=== PATIENT | male | born 1980 | race African-American/Black ===

== ENCOUNTER 2022-07-20 21:16 | Emergency (ER) | payer OTHER, SELFPAY ==
--- NOTE | ~2022-07-20 | CT_ITS ---
EXAMINATION: CT brain wo con DATE: 07/21/2022 00:37 INDICATION: Altered mental status. TECHNIQUE: Computed tomography (CT) of the head was performed without intravenous contrast. The mA wa s adjusted according to patient size. Iterative reconstruction technique was employed. The dose-lengt h product was 605.33 mGy-cm. COMPARISON: None FINDINGS: There is no intracranial hemorrhage, acute infarction, or abnormal intracranial mass lesion . The ventricles are normal in size. There is an old blowout fracture of medial wall of right orbit. There is mucosal thickening in the paranasal sinuses. There is thickening and sclerosis of the cagle of left sphenoid sinus, consistent with chronic sinusitis. The mastoid air cells are normal. IMPRESSION: 1. Normal brain. 2. Chronic sinusitis. Reviewed, dictated and finalized at location A. R REPAIRER
--- NOTE | ~2022-07-20 | XR_ITS ---
XR chest 2V DATE: 07/20/2022 22:09 INDICATION: Altered mental status TECHNIQUE: PA and lateral views COMPARISON: None FINDINGS: Normal heart size. No hilar or mediastinal enlargement. No pulmonary infiltrate or consolid ation, pleural effusion or pulmonary vascular congestion or pneumothorax. IMPRESSION: No active cardiopulmonary disease Reviewed, dictated and finalized at location A. CE SERVICES MANAGER
[2022-07-20 21:18] VITALS: BP 120/99; PULSE 106; RESP 16; TEMP 36.7; O2SAT 100
--- NOTE | 2022-07-20 21:49 | ECG_ITS ---
Measurements Intervals [place] Rate: 92 P: 86 CO: 169 QRS: 45 QRSD: 84 T: 67 QT: 350 QTc: 434 Interpretive Statements SINUS RHYTHM ATRIAL PREMATURE COMPLEX BASELINE ARTIFACT- I, II, III, AVR, AVL, AVF, V1-V2 BORDERLINE ECG NO PREVIOUS ECG AVAILABLE FOR COMPARISON Electronically Signed On 07-21-2022 6:48:46 TRAINING MGR by Asa Chaparro D.O.
[2022-07-20 22:05] LABS: Basophils Absolute Auto 0.1 K/mm3 (0.0-0.1); Basophils Percent Auto 1.1 % (0.2-1.2); Eosinophils Absolute Auto 0.4 K/mm3 (0-0.3); Eosinophils Percent Auto 4.3 % (0-4.4); Hematocrit 37.3 % (42.0-52.0); Hemoglobin 12.2 g/dL (14.0-18.0); Immature Granulocyte Absolute 0.03 K/mm3 (0.00-0.031); Immature Granulocyte Percent A 0.3 % (0-0.5); Lymphocytes Absolute Auto 2.96 K/mm3 (0.9-3.2); Lymphocytes Percent Auto 32.4 % (18.3-44.2); Mean Corpuscular HGB Conc 32.7 g/dl (32-36); Mean Corpuscular Volume 85.6 fl (80-100); Mean Platelet Volume 8.8 fl (7.4-10.4); Monocytes Absolute Auto 0.5 K/mm3 (0.1-0.6); Monocytes Percent Auto 5.6 % (2.6-8.5); Neutrophils Absolute Auto 5.1 K/mm3 (1.3-6.7); Neutrophils Percent Auto 56.3 % (45.5-73.1); Platelet Count Result 222 k/mm3 (150-375); Red Blood Count 4.36 M/mm3 (4.6-6.20); Red Cell Distribution Width 11.9 % (11.5-14.5); White Blood Count 9.1 K/mm3 (4.5-10.0)
[2022-07-20 22:15] LABS: INR 1.1; Prothrombin Time 13.8 Seconds (11.1-14.7)
[2022-07-20 22:16] LABS: Lactic Acid Reflex 1.3 mmol/L (0.7-2.0); Partial Thromboplastin Time 32.7 SECONDS (22.3-36.8)
[2022-07-20 22:17] LABS: Ethanol < 10 mg/dL (<10)
[2022-07-20] MEDS: SODIUM CHLORIDE 0.9% IV 1,000 ML 999 ML IV CONT (22:17)
[2022-07-20 22:18] LABS: Alanine Aminotransferase 58 U/L (6-50); Albumin Level 4.2 g/dL (3.5-5.1); Alkaline Phosphatase 176 U/L (38-126); Anion Gap 7 mmol/L (8-16); Aspartate Amino Transferase 62 U/L (17-59); Bilirubin,Total 0.3 mg/dL (0.2-1.3); Blood Urea Nitrogen 14 mg/dL (9-20); Calcium 8.6 mg/dL (8.4-10.2); Carbon Dioxide 29 mmol/L (22-30); Chloride 101 mmol/L (98-107); Creatine Kinase 77 U/L (55-170); Estimated CRCL calculation 72 ml/min; Estimated Glomerular Filt Rate > 60; Glucose 188 mg/dL (65-110); Potassium 3.7 mmol/L (3.4-5.0); Sodium 137 mmol/L (137-145)
[2022-07-20 22:29] LABS: Troponin I < 0.012 ng/mL (0.000-0.034)
--- NOTE | 2022-07-20 22:33 | PC.NURSE ---
Pt has a history of diabetic retinopathy and is losing his vision and as a result has been living with his parents. Pt reports feeling closed in and ran out of the house to try and feel better. Pt is not coping with losing his vision and depending on others for help. He denies SI/HI. He is alert and oriented x4. His speech is clear, moves all extremities equally. He denies any SOB, n/v, or pain. He is cooperative with staff at this time.
--- NOTE | 2022-07-20 22:35 | PC.NURSE ---
Patient making non-sensible statements such as there is a needle in my penis. and can you take my gloves off because they are sticky?
--- NOTE | 2022-07-20 22:39 | ED.PSYCH ---
HPI - Psych General Chief Complaint: Psychiatric Symptoms <Marilyn Augustin MD - Last Filed: 07/21/22 19:30> Stated Complaint: violent episode <Marilyn Augustin MD - Last Filed: 07/21/22 19:30> Time Seen by Provider: 07/20/22 21:36 <Marilyn Augustin MD - Last Filed: 07/21/22 19:30> Source: patient, family and RN notes reviewed <Marilyn Augustin MD - Last Filed: 07/21/22 19:30> Mode of arrival: wheelchair <Marilyn Augustin MD - Last Filed: 07/21/22 19:30> Limitations: no limitations <Marilyn Augustin MD - Last Filed: 07/21/22 19:30> History of Present Illness HPI Narrative: This is a 42 year old male with history of DM who presents for evaluation of hallucinations. Patient presents with his mother and father who states that patient has been staying with them due to blindness. Patient states he is going blind due to his diabetes. He states he can see shapes and colors. Family reports that one of their neighbors called the police tonight. Patient ran out of the house because he told them they were trying to kill him. His family states that he has been paranoid for at least 1 week. He ran out of the house tonight and he ran into a neighbors yard. Family reports patient is hallucinating. Patient denies hearing voices. He denies any acute issues. He denies suicidal or homicidal ideations. He denies any psychiatric illnesses. He states he has not drank alcohol in 1 week. He smoked marijuana yesterday and he reports using cocaine in the past. <Marilyn Augustin MD - Last Filed: 07/21/22 19:30> Related Data Home Medications: Home Medications Medication Instructions Recorded Confirmed duloxetine 30 mg capsule,delayed mg PO 07/21/22 release gabapentin 300 mg capsule mg 07/21/22 insulin lispro 100 unit/mL subcut 07/21/22 subcutaneous pen (Humalog KwikPen (U-100) Insulin) nitrofurantoin 07/21/22 monohydrate/macrocrystals 100 mg capsule potassium chloride 10 mEq meq 07/21/22 capsule,extended release <Marilyn Augustin MD - Last Filed: 07/21/22 19:30> Allergies/Adverse Reactions: Allergies Allergy/AdvReac Type Severity Reaction Status Date / Time No Known Allergies Allergy Verified 07/21/22 10:49 <Marilyn Augustin MD - Last Filed: 07/21/22 19:30> Review of Systems Constitutional: Constitutional: Denies weakness <Marilyn Augustin MD - Last Filed: 07/21/22 19:30> Eyes: Eyes: Reports change in vision <Marilyn Augustin MD - Last Filed: 07/21/22 19:30> Cardiovascular: Cardiovascular: Denies syncope, Denies rapid heart rate, Denies irregular heart rhythm, Denies leg edema and Denies dyspnea <Marilyn Augustin MD - Last Filed: 07/21/22 19:30> Respiratory: Respiratory: Denies chest congestion, Denies hemoptysis, Denies excessive phlegm production and Denies dyspnea <Marilyn Augustin MD - Last Filed: 07/21/22 19:30> Gastrointestinal: Gastrointestinal: Denies abdominal pain, Denies hematochezia, Denies diarrhea and Denies vomiting <Marilyn Augustin MD - Last Filed: 07/21/22 19:30> Genitourinary: Genitourinary: Denies hematuria, Denies dysuria, Denies penile discharge and Denies testicular pain <Marilyn Augustin MD - Last Filed: 07/21/22 19:30> Musculoskeletal: Musculoskeletal: Denies joint swelling, Denies loss of height and Denies muscle weakness <Marilyn Augustin MD - Last Filed: 07/21/22 19:30> Neurologic: Denies syncope, Denies focal weakness and Denies weakness <Marilyn Augustin MD - Last Filed: 07/21/22 19:30> PMFSH Past Medical History Medical History: Medical History (Updated 07/21/22 @ 04:50 by Marilyn Augustin MD) Cataract Diabetes mellitus <Marilyn Augustin MD - Last Filed: 07/21/22 19:30> Surgical History Surgical History: Surgical History (Updated 07/20/22 @ 22:45 by Marilyn Augustin MD) No pertinent past surgical history <Marilyn Augustin MD - Last Filed: 07/21/22 19:30> Social Hist
[2022-07-20 23:15] LABS: Appearance Urine Clear (Clear); Bilirubin Urine Negative (Negative); Blood Urine Trace-intact (Negative); Color Urine Yellow (Yellow); Glucose Urine UA Trace mg/dL (Negative); Ketones Urine Negative (Negative); Leukocyte Esterase Ur Negative LEU/UL (Negative); Nitrate Urine Negative (Negative); Protein Urine Trace mg/dL (Negative); Specific Grav Ur 1.025 (1.001-1.035); Urobilinogen Urine 0.2 mg/dL (<2.0)
[2022-07-20 23:21] LABS: Calcium Oxalate Crystals Urine Present /hpf; Mucus Urine Rare /lpf; WBC Urine 0-3 /hpf
[2022-07-20 23:27] LABS: Amphetamine Screen Urine Negative (Negative); Barbiturate Screen Urine Negative (Negative); Benzodiazepines Screen Urine Negative (Negative); Cannabinoid Screen Urine Positive (Negative); Cocaine Screen Urine Negative (Negative); Methadone Screen Urine Negative (Negative); Opiate Screen Urine Negative (Negative); Phencyclidine Screen Urine Negative (Negative)
[2022-07-20 23:46] LABS: Add Urine Microscopic? YES
[2022-07-20 23:52] LABS: Influenza A QL RT-PCR Negative (Negative); Influenza B QL RT-PCR Negative (Negative); SARS-CoV-2 RNA PCR Negative
[2022-07-20 23:53] VITALS: BP 115/86; PULSE 94; RESP 18; O2SAT 100
[2022-07-21] MEDS: LORazepam INJ (*CRX) 2 MG/ML VIAL 1 MG IV PUSH (01:41)
--- NOTE | 2022-07-21 01:43 | PC.NURSE ---
Pt's family member stepped out into waiting room. Pt heard talking to people who are not in the room and getting out of bed and standing in the corner. Pt was easily redirected back into bed without incident. Notified monorail charger operator that pt would benefit from a sitter but there are no sitters available. Ativan administered per order. Blankets given to pt and lights turned off to encourage sleep.
--- NOTE | 2022-07-21 02:10 | PC.NURSE ---
Pt up to bathroom and back to bed using wheelchair. Family back at bedside. Informed family that we are waiting for CT report to come back before mental health can be called. Blankets placed on pt and lights turned off to encourage rest.
--- NOTE | 2022-07-21 03:02 | PC.NURSE ---
Pt is very restless and has attempted to get out of bed multiple times despite many attempts to redirect him. Dr. Augustin notified.
[2022-07-21] MEDS: HALOPERIDOL LACTATE 5 MG/ML VIAL IM (03:22)
--- NOTE | 2022-07-21 03:29 | PC.NURSE ---
Pt medically cleared at this time per Dr. Augustin. [facility] crisis line called for worker to come evaluate pt for hallucinations.
--- NOTE | 2022-07-21 04:25 | PC.NURSE ---
[facility] crisis workers at bedside
--- NOTE | 2022-07-21 04:53 | PC.NURSE ---
Chart printed for [facility] crisis workers.
--- NOTE | 2022-07-21 05:50 | PC.NURSE ---
Iliana from [facility] in [place] called to get information on pt. Report given and pt's chart faxed at this time to [phone]
--- NOTE | 2022-07-21 05:56 | PC.NURSE ---
[facility] called and stated they had no beds at this time. can call again after 11 am to check for possible discharges
--- NOTE | 2022-07-21 05:58 | PC.NURSE ---
[facility] called and declined patient stating that he does not meet criteria for admission
--- NOTE | 2022-07-21 05:59 | PC.NURSE ---
Marilu from [facility] called and report given. Chart faxed to [facility] at [phone].
--- NOTE | 2022-07-21 06:28 | PC.NURSE ---
SUCCESSFULLY FAXED CHART TO [facility] AND [facility]. TRIED NUMEROUS TIMES (4X) TO FAX TO [facility]...ALL UNSUCCESSFUL. CALLED TO CONFIRM FAX NUMBER AND SPOKE TO [facility] WHO GAVE ME A DIFFERENT FAX NUMBER ([phone]) THAT WAS ALSO UNSUCCESSFUL. TRIED CALLING THEM BACK TO CONFIRM THE FAX NUMBER AGAIN, SPOKE TO [facility], AGAIN, HE SAID THAT WAS THE ONLY NUMBER HE HAD...TRANSFERRED ME TO [facility]...NO ANSWER.
[2022-07-21 06:50] VITALS: BP 146/100; PULSE 107; RESP 18; O2SAT 100
--- NOTE | 2022-07-21 07:08 | PC.NURSE ---
Nurse report given to Jocelin DURAN
--- NOTE | 2022-07-21 08:14 | PC.NURSE ---
[id number] declined placement due to staff shortage
--- NOTE | 2022-07-21 09:00 | PC.NURSE ---
[facility] [place]
--- NOTE | 2022-07-21 09:39 | PC.NURSE ---
3rd attempt [facility]ing [facility] [place]
--- NOTE | 2022-07-21 10:12 | PC.NURSE ---
Up to bathroom, when nurse checked on pt he states I'm just looking for the breakfast buffet. Pt returned to room. Cooperative with staff.
--- NOTE | 2022-07-21 12:30 | PC.NURSE ---
Awaiting crisis to re-evaluate pt. [facility] unable to take pt at this time.
--- NOTE | 2022-07-21 13:50 | PC.NURSE ---
Crisis here to re-evaluate.
== END 2022-07-21 15:12 | disposition home or self-care (01) ==
PROVIDERS: Emergency Provider General Practice
DX: F29 Unspecified psychosis not due to a substance or known physiological condition (principal); E11.39 Type 2 diabetes mellitus with other diabetic ophthalmic complication; H54.7 Unspecified visual loss; Z79.4 Long term (current) use of insulin
CPT/HCPCS: 36415; 70450; 71046; 80053; 80307; 81001; 82550; 83605; 84484; 85025; 85610; 85730; 87636; 93005; 96361; 96372; 96374; 99284; J1630; J2060; J7030

== ENCOUNTER 2024-10-25 11:01 | Inpatient (IN) | payer OTHER, SELFPAY ==
[2024-10-25] VITALS (9 sets, daily range): BP systolic 110–133; BP diastolic 81–89; PULSE 72–85; RESP 13–16; TEMP 36.3–37.1; O2SAT 98–100; BMI 14.8
--- NOTE | ~2024-10-25 | XR_ITS ---
EXAMINATION: XR chest 1V portable DATE: 10/25/2024 11:24 INDICATION: Hypoglycemia. Seizure. TECHNIQUE: frontal view of the chest was obtained. COMPARISON: Chest radiograph dated 07/20/2022 FINDINGS: Minimal right apical pleural-parenchymal scarring. No other airspace opacities, pulmonary edema, pleu ral effusion or pneumothorax. The cardiomediastinal silhouette is normal. Mild thoracic dextrocurvatu re. IMPRESSION: 1. No acute cardiopulmonary disease. Reviewed, dictated and finalized at location A.
--- NOTE | ~2024-10-25 | CT_ITS ---
EXAMINATION: CT brain wo con DATE: 10/25/2024 12:17 INDICATION: Seizure TECHNIQUE: Computed tomography (CT) of the head was performed without intravenous contrast. Sagittal and coronal reconstructions were performed. The mA was adjusted according to patient size. Iterative reconstruction technique was employed. The dose-length product was 605.33 mGy-cm. COMPARISON: head CT dated 07/21/2022 FINDINGS: No acute intracranial hemorrhage, acute infarction or abnormal extra axial fluid collection. Ventricl es are normal and symmetric. No mass/mass effect. Chronic blowout fracture of the medial wall of the right orbit. The orbitsare otherwise normal. There is complete opacification of the left sphenoid sin us with thickened sclerotic cagle consistent with chronic sinusitis. Mastoid air cells and middle ear cavities are clear. IMPRESSION: 1. Normal brain. 2. Chronic left sphenoid sinusitis. Reviewed, dictated and finalized at location A.
--- NOTE | ~2024-10-25 | CT_ITS ---
CLINICAL INDICATION: Abdominal pain and weight loss COMPARISON: None TECHNIQUE: An enhanced CT of the abdomen and pelvis was performed utilizing multislice spiral what3words ue reconstructed at 5 mm slice thickness. Coronal and sagittal reconstructions were performed. This CT examination was performed utilizing dose reduction techniques. DLP: 256 mGy-cm FINDINGS/OBSERVATIONS: Lung: The lungs are clear. The heart is of normal size, without pericardial effusion. Mediastinum: No pathologically enlarged or morphologically suspicious lymph nodes are identified within the medias tinum, bilateral axilla, within the soft tissues of the anterior chest wall. Soft tissues of the chest: Unremarkable. Bones of the chest: No acute fracture. No lytic or blastic lesions are identified. Liver: The liver enhances homogeneously and is not enlarged. Gallbladder and biliary system: The gallbladder is decompressed and contains multiple stones, but is otherwise unremarkable. Pancreas: Diffuse calcifications are identified within the pancreas, findings consistent with chronic pancreatitis. The remainder of the pancreas otherwise enhances homogeneously, without ductal dilatation. Spleen: The spleen enhances homogeneously and is not enlarged. Kidneys: The bilateral kidneys enhance symmetrically without hydronephrosis or renal calculi. A left-sided rafaela ble-J stent is present. The distal pigtail of the double-J stent is identified within the right side of the patient's bladder, which is decompressed with a Estrada catheter. Rounded focus of soft tissue attenuation within the lower pole of the right kidney, demonstrating not quite fluid attenuation for which focused ultrasound of the bilateral kidneys may be performed for f urther evaluation. Adrenal glands: Unremarkable. Gastrointestinal tract: The stomach is significantly distended with retained gastric contents, without a clear source of outl et obstruction. Appendix: The air-filled appendix is of normal caliber (axial series, image 170). Vasculature: No calcified atherosclerotic disease is present. No aneurysmal dilatation. Lymph nodes: Scattered nonpathologically enlarged lymph nodes within the root of the mesentery and deep in the pel vis. Pelvic structures: The bladder is decompressed with a Estrada catheter, limiting its evaluation. Body wall and musculoskeletal: No significant degenerative disease within the thoracic or lumbosacral spine. IMPRESSION: Rounded focus of soft tissue attenuation within the lower pole of the right kidney for which dedicate d ultrasound may be performed for further evaluation. Significant retained contents within both the stomach and proximal duodenum without a clear source of outlet obstruction identified. Findings consistent with chronic pancreatitis. Left-sided double-J stent. Cholelithiasis without CT findings to suggest acute cholecystitis. Reviewed, dictated and finalized at location A. IMPRESSION: Rounded focus of soft tissue attenuation within the lower pole of the right kid renay for which dedicated ultrasound may be performed for further evaluation. Significant retained contents within both the stomach and proximal duodenum wit hout a clear source of outlet obstruction identified. Findings consistent with chronic pancreatitis. Left-sided double-J stent. Cholelithiasis without CT findings to suggest acute cholecystitis.
--- NOTE | 2024-10-25 11:10 | ECG_ITS ---
Test Date: 2024-10-25 12:21:23 Measurements Intervals [place] Rate: 75 P: 83 TN: 148 QRS: 58 QRSD: 82 T: 84 QT: 386 QTc: 432 Interpretive Statements SINUS RHYTHM CANNOT R/O SEPTAL INFARCT, AGE INDETERMINATE BORDERLINE ST-T WAVE ABNORMALITY- HIGH LATERAL LEADS BASELINE ARTIFACT- I, II, III, AVR, AVL, AVF ABNORMAL ECG No previous ECG available for comparison Electronically Signed On 10-25-2024 14:20:23 CDT by Asa Chaparro D.O.
--- OUTSIDE RECORDS SUMMARY | 2024-10-25 11:16 | XMS_ITS | Encounter Summary ---
Author Organization [facility] Address [address] [place] [address] Care Team Providers Care Marine Electrician Helper Name Role Phone Dick Mccollum MD Primary Care Provider [phone] Unknown, Provider Primary Care Provider Unavaila Ladonna Avalos MD Unavailable [phone] Encounter Details Date Type Department Care Team (Late st Contact Info) Description 06/24/2024 Ophth Exam [facility] - Ophthalmology [address] [place] [id number] Grupo Blank MD [address] [place] [address] Social History Tobacco Use Types Packs/Day Years Used Date Smoking Tobacco: Some Days Cigarettes 0.5 10.3 Started: 07/09/2014 Passive Smoke Exposure: Current Smokeless Tobacco: Never Alcohol Use Standard Drinks/Week Comments Yes 0 (1 standard drink = 0.6 oz pur e alcohol) AUDIT-C Answer Date Recorded Q1: How often do you have a drink containing alc ohol? Monthly or less 06/21/2024 Q2: How many drinks containi ng alcohol do you have on a typical day when you are drinking? 1 or 2 06/21/2024 Q3: How often do you have si x or more drinks on one occasion? Never 06/21/2024 Overall Financial Resource Strain (CARDIA) Answe r Date Recorded How hard is it for you to pa y for the very basics like food, housing, medical care, and heating? Not hard at all 06/21/2024 [facility] - Occupational Stress Questionnaire Answer Date Recorded Do you feel stress - tense, restless, nervous, or anxious, or unable to sleep at night because your mind is troubled all the time - these days? Only a little 06/21/2024 Hunger Vital Sign Answer Date Recorded Within the past 12 months, y ou worried that your food would run out before you got the money to buy more. Never true 06/21/20 24 Within the past 12 months, t he food you bought just didn't last and you didn't have money to get more. Never true 06/21/2024 PRAPARE - Transportation Answer Date Re corded In the past 12 months, has l ack of transportation kept you from medical appointments or from getting medications? No 06/08 In the past 12 months, has l ack of transportation kept you from meetings, work, or from getting things needed for daily living? No 06/21/2024 Housing Stability Vital Sign Answer Avery e Recorded In the last 12 months, was t here a time when you were not able to pay the mortgage or rent on time? No 06/21/2024 In the past 12 months, how m any times have you moved where you were living? 0 06/21/2024 At any time in the past 12 m [facility], were you homeless or living in a halfway (including now)? No 06/21/2024 Sex and Gender Information Value Date Recorded Sex Assigned at Not on file Legal Sex Male 9:17 AM EXECUTIVE RECRUITER Gender Identity Not on file Sexual Orientation Not on file documented as of this encounter Functional Status * Is person deaf or have serious hearing difficulty? Answer Date of Assessment Author No 06/24/2024 11:23 AM Gretel Mcwilliams RN * Is person blind or have serious difficulty seeing? Answer Date of Assessment Author No 06/24/2024 11:23 AM Gretel Mcwilliams RN * Does person have serious difficulty walking/climbing stairs? Answer Date of Assessment Author No 06/24/2024 11:23 AM Gretel Mcwilliams RN * Does person have difficulty dressing/bathing? Answer Date of Assessment Author No 06/24/2024 11:23 AM Gretel Mcwilliams RN * Does person have difficulty doing errands alone? Answer Date of Assessment Author No 06/24/2024 11:23 AM Gretel Mcwilliams RN documented as of this encounter Mental Status * Does person have difficulty concentrating/remembering/making decisions? Answer Entry Date Author No 06/24/2024 11:23 AM Gretel Mcwilliams RN documented in this encounter Plan of Treatment Upcoming Encounters Date Type Department Care Team (Latest Contact Info) Description 11/12/2024 12:00 PM CDT Hospital Encounter [facility] [address] [place] [address] SilvanoJosie neri, [address] [facility] [address] [place] [id number] Surgery General 11/12/2024 12:00 PM CDT - 11/12/2024 2:00 PM CDT Surgery [facility] [address] [place] [address] SilvanoJosie donato, [address] [facility] [address] [place] [address] Cystoscopy, left ureteroscopic stone extraction, laser lithotripsy Scheduled Procedures Name Priority Associated Diagnoses Date/Ti me CYSTOSCOPY URETEROSCOPY WITH LASER/HOLMIUM LITHOTRIPSY Nephrolithiasis 11/12/2024 12:00 PM CDT CYSTOSCOPY WITH RETROGRADE PYELOGRAM Nephrolithiasis 11/12/2024 12:00 PM CDT CYSTOSCOPY WITH INSERTION URETERAL STENT Nephrolithiasis 11/12/2024 12:00 PM CDT INSERTION CATHETER SUPRAPUBIC Nephrolithiasis 11/12/2024 12:00 PM CDT documented as of this encounter Visit Diagnoses Not on filedocumented in this encounter Additional Health Concerns Infection Onset Date Last Indicated Resolved Time CDIFF Under Investigation 06/23/2024 06/23/2024 2:27 AM EXECUTIVE RECRUITER ESBL GNR 06/23/2024 06/23/2024 10/06/2024 8:04 AM CDT CDIFF Under Investigation 10/03/2024 10/03/2024 4:41 PM CDT ESBL Hx 10/06/2024 10/06/2024 CDIFF Under Investigation 10/16/2024 10/16/2024 1:59 PM CDT documented as of this encounter Care Teams Marine Electrician Helper Relationship Specialty Start Date End Date Dick Mccollum MD [address] [place] [address] [id number] PCP - General Hospitalist 06/20/24 10/20/24 Unknown, Provider PCP - General 10/21/24 Ladonna Agrawal MD [address] [place] [address] Physician Infectious Disease 10/21/24 documented as of this encounter
--- OUTSIDE RECORDS SUMMARY | 2024-10-25 11:16 | XMS_ITS | Encounter Summary ---
Author Organization [facility] Address [address] [place] [address] Care Team Providers Care Wool Batting Worker Name Role Phone Dick Mccollum MD Primary Care Provider [phone] Raul Lara MD Primary Care Provider [phone] Encounter Details Date Type Department Care Team (Late st Contact Info) Description 03/21/2024 Telephone [facility] Medical Group Primary Care at [address] [place] [address] Dick Mccollum MD [address] [place] [address] [address] [place] [address] Social History Tobacco Use Types Packs/Day Years Used Date Smoking Tobacco: Former Cigarettes Cigars Smokeless Tobacco: Never Comments:4-5 black and mild Alcohol Use Standard Drinks/Week Comments Yes 21 (1 standard drink = 0.6 oz pu re alcohol) daily AUDIT-C Answer Date Recorded Q1: How often do you have a drink containing alcohol? Never 02/12/2024 Q2: How many drinks containi ng alcohol do you have on a typical day when you are drinking? Patient does not drink Q3: How often do you have si x or more drinks on one occasion? Never 02/12/2024 PHQ-2 Answer Date Recorded PHQ-2 Total Score (If total score is 3 or more points, staff should administer the PHQ-9) 0 02/13/2024 PHQ-9 Answer Date Recorded PHQ-9 Total Score 24 09/19/2023 Personal Safety Answer Date Recorded Have you ever been in or are you currently in a harmful physical or emotional relationship or is someone making you feel afraid or unsafe? Denies 02/06/2024 Sex and Gender Information Value Date Recorded Sex Assigned at Not on file Legal Sex Male 1:02 AM OPERATIONS MGR Gender Identity Not on file Sexual Orientation Not on file documented as of this encounter Plan of Treatment Not on file documented as of this encounter Visit Diagnoses Not on filedocumented in this encounter Care Teams Wool Batting Worker Relationship Specialty Start Date End Date Dick Mccollum MD [address] [facility] [facility] [address] [place] [address] PCP - General Family Medicine 02/28/23 08/11/24 Raul Lara MD [address] [facility] [facility] [address] [place] [address] PCP - General Family Medicine 08/12/24 documented as of this encounter
--- OUTSIDE RECORDS SUMMARY | 2024-10-25 11:16 | XMS_ITS | Clinical Summary ---
Author Organization [facility] Address [address] [place] [address] Phone Care Team Providers Care Assistant Professor Of Nursing Name Role Phone Dick Mccollum MD Primary Care Provider [phone] Allergies No known active allergies Medications acetaminophen-c odeine (TYLENOL #3) 300-30 MG Tablet Take 1 Tab by mouth every 4 hours as needed for Pain. 14 Tab 0 6 Active oxyCODONE (ROXICODONE) 5 MG Tablet Take 1 Tab by mouth every 4 hours as needed. 12 Tab 0 7 Active ondansetron (ZOFRAN) 4 MG Tablet Take 1 Tab by mouth every 8 hours as needed for Nausea. 10 Tab 0 7 Active potassium chloride (MICRO-K) 10 MEQ Capsule CR Take 1 Capsule by mouth 2 times daily. 14 Capsule 3 Active Additional Information Patient not taking.Reported on 06/21/2024 Insulin Lispro (HUMALOG KWIKPEN SC) 5 Units/L by Subcutaneous route 3 times daily (with meals). Active gabapentin (NEURONTIN) 600 MG Tablet Take 600 mg by mouth 2 times daily. Active insulin glargine (Lantus) 100 UNIT/ML Solution 8 Units by Subcutaneous route every morning. Active Active Problems Problem Noted Date Diagnosed Date Acute kidney injury 06/21/2024 Kidney stone 06/21/2024 Sepsis 06/21/2024 History of pancreatitis 08/28/2016 Elevated liver enzymes 08/28/2016 Resolved Problems Problem Noted Date Diagnosed Date Resolved Date Generalized abdominal pain 08/28/2016 0 08/31/2016 Acute gastritis 08/28/2016 08/31/2016 Encounters Date Type Department Care Team Description 10/03/2024 Results Follow-Up [facility] Emergency [address] [place] [address] Veronique Rust APRN, CNP 10/01/2024 11:47 AM CDT - 10/01/2024 5:32 PM CDT Emergency [facility] Emergency [address] [place] [address] Doron Nicolas DO Hydronephrosis Discharge Disposition: Short Term Hospital for [facility]pt [facility] 10/01/2024 Travel 08/04/2024 Transcribe Orders [facility] [address] [place] [address] Rual Lara MD Physical deconditioning (Primary Dx) from Last 3 Months Social History Tobacco Use Types Packs/Day Years Used Date Smoking Tobacco: Every Day Cigarettes Smokeless Tobacco: Never Tobacco Cessation:Ready to Q uit: Not Asked; Counseling Given: Not Answered Alcohol Use Standard Drinks/Week Comments Yes 0 (1 standard drink = 0.6 oz pur e alcohol) [facility] Utilities Answer Date Recorded In the past 12 months has [employer] electric, gas, oil, or water company threatened to shut off services in your home? Patient declined 06/21/2024 Social Connection and Isolation Panel [NHANES] A nswer Date Recorded In a typical week, how many times do you talk on the phone with family, friends, or neighbors? Patient declined 06/21/2024 How often do you get togethe r with friends or relatives? Patient declined 06/21/2024 How often do you attend rastafarian or sabianist serv ices? Patient declined 06/21/2024 Do you belong to any clubs o r organizations such as rastafarian groups, unions, fraternal or athletic groups, or school groups? Patient declined 06/21/2024 How often do you attend meet ings of the clubs or organizations you belong to? Patient declined 06/21/2024 Are you , , di vorced, , never , or living with a partner? Patient declined 06/21/2024 AUDIT-C Answer Date Recorded Q1: How often do you have a drink containing alc ohol? Patient declined 06/21/2024 Q2: How many drinks containi ng alcohol do you have on a typical day when you are drinking? Patient declined 06/21/2024 Q3: How often do you have si x or more drinks on one occasion? Patient declined 06/21/2024 Overall Financial Resource Strain (CARDIA) Answe r Date Recorded How hard is it for you to pa y for the very basics like food, housing, medical care, and heating? Patient declined 06/21/2024 [facility] - Occupational Stress Questionnaire Answer Date Recorded Do you feel stress - tense, restless, nervous, or anxious, or unable to sleep at night because your mind is troubled all the time - these days? Patient declined 06/21/2024 Exercise Vital Sign Answer Date Recorde d On average, how many days pe r week do you engage in moderate to strenuous exercise (like a brisk walk)? Patient declined On average, how many minutes do you engage in exercise at this level? Patient declined 06/21/2024 Hunger Vital Sign Answer Date Recorded Within the past 12 months, y ou worried that your food would run out before you got the money to buy more. Patient declined Within the past 12 months, t he food you bought just didn't last and you didn't have money to get more. Patient declined PRAPARE - Transportation Answer Date Re corded In the past 12 months, has l ack of transportation kept you from medical appointments or from getting medications? Patient declined 06/21/2024 In the past 12 months, has l ack of transportation kept you from meetings, work, or from getting things needed for daily living? Patient declined 06/21/2024 Housing Stability Vital Sign Answer Avery e Recorded In the last 12 months, was t here a time when you were not able to pay the mortgage or rent on time? Patient declined 06/21/20 24 In the past 12 months, how m any times have you moved where you were living? 1 06/21/2024 At any time in the past 12 m [facility], were you homeless or living in a custodial (including now)? Patient declined 06/21/2024 Sex and Gender Information Value Date Recorded Sex Assigned at Not on file Legal Sex Male 12:22 AM CDT Gender Identity Not on file Sexual Orientation Not on file Last Filed Vital Signs Vital Sign Reading Time Taken Comments Blood Pressure 95/83 10/01/2024 5:00 PM CDT Pulse 83 10/01/2024 5:00 PM CDT Temperature 36.2 C (97.2 F) 10/01/2024 5:00 PM CDT Respiratory Rate 14 10/01/2024 5:00 PM CDT Oxygen Saturation 99% 10/01/2024 5:00 PM CDT Inhaled Oxygen Concentration - - Weight 45.4 kg (100 lb) 10/01/2024 11:45 AM CDT Height 177.8 cm (5' 10 ) 10/01/2024 11:45 AM CDT Body Mass Index 14.35 10/01/2024 11:45 AM CDT Plan of Treatment Health Maintenance Due Date Last Done Comments Hepatitis B Immunization (1 of 3 - 19+ 3-dose series) 1997 Pneumococcal Immunization Combined (1 of 2 - PCV) 1997 SARS-COV-2 Immunization (2 - season) 2024 08/03/2021 Influenza Immunization (Season Ended) 2025 Colonoscopy 02/05/2034 02/06/2024, 02/06/2024, 08/01/2023 Colorectal Cancer Screening 02/05/2034 Respiratory Syncytial Virus (RSV) Immunization (Adult) (1 - 1-dose 75+ series) 2053 02/06/2024, 02/06/2024, 08/01/2023 DTaP/Tdap/Td Immunization Discontinued 2018, 11/21/2014 TdaP Immunization Completed 04/23/2019, 11/21/2014 Hepatitis C Virus (HCV) Screening Completed 06/21/2024, 12/21/2022 Meningococcal Immunization (ACWY) Aged Out No longer eligible based on patient's age to complete this topic Rotavirus Immunization Aged Out No lo nger eligible based on patient's age to complete this topic Procedures Procedure Name Priority Date/Time Associated Diagnosis Comments LACTIC ACID (LACTATE) STAT 10/01/2024 2:45 PM CDT URINALYSIS REFLEX IF INDICATED BY ABNORMAL RESULTS STAT 10/01/2024 2:31 PM CDT CULTURE, URINE Routine 10/01/2024 2:[address] ABDOMEN PELVIS W/O CONTRAST Stat with Interpretation 10/01/2024 1:13 PM CDT XR CHEST SINGLE VIEW PORTABLE STAT 10/01/2024 1:03 PM CDT CULTURE, BLOOD STAT 10/01/2024 12:24 PM CDT EKG 12 LEAD STAT 10/01/2024 12:09 PM CDT GOLD TOP TUBE STAT 10/01/2024 12:05 PM CDT BLUE TOP TUBE STAT 10/01/2024 12:05 PM CDT EXTRA TUBES STAT 10/01/2024 12:05 PM CDT CRITICAL CARE Routine 10/01/2024 12:03 PM CDT CULTURE, BLOOD STAT 10/01/2024 12:02 PM CDT CBC WITH AUTO DIFFERENTIAL STAT 10/01/2024 12:00 PM CDT LIPASE STAT 10/01/2024 12:00 PM CDT LACTIC ACID (LACTATE) STAT 10/01/2024 12:00 PM CDT CMP (COMPREHENSIVE METABOLIC PANEL) STAT 10/01/2024 12:00 PM CDT COMPLETE BLOOD COUNT (CBC) WITH DIFF STAT 10/01/2024 12:00 PM CDT EKG SCAN 10/01/2024 12:00 AM CDT from Last 3 Months Results * Lactic Acid (Lactate) (10/01/2024 2:45 PM CDT) Only the most recent of2 resultswithin the time period is included. [facility] LACTIC ACID 1.4 0.7 - 2.0 mmol/L 10/01/2024 3:09 PM CDT [facility] Blood Venipuncture / Unknown 10/01/2024 2:45 PM CDT 10/01/2024 2:48 PM CDT us Doron Nicloas DO CHEMISTRY ORDERABLES Fi nal Result [facility] [address] [place] [address] * (ABNORMAL) URINALYSIS REFLEX IF INDICATED BY ABNORMAL RESULTS (10/01/2024 2:31 PM CDT) [facility] SPECIFIC GRAVITY 1.025 1.003 - 1.030 10/01/2024 9:53 PM CDT [facility] URINE PH 5.0 5.0 - 9.0 10/01/2024 9:53 PM CDT [facility] WBC ESTERASE 500 /uL(A) Negative 10/01/2024 9:53 PM CDT [facility] NITRITE Negative Negative 10/01/2024 9:53 PM CDT [facility] PROTEIN, RANDOM URINE 100 mg/dL(A) Negative 10/01/2024 9:53 PM CDT [facility] URINE GLUCOSE, QUAL Negative Negative 10/01/2024 9:53 PM CDT [facility] URINE KETONES Negative Negative 10/01/2024 9:53 PM CDT [facility] UROBILINOGEN Normal Normal mg/dL 10/01/2024 9:53 PM CDT [facility] URINE BLOOD 250 /uL(A) Negative roxanna/ul 10/01/2024 9:53 PM CDT [facility] URINALYSIS COLOR Yellow 10/02/19 9:53 PM CDT [facility] URINALYSIS CLARITY Very Cloudy 10/01/2024 9:53 PM CDT [facility] WBC (Urine) Packed(A) Negative, 0-5 /hpf 10/01/2024 9:53 PM CDT [facility] URINE RBC'S 11-20(A) Negative, 0-2 /hpf 10/01/2024 9:53 PM CDT [facility] EPITHELIAL CELLS Negative /lpf 10/02/19 9:53 PM CDT [facility] BACTERIA, URINE Many(A) Negative /hpf 10/01/2024 9:53 PM CDT [facility] URINE MUCOUS Many 10/01/2024 9:53 PM CDT [facility] URINE YEAST Few Budding Yeast 10/01/2024 9:53 PM CDT [facility] Urine URINE SPECIMEN / Unknown Non-Phlebotomy Collection / Unknown 10/01/2024 2:31 PM CDT 10/01/2024 2:48 PM CDT us Doron Nicolas DO URINE ORDERABLES Edited Result - Final [facility] [address] [place] [address] * Culture, Urine (10/01/2024 2:31 PM CDT) CULTURE RESULTS LACTOBACILLUS SPECIES 10/03/2024 7:[address] [facility] CULTURE RESULTS ERICK ALBICANS 10/03/2024 7:[address] [facility] Comment:SENSITIVITY NOT PERF ORMED Urine URINE SPECIMEN / Unknown Non-Phlebotomy Collection / Unknown 10/01/2024 2:31 PM CDT 10/01/2024 2:48 PM CDT Narrative [facility] - 10/03/2024 7:25 PM CDT Lactobacillus species further identified as lactobacillus acidophilus/gasseri us Doron Nicolas DO MICROBIOLOGY - GENERAL ORDERABLES Final Result [facility] [address] [place] [address], [place] * CT ABDOMEN PELVIS W/O CONTRAST (10/01/2024 1:13 PM CDT) Anatomical Region Laterality Modality Abdomen N/A Computed Tomogra phy 10/01/2024 1:52 PM CDT Impressions 10/01/2024 1:55 PM CDT IMPRESSION: Examination is limited by lack of contrast. 1. Interval development of moderate bilateral hydronephrosis with a markedly distended urinary bladder. Additionally there has been interval distal migration of an 8 mm stone into the mid left ureter compared to 06/21/2024. 2. Prominent anorectal soft tissue, not well evaluated on CT. Recommend correlation with rectal examination. To consider follow-up colonoscopy for further evaluation. 3. Additional chronic findings as above. Narrative 10/01/2024 1:55 PM CDT EXAM DESCRIPTION: CT ABDOMEN PELVIS W/O CONTRAST REASON FOR STUDY: C/o generalized weakness, diarrhea and decreased appetite x 3 days. H/o HTN, DM, pancreatitis TECHNIQUE: CT scan of the abdomen and pelvis performed without intravenous and without oral contrast using helical scanning technique. Reconstructed coronal and sagittal MPR images reviewed. All images stored on PACS. Automated exposure control was used as a dose optimization technique for this examination. COMPARISON: 06/21/2024 FINDINGS: The sensitivity for detection of visceral lesions is diminished without the use of intravenous contrast. LOWER CHEST: No significant pulmonary abnormalities. No effusion. LIVER: The liver is normal in size. No definite liver lesion is seen on this unenhanced CT examination. GALLBLADDER: The gallbladder is not well visualized. Appears to be partially distended cholelithiasis. BILE DUCTS: No intrahepatic or extrahepatic ductal dilatation. SPLEEN: Normal in size. PANCREAS: Diffuse calcifications throughout the pancreas as evidence for chronic pancreatitis. There is dilatation and beading of the pancreatic duct which is chronic as well. The duct measures approximately 6 mm. No significant periappendiceal stranding to suggest acute pancreatitis. No fluid collection is seen. ADRENALS: Normal. KIDNEYS/URINARY TRACT: The kidneys are normal in size. There is moderate bilateral hydronephrosis followed to the urinary bladder. There has been apparent distal migration of the previously seen stone within the left renal pelvis into the mid left ureter which measures approximately 8 x 5 x 8 mm (92). No definite renal stone is seen within either kidney. Evidence of a 2 cm right renal cyst. The urinary bladder is markedly distended. GI: Significantly limited evaluation the bowel due to lack of contrast. There is prominent anorectal soft tissue, not well evaluated on CT. There is no definitive dilatation of the colon. There is no definitive dilatation of the small bowel. The stomach is partially distended. PERITONEUM: There may be mesenteric edema. No significant ascites. No organized drainable fluid collection RETROPERITONEUM: No definite retroperitoneal lymphadenopathy. No inguinal lymphadenopathy. REPRODUCTIVE: No significant abnormality. VASCULATURE: No abdominal aortic aneurysm. MUSCULOSKELETAL: Body wall edema is present. OTHER: No other abnormality. THIS IS AN ELECTRONICALLY VERIFIED FINAL REPORT 10/01/2024 1:52 PM - Electronically signed by Bradley Deleon M.D. AG: JAMIL Report ID: [id number] Reading Location: [id number] Procedure Note Bradley Deleon MD - 10/01/2024 EXAM DESCRIPTION: CT ABDOMEN PELVIS W/O CONTRAST REASON FOR STUDY: C/o generalized weakness, diarrhea and decreased appetite x 3 days. H/o HTN, DM, pancreatitis TECHNIQUE: CT scan of the abdomen and pelvis performed without intravenous and without oral contrast using helical scanning technique. Reconstructed coronal and sagittal MPR images reviewed. All images stored on PACS. Automated exposure control was used as a dose optimization technique for this examination. COMPARISON: 06/21/2024 FINDINGS: The sensitivity for detection of visceral lesions is diminished without the use of intravenous contrast. LOWER CHEST: No significant pulmonary abnormalities. No effusion. LIVER: The liver is normal in size. No definite liver lesion is seen on this unenhanced CT examination. GALLBLADDER: The gallbladder is not well visualized. Appears to be partially distended cholelithiasis. BILE DUCTS: No intrahepatic or extrahepatic ductal dilatation. SPLEEN: Normal in size. PANCREAS: Diffuse calcifications throughout the pancreas as evidence for chronic pancreatitis. There is dilatation and beading of the pancreatic duct which is chronic as well. The duct measures approximately 6 mm. No significant periappendiceal stranding to suggest acute pancreatitis. No fluid collection is seen. ADRENALS: Normal. KIDNEYS/URINARY TRACT: The kidneys are normal in size. There is moderate bilateral hydronephrosis followed to the urinary bladder. There has been apparent distal migration of the previously seen stone within the left renal pelvis into the mid left ureter which measures approximately 8 x 5 x 8 mm (92). No definite renal stone is seen within either kidney. Evidence of a 2 cm right renal cyst. The urinary bladder is markedly distended. GI: Significantly limited evaluation the bowel due to lack of contrast. There is prominent anorectal soft tissue, not well evaluated on CT. There is no definitive dilatation of the colon. There is no definitive dilatation of the small bowel. The stomach is partially distended. PERITONEUM: There may be mesenteric edema. No significant ascites. No organized drainable fluid collection RETROPERITONEUM: No definite retroperitoneal lymphadenopathy. No inguinal lymphadenopathy. REPRODUCTIVE: No significant abnormality. VASCULATURE: No abdominal aortic aneurysm. MUSCULOSKELETAL: Body wall edema is present. OTHER: No other abnormality. THIS IS AN ELECTRONICALLY VERIFIED FINAL REPORT 10/01/2024 1:52 PM - Electronically signed by Bradley Deleon M.D. AG: JAMIL Report ID: [id number] Reading Location: [id number] IMPRESSION: Examination is limited by lack of contrast. 1. Interval development of moderate bilateral hydronephrosis with a markedly distended urinary bladder. Additionally there has been interval distal migration of an 8 mm stone into the mid left ureter compared to 06/21/2024. 2. Prominent anorectal soft tissue, not well evaluated on CT. Recommend correlation with rectal examination. To consider follow-up colonoscopy for further evaluation. 3. Additional chronic findings as above. us Doron Nicolas DO IMG CT ORDERABLES Final Result * XR CHEST SINGLE VIEW PORTABLE (10/01/2024 1:03 PM CDT) Anatomical Region Laterality Modality Chest N/A Digital Radiogra phy 10/01/2024 1:40 PM CDT Impressions 10/01/2024 1:42 PM CDT IMPRESSION: No acute cardiopulmonary abnormality. Narrative 10/01/2024 1:42 PM CDT EXAM DESCRIPTION: XR CHEST SINGLE VIEW PORTABLE REASON FOR STUDY: diahrrea, weakness, shortness of breath, decrease appetite x 3 days. Hx. DM, HTN, Pancreatitis. TECHNIQUE: Frontal radiographic view(s) of the chest. COMPARISON: 06/20/2024 FINDINGS: The lungs are well inflated. No consolidation, pulmonary edema, pleural effusion or pneumothorax. Heart size and mediastinal contours are normal. THIS IS AN ELECTRONICALLY VERIFIED FINAL REPORT 10/01/2024 1:40 PM - Electronically signed by Bradley Deleon M.D. AG: AG Report ID: [id number] Reading Location: [id number] Procedure Note Bradley Deleon MD - 10/01/2024 EXAM DESCRIPTION: XR CHEST SINGLE VIEW PORTABLE REASON FOR STUDY: diahrrea, weakness, shortness of breath, decrease appetite x 3 days. Hx. DM, HTN, Pancreatitis. TECHNIQUE: Frontal radiographic view(s) of the chest. COMPARISON: 06/20/2024 FINDINGS: The lungs are well inflated. No consolidation, pulmonary edema, pleural effusion or pneumothorax. Heart size and mediastinal contours are normal. THIS IS AN ELECTRONICALLY VERIFIED FINAL REPORT 10/01/2024 1:40 PM - Electronically signed by Bradley Deleon M.D. AG: AG Report ID: [id number] Reading Location: [id number] IMPRESSION: No acute cardiopulmonary abnormality. us Doron Nicolas DO IMG DIAGNOSTIC ORDERABL ES Final Result * Blood Culture #1 (10/01/2024 12:24 PM CDT) Only the most recent of2 resultswithin the time period is included. 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 glabrata is relatively resistant to fluconazole GRAM STAIN 10/04/2024 11:[address] [facility] Comment: Gram Stain read at 0855 on 10/03/2024 by [facility] Aerobic bottle positive after 1 day, 10 hours, 54 minutes Draw site: Not given GRAM STAIN 10/04/2024 11:[address] [facility] Comment: Gram Stain read at 14:47 on 10/03/2024 by [facility] Anaerobic bottle positive after 1 day, 16 hours, 34 minutes Culture BLOOD SPECIMEN / Unknown Venipuncture / Unknown 10/01/2024 12:24 PM CDT 10/01/2024 12:39 PM CDT Narrative [facility] - 10/04/2024 11:07 AM CDT For INDIGO please refer to culture collected 10/01/2024 [id number]. us Doron Nicolas DO MICROBIOLOGY - GENERAL ORDERABLES Final Result [facility] [address] [place] [address], * EKG 12 LEAD (10/01/2024 12:09 PM CDT) Ventricular Rate 87 BPM EXTERNAL EKG Atrial Rate 87 BPM EXTERNAL EKG P-R Interval 148 ms EXTERNAL EKG QRS Duration 72 ms EXTERNAL EKG Q-T Duration 386 ms EXTERNAL EKG QTC CALCULATION 464 ms EXTERNAL EKG P Fulton 80 degrees EXTERNAL EKG R Fulton 59 degrees EXTERNAL EKG T Fulton 83 degrees EXTERNAL EKG 10/01/2024 12:0 9 PM CDT Impressions EXTERNAL EKG - 10/01/2024 10:05 PM CDT Normal sinus rhythm Septal infarct (cited on or before 20-JUN-2024) Abnormal ECG When compared with ECG of 20-JUN-2024 22:41, ST elevation has replaced ST depression in Inferior leads ST elevation has replaced ST depression in Lateral leads QT has shortened Confirmed by CRISTAL GERMAIN ([id number]) on 10/01/2024 10:04:57 PM Narrative Procedure Note Cristal Germain MD - 10/01/2024 IMPRESSION: Normal sinus rhythm Septal infarct (cited on or before 20-JUN-2024) Abnormal ECG When compared with ECG of 20-JUN-2024 22:41, ST elevation has replaced ST depression in Inferior leads ST elevation has replaced ST depression in Lateral leads QT has shortened Confirmed by CRISTAL GERMAIN ([id number]) on 10/01/2024 10:04:57 PM us Doron Nicolas DO IMG ECG ORDERABLES Corie l Result Performing Organization Address [facility] de Phone Number EXTERNAL EKG * Gold Top Tube (10/01/2024 12:05 PM CDT) Blood No Phlebotomy Charged / Unknown 10/01/2024 12:05 PM CDT 10/01/2024 12:09 PM CDT us Doron Nicolas DO CHEMISTRY ORDERABLES Fi nal Result Performing Organization Address [facility] de Phone Number [facility] [address] [place] [address] * Blue Top Tube (10/01/2024 12:05 PM CDT) Blood No Phlebotomy Charged / Unknown 10/01/2024 12:05 PM CDT 10/01/2024 12:09 PM CDT us Doron Nicolas DO HEMATOLOGY ORDERABLES F inal Result Performing Organization Address [facility] de Phone Number [facility] [address] [place] [address] * Critical Care (10/01/2024 12:03 PM CDT) Narrative Doron Nicolas DO - 10/01/2024 12:03 PM CDT Doron Nicolas DO 10/01/2024 2:46 PM Critical Care Performed by: Doron Nicolas DO Authorized by: Doron Nicolas DO Critical care provider statement: Critical care time (minutes): 35 us Doron Chowdary Fidencio DO PROCEDURE/MINOR SURGICA L ORDERABLES Final Result * (ABNORMAL) CBC with Auto Differential (10/01/2024 12:00 PM CDT) WBC 18.25(H) 4.00 - 12.00 10(3)/mcL 10/01/2024 12:12 PM CDT [facility] RBC 3.98(L) 4.40 - 5.80 10(6)/mcL 10/01/2024 12:12 PM CDT [facility] HEMOGLOBIN (HGB) 10.6(L) 13.0 - 16.5 g/dL 10/01/2024 12:12 PM CDT [facility] HEMATOCRIT (HCT) 31.8(L) 38.0 - 50.0 % 10/01/2024 12:12 PM CDT [facility] MCV 79.9(L) 82.0 - 96.0 fL 10/01/2024 12:12 PM CDT [facility] MCH 26.6 26.0 - 32.0 pg 10/01/2024 12:12 PM CDT [facility] MCHC 33.3 31.0 - 36.0 g/dL 10/01/2024 12:12 PM CDT [facility] PLATELET COUNT 233 140 - 440 10(3)/mcL 10/01/2024 12:12 PM CDT [facility] RDW 12.3 11.8 - 15.5 % 10/01/2024 12:12 PM CDT [facility] MPV 9.4 8.0 - 12.6 fL 10/01/2024 12:12 PM CDT [facility] NEUTROPHILS 82.2(H) 40.0 - 68.0 % 10/01/2024 12:12 PM CDT [facility] LYMPHOCYTES 9.5(L) 19.0 - 49.0 % 10/01/2024 12:12 PM CDT [facility] MONOCYTES 8.1 3.0 - 13.0 % 10/01/2024 12:12 PM CDT [facility] EOSINOPHILS 0.0 0.0 - 8.0 % 10/01/2024 12:12 PM CDT [facility] BASOPHILS 0.2 0.0 - 1.0 % 10/01/2024 12:12 PM CDT [facility] ABSOLUTE NEUTROPHILS 15.01(H) 1.40 - 5.30 10(3)/mcL 10/01/2024 12:12 PM CDT [facility] ABSOLUTE LYMPHOCYTES 1.73 0.90 - 3.30 10(3)/[facility] 10/01/2024 12:12 PM CDT [facility] ABSOLUTE MONOCYTES 1.47(H) 0.10 - 0.90 10(3)/[facility] 10/01/2024 12:12 PM CDT [facility] ABSOLUTE EOSINOPHIL 0.00 0.00 - 0.50 10(3)/[facility] 10/01/2024 12:12 PM CDT [facility] ABSOLUTE BASOPHILS 0.04 0.00 - 0.10 10(3)/[facility] 10/01/2024 12:12 PM CDT [facility] NRBC PER 100 WBC 0 10/02/19 12:12 PM CDT [facility] Blood Venipuncture / Unknown 10/01/2024 12:00 PM CDT 10/01/2024 12:08 PM CDT us Doron Nicolas DO HEMATOLOGY ORDERABLES F inal Result [facility] [address] [place] [address] * (ABNORMAL) Lipase (10/01/2024 12:00 PM CDT) LIPASE <4(L) 8 - 78 U/L 10/01/2024 12:30 PM CDT [facility] Blood Venipuncture / Unknown 10/01/2024 12:00 PM CDT 10/01/2024 12:08 PM CDT us Doron Nicolas DO CHEMISTRY ORDERABLES Fi nal Result [facility] [place] [address] * (ABNORMAL) CMP (Comprehensive Metabolic Panel) (10/01/2024 12:00 PM CDT) SODIUM 125(L) 136 - 145 mmol/L 10/01/2024 12:29 PM CDT [facility] POTASSIUM 3.5 3.5 - 5.1 mmol/L 10/01/2024 12:29 PM CDT [facility] CHLORIDE 94(L) 98 - 107 mmol/L 10/01/2024 12:29 PM CDT [facility] CO2, VENOUS 19(L) 22 - 30 mmol/L 10/01/2024 12:29 PM CDT [facility] ANION GAP 15.5 <18.0 mmol/L 10/01/2024 12:29 PM CDT [facility] GLUCOSE 196(H) 70 - 99 mg/dL 10/01/2024 12:29 PM CDT [facility] BUN 43(H) 9 - 21 mg/dL 10/01/2024 12:29 PM CDT [facility] CREATININE, BLOOD 4.91(H) 0.70 - 1.30 mg/dL 10/01/2024 12:29 PM CDT [facility] BUN/CREATININE RATIO 9(L) 12 - 20 ratio 10/01/2024 12:29 PM CDT [facility] TOTAL PROTEIN 9.2(H) 6.0 - 8.0 g/dL 10/01/2024 12:29 PM CDT [facility] ALBUMIN 2.8(L) 3.5 - 5.0 g/dL 10/01/2024 12:29 PM CDT [facility] A/G RATIO 0.4(L) 1.0 - 2.2 10/01/2024 12:29 PM CDT [facility] CALCIUM 8.1(L) 8.7 - 10.5 mg/dL 10/01/2024 12:29 PM CDT [facility] T BILI 0.5 0.2 - 1.2 mg/dL 10/01/2024 12:29 PM CDT [facility] SGOT (AST) 55(H) <43 U/L 10/01/2024 12:29 PM CDT [facility] SGPT (ALT) 25 <56 U/L 10/01/2024 12:29 PM CDT [facility] ALKALINE PHOSPHATASE 226(H) 40 - 150 U/L 10/01/2024 12:29 PM CDT [facility] GFR, ESTIMATED 14(L) >=60 10/01/2024 12:29 PM CDT [facility] Comment: Creatinine Clearance is the preferred criteria for selecting drug dose adjustments in renally impaired patients. The GFR is provided as additional pertinent clinical information. GFR is reported in mL/min/1.73 sq m. Calculation based on the Chronic Kidney Disease Epidemiology Collaboration (CKD- EPI) equation refit without adjustment for race. GFR, EST. 16(L) >=60 025 12:29 PM CDT [facility] GFR, EST. NONAFRICAN 13(L) >=60 10/01/2024 12:29 PM CDT [facility] Blood Venipuncture / Unknown 10/01/2024 12:00 PM CDT 10/01/2024 12:08 PM CDT us Doron Nicolas DO CHEMISTRY ORDERABLES Fi nal Result [facility] [address] [place] [address] * EKG SCAN (10/01/2024 12:00 AM CDT) 10/01/2024 us Provider Scan IMG ECG ORDERABLES Final Result RESULTING AGENCY from Last 3 Months Insurance [place] [address] Advance Directives * Full Code (Latest Code Status on File) Date Activated Date Inactivated Comments 06/21/2024 1:54 PM CPR-Full Ivone tment: FULL ARREST: Attempt Resuscitation/CPR wit intubation and mechanical ventilation. PRE-ARREST: Use entire range of life support measures to stabilize the patient. * Full Code Date Activated Date Inactivated Comments 08/28/2016 4:27 PM 08/31/2016 1:28 PM CPR-Full Jay atment: FULL ARREST: Attempt Resuscitation/CPR wit intubation and mechanical ventilation. PRE-ARREST: Use entire range of life support measures to stabilize the patient. Care Teams Assistant Professor Of Nursing Relationship Specialty Start Date End Date Dick Mccollum MD [address] [place] [address] [id number] PCP - General Video Effects Editor 06/20/24
--- OUTSIDE RECORDS SUMMARY | 2024-10-25 11:16 | XMS_ITS | Encounter Summary ---
Author Organization [facility] Address [address] [place] [address] Phone Care Team Providers Care Control Clerk Repairs Name Role Phone Dick Mccollum MD Primary Care Provider [phone] Encounter Details Date Type Department Care Team (Late st Contact Info) Description 10/03/2024 Results Follow-Up [facility] Emergency [address] [place] [address] Veronique Rust, IN HOME CAREGIVER, NEUROLOGY TECHNOLOGIST [address] [place] [address] Social History Tobacco Use Types Packs/Day Years Used Date Smoking Tobacco: Every Day Cigarettes Smokeless Tobacco: Never Alcohol Use Standard Drinks/Week Comments Yes 0 (1 standard drink = 0.6 oz pur e alcohol) [facility] Utilities Answer Date Recorded In the past 12 months has [employer], gas, oil, or water [employer] threatened to shut off services in your home? Patient declined 06/21/2024 Social Connection and Isolation Panel [NHANES] A nswer Date Recorded In a typical week, how many times do you talk on the phone with family, friends, or neighbors? Patient declined 06/21/2024 How often do you get togethe r with friends or relatives? Patient declined 06/21/2024 How often do you attend tenriism or anglican serv ices? Patient declined 06/21/2024 Do you belong to any clubs o r organizations such as tenriism groups, unions, fraternal or athletic groups, or [...] medical care, and heating? Patient declined 06/21/2024 [facility] - Occupational Stress Questionnaire Answer Date Recorded [...] any time in the past 12 m ont, were you homeless or living in a jail (including now)? Patient declined 06/21/2024 Sex and Gender Information Value Date Recorded Sex Assigned at Not on file Legal Sex Male 12:22 AM CDT Gender Identity Not on file Sexual Orientation Not on file documented as of this encounter Progress Notes * Veronique Rust APRN, MELIDA - 10/03/2024 9:29 AM CDT Culture results reviewed. Patient was transferred for [facility]. Shilpa RN at [facility] contacted and made aware of results. Results faxed to . documented in this encounter Plan of Treatment Not on file documented as of this encounter Visit Diagnoses Not on filedocumented in this encounter Care Teams Control Clerk Repairs Relationship Specialty Start Date End Date Dick Mccollum MD [address] [facility] [address] [place] [address] [place] [id number] PCP - General Staff Pharmacist Hospital 06/20/24 documented as of this encounter
--- OUTSIDE RECORDS SUMMARY | 2024-10-25 11:16 | XMS_ITS | Clinical Summary ---
Author Organization [facility] Address [address] [place] [address] Care Team Providers Care Development Trainer Name Role Phone Raul Lara MD Primary Care Provider [phone] Allergies No known active allergies Medications ketorolac (ACULAR) 0.5 % ophthalmic solution Administer 1 drop into the left eye every evening 07/08/20 22 Active ofloxacin (OCUFLOX) 0.3 % ophthalmic solution Administer 1 drop into the left eye 2 (two) times a day 07/08/20 22 Active blood-glucose meter kitIndications:Ty pe 1 diabetes mellitus with hypoglycemia and without coma (HCC) Use daily as directed for monitoring of blood sugar for diabetes. E10.65 1 kit 1 07/17/19 23 Active blood glucose diagnostic (glucose blood) stripIndications: Type 1 diabetes mellitus with hypoglycemia and without coma (HCC) Check blood sugar 3x times a day or as directed. E10.65 100 each 07/17/19 23 Active alcohol swabs pads, medicated Use to clean area before testing blood glucose (3times/day) and injecting insulins 4times/day. Total 7 swabs/day 200 each 07/17/19 23 Active lancets miscIndications:T ype 1 diabetes mellitus with hypoglycemia and without coma (HCC) Use to test blood sugar 3x/day. E11.65 100 each 07/17/19 23 Active folic acid (FOLVITE) 1 mg tabletIndications :Folate Deficiency Take 1 tablet (1 mg total) by mouth daily 90 tablet 3 09/14/19 23 Active phenazopyridine (PYRIDIUM) 100 mg tabletIndications :Dysuria Take 1 tablet (100 mg total) by mouth 3 (three) times a day as needed for urinary pain 9 tablet 10/28/19 23 Active atorvastatin (LIPITOR) 20 mg tablet Take 1 tablet (20 mg total) by mouth daily 90 tablet 2 03/22/20 23 Active clotrimazole 1 % cream Apply topically 2 (two) times a day 30 g 1 03/22/20 23 Active cyanocobalamin (Vitamin B-12) 2,500 mcg tablet, sublingualIndicat ions:Prevention of Vitamin B12 Deficiency Take one table once a day (2500 mcg), sublingually 90 tablet 03/22/20 23 Active diclofenac sodium (VOLTAREN) 1 % gel Apply 2 g topically 3 (three) times a day 100 g 03/22/20 23 Active ergocalciferol (VITAMIN D) 50,000 unit capsule Take 1 capsule (50,000 Units total) by mouth once a week Take on Sunday 12 capsule 1 03/22/20 23 Active hydrocortisone 2.5 % cream Apply topically 2 (two) times a day 28 g 2 04/17/20 23 Active prednisoLONE acetate (PRED FORTE) 1 % ophthalmic suspension Administer 1 drop into the left eye daily 5 mL 04/17/20 23 Active erythromycin (ILOTYCIN) ophthalmic ointment Apply to both eyes nightly 3.5 g 1 06/14/20 23 Active cyclobenzaprine (FLEXERIL) 5 mg tablet Take 1 tablet (5 mg total) by mouth 3 (three) times a day as needed for muscle spasms 30 tablet 09/17/19 24 Active loperamide (IMODIUM) 2 mg capsule Take 1 capsule (2 mg total) by mouth 4 (four) times a day as needed for diarrhea 30 capsule 2 09/19/19 24 Active sertraline (ZOLOFT) 50 mg tablet Take 1 tablet (50 mg total) by mouth daily 90 tablet 12/12/19 24 Active Guardian Sensor 3 device USE as directed TO monitor blood glucose. CHANGE sensor every 5-7 DAYS. 15 each 01/17/20 24 Active LANTUS 100 unit/mL (3 mL) pen for injection Inject 8 Units under the skin nightly E10.65 15 mL 11 02/08/20 24 Active HumaLOG 100 unit/mL pen for injectionIndicati ons:type 1 diabetes mellitus Inject 5 Units under the skin 3 (three) times a day before meals E10.65 15 mL 11 02/08/20 24 Active pancrelipase (CREON) 24,000 units of lipase capsuleIndication s:exocrine pancreatic insufficiency Take 2 capsules by mouth 3 (three) times a day with meals And take 1 capsule with snack 180 capsule 3 02/12/20 24 Active clobetasoL (TEMOVATE) 0.05 % cream Apply topically 2 (two) times a day 60 g 2 02/13/20 24 Active gabapentin (NEURONTIN) 600 mg tabletIndications :Type 1 diabetes mellitus with hyperglycemia (HCC) TAKE 1 TABLET(600 MG) BY MOUTH TWICE DAILY 200 tablet 1 03/09/20 24 Active blood-glucose meter,continuous (Dexcom G7 Certified Marine [employer]) misc 1 Device continuously For 10 days e10.65 1 each 1 05/19/20 24 Active omeprazole (PriLOSEC) 40 mg capsule Take 1 capsule (40 mg total) by mouth daily 90 capsule 1 05/20/20 24 Active insulin lispro (HumaLOG) 100 unit/mL vial for injection Use with [employer]tronic 780G pump, Total daily dose 40 units 45 mL 3 06/18/20 24 Active pen needle, diabetic (TRUEplus Pen Needle) 31 gauge x 3/16 needle Use 4 pen needle daily for injection of insulin. E10.65 400 each 3 07/28/19 25 Active Active Problems Problem Noted Date Diagnosed Date Gastroesophageal reflux disease without esophagi tis 07/29/2024 Pancreatic insufficiency 02/12/2024 Assessment & Plan (02/13/2024 8:33 PM CDT): Most likely the culprit of his steatorrhea from poorly controlled type 1 diabetes colonoscopy 02/05 that showed oil droplets and semi-liquid stool throughout the colon. Normal TI, mildly congested mucosa in rectum and left colon with bx showing benign minimal chronic inflammation and edema Patient has not been taking Creon Has 10-12 episodes of oily stools a day following eating Drinks sports drinks to help stay hydrated Has a lot of gas Feels weak all the time No nausea or vomiting Does not drink alcohol, smokes a couple of cigarettes when stressed out Labs from 02/05 showed low potassium of 2.9, low stable hgb of 9.7, thrombocytopenia 137 Plan Start Creon 48,000 units with meals and 24,000 with snacks Low fat diet Avoid alcohol and smoking Will check fecal fat, elastase, fat soluble vitamins Neuropathy 12/12/2023 Assessment & Plan (12/12/2023 3:58 PM CDT): Worsenign sx For nwo cotnineu gabapentin 600 mg tid Referral to pain management Follow up with endocrinology Moderate episode of recurrent major depressive d isorder 12/12/2023 Assessment & Plan (12/12/2023 3:59 PM CDT): Worsenign sx Start sertraline 50 mg every day Constipation 08/01/2023 Encounter for screening colonoscopy 04/20/2023 Pancreatic duct stones 12/29/2022 Diarrhea of presumed infectious origin Phimosis of penis 12/25/2022 Diarrhea in adult patient 12/18/2022 Assessment & Plan (03/21/2023 11:48 AM CDT): Worsening Following with GI Assessment & Plan (12/29/2022 4:12 PM CDT): Fecal incontinence and greasy stools, happens every time after eating and sometimes in between as well, at least 4-5 times a day, nocturnal symptoms as well. Worsening for the past month and half. Associated with generalized abdominal pain. No hematochezia or melena. Weight fluctuates. Previous heavy alcohol user Labs from 12/19/2022 showed sodium 130, anion gap 16, glucose 640, alk-phos 384, GGT 597, WBC 13, hemoglobin 11.8 with normal MCV, normal iron studies and LDH, normal acute hepatitis panel, ESR, CRP CT from 08/2022 showed gallstones, chronic pancreatitis and 7 mm pancreatic duct stone with upstream pancreatic duct dilation. Plan Suspect exocrine pancreatic insufficiency from chronic pancreatitis We will order chronic diarrhea workup Trial of Creon We will also order colonoscopy given patient is 42 with unknown family history and chronic microcytic anemia Assessment & Plan (12/18/2022 10:46 AM CDT): This is a chronic condition which is ongoing. He is wearing adult diapers now. Reports watery diarrhea 6-8 times/day Microscopic hematuria 08/29/2022 Overview (08/29/2022): Added automatically from request for surgery [id number] Diabetic polyneuropathy gelacio ciated with type 1 diabetes mellitus 06/05/2022 Assessment & Plan (06/25/2023 10:55 AM BENCH MOLDER APPRENTICE): Worsening sx at this time Will increase to 600 mg bid Assessment & Plan (12/25/2022 10:33 AM CDT): Worsening pain Will start cymbalta 30 mg bid see if that improves sx at all States that everything hurts at this point Lab Results Component Value Date HGBA1C 9.4 11/06/2022 HGBA1C 7.8 08/07/2022 HGBA1C 13.2 05/02/2022 Lab Results Component Value Date LDLCALC 61 09/18/2022 CREATININE 0.90 12/19/2022 Assessment & Plan (12/19/2022 9:59 AM CDT): Worsening pain Will start cymbalta 30 mg bid see if that improves sx at all States that everything hurts at this point Assessment & Plan (12/18/2022 11:21 AM CDT): This is a chronic condition which continues Reports he is in pain all the time, has pen and needles sensation in feet and legs. Continue gabapentin Assessment & Plan (11/06/2022 11:44 AM CDT): This is a chronic condition which is poorly controlled , worsening not at goal of less than 7%. Personally reviewed most recent A1c - Lab Results Component Value Date HGBA1C 9.4 11/06/2022 Personally reviewed POC blood sugar- not at goal 80-180 Lab Results Component Value Date POCGLU 364 11/06/2022 Medication- Increase Lantus 18 units daily and increase Humalog 6 units 15 minutes prior to meals- 3times/day.. Monitor blood sugarcontinuously with Dexcom 7 sensor. Unable to download Dexcom sensor today due to technical difficulties Encouraged annual eye exam. last dilated eye exam was Dr. Menendez at [facility] in [place] Monofilament foot exam completed. protective senses intact- feels pins and needles in his legs and feet. Treated with Gabapentin Urine microalbumin/creatinine ratio - at goal <30 not treated with ROBERTA/ARB Personally reviewed CMP eGFR- 93 Kidney function- normal B/P today-at goal of <140/90. Personally reviewed lipid panel. at Goal of less than 70. Continue atorvastatin Assessment & Plan (09/18/2022 12:48 PM CDT): This is a chronic condition which is adequately controlled at goal of less than 8% to avoid hypoglycemia in his frail condition. Personally reviewed most recent A1c - Lab Results Component Value Date HGBA1C 7.8 08/07/2022 Personally reviewed POC blood sugar- not at goal 80-180 Lab Results Component Value Date POCGLU 371 09/18/2022 Medication- continue Lantus (long acting)15units Qhs. Continue Humalog (fasting )5 units 15 minutes before meals. Instructed if he is not eating do not take fast acting insulin. Monitor blood sugar continuously with freestyle [place]. - not wearing as he is out of sensors. Office sample provided. Cataract removal scheduled at [facility] on 09/28/[address] Caldera. Monofilament foot exam completed, protective senses intact. Reports pain and numbness in his feet. Continue Gabapentin 300mg twice a day ordered. Gabapentin refilled Urine microalbumin/creatinine ratio - At goal of less than 30. continue lisinopril. Normal Kidney function eGRF-113, BP today- At goal of less than 140/90. Lisinopril discontinued. Due to frail state. egfr- normal. LDL -at goal of less than 70. Continue atorvastatin No history of macrovascular disease - CVA, NE. Continuous glucose monitor (cgm) applied from 09/03/2022 to 09/16/2022 This device was placed for monitor and treatment of blood sugar. Interpretation of data- In target range 36%of the time. Hypoglycemia noted low 54-69 =1% of the time, very low<54- 0% of the time. Explained that sensor can be inaccurate. Encouraged to confirm blood sugar with fingerstick blood sugar. (prescription sent) Average blood sugar- 218. Glucose variability- 37.5%. Assessment & Plan (08/07/2022 10:58 AM BENCH MOLDER APPRENTICE): This is a chronic condition which continues Ambulatory referral to [facility] for diabetic foot care Type 1 diabetes mellitus with hyperglycemia 05/10 Assessment & Plan (05/19/2024 5:10 PM BENCH MOLDER APPRENTICE): This is a chronic condition which is extremely high, out of control . Goal is less than 7%. Personally reviewed most recent A1c - Lab Results Component Value Date HGBA1C 15.0 05/19/2024 Personally reviewed POC blood sugar- not at goal of 80-180 Lab Results Component Value Date POCGLU 269 05/19/2024 Medication- continue Lantus 8 units daily and Humalog 5 units 15 minutes prior to meals (weight based dose 0.5mg/kg with decreased basal as he is not eating well) Encouraged self care. Encouraged him to take insulin, put the insulin pump back on, where the sensor, take insulin injections as prescribed. Ambulatory referral to diabetes education and nutritional counseling. Reached out to Lori Prince at [facility] to help reestablish insulin pump therapy Monitor blood sugar 3-4 times a day. Encouraged annual eye exam. eGFR- greater than 90 Kidney function-abnormal Urine microalbumin/creatinine ratio - at goal. Goal is <30. not treated with ROBERTA/ARB Assessment & Plan (02/13/2024 11:28 AM CDT): This is a chronic condition which is not at goal. Goal is less than 7%. Personally reviewed most recent A1c - Lab Results Component Value Date HGBA1C 11.9 (H) 12/14/2023 Personally reviewed POC blood sugar- not at goal of 80-180 Lab Results Component Value Date POCGLU 224 02/07/2024 Following with endo Continue current regiemn as per endo Continue w/ lantus 8 units daily, humalog 5 units prior to meals Monitor blood sugar 3 times a day. Has a sensor but not wearing it. Encouraged annual eye exam. Assessment & Plan (02/08/2024 11:22 AM CDT): This is a chronic condition which is not at goal. Goal is less than 7%. Personally reviewed most recent A1c - Lab Results Component Value Date HGBA1C 11.9 (H) 12/14/2023 Personally reviewed POC blood sugar- not at goal of 80-180 Lab Results Component Value Date POCGLU 224 02/07/2024 Medication- increase Lantus 8 units daily, increase Humalog 5 units 15 minutes prior to meals. Monitor blood sugar 3 times a day. Has a sensor but not wearing it. Encouraged annual eye exam. last dilated eye exam was Dr. Caldera Monofilament foot exam completed. Loss of protective senses Treated with Gabapentin/Lyrica Personally reviewed [facility] eGFR- >90 Kidney function-normal Urine microalbumin/creatinine ratio - at goal . Goal is <30. not treated with ROBERTA/ARB Assessment & Plan (09/19/2023 10:14 AM CDT): This is a chronic condition which is worsening, not at goal of less than 7%. Extremely uncontrolled Has not seen endo in some time Long discussion regarding follow up Personally reviewed most recent A1c - Lab Results Component Value Date HGBA1C 9.4 11/06/2022 Personally reviewed POC blood sugar- not at goal 80-180 Lab Results Component Value Date POCGLU 600 12/18/2022 Medication- Continue Lantus 18 units daily and increase Humalog 6 units 15 minutes prior to meals- 3times/day. Monitor blood sugar continuously with dexcom 7 sensor. Encouraged annual eye exam. last dilated eye exam was with Dr. Menendez Reports worsening neuropathy - currently managed by endo -0 on gabapentin 300 mg bid Personally reviewed [facility] Chemistry Lab Results Component Value Date SODIUM 137 09/17/2023 POTASSIUM 4.1 09/17/2023 CHLORIDE 103 09/17/2023 CO2 23 09/17/2023 ANIONGAP 11 09/17/2023 BUNSER 13 09/17/2023 CREATININE 0.79 (L) 09/17/2023 GLUCOSE 243 (H) 09/17/2023 CALCIUM 8.5 09/17/2023 BILITOT 0.6 09/17/2023 PROTEIN 7.6 10/31/2016 ALBUMIN 3.6 09/17/2023 GFRNAA 112 09/17/2023 ALKPHOS 270 (H) 09/17/2023 AST 68 (H) 09/17/2023 ALT 58 (H) 09/17/2023 PHOS 3.2 12/01/2022 MAGNESIUM 1.8 09/17/2023 Following with endo Urine microalbumin/creatinine ratio - at goal <30 not treated with ROBERTA/ARB B/P today-at goal of <140/90. Personally reviewed lipid panel. at Goal of less than 70. Continue atorvastatin 20 mg every day Assessment & Plan (04/20/2023 12:34 PM CDT): This is a chronic condition which is out of control, worsening not at goal of less than 7% since stopping his insulin pump and sensor I spoke with [employer] very directly. I feel that he would benefit from seeing somewhat other than myself. I feel that I have exhausted all possibilities with trying to treat his diabetes and without his cooperation nothing is working. He stopped his insulin pump did not notify the office. His poor mother continues to try to care for him and to the best of her capabilities however he will not participate in his own self-care therefore all those around him are very tired and frustrated. He is eating candy he states he is taken injections of insulin but this is doubtful since his A1c is 15 and his blood sugar in the office is greater than 600. He states the pump is too scary for him although he worked for 2 months. He is unwilling to try to go back to the insulin pump although we did make progress and reduce his A1c to 9.8 for the short time he was wearing it. He is full of excuses and takes no responsibility for his own self-care Personally reviewed most recent A1c - Lab Results Component Value Date HGBA1C >15.0 04/20/2023 Personally reviewed POC blood sugar- not at goal 80-180 Lab Results Component Value Date POCGLU 600 04/20/2023 Medication- Continue stopped Medtronic 770g . Return to Lantus 18 units daily, Humalog 6 units 15 minutes prior to meals Monitor blood sugar 3 times a day. Encouraged to but sensor back on but I doubt he will do Encouraged annual eye exam. last dilated eye exam was Dr. Caldera Reports worsening neuropathy. I explained that that was due to his worsening blood sugar Treated with Gabapentin Personally reviewed CMP eGFR- 108 Kidney function- normal Urine microalbumin/creatinine ratio - at goal <30 not treated with ROBERTA/ARB B/P today- at goal of <140/90. Personally reviewed lipid panel. at Goal of less than 70. Continue atorvastatin Assessment & Plan (04/17/2023 9:48 AM CDT): This is a chronic condition which is worsening, not at goal of less than 7%. Personally reviewed most recent A1c - Lab Results Component Value Date HGBA1C 9.4 11/06/2022 Personally reviewed POC blood sugar- not at goal 80-180 Lab Results Component Value Date POCGLU 600 12/18/2022 Medication- Continue Lantus 18 units daily and increase Humalog 6 units 15 minutes prior to meals- 3times/day. Monitor blood sugar continuously with dexcom 7 sensor. Encouraged annual eye exam. last dilated eye exam was with Dr. Menendez Reports worsening neuropathy - currently managed by endo -0 on gabapentin 300 mg bid Personally reviewed [facility] Chemistry Lab Results Component Value Date SODIUM 130 (L) 12/19/2022 POTASSIUM 4.7 12/19/2022 CHLORIDE 93 (L) 12/19/2022 CO2 21 (L) 12/19/2022 ANIONGAP 16 (H) 12/19/2022 BUNSER 11 12/19/2022 CREATININE 0.90 12/19/2022 GLUCOSE 462 (Critical) 02/14/2023 CALCIUM 9.6 12/19/2022 BILITOT 0.6 12/19/2022 PROTEIN 7.6 10/31/2016 ALBUMIN 4.3 12/19/2022 GFRNAA 108 12/19/2022 ALKPHOS 384 (H) 12/19/2022 AST 33 12/19/2022 ALT 40 12/19/2022 PHOS 3.2 12/01/2022 MAGNESIUM 1.8 12/01/2022 Following with endo Urine microalbumin/creatinine ratio - at goal <30 not treated with ROBERTA/ARB B/P today-at goal of <140/90. Personally reviewed lipid panel. at Goal of less than 70. Continue atorvastatin 20 mg every day Assessment & Plan (01/18/2023 9:27 AM CDT): This is a chronic condition which is poorly controlled inadequately controlled or out of control improving worsening not at goal of less than 7%. Personally reviewed most recent A1c - Lab Results Component Value Date HGBA1C 9.4 11/06/2022 Personally reviewed POC blood sugar- not at goal 80-180 Lab Results Component Value Date POCGLU 369 01/18/2023 Medication- Medtronic 770g(started 01/08/23) with humalog. basal- 0.5units, sens- 50, carb ratio-18, AI-3, target 110-120. For insulin pump failure use Lantus 18 units daily and increase Humalog 6 units 15 minutes prior to meals- 3times/day.. Monitor blood sugar continuously with dexcom 6 sensor. Received [facility] guardian sensor yesterday. Encouraged annual eye exam. last dilated eye exam was at [facility] eye Monofilament foot exam completed. protective senses intact Treated with Gabapentin Personally reviewed [facility] eGFR- 108 Kidney function- normal Urine microalbumin/creatinine ratio - at goal <30 not treated with ROBERTA/ARB B/P today- at goal of <140/90. Personally reviewed lipid panel. At goal of less than 70 Not on statin therapy Assessment & Plan (12/25/2022 10:33 AM CDT): This is a chronic condition which is worsening, not at goal of less than 7%. Personally reviewed most recent A1c - Lab Results Component Value Date HGBA1C 9.4 11/06/2022 Personally reviewed POC blood sugar- not at goal 80-180 Lab Results Component Value Date POCGLU 600 12/18/2022 Medication- Continue Lantus 18 units daily and increase Humalog 6 units 15 minutes prior to meals- 3times/day. Monitor blood sugar continuously with dexcom 7 sensor. Encouraged annual eye exam. last dilated eye exam was with Dr. Menendez Reports worsening neuropathy - currently managed by endo -0 on gabapentin 300 mg bid Personally reviewed [facility] Chemistry Lab Results Component Value Date SODIUM 130 (L) 12/19/2022 POTASSIUM 4.7 12/19/2022 CHLORIDE 93 (L) 12/19/2022 CO2 21 (L) 12/19/2022 ANIONGAP 16 (H) 12/19/2022 BUNSER 11 12/19/2022 CREATININE 0.90 12/19/2022 GLUCOSE 640 (Critical) 12/19/2022 CALCIUM 9.6 12/19/2022 BILITOT 0.6 12/19/2022 PROTEIN 7.6 10/31/2016 ALBUMIN 4.3 12/19/2022 GFRNAA 108 12/19/2022 ALKPHOS 384 (H) 12/19/2022 AST 33 12/19/2022 ALT 40 12/19/2022 PHOS 3.2 12/01/2022 MAGNESIUM 1.8 12/01/2022 Urine microalbumin/creatinine ratio - at goal <30 not treated with ROBERTA/ARB B/P today-at goal of <140/90. Personally reviewed lipid panel. at Goal of less than 70. Continue atorvastatin Assessment & Plan (12/19/2022 9:48 AM CDT): This is a chronic condition which is worsening, not at goal of less than 7%. Personally reviewed most recent A1c - Lab Results Component Value Date HGBA1C 9.4 11/06/2022 Personally reviewed POC blood sugar- not at goal 80-180 Lab Results Component Value Date POCGLU 600 12/18/2022 Medication- Continue Lantus 18 units daily and increase Humalog 6 units 15 minutes prior to meals- 3times/day. Monitor blood sugar continuously with dexcom 7 sensor. Encouraged annual eye exam. last dilated eye exam was with Dr. Menendez Reports worsening neuropathy - currently managed by endo -0 on gabapentin 300 mg bid Personally reviewed [facility] Chemistry Lab Results Component Value Date SODIUM 134 (L) 12/01/2022 POTASSIUM 4.3 12/01/2022 CHLORIDE 103 12/01/2022 CO2 23 12/01/2022 ANIONGAP 8 12/01/2022 BUNSER 11 12/01/2022 CREATININE 0.77 (L) 12/01/2022 GLUCOSE 323 (H) 12/01/2022 CALCIUM 8.7 12/01/2022 BILITOT 0.4 12/01/2022 PROTEIN 7.6 10/31/2016 ALBUMIN 3.8 12/01/2022 GFRNAA 113 12/01/2022 ALKPHOS 313 (H) 12/01/2022 AST 35 12/01/2022 ALT 37 12/01/2022 PHOS 3.2 12/01/2022 MAGNESIUM 1.8 12/01/2022 Urine microalbumin/creatinine ratio - at goal <30 not treated with ROBERTA/ARB B/P today-at goal of <140/90. Personally reviewed lipid panel. at Goal of less than 70. Continue atorvastatin Assessment & Plan (12/18/2022 11:20 AM CDT): This is a chronic condition which is worsening, not at goal of less than 7%. Personally reviewed most recent A1c - Lab Results Component Value Date HGBA1C 9.4 11/06/2022 Personally reviewed POC blood sugar- not at goal 80-180 Lab Results Component Value Date POCGLU 600 12/18/2022 Medication- Continue Lantus 18 units daily and increase Humalog 6 units 15 minutes prior to meals- 3times/day. Medtronic 770 G and then upgrade to 780 with a software update. Monitor blood sugar continuously with dexcom 7 sensor. Will upgrade to guardian 4 sensor. Encouraged annual eye exam. last dilated eye exam was with Dr. Menendez Monofilament foot exam completed. protective senses intact. Reports pins and needles to legs and feet Treated with Gabapentin Personally reviewed CMP eGFR- 113 Kidney function- normal Urine microalbumin/creatinine ratio - at goal <30 not treated with ROBERTA/ARB B/P today-at goal of <140/90. Personally reviewed lipid panel. at Goal of less than 70. Continue atorvastatin Assessment & Plan (11/06/2022 11:42 AM CDT): This is a chronic condition which is poorly controlled , worsening not at goal of less than 7%. Personally reviewed most recent A1c - Lab Results Component Value Date HGBA1C 9.4 11/06/2022 Personally reviewed POC blood sugar- not at goal 80-180 Lab Results Component Value Date POCGLU 364 11/06/2022 Medication- Increase Lantus 18 units daily and increase Humalog 6 units 15 minutes prior to meals- 3times/day.. Monitor blood sugarcontinuously with Dexcom 7 sensor. Unable to download Dexcom sensor today due to technical difficulties Encouraged annual eye exam. last dilated eye exam was Dr. Menendez at [facility] in [place] Monofilament foot exam completed. protective senses intact- feels pins and needles in his legs and feet. Treated with Gabapentin Urine microalbumin/creatinine ratio - at goal <30 not treated with ROBERTA/ARB Personally reviewed CMP eGFR- 93 Kidney function- normal B/P today-at goal of <140/90. Personally reviewed lipid panel. at Goal of less than 70. Continue atorvastatin Assessment & Plan (10/16/2022 11:51 AM CDT): This is a chronic condition which is adequately controlled at goal of less than 8% to avoid hypoglycemia in his frail condition. Personally reviewed most recent A1c - Lab Results Component Value Date HGBA1C 7.8 08/07/2022 Personally reviewed POC blood sugar- not at goal 80-180 Lab Results Component Value Date POCGLU 246 10/16/2022 Medication- continue Lantus (long acting)15units Qhs. Continue Humalog (fasting )5 units 15 minutes before meals. Instructed if he is not eating do not take fast acting insulin. Monitor blood sugar continuously with freestyle Holland 2. - will try to switch of Dexcom 6. Office sample provided. Cataract removal scheduled at [facility] on 10/17/[address] Caldera. Monofilament foot exam completed, protective senses intact. Reports pain and numbness in his feet. Continue Gabapentin 300mg twice a day ordered. Urine microalbumin/creatinine ratio - At goal of less than 30. continue lisinopril. Normal Kidney function eGRF-113, BP today- At goal of less than 140/90. egfr- normal. LDL -at goal of less than 70. Continue atorvastatin No history of macrovascular disease - CVA, NE. Assessment & Plan (09/18/2022 12:49 PM CDT): This is a chronic condition which is adequately controlled at goal of less than 8% to avoid hypoglycemia in his frail condition. Personally reviewed most recent A1c - Lab Results Component Value Date HGBA1C 7.8 08/07/2022 Personally reviewed POC blood sugar- not at goal 80-180 Lab Results Component Value Date POCGLU 371 09/18/2022 Medication- continue Lantus (long acting)15units Qhs. Continue Humalog (fasting )5 units 15 minutes before meals. Instructed if he is not eating do not take fast acting insulin. Monitor blood sugar continuously with freestyle Holland. - not wearing as he is out of sensors. Office sample provided. Cataract removal scheduled at [facility] on 09/28/[address] Caldera. Monofilament foot exam completed, protective senses intact. Reports pain and numbness in his feet. Continue Gabapentin 300mg twice a day ordered. Gabapentin refilled Urine microalbumin/creatinine ratio - At goal of less than 30. continue lisinopril. Normal Kidney function eGRF-113, BP today- At goal of less than 140/90. Lisinopril discontinued. Due to frail state. egfr- normal. LDL -at goal of less than 70. Continue atorvastatin No history of macrovascular disease - CVA, NE. Continuous glucose monitor (cgm) applied from 09/03/2022 to 09/16/2022 This device was placed for monitor and treatment of blood sugar. Interpretation of data- In target range 36%of the time. Hypoglycemia noted low 54-69 =1% of the time, very low<54- 0% of the time. Explained that sensor can be inaccurate. Encouraged to confirm blood sugar with fingerstick blood sugar. (prescription sent) Average blood sugar- 218. Glucose variability- 37.5%. Assessment & Plan (08/07/2022 10:56 AM BENCH MOLDER APPRENTICE): This is a chronic condition which is improving but remains inadequately controlled with hyperglycemia and hypoglycemia. not at goal of less than 7.5% . Labs reviewed. A1c today-7.8% POC blood sugar-161- at goal of 80-180. States still eating candy but not as much Medication- continue Lantus (long acting)15units Qhs. Continue Humalog (fasting)5 units 15 minutes before meals Instructed if he is not eating do not take fast acting insulin. Monitor blood sugar continuously with freestyle Holland. Reviewed alarm. Hypoglycemia alarm set at 70 Increased hypoglycemia alarm to 100. Turned off other alarms to avoid alarm fatigue. Encouraged Avery to react to sensor when blood sugar alarm sounds Cataract removal scheduled at [facility] on 08/11/[address] Caldera. Monofilament foot exam completed, protective senses intact. Reports pain and numbness in his feet. Continue Gabapentin 100mg twice a day ordered. Toenails long. Ambulatory referral to [facility]. His mom rubs his feet Urine microalbumin/creatinine ratio - At goal of less than 30. continue lisinopril. Normal Kidney function eGRF-113, BP today- At goal of less than 140/90. Continue Lisinopril . LDL -at goal of less than 70. Continue atorvastatin No history of macrovascular disease - CVA, NE. Continuous glucose monitor (cgm) applied from 07/25/2022 to 08/07/2022 This device was placed for monitor and treatment of blood sugar. Interpretation of data- In target range 41%of the time. Hypoglycemia noted low 54-69 =1% of the time, very low<54- 1% of the time. Explained that sensor can be inaccurate. Encouraged to confirm blood sugar with fingerstick blood sugar. (prescription sent) Average blood sugar- 206. Glucose variability- 36%. Noncompliance 05/02/2022 Assessment & Plan (05/31/2022 3:02 PM BENCH MOLDER APPRENTICE): This is a chronic problem which is improving His mother is delivering his insulin and cooking his meals. Improvement noted in A1c. Assessment & Plan (05/02/2022 2:38 PM CDT): This is a chronic condition which is not improving Noncompliant with medications and diet Mother at this appt and has been administering his most recent insulin injections. Microcytic anemia 03/20/2022 Assessment & Plan (06/14/2023 3:58 PM BENCH MOLDER APPRENTICE): Lab Results Component Value Date WBC 13.0 (H) 12/01/2022 HGB 11.8 (L) 12/01/2022 HCT 35.9 (L) 12/01/2022 MCV 81.8 12/01/2022 LABPLAT 282 12/01/2022 Stable Needs repeat blood work Assessment & Plan (06/05/2022 12:37 PM BENCH MOLDER APPRENTICE): Lab Results Component Value Date WBC 9.7 02/28/2022 HGB 12.2 (L) 02/28/2022 HCT 35.2 (L) 02/28/2022 MCV 83.6 02/28/2022 LABPLAT 238 02/28/2022 Stable Diabetic retinopathy of both eyes associated with type 1 diabetes mellitus 03/02/2022 Assessment & Plan (11/06/2022 11:44 AM CDT): This is a chronic condition which is poorly controlled , worsening not at goal of less than 7%. Personally reviewed most recent A1c - Lab Results Component Value Date HGBA1C 9.4 11/06/2022 Personally reviewed POC blood sugar- not at goal 80-180 Lab Results Component Value Date POCGLU 364 11/06/2022 Medication- Increase Lantus 18 units daily and increase Humalog 6 units 15 minutes prior to meals- 3times/day.. Monitor blood sugarcontinuously with Dexcom 7 sensor. Unable to download Dexcom sensor today due to technical difficulties Encouraged annual eye exam. last dilated eye exam was Dr. Menendez at [facility] in [place] Monofilament foot exam completed. protective senses intact- feels pins and needles in his legs and feet. Treated with Gabapentin Urine microalbumin/creatinine ratio - at goal <30 not treated with ROBERTA/ARB Personally reviewed CMP eGFR- 93 Kidney function- normal B/P today-at goal of <140/90. Personally reviewed lipid panel. at Goal of less than 70. Continue atorvastatin Assessment & Plan (06/05/2022 12:37 PM BENCH MOLDER APPRENTICE): Chronic and is establish and following with optho Assessment & Plan (05/02/2022 2:36 PM CDT): This is a chronic condition Has an appt at [facility] on Sunday. Reports cataracts and states he can not see. Moderate malnutrition 02/28/2022 Assessment & Plan (03/21/2023 11:56 AM CDT): Cghronic condition Continues to worsen Wt Readings from Last 3 Encounters: 03/21/23 57.7 kg (127 lb 1.6 oz) 02/14/23 59 kg (130 lb) 01/18/23 59.1 kg (130 lb 6.4 oz) 3 lb lose since last visit Likely diet related, nutrition, type 1 dm and gi losses Following with endo and GI Assessment & Plan (10/16/2022 11:55 AM CDT): This is a chronic condition which continues 1 lb weight gain since last office visit Encouraged ensure plus Nesquick for higher protein and calorie Discussed referring to GI due to diarrhea after every meal He states he would like to wait till he gets these other medical procedures completed. We will discuss at his next office visit Assessment & Plan (05/31/2022 3:01 PM BENCH MOLDER APPRENTICE): This is a chronic condition which is improving His mother is providing his meals and delivering his insulin. He has gained 6 lb since his last visit Type 1 diabetes mellitus with hypoglycemia and w ithout coma 09/11/2019 Assessment & Plan (09/19/2023 10:19 AM CDT): Intermittent hypoglycemia Needs endo follow up Discussed at length the importance of routine follow uop Controlling sugars A1c today 15% Assessment & Plan (06/14/2023 3:57 PM BENCH MOLDER APPRENTICE): Lab Results Component Value Date HGBA1C >15.0 04/20/2023 HGBA1C 9.4 11/06/2022 HGBA1C 7.8 08/07/2022 Lab Results Component Value Date LDLCALC 61 09/18/2022 CREATININE 0.90 12/19/2022 Following with endo - worseniong and not at goal of A1c <7.5% Continue humalog 6 u tid, lantus [address] [facility] Assessment & Plan (03/21/2023 11:49 AM CDT): Lab Results Component Value Date HGBA1C 9.4 11/06/2022 HGBA1C 7.8 08/07/2022 HGBA1C 13.2 05/02/2022 Lab Results Component Value Date LDLCALC 61 09/18/2022 CREATININE 0.90 12/19/2022 Following with endo - worseniong and not at goal of A1c <7.5% Continue humalog 6 u tid, lantus 18 units [facility] Assessment & Plan (12/25/2022 10:33 AM CDT): Lab Results Component Value Date HGBA1C 9.4 11/06/2022 HGBA1C 7.8 08/07/2022 HGBA1C 13.2 05/02/2022 Lab Results Component Value Date LDLCALC 61 09/18/2022 CREATININE 0.90 12/19/2022 Following with endo - worseniong and not at goal of A1c <7.5% Continue humalog 6 u tid, lantus 18 units qhs Assessment & Plan (12/19/2022 9:46 AM CDT): Lab Results Component Value Date HGBA1C 9.4 11/06/2022 HGBA1C 7.8 08/07/2022 HGBA1C 13.2 05/02/2022 Lab Results Component Value Date LDLCALC 61 09/18/2022 CREATININE 0.77 (L) 12/01/2022 Following with endo - worseniong and not at goal of A1c <7.5% Continue humalog 6 u tid, lantus 18 units qhs Assessment & Plan (12/18/2022 11:21 AM CDT): This is a chronic condition which is worsening, not at goal of less than 7%. Personally reviewed most recent A1c - Lab Results Component Value Date HGBA1C 9.4 11/06/2022 Personally reviewed POC blood sugar- not at goal 80-180 Lab Results Component Value Date POCGLU 600 12/18/2022 Medication- Continue Lantus 18 units daily and increase Humalog 6 units 15 minutes prior to meals- 3times/day. Medtronic 770 G and then upgrade to 780 with a software update. Monitor blood sugar continuously with dexcom 7 sensor. Will upgrade to guardian 4 sensor. Encouraged annual eye exam. last dilated eye exam was with Dr. Menendez Monofilament foot exam completed. protective senses intact. Reports pins and needles to legs and feet Treated with Gabapentin Personally reviewed CMP eGFR- 113 Kidney function- normal Urine microalbumin/creatinine ratio - at goal <30 not treated with ROBERTA/ARB B/P today-at goal of <140/90. Personally reviewed lipid panel. at Goal of less than 70. Continue atorvastatin Assessment & Plan (10/16/2022 11:56 AM CDT): This is a chronic condition which is adequately controlled at goal of less than 8% to avoid hypoglycemia in his frail condition. Personally reviewed most recent A1c - Lab Results Component Value Date HGBA1C 7.8 08/07/2022 Personally reviewed POC blood sugar- not at goal 80-180 Lab Results Component Value Date POCGLU 246 10/16/2022 Medication- continue Lantus (long acting)15units Qhs. Continue Humalog (fasting )5 units 15 minutes before meals. Instructed if he is not eating do not take fast acting insulin. Monitor blood sugar continuously with freestyle [place] 2. - will try to switch of Dexcom 6. Office sample provided. Cataract removal scheduled at [facility] on 10/17/[address] Caldera. Monofilament foot exam completed, protective senses intact. Reports pain and numbness in his feet. Continue Gabapentin 300mg twice a day ordered. Urine microalbumin/creatinine ratio - At goal of less than 30. continue lisinopril. Normal Kidney function eGRF-113, BP today- At goal of less than 140/90. egfr- normal. LDL -at goal of less than 70. Continue atorvastatin No history of macrovascular disease - CVA, [place]. Assessment & Plan (09/13/2022 3:30 PM BENCH MOLDER APPRENTICE): Lab Results Component Value Date HGBA1C 7.8 08/07/2022 HGBA1C 13.2 05/02/2022 HGBA1C 17.4 (H) 02/27/2022 Lab Results Component Value Date LDLCALC 64 04/07/2020 CREATININE 0.97 09/05/2022 Following with endo - better controlled a1c as above Continue humalog 5u tid, lantus 15 units qhs Assessment & Plan (08/07/2022 10:58 AM BENCH MOLDER APPRENTICE): This is a chronic condition which is improving but remains inadequately controlled with hyperglycemia and hypoglycemia. not at goal of less than 7.5% . Labs reviewed. A1c today-7.8% POC blood sugar-161- at goal of 80-180. States still eating candy but not as much Medication- continue Lantus (long acting)15units Qhs. Continue Humalog (fasting)5 units 15 minutes before meals Instructed if he is not eating do not take fast acting insulin. Monitor blood sugar continuously with freestyle [place]. Reviewed alarm. Hypoglycemia alarm set at 70 Increased hypoglycemia alarm to 100. Turned off other alarms to avoid alarm fatigue. Encouraged Avery to react to sensor when blood sugar alarm sounds Cataract removal scheduled at [facility] on 08/11/[address] Caldera. Monofilament foot exam completed, protective senses intact. Reports pain and numbness in his feet. Continue Gabapentin 100mg twice a day ordered. Toenails long. [facility] referral to [facility]. His mom rubs his feet Urine microalbumin/creatinine ratio - At goal of less than 30. continue lisinopril. Normal Kidney function eGRF-113, BP today- At goal of less than 140/90. Continue Lisinopril . LDL -at goal of less than 70. Continue atorvastatin No history of macrovascular disease - CVA, NE. Continuous glucose monitor (cgm) applied from 07/25/2022 to 08/07/2022 This device was placed for monitor and treatment of blood sugar. Interpretation of data- In target range 41%of the time. Hypoglycemia noted low 54-69 =1% of the time, very low<54- 1% of the time. Explained that sensor can be inaccurate. Encouraged to confirm blood sugar with fingerstick blood sugar. (prescription sent) Average blood sugar- 206. Glucose variability- 36%. Assessment & Plan (07/14/2022 12:19 PM BENCH MOLDER APPRENTICE): This is a chronic condition which is improving but remain uncontrolled with hyperglycemia and hypoglycemia. not at goal of less than 75 . Labs reviewed. A1c today-13.2% down from 17.4% POC blood sugar-162- at goal of 80-180. Eating sugar free peppermint. Reports has diarrhea Encouraged to avoid high amounts of sugar free candy, as it caused diarrhea Medication- continue Lantus (long acting)15units Qhs. Continue Humalog (fasting)5 units 15 minutes before meals Instructed if he is not eating do not take fast acting insulin. Monitor blood sugar continuously with freestyle [place]. Reviewed alarm. Hypoglycemia alarm set at 70 Increased hypoglycemia alarm to 100. Turned off other alarms to avoid alarm fatigue. Encouraged Avery to react to sensor when blood sugar alarm sounds Cataract removal scheduled at [facility] on 07/16/2022. Dr. Gemma notified of oral findings on examination Monofilament foot exam completed, protective senses intact. Reports pain and numbness in his feet. Gabapentin 100mg twice a day ordered. Urine microalbumin/creatinine ratio - At goal of less than 30. continue lisinopril. Normal Kidney function eGRF-113, BP today- At goal of less than 140/90. Continue Lisinopril . LDL -at goal of less than 70. Continue atorvastatin No history of macrovascular disease - CVA, NE. Continuous glucose monitor (cgm) applied from07/01/2022 to 07/14/2022 This device was placed for monitor and treatment of blood sugar. Interpretation of data- In target range 61%of the time. Hypoglycemia noted low 54-69-7% of the time, very low<54- 2 % of the time. Explained that sensor can be inaccurate. Encouraged to confirm blood sugar with fingerstick blood sugar. (prescription sent) Average blood sugar- 152. Glucose variability- 42%. Assessment & Plan (07/14/2022 9:01 AM BENCH MOLDER APPRENTICE): -chronic, not at goal but improving -last A1c 8.0 -patient is seeing [facility] endocrinology for evaluation today -patient is cleared for left cataract surgery on 07/20/2022 Assessment & Plan (06/05/2022 12:37 PM BENCH MOLDER APPRENTICE): Lab Results Component Value Date HGBA1C 13.2 05/02/2022 HGBA1C 17.4 (H) 02/27/2022 HGBA1C >15 12/20/2021 Lab Results Component Value Date LDLCALC 64 04/07/2020 CREATININE 300 (A) 05/31/2022 Following with endo - not at goal but has had some improvement in a1c down from 17 to 13% Continue current regimen. Did have some episodes of hypoglycemia and endo has made adjustments and provided glucose tablets Assessment & Plan (05/31/2022 3:07 PM BENCH MOLDER APPRENTICE): This is a chronic condition which is improving but remain uncontrolled with hyperglycemia and hypoglycemia. not at goal of less than 75 . Labs reviewed. A1c today-13.2% down from 17.4% POC blood sugar-70- not at goal of 80-180. Glucose tablets provided. Medication- decrease Lantus (long acting) 24units Qhs. Decrease Humalog (fasting)8 units 15 minutes before meals Instructed if he is not eating do not take fast acting insulin Monitor blood sugar 3 times a day Encouraged to call for blood sugars less than 100. In the past he does not call for insulin titration as instructed Cataract removal scheduled at [facility] on 06/23/2022 Monofilament foot exam completed, protective senses intact. Reports pain and numbness in his feet. Gabapentin 100mg twice a day ordered. Urine microalbumin/creatinine ratio - not At goal of less than 30 per point of care testing, urine for microalbumin creatinine ratio ordered per lab. continue lisinopril. Normal Kidney function eGRF- >60, BP today- At goal of less than 140/90. Continue Lisinopril . LDL -na currently not on statin- at goal of less than 70 No history of macrovascular disease - CVA, NE. Assessment & Plan (05/02/2022 2:36 PM CDT): This is a chronic condition which is uncontrolled with hyperglycemia, not at goal . Labs reviewed. A1c today-13.2, down from 17.4% POC blood sugar-267. Amb.Medication- increase Lantus (long acting) 35 units Qhs. Use Humalog (fasting)15 units 15 minutes before meals Monitor blood sugar 3 times a day and call results for titration on Sunday. dilated eye exam at [facility] on Sunday. Monofilament foot exam completed, protective senses intact. Reports pain and numbness in his feet. Gabapentin 100mg twice a day ordered. Urine microalbumin/creatinine ratio - 10- normal. At goal of less than 30. Not on a ROBERTA/ARB. Normal Kidney function eGRF- 125 , BUN- 9, creatinine- 0.55 BP today-124/100, Lisinopril ordered but not taking. At goal of less than 140/90. LDL -64, currently not on statin- at goal of less than 70 No history of macrovascular disease - CVA, NE. Encouraged to take insulin as prescribed. Discussed need to take less insulin due to weight loss Explained I was concerned about his well being and weight loss. Assessment & Plan (01/30/2022 2:54 PM CDT): This is a chronic condition which is uncontrolled with hyperglycemia, not at goal . Labs reviewed. A1c today-would not register. POC blood sugar- 521. Encouraged to go to ED but he declined because he has a 13yr son at home. States he will go tomorrow. Amb. Referral to PCP - Dr. Nicholson. No PCP. Medication- increase Lantus (long acting) 20 units Qhs. Use Humalog (fasting)15 units 15 minutes before meals Monitor blood sugar 3 times a day. dilated eye exam is needed. Encourage dilated eye exam Monofilament foot exam completed, protective senses intact Urine microalbumin/creatinine ratio - 10- normal. At goal of less than 30. Not on a ROBERTA/ARB. Normal Kidney function eGRF- 111, BUN- 10, creatinine- 0.83 BP today- 98/70, currently not on ROBERTA/ARB. At goal of less than 140/90. LDL -42, currently not on statin- at goal of less than 70 No history of macrovascular disease - CVA, NE. Encouraged to take insulin as prescribed. Discussed need to take less insulin due to weight loss Explained I was concerned about his well being and weight loss. Encouraged to follow up at ED and with Dr. Nicholson. Encouraged to call blood sugars in 3 days for further titration. Assessment & Plan (12/20/2021 4:59 PM CDT): This is a chronic condition which is uncontrolled with hyperglycemia, not at goal . Labs reviewed. A1c today-15% Medication- Lantus (long acting) 10 units Qhs. Use Humalog (fasting)3 units 15 minutes before meals Monitor blood sugar 3 times a day. dilated eye exam is needed. Encourage dilated eye exam Monofilament foot exam completed, protective senses intact Urine microalbumin/creatinine ratio - 10- normal. At goal of less than 30. Not on a ROBERTA/ARB. Normal Kidney function eGRF- 105, BUN- 13, creatinine- 0.89 BP today- 94/60, currently not on ROBERTA/ARB. At goal of less than 140/90. LDL -16(11/08/20), currently not on statin- at goal of less than 70 No history of macrovascular disease - CVA, NE. Encouraged to take insulin as prescribed. Discussed need to take less insulin due to weight loss. Assessment & Plan (11/08/2020 10:40 AM CDT): This is a chronic condition which is uncontrolled with hyperglycemia, not at goal . Labs reviewed. A1c today-15% which is increased from 10.8 Medication- decrease Lantus (long acting) 15 units Qhs. Use Humalog (fasting)3 units 15 minutes before meals as sliding scale only to cover high sugars Use 2U nits > 200, Use 3 units > 250, Use 4 units > 300, 5 units above 350. Monitor blood sugar 4 times a day. dilated eye exam is needed. Encourage dilated eye exam Monofilament foot exam completed, protective senses intact Urine microalbumin/creatinine ratio - 10- normal. At goal of less than 30. Not on a ROBERTA/ARB. Normal Kidney function (9.20) eGRF- 105, BUN- 13, creatinine- 0.89 BP today- 110/84 , currently not on ROBERTA/ARB. At goal of less than 140/90. LDL -16(11/08/20), currently not on statin- at goal of less than 70 No history of macrovascular disease - CVA, NE. Encouraged to take insulin as prescribed. Discussed need to take less insulin due to weight loss. Assessment & Plan (09/24/2020 3:46 PM CDT): This is a chronic condition which is uncontrolled with hyperglycemia, not at goal . Labs reviewed. A1c today-10.8% which is increased from 9.0 Medication- Continue Lantus (long acting) 30 units Qhs. Use Humalog (fasting)9 units 15 minutes before meals as sliding scale only to cover high sugars Use 4 U nits > 200, Use 6 units > 250, Use 8 units > 300 10 units above 350. Monitor blood sugar 4 times a day. dilated eye exam is needed. Encourage dilated eye exam Monofilament foot exam completed, protective senses intact Urine microalbumin/creatinine ratio - 10- normal. At goal of less than 30. Not on a ROBERTA/ARB. Normal Kidney function eGRF- 105, BUN- 13, creatinine- 0.89 BP today- 108/72 , currently not on ROBERTA/ARB. At goal of less than 140/90. LDL -64 (04/07/2020), currently not on statin- at goal of less than 70 No history of macrovascular disease - CVA, NE. Assessment & Plan (05/17/2020 4:34 PM BENCH MOLDER APPRENTICE): This is a chronic condition which is uncontrolled with hyperglycemia, improving but not at goal . Labs reviewed. A1c today- 9.0, which is improved from 14.8 Medication- Continue Lantus (long acting) 28 units Qhs. Use Humalog (fasting) 6 units before meals as sliding scale only to cover high sugars Use 4 Units > 200 Use 6 units > 250 Use 8 units > 300 10 units above 350. See Dietitian and [facility] [employer] for nutritional counseling and diabetes education Monitor blood sugar 4 times a day. dilated eye exam is needed. Encourage dilated eye exam Monofilament foot exam completed, protective senses intact Urine microalbumin/creatinine ratio - 10- normal Normal Kidney function eGRF- 105, BUN- 13, creatinine- 0.89 BP today- 106/70 , currently not on ROBERTA/ARB LDL -64 (04/07/2020), currently not on statin- at goal of less than 7% No history of macrovascular disease - CVA, [place]. Attempting to get an insulin pump. Has been denied by insurance, will have a peer to peer to try and get insulin pump therapy covered. This patient Obtains 4 or more finger-sticks/days for the last 90 days Has been taking 3 or more insulin injections for the last 6 months Patient adjusts insulin based on blood sugar results. A1c level = down to 9.0 from 14.9 He needs an insulin pump due to one of the following History of Ketosis- 06/09/2019 Uncontrolled glucose levels. Evidence that the patient has poor diabetes control despite adequate measures taken to prevent hypo/hyper. Assessment & Plan (04/05/2020 4:12 PM CDT): This is a chronic condition which is uncontrolled with hyperglycemia. BS-491, Labs reviewed. A1c today-14.8 Medication- Continue Lantus (long acting) 28 units Qhs. Use Humalog (fasting) 9 units before meals as sliding scale only to cover high sugars Use 4 Units > 200 Use 6 units > 250 Use 8 units > 300 10 units above 350. Stop Glimepiride and Amaryl Encourage to take insulin as directed! Discussed the need of insulin and the risk of complications. Obtain cpeptide with fasting blood sugar, lipid panel and CMP Wear Diamond Mindstyle Libre2 CGM for 14 days Monitor blood sugar 4 times a day. dilated eye exam is needed Monofilament foot exam completed, protective senses intact Urine microalbumin/creatinine ratio - 10 Kidney function eGRF- 122, BUN- 8, creatinine- 0.63 BP today- 118/58 , currently not on ROBERTA/ARB LDL -71 (06/26), currently not on statin No history of macrovascular disease - CVA, [place]. Idiopathic chronic pancreatitis 08/28/2016 Assessment & Plan (03/21/2023 11:48 AM CDT): Not at goal Following with GI Assessment & Plan (12/29/2022 4:13 PM CDT): Suspect combination of previous heavy alcohol use and gallstones. Patient was counseled minimizing alcohol use and work on smoking cessation Resolved Problems Problem Noted Date Diagnosed Date Resolved Date Medtronic 770g Insulin pump in place- started 01/08/23 01/18/2023 02/08/2024 Assessment & Plan (04/20/2023 12:35 PM CDT): Not wearing pump Assessment & Plan (01/18/2023 9:30 AM CDT): This is a chronic condition which is improving, but not at goal. Download reviewed. Type of insulin pump- Medtronics 770g started 01/08/23 Pump settings : Basal -0.5 IC -18 ISF -50 Active insulin time 3hrs. TARGET GLUCOSE 110-120 Came to office today for download however did not have his pump with him. He stated it was time for him to change his insertion site and reservoir, so we left his pump at home. He received his guardian 3 sensor yesterday. Encouraged to contact Lori Prince from [employer] to have sensor training. Will proceed with pump modifications once he has a sensor on and brings it to the office. . dexcom 7 continuous glucose monitoring device 10/17/1902/08/2024 Assessment & Plan (04/20/2023 12:35 PM CDT): Not wearing CGM Assessment & Plan (01/18/2023 9:32 AM CDT): Continuous glucose monitor (cgm) applied from 01/05/2023 to 01/18/2023 This device was placed for monitor and treatment of blood sugar. Interpretation of data- average glucose 298. 16% in range. 84% hyperglycemia. 0 hypoglycemia. Now wearing Medtronic 770 G insulin pump. Assessment & Plan (12/18/2022 11:25 AM CDT): Continuous glucose monitor (cgm) applied from 09/10 to 10/13/2022 This device was placed for monitor and treatment of blood sugar. Interpretation of data- in target range 30% of the time. Average blood sugar 210. 3% hypoglycemia 38% hyperglycemia, 29% severe hyperglycemia greater than 250 Assessment & Plan (10/16/2022 11:54 AM CDT): Continuous glucose monitor (cgm) applied from 09/30/2022 to 10/13/2022 This device was placed for monitor and treatment of blood sugar. Interpretation of data- in target range 30% of the time. Average glucose 210. Hyperglycemia 67% of the time. Hypoglycemia 3% of the time 1% less than 54. This is due to his erratic eating. Glucose variability is 34%. Other age-related cataract 07/14/2022 0 11/06/2022 Assessment & Plan (09/13/2022 3:31 PM BENCH MOLDER APPRENTICE): Chemistry Lab Results Component Value Date SODIUM 138 07/20/2022 POTASSIUM 4.0 07/20/2022 CHLORIDE 101 07/20/2022 CO2 22 07/20/2022 ANIONGAP 15 07/20/2022 BUNSER 13 07/20/2022 CREATININE 0.97 09/05/2022 GLUCOSE 297 (H) 07/20/2022 CALCIUM 9.7 07/20/2022 BILITOT 0.3 07/20/2022 PROTEIN 7.6 10/31/2016 ALBUMIN 4.3 07/20/2022 GFRNAA 93 07/20/2022 ALKPHOS 198 (H) 07/20/2022 AST 52 (H) 07/20/2022 ALT 53 07/20/2022 MAGNESIUM 1.7 06/27/2022 Pt is low risk for low risk proceed and can proceed with cataract surgery as per primary surgeon Assessment & Plan (07/14/2022 9:00 AM BENCH MOLDER APPRENTICE): Pt has had previous surgery without complication from anesthesia. Pt has never been told he/she has a small or difficult airway to intubate. Pt appears to be a good candidate for surgery with low risk for complication due to anesthesia. Pt is cleared for surgery. Revised cardiac risk index for preoperative risk score: 6.0 Serum creatinine: 0.78 mg/dL (L) 07/12/22 1047 Estimated creatinine clearance: 101.5 mL/min (A) Preoperative clearance 07/14/202211/06 Assessment & Plan (09/13/2022 3:44 PM BENCH MOLDER APPRENTICE): Pt optimized for low risk procedure at this time Further work up for current sx should not pose contraindication to low risk procedure by optho Assessment & Plan (07/14/2022 9:00 AM BENCH MOLDER APPRENTICE): Pt has had previous surgery without complication from anesthesia. Pt has never been told he has a small or difficult airway to intubate. Pt appears to be a good candidate for surgery with low risk for complication due to anesthesia. Pt is cleared for surgery. Revised cardiac risk index for preoperative risk score: 6.0 Serum creatinine: 0.78 mg/dL (L) 07/12/22 1047 Estimated creatinine clearance: 101.5 mL/min (A) Severe dental caries 07/14/2022 023 Assessment & Plan (11/06/2022 11:45 AM CDT): To teeth left with dental caries He knows he needs to have these pulled but is unable to afford that at this time Recommended that he try the [facility] dental clinic Assessment & Plan (10/16/2022 11:56 AM CDT): This problem is resolved as he had his teeth pulled. His mouth has healed 16th are left Assessment & Plan (08/07/2022 10:57 AM BENCH MOLDER APPRENTICE): This is a chronic condition which has improved Encouraged to follow-up with dentist for teeth removal as recommended by dentist Assessment & Plan (07/14/2022 12:10 PM BENCH MOLDER APPRENTICE): This is a chronic problem which is ongoing Encouraged to see a dentist as soon as possible His mother said she will get him in with Dr. Manolo Caldwell in [place] Dr. Caldera's office - [facility] in [place] called and informed potential infection in oral findings. Hyperosmolar hyperglycemic state (HHS) 02/27/2022 05/02/2022 Hyperosmolar non-ketotic sta te in patient with type 2 diabetes mellitus 06/10/2019 04/05/2020 Volume depletion 06/10/2019 04/05/2020 Non-ketotic hyperglycinemia 04/05/2020 Dehydration 04/05/2020 Encounters Date Type Department Care Team Description 10/14/2024 Telephone [facility] [address] [place] [id number] [place], Valery 08/13/2024 Telephone [facility] [address] [place] [phone] Unknown, Notinfile 08/12/2024 Documentation [facility] [address] [place] [id number] Dipika Wilkinson MD 07/29/2024 10:00 AM BENCH MOLDER APPRENTICE Office Visit [facility] at [place] [address] [facility] [address] [place] [address] Jose Villagomez MD Pancreatic insufficiency (Primary Dx); Gastroesophageal reflux disease without esophagitis; Kelsy esophagitis (HCC) from Last 3 Months Immunizations Immunization Administration Dates Next Due Influenza, Unspecified 02/13/2024(Deferr ed: Patient Refused),10/05/2023(Deferred: Patient Refused),09/19/2023(Deferred: Patient Refused),06/25/2023(Deferred: Patient Refused),04/17/2023(Deferred: Patient Refused),09/06/2021(Deferred: Patient Refused) Tdap 04/23/2019,11/21/2014 Surgical History Surgery Date Site/Laterality Comments CATARACT EXTRACTION KIDNEY STONE SURGERY COLONOSCOPY 02/06/2024 Medical History Medical History Date Comments Pancreatitis Volume depletion 06/10/2019 Dehydration Type 1 diabetes mellitus (HCC) Hyperosmolar hyperglycemic state (HHS) (HCC) Blind Kidney stones Hematuria Preoperative clearance 07/14/2022 Other age-related cataract 07/14/2022 freestyle holland 2 continuous glucose monitoring device 10/16/2022 Family History Medical History Relation Name Comments No Known Problems Father No Known Problems Mother Relation Name Status Comments Father Mother Social History Tobacco Use Types Packs/Day Years Used Date Smoking Tobacco: Former Cigarettes Cigars Smokeless Tobacco: Never Tobacco Cessation:Counseling Given: Not Answered Comments:4-5 black and mild Alcohol Use Standard Drinks/Week Comments Yes 21 (1 standard drink = 0.6 oz pu re alcohol) daily AUDIT-C Answer Date Recorded Q1: How often do you have a drink containing alcohol? Never 07/29/2024 Q2: How many drinks containi ng alcohol do you have on a typical day when you are drinking? Patient does not drink Q3: How often do you have si x or more drinks on one occasion? Never 07/29/2024 PHQ-2 Answer Date Recorded PHQ-2 Total Score [...] on file Legal Sex Male 1:02 AM BENCH MOLDER APPRENTICE Gender Identity Not on file Sexual Orientation Not on file Obstetrics History Last Filed Vital Signs Vital Sign Reading Time Taken Comments Blood Pressure 107/76 07/29/2024 10:26 AM BENCH MOLDER APPRENTICE Pulse 90 07/29/2024 10:26 AM BENCH MOLDER APPRENTICE Temperature 37 C (98.6 F) 02/06/2024 2:20 PM CDT Respiratory Rate 16 02/13/2024 11:22 AM CDT Oxygen Saturation 99% 07/29/2024 10:26 AM BENCH MOLDER APPRENTICE Inhaled Oxygen Concentration - - Weight 49.5 kg (109 lb 3.2 oz) 07/29/2024 10:26 AM BENCH MOLDER APPRENTICE Height 177.8 cm (5' 10 ) 07/29/2024 10:26 AM BENCH MOLDER APPRENTICE Body Mass Index 15.67 07/29/2024 10:26 AM BENCH MOLDER APPRENTICE Plan of Treatment Health Maintenance Due Date Last Done Comments Hepatitis B Screening 02/21/1996 Pneumococcal vaccine <65 (1 of 2 - PCV) 1997 Zoster Vaccine (1 of 2) 1997 Covid-19 Vaccine (2 - Pfizer risk series) 08/24/2021 08/03/2021 Foot Exam 05/31/2023 05/31/2022, 04/09, 01/30/2022, Additional history exists Regular Well Visit/Exam 18-64 09/18/2024 09/19/2023 Albumin Creatinine Ratio, Urine 12/13/2024 12/14/2023, 06/07/2022 Lipid Panel 12/13/2024 12/14/2023, 09/06, 05/31/2022, Additional history exists Hemoglobin A1C 12/21/2024 06/22/2024, 05/09, 12/14/2023, Additional history exists Depression Screening 02/12/2025 02/13/2024, 12/12/2023, 09/19/2023, Additional history exists eGFR 02/12/2025 02/13/2024, 01/08, 02/05/2024, Additional history exists Dilated Eye Exam 02/23/2025 02/23/2023, 04/14/2022 Influenza Vaccine (Season Ended) 2025 TSH Level 06/23/2025 06/23/2024, 06/08, 09/18/2022, Additional history exists Prostate Cancer Screening-PSA 12/13/2025 12/14/2023 DTaP/Tdap/Td Vaccine (3 - Td or Tdap) 04/23/2029 04/23/2019, 11/21/2014 Colon Cancer Screening-Colonoscopy 02/05/2034 02/06/2024, 08/01/2023 Hepatitis C Screening Completed 12/21/2022 HPV Vaccines Aged Out No longer eligi ble based on patient's age to complete this topic Procedures Procedure Name Priority Date/Time Associated Diagnosis Comments POCT HEMOGLOBIN A1C Routine 05/19/2024 9 :48 AM BENCH MOLDER APPRENTICE Type 1 diabetes mellitus with hyperglycemia (HCC) EGFR Routine 02/13/2024 12:23 PM CDT Hypokalemia Hypocalcemia COLONOSCOPY 02/06/2024 12:21 PM CDT LIPID PANEL Routine 12/14/2023 11:13 AM CDT Type 1 diabetes mellitus with hyperglycemia (HCC) ALBUMIN CREATININE RATIO, URINE Routine 12/14/2023 11:13 AM CDT Type 1 diabetes mellitus with hyperglycemia (HCC) PSA SCREEN Routine 12/14/2023 11:13 AM CDT Prostate cancer screening DIABETIC EYE EXAM Routine 02/23/2023 HEPATITIS PANEL, ACUTE Routine 12/21/2022 10:53 AM CDT Elevated alkaline phosphatase level THYROID FUNCTION CASCADE Routine 09/18/2022 10:59 AM CDT Fatigue, unspecified type Malaise from Last 3 Months or Most Recently Relevant to Health Maintenance Results * (ABNORMAL) POCT hemoglobin A1c (05/19/2024 9:48 AM BENCH MOLDER APPRENTICE) Pathologist [facility] Hemoglobin A1C, POC 15.0 4.0 - 5.6 % Blood 05/19/2024 9:48 AM BENCH MOLDER APPRENTICE us Karly Leach NP POINT OF CARE TEST ORDERABLES F inal Result * eGFR (02/13/2024 12:23 PM CDT) eGFR >90 >=60 mL/min/1. 73 m2 Comment: Interpretive Data Reference Interval Normal >/= 90 mL/min/1.73m2 Mildly decreased* 60 - 89 mL/min/1.73m2 Mildly to moderately decreased 45 - 59 mL/min/1.73m2 Moderately to severely decreased 30 - 44 mL/min/1.73m2 Severely decreased 15 - 29 mL/min/1.73m2 Kidney Failure < 15 mL/min/1.73m2 *Relative to young adult level Estimated glomerular filtration rate is determined by the 2020 CKD-EPI equation recommended by the National Kidney Foundation (A Unifying Approach to GFR Estimation: Recommendations of the NKF-ASK Task Force on Reassessing the Inclusion of Race in Diagnosing Kidney Disease, JASN 2020). The CKD-EPI equation should not be used for patients with unstable renal function and has not been validated in children and those over 70. Current interpretive data was last reviewed 2021. Blood 02/13/2024 12:2 3 PM CDT 02/13/2024 12:32 PM CDT us Dick Mccollum MD LAB BLOOD ORDERABLES Final Resul t JOSEP [facility] ([place] [address] [facility] [place] [address] * Colonoscopy (02/06/2024 12:21 PM CDT) Anatomical Region Laterality Modality Other Narrative Procedure Note Jose Villagomez MD - 02/06/2024 12:21 PM CDT [facility] Patient Name: Avery Phillips Procedure Date: 02/06/2024 12:21 PM Date of : 1980 Admit Type: Outpatient Age: 43 Gender: Male Attending MD: Jose Villagomez M.D. Room: [facility] ENDOSCOPY ROOM 2 Note Status: Finalized Patient Profile: This is a 43 year old male history of poorly-controlled diabetes, diabetic neuropathy, chronic pancreatitis, kidney stones here for colonoscopy to evaluate for chronic diarrhea. Noknown family history due to being adopted. Lastcolonoscopy from 07/2023 showed stool in the rectum, procedurewas aborted. Procedure: Colonoscopy Indications: This is the patient's first colonoscopy, Chronic diarrhea Referring MD: Dick Mccollum M.D. Providers: Jose Villagomez M.D. Impression: - Preparation of the colon was fair. - The examined portion of the ileum was normal. - Congested mucosa from rectum to descending colon. Biopsied. - Stool in the entire examined colon. - Oil droplets throughout the colon suggestive offat malabsorption from pancreatic insufficiency in the setting of his chronic pancreatitis, which islikely the cause of his diarrhea. - External and internal hemorrhoids. Recommendation: - Patient has a contact number available for emergencies. The signs and symptoms of potential delayed complications were discussed with thepatient. Return to normal activities tomorrow. Written discharge instructions were provided to thepatient. - Discharge patient to home (with escort). - Low fat diet. - Increase Creon to 48,000 units TID with meals and 24,000 units with snacks - Check fecal elastase and stool fat. - Await pathology results. - Repeat colonoscopy in 3 years for surveillancebased on pathology results. - Return to GI clinic as previously scheduled. Medicines: Monitored Anesthesia Care Complications: No immediate complications. Estimated Blood Loss: Estimated blood loss was minimal. Procedure: Pre-Anesthesia Assessment: - Prior to the procedure, a History and Physicalwas performed, and patient medications and allergieswere reviewed. The patient is competent. The risks and benefits of the procedure and the sedation optionsand risks were discussed with the patient. Allquestions were answered and informed consent was obtained. Patient identification and proposed procedure were verified by the physician, the anesthesiologist and the telecommunications technician in the endoscopy suite. MentalStatus Examination: normal. Prophylactic Antibiotics: The patient does not require prophylactic antibiotics. Prior Anticoagulants: The patient has taken no anticoagulant or antiplatelet agents. Afterreviewing the risks and benefits, the patient was deemed in satisfactory condition to undergo the procedure.The anesthesia plan was to use monitored anesthesiacare (MAC). Immediately prior to administration of medications, the patient was re-assessed foradequacy to receive sedatives. The heart rate, respiratory rate, oxygen saturations, blood pressure, adequacyof pulmonary ventilation, and response to care were monitored throughout the procedure. The physical status of the patient was re-assessed after the procedure. The benefits, risks and alternatives of theprocedure and sedation were discussed and informed consentwas obtained. All questions were answered. Please referto the signed informed consent document in the medical record. The bowel preparation used was Miralax via split dose instruction. The bowel preparation usedwas bisacodyl tablets via split dose instruction. The scope was passed under direct vision. The Pediatric Colonoscope PCF-[id number] was introducedthrough the anus and advanced to the the terminal ileum.The colonoscopy was performed without difficulty. The patient tolerated the procedure well. The qualityof the bowel preparation was fair. Bowel prep was administered using a split dose. Findings: The perianal and digital rectal examinations were normal. The terminal ileum appeared normal aside from large amount of oil droplets An area of mildly congested mucosa was found from rectum todescending colon. This was biopsied with a cold forceps for histology. A small amount of semi-liquid stool was found in the entire colon.The colon was also covered with oil droplets. External and internal hemorrhoids were found during retroflexion. Jose Villagomez M.D. 02/06/2024 1:59:32 PM Number of Addenda: 0 Note Initiated On: 02/06/2024 12:21 PM Procedure Code(s): --- Professional --- 92461, Colonoscopy, flexible; with biopsy, single or multiple --- Technical --- 53597, Colonoscopy, flexible; with biopsy, single or multiple Diagnosis Code(s): --- Professional --- K64.8, Other hemorrhoids K63.89, Other specified diseases of intestine K52.9, Noninfective gastroenteritis and colitis, unspecified --- Technical --- K64.8, Other hemorrhoids K63.89, Other specified diseases of intestine K52.9, Noninfective gastroenteritis and colitis, unspecified CPT copyright 2020 [employer]. All rights reserved. The codes documented in this report are preliminary and upon auditing coder reviewmay be revised to meet current compliance requirements. Recognized by the [employer] for promoting quality in endoscopy Jose Villagomez MD ENDOSCOPY PROCEDURES Final Resul t * PSA screen (12/14/2023 11:13 AM CDT) PSA-Total 0.19 ng/mL Comment: Interpretive Data AGE SEX REFERENCE INTERVAL 0 minutes-150 years Female None 0 minutes-49 years Male None 50-59 years Male 0-3.90 60-69 years Male 0-5.40 70-79 years Male 0-6.20 80-150 years Male 0-6.20 The Matthew PSA Total assay procedure was used. Results from different manufacturers or methods may not be comparable. Serial testing should be performed using the same method. Current interpretive data last revised 21. Testing performed by: [facility], [address] [place] [address]., [id number] Blood 12/14/2023 11:1 3 AM CDT 12/14/2023 11:31 AM CDT us Dick Mccollum MD LAB BLOOD ORDERABLES Final Resul t [facility] ([place]) [address] [facility] [place] [address] * Albumin Creatinine Ratio, Urine (12/14/2023 11:13 AM CDT) Albumin Ur 33.6 mg/L Comment: Interpretive Data No reference range established. Current interpretive data was last revised 2018. Testing performed by: [facility], [address] [place] [address]., [id number] Creatinine Ur 162.0 mg/dL JOSEP [facility] (MARIA M) Comment: Interpretive Data No reference range established. Current interpretive data was last revised 2018. Testing performed by: [facility], [address] [place] [address]., [id number] Albumin Creatinine Ratio, Ur 21 1 - 29 mg/g JOSEP [facility] (MARIA M) Comment:Testing performed by : [facility], [address] [place] [address]., [id number] Urine 12/14/2023 11:1 3 AM CDT 12/14/2023 2:06 PM CDT us Dick Mccollum MD LAB URINE ORDERABLES Final Resul t JOSEP [facility] ([place] M) 1 [facility] Department [place] [address] * Lipid panel (12/14/2023 11:13 AM CDT) Cholesterol 121 30 - 199 mg/dL Comment: Interpretive Data Ages < or = 19 years Acceptable: <170 mg/dL Borderline high: 170-199 mg/dL High: >or= 200 mg/dL Ages > or = 20 years Desirable: <200 mg/dL Borderline high: 200-239 mg/dL High: >or= 240 mg/dL Literature References: 1. Expert Panel on Integrated Guidelines for Cardiovascular Health and Risk Reduction in Children and Adolescents. Pediatrics 2011;128:S213 2. NCEP Expert Panel. Circulation 2004;110:227 Current Interpretive Data was last revised on 2018. Triglycerides 90 <=149 mg/dL JOSEP [facility] ([place] M) Comment: Interpretive Data Ages < or = 9 years Acceptable: <75 mg/dL Borderline high: 75-99 mg/dL High: >or= 100 mg/dL Ages 10 to 20 years Acceptable: <90 mg/dL Borderline high: 90-129 mg/dL High: >or= 130 mg/dL Ages > or = 20 years Desirable: <150 mg/dL Borderline high: 150-199 mg/dL High: 200-499 mg/dL Very high: >or= 499 mg/dL Literature References: 1. Expert Panel on Integrated Guidelines for Cardiovascular Health and Risk Reduction in Children and Adolescents. Pediatrics 2011;128:S213 2. NCEP Expert Panel. Circulation 2004;110:227 Current Interpretive Data was last revised on 2018. HDL 96 >=40 mg/dL [facility] ([place] [facility]) Comment: Interpretive Data Ages < or = 19 years Acceptable: >45 mg/dL Borderline low: 40-45 mg/dL Low: <40 mg/dL Ages > or = 20 years Desirable: >or= 60 mg/dL Low: <40 mg/dL Literature References: 1. Expert Panel on Integrated Guidelines for Cardiovascular Health and Risk Reduction in Children and Adolescents. Pediatrics 2011;128:S213 2. NCEP Expert Panel. Circulation 2004;110:227 Current Interpretive Data was last revised on 2018. LDL, calculated 7 <=129 mg/dL JOSEP [facility]ONT[facility]OT ([place] M) Comment: Interpretive Data Ages < or = 19 years Acceptable: <110 mg/dL Borderline high: 110-129 mg/dL High: >or= 130 mg/dL Ages > or = 20 years Optimal: <100 mg/dL Near optimal: 100-129 mg/dL Borderline high: 130-159 mg/dL High: >160 mg/dL Literature References: 1. Expert Panel on Integrated Guidelines for Cardiovascular Health and Risk Reduction in Children and Adolescents. Pediatrics 2011;128:S213 2. NCEP Expert Panel. Circulation 2004;110:227 Current Interpretive Data was last revised on 2018. Non-HDL Cholesterol 25 mg/dL JOSEP [facility]ONT[facility] ([place]IA M) Comment: Interpretive Data Ages < or = 19 years Acceptable: <120 mg/dL Borderline high: 120-144 mg/dL High: >145 mg/dL Ages > or = 20 years When triglycerides are >200 mg/dL, Non-HDL cholesterol is a secondary target of therapy with treatment goals that are 30 mg/dL greater than the LDL cholesterol target. Literature References: 1. Expert Panel on Integrated Guidelines for Cardiovascular Health and Risk Reduction in Children and Adolescents. Pediatrics 2011;128:S213 2. NCEP Expert Panel. Circulation 2004;110:227 Current Interpretive Data was last revised on 2018. Chol/HDL ratio 1 GRAY [facility] (MARIA M) Blood 12/14/2023 11:1 3 AM CDT 12/14/2023 11:31 AM CDT us Dick Mccollum MD LAB BLOOD ORDERABLES Final Resul t JOSEP [facility] ([place] M) 1 [facility] [place] [address] * Diabetic Eye Exam (02/23/2023) 02/23/2023 us Generic External Data Provider HEALTH MAINTENANC E Final Result * Hepatitis panel, acute (12/21/2022 10:53 AM CDT) Hep A IgM Nonreactive Nonreactive JOSEP FONTENOT (MARIA M) Comment: Interpretive Data: If Hep A IgM Ab is reported as Equivocal, a new sample should be drawn in two weeks for testing. Current interpretive data was last revised on 19. Testing performed by: [facility], [address] [place] [address]., [id number] Hep B core IgM Nonreactive Nonreactive C ERNER CORIE (MARIA M) Comment: Interpretive Data If HepB Core IgM Ab is reported as Equivocal, a new sample should be drawn in two weeks for testing. Current interpretive data was last revised on 19. Testing performed by: [facility], [address] [place] [address]., [id number] Hep C Ab Nonreactive Nonreactive JOSEP FONTENOT (MARIA M) Comment: Interpretive Data Nonreactive: Antibodies to HCV not detected. Does NOT exclude the possibility of recent exposure to HCV. Equivocal: Equivocal for HCV antibodies. Supplemental molecular testing will be automatically performed to determine infection status in accordance with current CDC screening recommendations. Reactive: Positive for HCV antibodies. This may represent current or past HCV infection. Supplemental molecular testing will be automatically performed to determine current infection status in accordance with current CDC screening recommendations. Interpretive data was last revised on 2019. Testing performed by: [facility], [address] [place] [address], [place] [id number] HepBsAg Nonreactive Nonreactive JOSEP FONTENOT (MARIA M) Comment:Testing performed by : [facility], [address] [place] [address], [place]., [address] Blood 12/21/2022 10:5 3 AM CDT 12/21/2022 3:12 PM CDT Dick Mccollum MD LAB MICROBIOLOGY - GENERAL ORDER NATHAN Final Result JOSEP FONTENOT (MARIA M) [address] [facility] [place] [address] * TSH reflex to free T4 (09/18/2022 10:59 AM CDT) TSH 1.66 0.30 - 4.20 mcIUnit/mL JOSEP FONTENOT (MARIA M) Blood 09/18/2022 10:5 9 AM CDT 09/18/2022 1:54 PM CDT Dick Mccollum MD LAB BLOOD ORDERABLES Final Resul t Performing Organization Address City/[facility]/ZIP Co de Phone Number JOSEP FONTENOT ([place]) [address] [place] [address] from Last 3 Months or Most Recently Relevant to Health [place] [address] [facility] Advance Directives For more information, please contact: [phone] * Full Code (Latest Code Status on File) Date Activated Date Inactivated Comments 02/06/2024 11:51 AM 02/06/2024 6:50 PM * Full Code Date Activated Date Inactivated Comments 02/06/2024 11:51 AM 02/06/2024 11:51 AM * Full Code Date Activated Date Inactivated Comments 08/01/2023 9:09 AM 08/01/2023 4:04 PM * Full Code Date Activated Date Inactivated Comments 08/01/2023 9:09 AM 08/01/2023 9:09 AM * Full Code Date Activated Date Inactivated Comments 02/14/2023 8:29 AM 02/14/2023 1:25 PM Care Teams Development Trainer Relationship Specialty Start Date End Date Raul Lara MD [address] [place] [address] [place] [address] PCP - General Family Medicine 08/12/24
--- OUTSIDE RECORDS SUMMARY | 2024-10-25 11:16 | XMS_ITS | CONTINUITY OF CARE DOCUMENT ---
Author Name lacey rahman Address Unknown Organization [facility] Address [address] [facility] [address] [place] [address] Phone [phone] Care Team Providers Care Mechanical Assembly Name Role Phone Randell FLORES, Sneha Unavailable [phone] JOSE FLORES, JEANNINE Unavailable [phone] INSURANCE PROVIDERS Payer name Policy type / Coverage type [place] [employer] party ID [id number] [id number] Other [id number]
--- OUTSIDE RECORDS SUMMARY | 2024-10-25 11:16 | XMS_ITS | Encounter Summary ---
Author Organization [facility] Address [address] [facility] [place] [address] Phone Care Team Providers Care Oracle Drm Consultant Name Role Phone Dick Mccollum MD Primary Care Provider [phone] Reason for Referral * PT/OT/ST (Routine) - Open Specialty Diagnoses / Procedures Referred By Contfarshad t Referred To Contact Physical Therapy Diagnoses Physical deconditioning Raul Lara MD [address] [place] [address] [address] [place] [address] Phone: tel: fax: [facility] [address] [address] Phone: tel: fax: Referral ID Status Reason Start Date Expiration Date Visits Re quested Visits Authorized [id number] Open 08/04/2024 50 50 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 Details Date Type Department Care Team (Latest Contact Info) Description 08/04/2024 Transcribe Orders [facility] [address] [place] [address] Raul Lara MD [address] [facility] [address] [place] [id number] Physical deconditioning (Primary Dx) Social History Tobacco Use Types Packs/Day Years Used Date Smoking Tobacco: Every Day Cigarettes Smokeless Tobacco: Never Alcohol Use Standard Drinks/Week Comments Yes 0 (1 standard drink = 0.6 oz pur e alcohol) [facility] Utilities Answer Date Recorded In the past 12 months has th e electric, gas, oil, or water company threatened [...] declined 06/21/2024 How often do you attend roman catholic or samaritan serv ices? Patient declined 06/21/2024 Do you belong to any clubs o r organizations such as roman catholic groups, unions, fraternal or athletic groups, or [...] medical care, and heating? Patient declined 06/21/2024 [facility] of Occupat ional Health - Occupational Stress [...] any time in the past 12 m [facility], were you homeless or living in a senior living (including now)? Patient declined 06/21/2024 Sex and Gender Information Value Date Recorded Sex Assigned at Not on file Legal Sex Male 12:22 AM CDT Gender Identity Not on file Sexual Orientation Not on file documented as of this encounter Plan of Treatment Scheduled Referrals Name Type Priority Associated Diagnoses Orde r Schedule PHYSICAL THERAPY REFERRAL Outpatient Referral Routine Physical deconditioning Expected: 08/04/2024, Expires: 08/04/2025 documented as of this encounter Visit Diagnoses Diagnosis Physical deconditioning- Primary Debility, unspecified documented in this encounter Care Teams Oracle Drm Consultant Relationship Specialty Start Date End Date Dick Mccollum MD [address] [facility] [address] [place] [id number] PCP - General Nurse Chemical Dependency 06/20/24 documented as of this encounter
--- OUTSIDE RECORDS SUMMARY | 2024-10-25 11:16 | XMS_ITS | Encounter Summary ---
Author Organization [facility] Address [address] [place] [address] Care Team Providers Care Bender Machine Name Role Phone Dick Mccollum MD Primary Care Provider [phone] Unknown, Provider Primary Care Provider Unavaila Ladonna Avalos MD Unavailable [phone] Encounter Details Date Type Department Care Team (Late st Contact Info) Description 06/27/2024 Ophth Exam [facility] - Ophthalmology [address] [place] [address] Reji Sam MD [address] [facility] [place] [address] Social History Tobacco Use Types Packs/Day Years [...] and heating? Not hard at all 06/21/2024 [facility] of Occupat ional Health - Occupational Stress [...] time in the past 12 m [facility], were you homeless or living in a fpc (including now)? 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 Gender Identity Not on file Sexual Orientation [...] Description 11/12/2024 12:00 PM CDT Hospital Encounter [facility] [address] [place] [address] Josie Schaefer, DO [address] [facility] 2L [place] [id number] Surgery General 11/12/2024 12:00 PM CDT - 11/12/2024 2:00 PM CDT Surgery [facility] [address] [place] [address] Josie Schaefer, DO [address] [facility] [address]L [place] [address] Cystoscopy, left ureteroscopic stone extraction, laser lithotripsy [...] 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
--- OUTSIDE RECORDS SUMMARY | 2024-10-25 11:16 | XMS_ITS | Referral Summary ---
Author Organization [facility] Address [address] [place] [address] Care Team Providers Care Sr. Manager Name Role Phone Raul Lara MD Primary Care Provider Encounters Date Type Department Care Team Description 10/14/2024 Telephone [facility] Home Care Services [address] [place] [address] Nichole, Valery 08/13/2024 Telephone [facility] [address] [place] [address] Unknown, Notinfile 08/12/2024 Documentation [facility] [address] [place] [address] Dipika Wilkinson MD 07/29/2024 10:00 AM OUTBOUND TELEMARKETING REPRESENTATIVE Office Visit [facility] [place] [address] [place] [id number] Jose Villagomez MD Pancreatic insufficiency (Primary Dx); Gastroesophageal reflux disease without esophagitis; Kelsy esophagitis (HCC) from Last 3 Months Allergies No known active allergies Medications ketorolac (ACULAR) 0.5 % ophthalmic solution Administer 1 drop into the left eye every evening 07/08/20 Active ofloxacin (OCUFLOX) 0.3 % ophthalmic solution Administer 1 drop into the left eye 2 (two) times a day 07/08/20 22 Active blood-glucose meter kitIndications:Ty pe 1 diabetes mellitus with hypoglycemia and without coma (HCC) Use daily as directed for monitoring of blood sugar for diabetes. E10.65 1 kit 07/17/19 Active blood glucose diagnostic (glucose blood) stripIndications: Type 1 diabetes mellitus with hypoglycemia and without coma (HCC) Check blood sugar 3x times a day or as directed. E10.65 100 each 07/17/19 Active alcohol swabs pads, medicated Use to clean area before testing blood glucose (3times/day) and injecting insulins 4times/day. Total 7 swabs/day 200 each 07/17/19 Active lancets miscIndications:T ype 1 diabetes mellitus with hypoglycemia and without coma (HCC) Use to test blood sugar 3x/day. E11.65 100 each 07/17/19 Active folic acid (FOLVITE) 1 mg tabletIndications :Folate Deficiency Take 1 tablet (1 mg total) by mouth daily 90 tablet 3 09/14/19 Active phenazopyridine (PYRIDIUM) 100 mg tabletIndications :Dysuria Take 1 tablet (100 mg total) by mouth 3 (three) times a day as needed for urinary pain 9 tablet 10/28/19 Active atorvastatin (LIPITOR) 20 mg tablet Take 1 tablet (20 mg total) by mouth daily 90 tablet 2 03/22/20 23 Active clotrimazole 1 % cream Apply topically 2 (two) times a day 30 g 1 03/22/20 23 Active cyanocobalamin (Vitamin B-12) 2,500 mcg tablet, sublingualIndicat ions:Prevention of Vitamin B12 Deficiency Take one table once a day (2500 mcg), sublingually 90 tablet 03/22/20 Active diclofenac sodium (VOLTAREN) 1 % gel [...] the left eye daily 5 mL 04/17/20 Active erythromycin (ILOTYCIN) ophthalmic ointment Apply to [...] CHANGE sensor every 5-7 DAYS. 15 each 11 01/17/20 24 Active LANTUS 100 unit/mL (3 [...] 03/09/20 24 Active blood-glucose meter,continuous (Dexcom G7 [employer]) misc 1 Device continuously For 10 days e10.65 1 each 1 05/19/20 24 Active omeprazole (PriLOSEC) 40 mg capsule Take 1 capsule (40 mg total) by mouth daily 90 capsule 1 05/20/20 24 Active insulin lispro (HumaLOG) 100 unit/mL vial for injection Use with [employer] 780G pump, Total daily dose 40 units [...] (08/29/2022): Added automatically from request for surgery [id number] Diabetic polyneuropathy asso ciated with type 1 diabetes mellitus 06/05/2022 Assessment & Plan (06/25/2023 10:55 AM OUTBOUND TELEMARKETING REPRESENTATIVE): Worsening sx at this time Will increase [...] dilated eye exam was Dr. Menendez at [facility] in [place] Monofilament foot exam completed. protective senses intact- [...] Office sample provided. Cataract removal scheduled at [facility] on 09/28/[address] Caldera. Monofilament [...] No history of macrovascular disease - [place]. Continuous glucose monitor (cgm) applied from 09/03/2022 [...] 37.5%. Assessment & Plan (08/07/2022 10:58 AM OUTBOUND TELEMARKETING REPRESENTATIVE): This is a chronic condition which continues Ambulatory referral to [facility] for diabetic foot care Type 1 diabetes mellitus with hyperglycemia 05/10 Assessment & Plan (05/19/2024 5:10 PM OUTBOUND TELEMARKETING REPRESENTATIVE): This is a chronic condition which is [...] counseling. Reached out to Lori Prince at [facility] to help reestablish insulin pump therapy Monitor [...] protective senses Treated with Gabapentin/Lyrica Personally reviewed CMP eGFR- >90 Kidney function-normal Urine microalbumin/creatinine ratio [...] sugar continuously with dexcom 6 sensor. Received [employer] guardian sensor yesterday. Encouraged annual eye exam. last dilated eye exam was at [facility] eye Monofilament foot exam completed. protective senses intact Treated with Gabapentin Personally reviewed CMP eGFR- [...] and feet Treated with Gabapentin Personally reviewed [facility] eGFR- 113 Kidney function- normal Urine microalbumin/creatinine [...] dilated eye exam was Dr. Menendez at [facility] in [place] Monofilament foot exam completed. protective senses intact- [...] Office sample provided. Cataract removal scheduled at [facility] on 10/17/[address] Caldera. Monofilament [...] No history of macrovascular disease - [place]. Assessment & Plan (09/18/2022 12:49 PM CDT): [...] Office sample provided. Cataract removal scheduled at [facility] on 09/28/[address] Caldera. Monofilament [...] No history of macrovascular disease - [place]. Continuous glucose monitor (cgm) applied from 09/03/2022 [...] 37.5%. Assessment & Plan (08/07/2022 10:56 AM OUTBOUND TELEMARKETING REPRESENTATIVE): This is a chronic condition which is [...] sugar alarm sounds Cataract removal scheduled at [facility] on 08/11/[address] Caldera. Monofilament [...] No history of macrovascular disease - [place]. Continuous glucose monitor (cgm) applied from 07/25/2022 [...] 05/02/2022 Assessment & Plan (05/31/2022 3:02 PM OUTBOUND TELEMARKETING REPRESENTATIVE): This is a chronic problem which is [...] 03/20/2022 Assessment & Plan (06/14/2023 3:58 PM OUTBOUND TELEMARKETING REPRESENTATIVE): Lab Results Component Value Date WBC 13.0 (H) 12/01/2022 HGB 11.8 (L) 12/01/2022 HCT 35.9 (L) 12/01/2022 MCV 81.8 12/01/2022 LABPLAT 282 12/01/2022 Stable Needs repeat blood work Assessment & Plan (06/05/2022 12:37 PM OUTBOUND TELEMARKETING REPRESENTATIVE): Lab Results Component Value Date WBC 9.7 [...] dilated eye exam was Dr. Menendez at [facility] in [place] Monofilament foot exam completed. protective senses intact- feels pins and needles in his legs and feet. Treated with Gabapentin Urine microalbumin/creatinine ratio - at goal <30 not treated with ROBERTA/ARB Personally reviewed CMP eGFR- 93 Kidney function- normal B/P today-at goal of <140/90. Personally reviewed lipid panel. at Goal of less than 70. Continue atorvastatin Assessment & Plan (06/05/2022 12:37 PM OUTBOUND TELEMARKETING REPRESENTATIVE): Chronic and is establish and following with optho Assessment & Plan (05/02/2022 2:36 PM CDT): This is a chronic condition Has an appt at [facility] on Sunday. Reports cataracts and [...] visit Assessment & Plan (05/31/2022 3:01 PM OUTBOUND TELEMARKETING REPRESENTATIVE): This is a chronic condition which is [...] 15% Assessment & Plan (06/14/2023 3:57 PM OUTBOUND TELEMARKETING REPRESENTATIVE): Lab Results Component Value Date HGBA1C >15.0 04/20/2023 HGBA1C 9.4 11/06/2022 HGBA1C 7.8 08/07/2022 Lab Results Component Value Date LDLCALC 61 09/18/2022 CREATININE 0.90 12/19/2022 Following with endo - worseniong and not at goal of A1c <7.5% Continue humalog 6 u tid, lantus 18 units hs Assessment & Plan (03/21/2023 11:49 AM CDT): Lab Results Component Value Date HGBA1C 9.4 11/06/2022 HGBA1C 7.8 08/07/2022 HGBA1C 13.2 05/02/2022 Lab Results Component Value Date LDLCALC 61 09/18/2022 CREATININE 0.90 12/19/2022 Following with endo - worseniong and not at goal of A1c <7.5% Continue humalog 6 u tid, lantus 18 units [facility] Assessment & Plan (12/25/2022 10:33 AM CDT): Lab Results Component Value Date HGBA1C 9.4 11/06/2022 HGBA1C 7.8 08/07/2022 HGBA1C 13.2 05/02/2022 Lab Results Component Value Date LDLCALC 61 09/18/2022 CREATININE 0.90 12/19/2022 Following with endo - worseniong and not at goal of A1c <7.5% Continue humalog 6 u tid, lantus 18 units [facility] Assessment & Plan (12/19/2022 9:46 AM CDT): Lab Results Component Value Date HGBA1C 9.4 11/06/2022 HGBA1C 7.8 08/07/2022 HGBA1C 13.2 05/02/2022 Lab Results Component Value Date LDLCALC 61 09/18/2022 CREATININE 0.77 (L) 12/01/2022 Following with endo - worseniong and not at goal of A1c <7.5% Continue humalog 6 u tid, lantus 18 units [facility] Assessment & Plan (12/18/2022 11:21 AM CDT): [...] Office sample provided. Cataract removal scheduled at [facility] on 10/17/[address] Caldera. Monofilament [...] No history of macrovascular disease - [place], [place]. Assessment & Plan (09/13/2022 3:30 PM OUTBOUND TELEMARKETING REPRESENTATIVE): Lab Results Component Value Date HGBA1C 7.8 08/07/2022 HGBA1C 13.2 05/02/2022 HGBA1C 17.4 (H) 02/27/2022 Lab Results Component Value Date LDLCALC 64 04/07/2020 CREATININE 0.97 09/05/2022 Following with endo - better controlled a1c as above Continue humalog 5u tid, lantus 15 units qhs Assessment & Plan (08/07/2022 10:58 AM OUTBOUND TELEMARKETING REPRESENTATIVE): This is a chronic condition which is [...] sugar alarm sounds Cataract removal scheduled at [facility] on 08/11/[address] Caldera. Monofilament [...] No history of macrovascular disease - [place], [place]. Continuous glucose monitor (cgm) applied from 07/25/2022 [...] 36%. Assessment & Plan (07/14/2022 12:19 PM OUTBOUND TELEMARKETING REPRESENTATIVE): This is a chronic condition which is [...] sugar alarm sounds Cataract removal scheduled at [facility] on 07/16/2022. Dr. Menendez notified of oral findings on examination Monofilament [...] No history of macrovascular disease - [place], [place]. Continuous glucose monitor (cgm) applied from07/01/2022 to [...] 42%. Assessment & Plan (07/14/2022 9:01 AM OUTBOUND TELEMARKETING REPRESENTATIVE): -chronic, not at goal but improving -last A1c 8.0 -patient is seeing Karly Leach endocrinology for evaluation today -patient is cleared for left cataract surgery on 07/20/2022 Assessment & Plan (06/05/2022 12:37 PM OUTBOUND TELEMARKETING REPRESENTATIVE): Lab Results Component Value Date HGBA1C 13.2 [...] tablets Assessment & Plan (05/31/2022 3:07 PM OUTBOUND TELEMARKETING REPRESENTATIVE): This is a chronic condition which is [...] titration as instructed Cataract removal scheduled at [facility] on 06/23/2022 Monofilament foot exam completed, [...] No history of macrovascular disease - [place], [place]. Assessment & Plan (05/02/2022 2:36 PM CDT): [...] titration on Sunday. dilated eye exam at [facility] on Sunday. Monofilament foot exam completed, [...] No history of macrovascular disease - [place], [place]. Encouraged to take insulin as prescribed. Discussed [...] No history of macrovascular disease - [place], [place]. Encouraged to take insulin as prescribed. Discussed [...] No history of macrovascular disease - [place]. Encouraged to take insulin as prescribed. Discussed [...] No history of macrovascular disease - [place], [place]. Encouraged to take insulin as prescribed. Discussed [...] No history of macrovascular disease - [place], [place]. Assessment & Plan (05/17/2020 4:34 PM OUTBOUND TELEMARKETING REPRESENTATIVE): This is a chronic condition which is [...] 10 units above 350. See Dietitian and Director Family for nutritional counseling and diabetes education Monitor [...] No history of macrovascular disease - [place], [place]. Attempting to get an insulin pump. Has [...] blood sugar, lipid panel and CMP Wear [employer] Libre2 CGM for 14 days Monitor blood sugar 4 times a day. dilated eye exam is needed Monofilament foot exam completed, protective senses intact Urine microalbumin/creatinine ratio - 10 Kidney function eGRF- 122, BUN- 8, creatinine- 0.63 BP today- 118/58 , currently not on ROBERTA/ARB LDL -71 (06/26), currently not on statin No history of macrovascular disease - [place], [place]. Idiopathic chronic pancreatitis 08/28/2016 Assessment & Plan [...] yesterday. Encouraged to contact Lori Prince from [employer] to have sensor training. Will proceed with [...] 11/06/2022 Assessment & Plan (09/13/2022 3:31 PM OUTBOUND TELEMARKETING REPRESENTATIVE): Chemistry Lab Results Component Value Date SODIUM [...] surgeon Assessment & Plan (07/14/2022 9:00 AM OUTBOUND TELEMARKETING REPRESENTATIVE): Pt has had previous surgery without complication [...] 07/14/202211/06 Assessment & Plan (09/13/2022 3:44 PM OUTBOUND TELEMARKETING REPRESENTATIVE): Pt optimized for low risk procedure at this time Further work up for current sx should not pose contraindication to low risk procedure by optho Assessment & Plan (07/14/2022 9:00 AM OUTBOUND TELEMARKETING REPRESENTATIVE): Pt has had previous surgery without complication [...] this time Recommended that he try the [facility] dental clinic Assessment & Plan (10/16/2022 11:56 AM CDT): This problem is resolved as he had his teeth pulled. His mouth has healed 16th are left Assessment & Plan (08/07/2022 10:57 AM OUTBOUND TELEMARKETING REPRESENTATIVE): This is a chronic condition which has improved Encouraged to follow-up with dentist for teeth removal as recommended by dentist Assessment & Plan (07/14/2022 12:10 PM OUTBOUND TELEMARKETING REPRESENTATIVE): This is a chronic problem which is ongoing Encouraged to see a dentist as soon as possible His mother said she will get him in with Dr. Manolo Caldwell in [place] Dr. Caldera's office - [facility] in [place] called and informed potential infection in oral findings. Hyperosmolar hyperglycemic state (HHS) 02/27/2022 05/02/2022 Hyperosmolar non-ketotic sta te in patient with type 2 diabetes mellitus 06/10/2019 04/05/2020 Volume depletion 06/10/2019 04/05/2020 Non-ketotic hyperglycinemia 04/05/2020 Dehydration 04/05/2020 Immunizations Immunization Administration Dates Next Due Influenza, Unspecified 02/13/2024(Deferr ed: Patient Refused),10/05/2023(Deferred: Patient Refused),09/19/2023(Deferred: Patient Refused),06/25/2023(Deferred: Patient Refused),04/17/2023(Deferred: Patient Refused),09/06/2021(Deferred: Patient Refused) Tdap 04/23/2019,11/21/2014 Social History Tobacco Use Types Packs/Day Years [...] on file Legal Sex Male 1:02 AM OUTBOUND TELEMARKETING REPRESENTATIVE Gender Identity Not on file Sexual Orientation Not on file Last Filed Vital Signs Vital Sign Reading Time Taken Comments Blood Pressure 107/76 07/29/2024 10:26 AM OUTBOUND TELEMARKETING REPRESENTATIVE Pulse 90 07/29/2024 10:26 AM OUTBOUND TELEMARKETING REPRESENTATIVE Temperature 37 C (98.6 F) 02/06/2024 2:20 PM CDT Respiratory Rate 16 02/13/2024 11:22 AM CDT Oxygen Saturation 99% 07/29/2024 10:26 AM OUTBOUND TELEMARKETING REPRESENTATIVE Inhaled Oxygen Concentration - - Weight 49.5 kg (109 lb 3.2 oz) 07/29/2024 10:26 AM OUTBOUND TELEMARKETING REPRESENTATIVE Height 177.8 cm (5' 10 ) 07/29/2024 10:26 AM OUTBOUND TELEMARKETING REPRESENTATIVE Body Mass Index 15.67 07/29/2024 10:26 AM OUTBOUND TELEMARKETING REPRESENTATIVE Plan of Treatment Not on file Procedures Procedure Name Priority Date/Time Associated Diagnosis Comments POCT HEMOGLOBIN A1C Routine 05/19/2024 9 :48 AM OUTBOUND TELEMARKETING REPRESENTATIVE Type 1 diabetes mellitus with hyperglycemia (HCC) [...] (ABNORMAL) POCT hemoglobin A1c (05/19/2024 9:48 AM OUTBOUND TELEMARKETING REPRESENTATIVE) Hemoglobin A1C, POC 15.0 4.0 - 5.6 % Blood 05/19/2024 9:48 AM OUTBOUND TELEMARKETING REPRESENTATIVE Karly Leach NP POINT OF CARE TEST [...] of Race in Diagnosing Kidney Disease, JASN 202). The CKD-EPI equation should not be used for patients with unstable renal function and has not been validated in children and those over 70. Current interpretive data was last reviewed 2021. Blood 02/13/2024 12:2 3 PM CDT 02/13/2024 12:32 PM CDT us Dick Mccollum MD LAB BLOOD ORDERABLES Final Resul t JOSEP [facility] [place]) [address] Department [place] [address] * Colonoscopy (02/06/2024 12:21 PM CDT) Anatomical Region Laterality Modality Other Narrative Procedure Note Jose Villagomez MD - 02/06/2024 12:21 PM CDT [facility] Patient Name: Avery Phillips Procedure Date: 02/06/2024 12:21 PM Date of : 1980 Admit Type: Outpatient Age: 43 Gender: Male Attending MD: Jose Villagomez M.D. Room: [facility] ENDOSCOPY ROOM 2 Note Status: Finalized Patient [...] by the physician, the anesthesiologist and the medical office technician in the endoscopy suite. MentalStatus Examination: [...] under direct vision. The Pediatric Colonoscope [id number]-H190L [id number] was introducedthrough the anus and advanced to [...] 12:21 PM Procedure Code(s): --- Professional --- 74998, Colonoscopy, flexible; with biopsy, single or multiple --- Technical --- 26337, Colonoscopy, flexible; with biopsy, single or multiple Diagnosis Code(s): --- Professional --- K64.8, Other hemorrhoids K63.89, Other specified diseases of intestine K52.9, Noninfective gastroenteritis and colitis, unspecified --- Technical --- K64.8, Other hemorrhoids K63.89, Other specified diseases of intestine K52.9, Noninfective gastroenteritis and colitis, unspecified CPT copyright 2020 [employer]. All rights reserved. The codes documented in this report are preliminary and upon label coder reviewmay be revised to meet current compliance requirements. Recognized by the [place] [employer] for promoting quality [...] data last revised 21. Testing performed by: [facility], [address] [place] [address]., [id number] Blood 12/14/2023 11:1 3 AM CDT 12/14/2023 11:31 AM CDT Dick Mccollum MD LAB BLOOD ORDERABLES Final Resul t [facility] [place]) [address] [facility] Department [place] [address] * Albumin Creatinine Ratio, Urine (12/14/2023 11:13 AM CDT) Albumin Ur 33.6 mg/L Comment: Interpretive Data No reference range established. Current interpretive data was last revised 2018. Testing performed by: [facility], [address] [place] [address]., [id number] Creatinine Ur 162.0 mg/dL JOSEP [facility]ONT[facility] ([place]) Comment: Interpretive Data No reference range established. Current interpretive data was last revised 2018. Testing performed by: [facility], [id number] [place] [address], [place]., [address] Albumin Creatinine Ratio, Ur 21 1 - 29 mg/g JOSEP [facility]ONT[facility] (MARIA M) Comment:Testing performed by : [facility], [id number] [place] [address], [place]., [address] Urine 12/14/2023 11:1 3 AM CDT 12/14/2023 2:06 PM CDT us Dick Mccollum MD LAB URINE ORDERABLES Final Resul t JOSEP [facility] (MARIA M) [address] [facility] Department [place] [address] * Lipid panel (12/14/2023 11:13 AM CDT) [...] on 2018. HDL 96 >=40 mg/dL JOSEP Howe (MARIA M) Comment: Interpretive Data Ages < [...] Resul t JOSEP [facility] (MARIA M) [address] [facility] Department [place] [address] * Diabetic Eye Exam (02/23/2023) 02/23/2023 us [...] last revised on 19. Testing performed by: [facility], [address] [place] [address]., [id number] Hep B core IgM Nonreactive Nonreactive Ama FONTENOT (MARIA M) Comment: Interpretive Data If HepB Core IgM Ab is reported as Equivocal, a new sample should be drawn in two weeks for testing. Current interpretive data was last revised on 19. Testing performed by: [facility], [address] [place] [address]., [id number] Hep C Ab Nonreactive Nonreactive JOSEP FONTENOT [...] last revised on 2019. Testing performed by: [facility], [address] [place] [address]., [id number] HepBsAg Nonreactive Nonreactive JOSEP [facility]ONT[facility]OT (MARIA M) Comment:Testing performed by : [address] [address] Blood 12/21/2022 10:5 3 AM CDT 12/21/2022 3:12 PM CDT Dick Mccollum MD LAB MICROBIOLOGY - GENERAL ORDER NATHAN Final Result JOSEP [facility] (MARIA M) [address] [facility] [place] [address] * TSH reflex to free T4 (09/18/2022 10:59 AM CDT) TSH 1.66 0.30 - 4.20 mcIUnit/mL JOSEP [facility]ONT[facility] (MARIA M) Blood 09/18/2022 10:5 9 AM CDT 09/18/2022 1:54 PM CDT Dick Mccollum MD LAB BLOOD ORDERABLES Final Resul t Performing Organization Address City/[facility] Co de Phone Number JOSEP [place] ([place]) [address] [facility] [place] [address] from Last 3 Months or Most Recently Relevant to Health Maintenance Insurance [facility] Advance Directives For more information, please contact: [phone] * Full Code (Latest Code Status on [...] 8:29 AM 02/14/2023 1:25 PM Care Teams Sr. Manager Relationship Specialty Start Date End Date Raul Lara MD [address] [place] [address] [place] [address] PCP - General Family Medicine 08/12/24
--- OUTSIDE RECORDS SUMMARY | 2024-10-25 11:17 | XMS_ITS | Encounter Summary ---
Author Organization [facility] Address [address] [place] [address] Care Team Providers Care Petroleum Plant Operator Name Role Phone Dick Mccollum MD Primary Care Provider [phone] Unknown, Provider Primary Care Provider Unavaila Ladonna Avalos MD Unavailable [phone] Encounter Details Date Type Department Care Team (Late st Contact Info) Description 10/10/2024 Ophth Exam [facility] - Ophthalmology [address] [place] [id number] Mesfin Ocampo, DO [address] [facility] [place] [id number] Social History Tobacco Use Types Packs/Day Years Used Date Smoking Tobacco: Former Cigarettes 0.5 10.3 S tarted: 07/09/2014 Passive Smoke Exposure: Current Smokeless Tobacco: Never Alcohol Use Standard Drinks/Week Comments Not Currently 0 (1 standard drink = 0.6 oz pur e alcohol) AUDIT-C Answer Date Recorded Q1: How often do you have a drink containing alcohol? Patient unable to answer 10/02/2024 Q2: How many drinks containi ng alcohol do you have on a typical day when you are drinking? Patient unable to answer Q3: How often do you have si x or more drinks on one occasion? Patient unable to answer 10/02/2024 Overall Financial Resource Strain (CARDIA) Answe r Date Recorded How hard is it for you to pa y for the very basics like food, housing, medical care, and heating? Not hard at all 10/02/2024 [facility] - Occupational Stress Questionnaire Answer Date Recorded Do you feel stress - tense, restless, nervous, or anxious, or unable to sleep at night because your mind is troubled all the time - these days? Only a little 10/02/2024 Hunger Vital Sign Answer Date Recorded Within the past 12 months, y ou worried that your food would run out before you got the money to buy more. Never true 10/03/19 25 Within the past 12 months, t he food you bought just didn't last and you didn't have money to get more. Never true 10/02/2024 PRAPARE - Transportation Answer Date Re corded In the past 12 months, has l ack of transportation kept you from medical appointments or from getting medications? No 09/07 In the past 12 months, has l ack of transportation kept you from meetings, work, or from getting things needed for daily living? No 10/02/2024 Housing Stability Vital Sign Answer Avery e Recorded In the last 12 months, was t here a time when you were not able to pay the mortgage or rent on time? No 10/02/2024 In the past 12 months, how m any times have you moved where you were living? 0 10/02/2024 At any time in the past 12 m [facility], were you homeless or living in a senior living (including now)? 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 Answer Date of Assessment Author No 10/02/2024 12:06 AM Lali Montano Graduate Nurse * Is person blind or have serious difficulty seeing? Answer Date of Assessment Author No 10/02/2024 12:06 AM Lali Montano Graduate Nurse * Does person have serious difficulty walking/climbing stairs? Answer Date of Assessment Author No 10/02/2024 12:06 AM CDT Lali Lam Graduate Nurse * Does person have difficulty dressing/bathing? Answer Date of Assessment Author No 10/02/2024 12:06 AM CDT Lali Lam Graduate Nurse * Does person have difficulty doing errands alone? Answer Date of Assessment Author No 10/02/2024 12:06 AM CDT Lali Lam Graduate Nurse documented as of this encounter Mental Status * Does person have difficulty concentrating/remembering/making decisions? Answer Entry Date Author No 10/02/2024 12:06 AM BALTAT Lali Lam Graduate Nurse documented in this encounter Plan of Treatment Upcoming Encounters Date Type Department Care Team (Latest Contact Info) Description 11/12/2024 12:00 PM CDT Hospital Encounter [facility] [address] [place] [address] Josie Schaefer, DO [address] [place] [id number] Surgery General 11/12/2024 12:00 PM CDT - 11/12/2024 2:00 PM CDT Surgery [facility] [address] [place] [address] Josie Schaefer, DO [address] [place] [phone] Cystoscopy, left ureteroscopic stone extraction, laser lithotripsy Scheduled Procedures Name Priority Associated Diagnoses Date/Ti pa CYSTOSCOPY URETEROSCOPY WITH LASER/HOLMIUM LITHOTRIPSY Nephrolithiasis 11/12/2024 12:00 PM CDT CYSTOSCOPY WITH RETROGRADE PYELOGRAM Nephrolithiasis 11/12/2024 12:00 PM CDT CYSTOSCOPY WITH INSERTION URETERAL STENT Nephrolithiasis 11/12/2024 12:00 PM CDT INSERTION CATHETER SUPRAPUBIC Nephrolithiasis 11/12/2024 12:00 PM CDT documented as of this encounter Visit Diagnoses Not on filedocumented in this encounter Additional Health Concerns Infection Onset Date Last Indicated Resolved Time ESBL Hx 10/06/2024 10/06/2024 CDIFF Under Investigation 10/16/2024 10/16/2024 1:59 PM CDT documented as of this encounter Care Teams Petroleum Plant Operator Relationship Specialty Start Date End Date Dick Mccollum MD [address] [place] [address] DR BURT [address] [place] [phone] PCP - General Hospitalist 06/20/24 10/20/24 Unknown, Provider PCP - General 10/21/24 Ladonna Agrawal MD [address] [place] [address] Physician Infectious Disease 10/21/24 documented as of this encounter
--- OUTSIDE RECORDS SUMMARY | 2024-10-25 11:17 | XMS_ITS | Encounter Summary ---
Author Organization [facility] Address [address] [place] [address] Care Team Providers Care Art Editor Name Role Phone Dick Mccollum MD Primary Care Provider [phone] Unknown, Provider Primary Care Provider Unavaila Ladonna Avalos MD Unavailable [phone] Encounter Details Date Type Department Care Team (Late st Contact Info) Description 10/04/2024 Ophth Exam [facility] - Ophthalmology [address] [place] [address] Ebenezer Gray MD [address] [place] [address] Social History Tobacco Use Types Packs/Day Years [...] and heating? Not hard at all 10/02/2024 [facility]at [facility] - Occupational Stress [...] any time in the past 12 m [facility], were you homeless or living in a half-way (including now)? 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 Gender Identity Not on file Sexual Orientation [...] Entry Date Author No 10/02/2024 12:06 AM CDT Lali Lam Graduate Nurse documented in this encounter Plan of Treatment Upcoming Encounters Date Type Department Care Team (Latest Contact Info) Description 11/12/2024 12:00 PM CDT Hospital Encounter [facility] [address] [place] [address] Josie Schaefer, DO [address] [facility] [address] DIV OF [place]OLOGIC [place] [address] Surgery General 11/12/2024 12:00 PM CDT - 11/12/2024 2:00 PM CDT Surgery [facility] [address] [place] [address] Josie Schaefer, DO [address] [facility] [address] DIV OF UROLOGIC [place] [address] Cystoscopy, left ureteroscopic stone extraction, laser lithotripsy Scheduled Procedures Name Priority Associated Diagnoses Date/Ti ri CYSTOSCOPY URETEROSCOPY WITH LASER/HOLMIUM LITHOTRIPSY Nephrolithiasis 11/12/2024 12:00 PM CDT CYSTOSCOPY WITH RETROGRADE PYELOGRAM Nephrolithiasis 11/12/2024 12:00 PM CDT CYSTOSCOPY WITH INSERTION URETERAL STENT Nephrolithiasis 11/12/2024 12:00 PM CDT INSERTION CATHETER SUPRAPUBIC Nephrolithiasis 11/12/2024 12:00 PM CDT documented as of this encounter Visit Diagnoses Not on filedocumented in this encounter Additional Health Concerns Infection Onset Date Last Indicated Resolved Time ESBL GNR 06/23/2024 06/23/2024 10/06/2024 8:04 AM CDT CDIFF Under Investigation 10/03/2024 10/03/2024 4:41 PM CDT ESBL Hx 10/06/2024 10/06/2024 CDIFF Under Investigation 10/16/2024 10/16/2024 1:59 PM CDT documented as of this encounter Care Teams Art Editor Relationship Specialty Start Date End Date Dick Mccollum MD [address] [place] [address] [phone] PCP - General Hospitalist 06/20/24 10/20/24 Unknown, Provider PCP - General 10/21/24 [place] [address] [place] [id number] Physician Infectious Disease 10/21/24 documented as of this encounter
--- OUTSIDE RECORDS SUMMARY | 2024-10-25 11:17 | XMS_ITS | Clinical Summary ---
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 This disclosure is being madepursuant to the Care Everywhere program and may not contain all information available regarding this patient. Last updated 18.[facility] [employer] Allergies No known active allergies Medications * Be aware that medications may not be up to date on this document. Alwaysverify current medications with the patient. omeprazole (PRILOSEC) 20 MG capsule Take 1 Cap by mouth daily before breakfast. 30 Cap 0 010 Active insulin pen needle (Novofine 31) 31G X 5 MM needleIndicatio ns:Type 1 diabetes mellitus with other specified complication (HCC) Use 1 (one) Each as instructed 4 times daily 100 Each 024 Active Blood Glucose Monitoring Suppl (Blood Glucose Monitor System) w/Device KITIndications: Type 1 diabetes mellitus with other specified complication (HCC) Use 1 Each as directed 1 Each 12/26/2 024 Active ONETOUCH DELICA PLUS 30G FINE LANCETSIndicati ons:Type 1 diabetes mellitus with other specified complication (HCC) Use 1 Lancet 3 times daily 100 Each 1 Active blood glucose test stripIndication s:Type 1 diabetes mellitus with other specified complication (HCC) Use 1 (one) strip as directed 100 strip 11 Active Alcohol Swabs (Alcohol Prep) 70 % Use 1 Pad 3 times daily 100 Each 1 Active lancetsIndicati ons:Diabetes Mellitus Reasons: Diabetes 100 Each 1 Active citalopram (CeleXA) 20 MG tablet Take 1 (one) tablet by mouth once daily Active tamsulosin (Flomax) 0.4 MG capsule Take 1 (one) capsule by mouth once daily At the same time every day after a meal. Active pancrelipase (Creon 36,000) 30307-020574 units capsule Take 4 (four) capsules by mouth 3 times daily with meals Active oxyCODONE, immediate release, (Roxicodone) 5 MG tabletIndicatio ns:Acute cystitis with hematuria,Left ureteral calculus,Fungem ia,Kelsy albicans infection Take 1 (one) tablet by mouth every 4 hours as needed Active acetaminophen (Tylenol) 325 MG tablet Take 2 (two) tablets by mouth every 6 hours as needed Maximum allowable Acetaminophen amount = 4 Grams (4000 mg) / 24 hours. Active gabapentin (Neurontin) 300 MG capsule Take 2 (two) capsules by mouth 2 times daily Active insulin aspart (NovoLOG) pen Inject 0 (zero) Units to 6 (six) Units subcutaneously every 4 hours Active insulin aspart (NovoLOG) pen Inject 3 (three) Units subcutaneously as needed (Snacks) Active loperamide (Imodium) 2 MG capsule Take 1 (one) capsule by mouth 4 times daily as needed for Diarrhea Active capsaicin (Zostrix) 0.025 % cream Apply to affected area 3 times daily Active folic acid (Folvite) 1 MG tablet Take 1 (one) tablet by mouth once daily Active insulin aspart (NovoLOG) pen Inject 5 (five) Units subcutaneously 3 times daily with meals Active insulin glargine (Lantus/Semglee ) 100 units/mL pen Inject 8 (eight) Units subcutaneously at bedtime Active Nutritional Supplements (Ensure High Protein) LIQDIndications :Ensure High Protein 3x/day by mouth Take 3 cans by mouth 3 times daily Reasons: Ensure High Protein 3x/day by mouth 024 2024 Discontinued(T x Complete) Lantus SoloStar pen Inject 4 (four) Units subcutaneously at bedtime 3 mL 2024 Discontinued(D ose Adjustment) insulin aspart (NovoLOG) pen Inject 6 (six) Units subcutaneously 3 times daily before meals for 33 days 6 mL 2024 Discontinued(D ose Adjustment) gabapentin (Neurontin) 600 MG tablet Take 0.5 (one-half) tablet by mouth 2 times daily for 30 days 30 tablet 2024 Discontinued(D ose Adjustment) pancrelipase (Creon 36,000) 98862-778040 units capsule Take 3 (three) capsules by mouth as directed for 30 days Take 3 (three) capsules by mouth with all meals. Also take 1-2 (one to two) capsules by mouth with all snacks. 400 capsule 2024 Discontinued(D ose Adjustment) micafungin 100 MG 100 mg in NaCl IV 0.9 % 100 mL 100 (one hundred) mg by Intravenous route every 24 hours for 7 days 2024 Discontinued(Y es Pharm/AVS) fluconazole (Diflucan) 200 MG tablet Take 1 (one) tablet by mouth once daily for 14 days 2024 Discontinued(D ose Adjustment) tolterodine ER 24hr (Detrol LA) 2 MG capsule Take 1 (one) capsule by mouth once daily 025 2024 Discontinued(D ose Adjustment) oxyCODONE, immediate release, (Roxicodone) 5 MG tabletIndicatio ns:Acute cystitis with hematuria,Left ureteral calculus,Fungem ia,Kelsy albicans infection Take 1 (one) tablet by mouth every 4 hours as needed 025 2024 Discontinued oxyCODONE, immediate release, (Roxicodone) 10 MG tabletIndicatio ns:Acute cystitis with hematuria,Left ureteral calculus,Fungem ia,Kelsy albicans infection Take 1 (one) tablet by mouth every 4 hours as needed 025 2024 Discontinued(Ama aguileraical Decision) micafungin 100 MG 100 mg in NaCl IV 0.9 % 100 mL 100 (one hundred) mg by Intravenous route every 24 hours for 7 days 025 2024 Discontinued(T x Complete) fluconazole (Diflucan) 200 MG tablet Take 3 (three) tablets by mouth once daily for 14 days 2024 Discontinued insulin glargine (Lantus/Semglee ) 100 units/mL pen Inject 7 (seven) Units subcutaneously at bedtime 025 2024 Discontinued(D ose Adjustment) tolterodine (Detrol) 2 MG tablet Take 1 (one) tablet by mouth 2 times daily 025 2024 Discontinued(Ama aguileraical Decision) insulin aspart (NovoLOG) pen Inject 7 (seven) Units subcutaneously 3 times daily with meals 025 2024 Discontinued(Y es Pharm/AVS) insulin glargine (Lantus/Semglee ) 100 units/mL pen Inject 9 (nine) Units subcutaneously at bedtime 025 2024 Discontinued(Y es Pharm/AVS) fluconazole (Diflucan) 200 MG tablet Take 3 (three) tablets by mouth once daily for 3 days 9 tablet 10/19/19 25 12:29 PM CDT 2024 Active Problems Problem Noted Date Diagnosed Date Chronic pancreatitis 10/18/2024 Hyperkalemia 10/11/2024 Urinary retention 10/11/2024 Hypotension due to hypovolemia 10/02/2024 Encephalopathy acute 10/02/2024 Hyperglycemia 10/02/2024 Gastroesophageal reflux disease 10/02/2024 Type 1 diabetes mellitus with diabetic polyneuro isaiah 10/02/2024 Coagulopathy 10/02/2024 Sepsis with acute renal failure without septic s hock 10/02/2024 Left ureteral calculus 10/01/2024 Acute cystitis with hematuria 10/01/2024 Acute pyelonephritis 10/01/2024 Hydronephrosis concurrent wi th and due to calculi of kidney and ureter 10/01/2024 Candidal esophagitis 06/24/2024 Fungemia 06/23/2024 Kelsy albicans infection 06/23/2024 Kelsy glabrata infection 06/23/2024 Hypophosphatemia 06/22/2024 Hyponatremia 06/22/2024 Severe protein-calorie malnutrition 06/22/2024 Hypokalemia 06/21/2024 Neutrophilic leukocytosis 06/21/2024 STEVIE (acute kidney injury) 06/21/2024 Weight loss, abnormal 06/21/2024 Encounters Date Type Department Care Team Description 10/23/2024 11:30 AM CDT Procedure visit [facility] - Urology [address] [place] [address] Elsi Modi, CARTOON ANIMATOR-RADAR TESTER Kidney stones ; Urinary retention 10/23/2024 Travel 10/22/2024 Orders Only [facility] - Urology [address] [place] [phone] Amira Hope LPN Kidney stones ; Pre-op testing 10/21/2024 10:30 AM CDT Office Visit [facility] - Infectious Disease [address] [place] [phone] Side effects of treatment, subsequent encounter (Primary Dx); Fungemia 10/21/2024 Travel 10/10/2024 [facility]hth [facility]am [facility]hthal[facility] [address] [place] [phone] Mesfin Ocampo DO 10/08/2024 Orders Only [facility] - Urology [address] [place] [phone] Mari Gardner RN Kidney stones ; Bacteriuria; Pre-op testing 10/07/2024 2:29 PM CDT - 10/07/2024 11:59 PM CDT Hospital Encounter [facility] - Cardiac Machine Packager [address] [place] [address] Patric Parham MD Discharge Disposition: Home or Self Care 10/04/2024 Ophth Exam [facility] - Ophthalmology [address] [place] [phone] Ebenezer Gray MD 10/03/2024 Orders Only [facility] - Urology [address] [place] [phone] Marc Velasquez MD Nephrolithiasis 10/01/2024 8:20 PM CDT - 10/01/2024 10:20 PM CDT Surgery [facility] [address] [place] [phone] Josie Schaefer DO CYSTOSCOPY WITH URETERAL STENT PLACEMENT AND RETROGRADE PYELOGRAM LEFT SIDE 10/01/2024 8:14 PM CDT Anesthesia Event [facility] [address] [place] [phone] Michael Moore MD 10/01/2024 6:36 PM CDT - 10/18/2024 5:00 PM CDT Hospital Encounter [facility] 5[facility] ACUTE [address] [place] [phone] Calos Shen MD Chukwuanu, Kene A, MD Patolia, Setu K, MD Felgenhauer, Joshua, MD Ishiyama, Takaaki, MD Thompson, Keniesha O, MD Hazam, Randa, MD Internal Medicine Discharge Disposition: Prison Acute Care 10/01/2024 Travel 09/26/2024 Telephone [facility] - Urology [address] [place] [phone] Josie Schaefer DO Surgery Scheduling (Attempted to reach the patient to schedule surgery/procedure with Josie Schaefer DO. Left voicemail to return my call SUSIE Rebecca Raza 09/26/2024 5:41 PM ) 08/29/2024 Telephone [facility] Urology [address] [place] [address] Josie Schaefer DO Surgery Scheduling (Attempted to reach the patient to schedule surgery/procedure with Josie Schaefer DO. Home Number on file is a non working number, Left voicemail on Mobile number to return my call SUSIE. Rebecca Raza 08/29/2024 1:37 PM ) 08/20/2024 10:45 AM DATA COLLECTION SPECIALIST Office Visit [facility] - Urology [address], [place] [address] Josie Schaefer DO Nephrolithiasis (Primary Dx) 08/20/2024 Travel from Last 3 Months Immunizations Immunization Administration Dates Next Due INFLUENZA VACCINE, TRIV. ([place] UZONE; FLULAVAL; FLUARIX; AFLURIA TRIVALENT; 6MO+), 0.5 ML (IIV3) 10/14/2024(Deferred: Patient Refused - pt educated about risks and benefits, continued to refuse) Social History Tobacco Use Types Packs/Day Years Used Date Smoking Tobacco: Former Cigarettes 0.5 10.3 S tarted: 07/09/2014 Passive Smoke Exposure: Current Smokeless Tobacco: Never Tobacco Cessation:Counseling Given: No Alcohol Use Standard Drinks/Week Comments Not Currently [...] and heating? Not hard at all 10/02/2024 PHQ-2 Answer Date Recorded Patient Health Questionnaire-2 Score 0 10/21/2024 [facility] Occupat ional Health - Occupational Stress [...] any time in the past 12 m [facility], were you homeless or living in a half-way (including now)? No 10/02/2024 Sex and Gender Information Value Date Recorded Sex Assigned at Not on file Legal Sex Male 9:17 AM DATA COLLECTION SPECIALIST Gender Identity Not on file Sexual Orientation Not on file Last Filed Vital Signs Vital Sign Reading Time Taken Comments Blood Pressure 118/79 10/23/2024 12:10 PM CDT Pulse 51 10/23/2024 12:10 PM CDT Temperature 36.7 C (98 F) 10/23/2024 12:10 PM CDT Respiratory Rate 18 10/23/2024 12:10 PM CDT Oxygen Saturation 100% 10/23/2024 12:10 PM CDT Inhaled Oxygen Concentration 50% 06/28/2024 1 :43 AM DATA COLLECTION SPECIALIST Weight 48.7 kg (107 lb 6.4 oz) 10/23/2024 12:10 PM CDT Height 177.8 cm (5' 10 ) 10/23/2024 12:10 PM CDT Body Mass Index 15.41 10/23/2024 12:10 PM CDT Plan of Treatment Upcoming Encounters Date Type Department Care Team (Latest Contact Info) Description 11/12/2024 12:00 PM CDT Hospital Encounter [facility] [address] [place] [address] Josie Schaefer, DO [address] DIV OF [place]OLOGIC [place] [phone] Surgery General 11/12/2024 12:00 PM CDT - 11/12/2024 2:00 PM CDT Surgery [facility] [address] [place] [phone] Josie Schaefer, DO [address] [facility] [address] DIV OF UROLOGIC [place] [phone] Cystoscopy, left ureteroscopic stone extraction, laser lithotripsy Scheduled Procedures Name Priority Associated Diagnoses Date/Ti me CYSTOSCOPY URETEROSCOPY WITH LASER/HOLMIUM LITHOTRIPSY Nephrolithiasis 11/12/2024 12:00 PM CDT CYSTOSCOPY WITH RETROGRADE PYELOGRAM Nephrolithiasis 11/12/2024 12:00 PM CDT CYSTOSCOPY WITH INSERTION URETERAL STENT Nephrolithiasis 11/12/2024 12:00 PM CDT INSERTION CATHETER SUPRAPUBIC Nephrolithiasis 11/12/2024 12:00 PM CDT Health Maintenance Due Date Last Done Comments COLOGUARD (AGES 45-75) - COLON CA SCREENING [address] COLONOGRAPHY - COLON CA SCREENING 1978 FIT - COLON CA SCREENING 1978 FLEX SIG - COLON CA SCREENING 1978 DTAP/TDAP/TD VACCINES (1 - Tdap) 1997 HEPATITIS B VACCINE (1 of 3 - 19+ 3-dose series) 1997 PNEUMOCOCCAL VACCINE (1 of 2 - PCV) 1997 ZOSTER VACCINE (1 of 2) 1997 DIABETES-STATIN 2018 COVID-19 VACCINE (2 - Pfizer risk series) 08/24/2021 08/03/2021 DIABETES - URINE PROTEIN SCREENING 07/09/2024 DIABETES-FOOT EXAM WITH MONOFILAMENT 10/02/2024 DIABETES-HGB A1C 01/02/2025 10/02/2024, , 06/21/2024, Additional history exists INFLUENZA VACCINE (Season Ended) 2025 DIABETES-SERUM CREATININE 10/21/20252024, 10/18/2024, 10/17/2024, Additional history exists DIABETES RETINOPATHY SCREENING 06/27/2026 06/27/2024 COLONOSCOPY - COLON CA SCREENING 02/05/2034 02/06/2024, 02/06/2024, 08/01/2023 Colorectal Cancer Screening 02/05/2034 HEPATITIS C SCREENING Completed 06/21/2024, 023 HIV SCREENING Completed 06/28/2024, 06/21/2024 DEPRESSION SCREENING Completed 10/21/2024 HIB VACCINE Aged Out No longer eligi ble based on patient's age to complete this topic HPV VACCINE Aged Out No longer eligi ble based on patient's age to complete this topic MENINGOCOCCAL (Group B) VACCINE SHARED DECISION-MAKING Aged Out No longer eligible based on patient's age to complete this topic MENINGOCOCCAL GROUPS A/C/Y/W VACCINE Aged Out No longer eligible based on patient's age to complete this topic Medical Devices Implanted Type Area Slip Operator Device Identifier Shelf Expiration Date Model / Serial / Lot Stent Uret 6fr 26cm Sft Tria Implanted:Qty: 1 on 10/01/2024 by Josie Scahefer DO at [facility] Left: [employer] [facility] [id number] / / Procedures Procedure Name Priority Date/Time Associated Diagnosis Comments MD URINE FLOW MEASUREMENT Routine 10/23/2024 2:01 PM CDT Urinary retention CULTURE URINE Routine 10/23/2024 Kidney stones Bacteriuria Pre-op testing COMPREHENSIVE METABOLIC PANEL Routine 10/21/2024 11:16 AM CDT Fungemia CARDIAC EKG ORDER 10/21/2024 GLUCOSE - POINT OF CARE Routine 10/19/19 6:19 PM CDT GLUCOSE - POINT OF CARE Routine 10/19/19 5:01 PM CDT GLUCOSE - POINT OF CARE Routine 10/19/19 11:38 AM CDT GLUCOSE - POINT OF CARE Routine 10/19/19 7:46 AM CDT GLUCOSE - POINT OF CARE Routine 10/19/19 4:02 AM CDT MAGNESIUM BLOOD AM Draw 10/18/2024 1:54 AM CDT RENAL FUNCTION PANEL AM Draw 10/18/2024 1:54 AM CDT CBC W AUTO DIFFERENTIAL AM Draw 10/19/19 1:54 AM CDT GLUCOSE - POINT OF CARE Routine 10/19/19 12:42 AM CDT GLUCOSE - POINT OF CARE Routine 10/18/19 9:03 PM CDT GLUCOSE - POINT OF CARE Routine 10/18/19 8:29 PM CDT GLUCOSE - POINT OF CARE Routine 10/18/19 5:07 PM CDT GLUCOSE - POINT OF CARE Routine 10/18/19 12:41 PM CDT GLUCOSE - POINT OF CARE Routine 10/18/19 7:35 AM CDT GLUCOSE - POINT OF CARE Routine 10/18/19 6:18 AM CDT MAGNESIUM BLOOD AM Draw 10/17/2024 1:40 AM CDT RENAL FUNCTION PANEL AM Draw 10/17/2024 1:40 AM CDT CBC W AUTO DIFFERENTIAL AM Draw 10/18/19 1:40 AM CDT GLUCOSE - POINT OF CARE Routine 10/18/19 12:34 AM CDT GLUCOSE - POINT OF CARE Routine 10/17/19 8:30 PM CDT GLUCOSE - POINT OF CARE Routine 10/17/19 4:41 PM CDT GASTROINTESTINAL PATHOGEN PANEL BY PCR Routine 10/16/2024 12:29 PM CDT GLUCOSE - POINT OF CARE Routine 10/17/19 11:19 AM CDT GLUCOSE - POINT OF CARE Routine 10/17/19 7:58 AM CDT GLUCOSE - POINT OF CARE Routine 10/17/19 6:23 AM CDT GLUCOSE - POINT OF CARE Routine 10/17/19 2:38 AM CDT MAGNESIUM BLOOD AM Draw 10/16/2024 1:28 AM CDT RENAL FUNCTION PANEL AM Draw 10/16/2024 1:28 AM CDT CBC W AUTO DIFFERENTIAL AM Draw 10/17/19 1:28 AM CDT GLUCOSE - POINT OF CARE Routine 10/16/19 10:00 PM CDT GLUCOSE - POINT OF CARE Routine 10/16/19 8:45 PM CDT GLUCOSE - POINT OF CARE Routine 10/16/19 5:08 PM CDT GLUCOSE - POINT OF CARE Routine 10/16/19 12:29 PM CDT GLUCOSE - POINT OF CARE Routine 10/16/19 8:11 AM CDT GLUCOSE - POINT OF CARE Routine 10/16/19 5:01 AM CDT MAGNESIUM BLOOD AM Draw 10/15/2024 1:56 AM CDT RENAL FUNCTION PANEL AM Draw 10/15/2024 1:56 AM CDT CBC W AUTO DIFFERENTIAL AM Draw 10/16/19 1:56 AM CDT GLUCOSE - POINT OF CARE Routine 10/15/19 9:51 PM CDT GLUCOSE - POINT OF CARE Routine 10/15/19 8:08 PM CDT GLUCOSE - POINT OF CARE Routine 10/15/19 4:53 PM CDT GLUCOSE - POINT OF CARE Routine 10/15/19 4:13 PM CDT GLUCOSE - POINT OF CARE Routine 10/15/19 12:55 PM CDT GLUCOSE - POINT OF CARE Routine 10/15/19 11:30 AM CDT GLUCOSE - POINT OF CARE Routine 10/15/19 7:45 AM CDT GLUCOSE - POINT OF CARE Routine 10/15/19 5:59 AM CDT PROTEIN TOTAL BLOOD AM Draw 10/14/2024 1 :43 AM CDT BILIRUBIN TOTAL+DIRECT BLOOD PANEL AM Draw 10/14/2024 1:43 AM CDT AST BLOOD AM Draw 10/14/2024 1:43 AM CDT ALT AM Draw 10/14/2024 1:43 AM CDT ALKALINE PHOSPHATASE BLOOD AM Draw 10/14/2024 1:43 AM CDT MAGNESIUM BLOOD AM Draw 10/14/2024 1:43 AM CDT RENAL FUNCTION PANEL AM Draw 10/14/2024 1:43 AM CDT CBC W AUTO DIFFERENTIAL AM Draw 10/15/19 1:43 AM CDT GLUCOSE - POINT OF CARE Routine 10/15/19 12:04 AM CDT GLUCOSE - POINT OF CARE Routine 10/14/19 10:15 PM CDT GLUCOSE - POINT OF CARE Routine 10/14/19 8:23 PM CDT GLUCOSE - POINT OF CARE Routine 10/14/19 5:17 PM CDT GLUCOSE - POINT OF CARE Routine 10/14/19 11:24 AM CDT GLUCOSE - POINT OF CARE Routine 10/14/19 8:03 AM CDT MAGNESIUM BLOOD AM Draw 10/13/2024 6:09 AM CDT RENAL FUNCTION PANEL AM Draw 10/13/2024 6:09 AM CDT CBC W AUTO DIFFERENTIAL AM Draw 10/14/19 6:09 AM CDT GLUCOSE - POINT OF CARE Routine 10/14/19 5:58 AM CDT PREPARE RBC LEUKOREDUCED UNIT Routine 10/13/2024 1:04 AM CDT TYPE + SCREEN PANEL STAT 10/13/2024 12:02 AM CDT GLUCOSE - POINT OF CARE Routine 10/13/19 11:58 PM CDT DIFFERENTIAL MANUAL Timed 10/12/2024 10:23 PM CDT PHOSPHORUS BLOOD Timed 10/12/2024 10:23 PM CDT MAGNESIUM BLOOD Timed 10/12/2024 10:23 PM CDT BASIC METABOLIC PANEL (CALCIUM TOTAL) Timed 10/12/2024 10:23 PM CDT CBC W AUTO DIFFERENTIAL Timed 10/13/19 10:23 PM CDT GLUCOSE - POINT OF CARE Routine 10/13/19 8:42 PM CDT GLUCOSE - POINT OF CARE Routine 10/13/19 5:05 PM CDT GLUCOSE - POINT OF CARE Routine 10/13/19 11:45 AM CDT GLUCOSE - POINT OF CARE Routine 10/13/19 8:07 AM CDT MAGNESIUM BLOOD AM Draw 10/12/2024 3:41 AM CDT RENAL FUNCTION PANEL AM Draw 10/12/2024 3:41 AM CDT CBC W AUTO DIFFERENTIAL AM Draw 10/13/19 3:41 AM CDT GLUCOSE - POINT OF CARE Routine 10/12/19 7:46 PM CDT BASIC METABOLIC PANEL (CALCIUM TOTAL) Routine 10/11/2024 6:52 PM CDT GLUCOSE - POINT OF CARE Routine 10/12/19 5:48 PM CDT GLUCOSE - POINT OF CARE Routine 10/12/19 5:39 PM CDT EKG 12-LEAD Routine 10/11/2024 1:03 PM CDT Hyperkalemia GLUCOSE - POINT OF CARE Routine 10/12/19 12:18 PM CDT XR ABDOMEN KUB PORTABLE STAT 10/12/19 10:39 AM CDT Constipation, unspecified constipation type GLUCOSE - POINT OF CARE Routine 10/12/19 8:14 AM CDT MAGNESIUM BLOOD AM Draw 10/11/2024 2:00 AM CDT RENAL FUNCTION PANEL AM Draw 10/11/2024 2:00 AM CDT CBC W AUTO DIFFERENTIAL AM Draw 10/12/19 2:00 AM CDT GLUCOSE - POINT OF CARE Routine 10/11/19 9:14 PM CDT GLUCOSE - POINT OF CARE Routine 10/11/19 5:11 PM CDT CREATININE URINE RANDOM Routine 10/11/19 4:58 PM CDT UREA NITROGEN URINE RANDOM Routine 10/10/2024 4:58 PM CDT LYTES (NA K CL) URINE RANDOM PANEL Routine 10/10/2024 4:58 PM CDT URINALYSIS REFLEX TO MICROSCOPIC NO CULTURE Routine 10/10/2024 4:52 PM CDT IR MIDLINE CATH INSERT PENDING DISCHARGE 10/10/2024 4:22 PM CDT Fungemia HGB HCT PANEL STAT 10/10/2024 3:17 PM CDT GLUCOSE - POINT OF CARE Routine 10/11/19 12:08 PM CDT EKG 12-LEAD Routine 10/10/2024 10:11 AM CDT STEVIE (acute kidney injury) GLUCOSE - POINT OF CARE Routine 10/11/19 8:26 AM CDT GLUCOSE - POINT OF CARE Routine 10/11/19 4:18 AM CDT MAGNESIUM BLOOD AM Draw 10/10/2024 2:06 AM CDT RENAL FUNCTION PANEL AM Draw 10/10/2024 2:06 AM CDT CBC W AUTO DIFFERENTIAL AM Draw 10/11/19 2:06 AM CDT GLUCOSE - POINT OF CARE Routine 10/10/19 7:57 PM CDT GLUCOSE - POINT OF CARE Routine 10/10/19 5:19 PM CDT GLUCOSE - POINT OF CARE Routine 10/10/19 11:51 AM CDT GLUCOSE - POINT OF CARE Routine 10/10/19 8:35 AM CDT DIFFERENTIAL MANUAL AM Draw 10/09/2024 2 :24 AM CDT MAGNESIUM BLOOD AM Draw 10/09/2024 2:24 AM CDT RENAL FUNCTION PANEL AM Draw 10/09/2024 2:24 AM CDT CBC W AUTO DIFFERENTIAL AM Draw 10/10/19 2:24 AM CDT GLUCOSE - POINT OF CARE Routine 10/09/19 10:02 PM CDT GLUCOSE - POINT OF CARE Routine 10/09/19 9:37 PM CDT GLUCOSE - POINT OF CARE Routine 10/09/19 4:44 PM CDT GLUCOSE - POINT OF CARE Routine 10/09/19 11:28 AM CDT GLUCOSE - POINT OF CARE Routine 10/09/19 8:58 AM CDT GLUCOSE - POINT OF CARE Routine 10/09/19 8:22 AM CDT MAGNESIUM BLOOD AM Draw 10/08/2024 2:50 AM CDT RENAL FUNCTION PANEL AM Draw 10/08/2024 2:50 AM CDT CBC W AUTO DIFFERENTIAL AM Draw 10/09/19 2:49 AM CDT GLUCOSE - POINT OF CARE Routine 10/08/19 9:39 PM CDT GLUCOSE - POINT OF CARE Routine 10/08/19 5:51 PM CDT GLUCOSE - POINT OF CARE Routine 10/08/19 4:44 PM CDT GLUCOSE - POINT OF CARE Routine 10/08/19 4:12 PM CDT GLUCOSE - POINT OF CARE Routine 10/08/19 3:52 PM CDT ECHO HAN COMPLETE Routine 10/07/2024 3:2 9 PM CDT Fungemia GLUCOSE - POINT OF CARE Routine 10/08/19 11:40 AM CDT GLUCOSE - POINT OF CARE Routine 10/08/19 8:00 AM CDT DIFFERENTIAL MANUAL AM Draw 10/07/2024 2 :10 AM CDT MAGNESIUM BLOOD AM Draw 10/07/2024 2:10 AM CDT RENAL FUNCTION PANEL AM Draw 10/07/2024 2:10 AM CDT CBC W AUTO DIFFERENTIAL AM Draw 10/08/19 2:10 AM CDT GLUCOSE - POINT OF CARE Routine 10/07/19 8:42 PM CDT GLUCOSE - POINT OF CARE Routine 10/07/19 5:07 PM CDT GLUCOSE - POINT OF CARE Routine 10/07/19 2:07 PM CDT GLUCOSE - POINT OF CARE Routine 10/07/19 12:45 PM CDT GLUCOSE - POINT OF CARE Routine 10/07/19 11:40 AM CDT GLUCOSE - POINT OF CARE Routine 10/07/19 11:12 AM CDT GLUCOSE - POINT OF CARE Routine 10/07/19 8:42 AM CDT GLUCOSE - POINT OF CARE Routine 10/07/19 5:37 AM CDT CULTURE BLOOD Timed 10/06/2024 12:34 AM CDT DIFFERENTIAL MANUAL AM Draw 10/06/2024 12:30 AM CDT MAGNESIUM BLOOD AM Draw 10/06/2024 12:30 AM CDT RENAL FUNCTION PANEL AM Draw 10/06/2024 12:30 AM CDT CBC W AUTO DIFFERENTIAL AM Draw 10/07/19 12:30 AM CDT CULTURE BLOOD Timed 10/06/2024 12:28 AM CDT GLUCOSE - POINT OF CARE Routine 10/06/19 10:05 PM CDT GLUCOSE - POINT OF CARE Routine 10/06/19 8:29 PM CDT GLUCOSE - POINT OF CARE Routine 10/06/19 7:29 PM CDT GLUCOSE - POINT OF CARE Routine 10/06/19 5:04 PM CDT GLUCOSE - POINT OF CARE Routine 10/06/19 11:43 AM CDT GLUCOSE - POINT OF CARE Routine 10/06/19 11:32 AM CDT GLUCOSE - POINT OF CARE Routine 10/06/19 8:19 AM CDT GLUCOSE - POINT OF CARE Routine 10/06/19 7:19 AM CDT CULTURE BLOOD Timed 10/05/2024 2:28 AM CDT MAGNESIUM BLOOD AM Draw 10/05/2024 2:22 AM CDT RENAL FUNCTION PANEL AM Draw 10/05/2024 2:22 AM CDT CBC W AUTO DIFFERENTIAL AM Draw 10/06/19 2:22 AM CDT CULTURE BLOOD FUNGUS Timed 10/05/2024 2:22 AM CDT CULTURE BLOOD Timed 10/05/2024 2:22 AM CDT GLUCOSE - POINT OF CARE Routine 10/05/19 5:58 PM CDT GLUCOSE - POINT OF CARE Routine 10/05/19 4:23 PM CDT URINALYSIS W/MICROSCOPIC NO CULTURE Routine 10/04/2024 2:05 PM CDT CULTURE URINE Routine 10/04/2024 2:05 PM CDT GLUCOSE - POINT OF CARE Routine 10/05/19 1:10 PM CDT GLUCOSE - POINT OF CARE Routine 10/05/19 11:42 AM CDT GLUCOSE - POINT OF CARE Routine 10/05/19 9:58 AM CDT GLUCOSE - POINT OF CARE Routine 10/05/19 8:33 AM CDT GLUCOSE - POINT OF CARE Routine 10/05/19 6:33 AM CDT MAGNESIUM BLOOD AM Draw 10/04/2024 1:54 AM CDT RENAL FUNCTION PANEL AM Draw 10/04/2024 1:54 AM CDT CBC W AUTO DIFFERENTIAL AM Draw 10/05/19 1:54 AM CDT GLUCOSE - POINT OF CARE Routine 10/04/19 9:38 PM CDT GLUCOSE - POINT OF CARE Routine 10/04/19 6:10 PM CDT GLUCOSE - POINT OF CARE Routine 10/04/19 5:17 PM CDT GLUCOSE - POINT OF CARE Routine 10/04/19 12:33 PM CDT HEPATIC FUNCTION PANEL Routine 12:33 PM CDT HGB HCT PANEL Routine 10/03/2024 12:33 PM CDT GLUCOSE - POINT OF CARE Routine 10/04/19 8:48 AM CDT GLUCOSE - POINT OF CARE Routine 10/04/19 8:12 AM CDT MAGNESIUM BLOOD AM Draw 10/03/2024 4:20 AM CDT RENAL FUNCTION PANEL AM Draw 10/03/2024 4:20 AM CDT CBC W AUTO DIFFERENTIAL AM Draw 10/04/19 4:20 AM CDT GLUCOSE - POINT OF CARE Routine 10/03/19 10:19 PM CDT GLUCOSE - POINT OF CARE Routine 10/03/19 8:59 PM CDT GLUCOSE - POINT OF CARE Routine 10/03/19 5:04 PM CDT ECHO COMPLETE W CONTRAST Routine 10/02/2024 1:36 PM CDT Sepsis with acute renal failure without septic shock, due to unspecified organism, unspecified acute renal failure type GLUCOSE - POINT OF CARE Routine 10/03/19 12:21 PM CDT CULTURE BLOOD FUNGUS Timed 10/02/2024 12:18 PM CDT CULTURE BLOOD STAT 10/02/2024 12:18 PM CDT SUSCEPTIBILITY FUNGUS/YEAST Routine 10/02/2024 11:54 AM CDT BCID PANEL Routine 10/02/2024 11:54 AM CDT CULTURE BLOOD FUNGUS Timed 10/02/2024 11:54 AM CDT CULTURE BLOOD STAT 10/02/2024 11:54 AM CDT GLUCOSE - POINT OF CARE Routine 10/03/19 8:09 AM CDT FL CYSTO SURGERY Routine 10/02/2024 5:17 AM CDT Left ureteral calculus OSMOLALITY BLOOD Routine 10/02/2024 5:03 AM CDT IRON + TRANSFERRIN PANEL Routine 10/02/2024 5:03 AM CDT FERRITIN Routine 10/02/2024 5:03 AM CDT MAGNESIUM BLOOD AM Draw 10/02/2024 5:03 AM CDT RENAL FUNCTION PANEL AM Draw 10/02/2024 5:03 AM CDT CBC W AUTO DIFFERENTIAL AM Draw 10/03/19 5:03 AM CDT HEMOGLOBIN A1C Routine 10/02/2024 5:03 AM CDT GLUCOSE - POINT OF CARE Routine 10/02/19 11:48 PM CDT MAGNESIUM BLOOD STAT 10/01/2024 11:43 PM CDT RENAL FUNCTION PANEL STAT 10/01/2024 11:43 PM CDT LACTIC ACID BLOOD STAT 10/01/2024 11:43 PM CDT CBC W AUTO DIFFERENTIAL STAT 10/02/19 11:43 PM CDT CULTURE URINE Routine 10/01/2024 8:57 PM CDT LARYNGEAL MASK AIRWAY Routine 10/01/2024 8:31 PM CDT MD CYSTOURETHROSCOPY 10/01/2024 7:44 PM CDT Kidney stone on left side URINALYSIS REFLEX MICROSCOPIC REFLEX CULTURE STAT 10/01/2024 7:26 PM CDT PT-INR SL[facility] STAT 10/01/2024 7:26 PM CDT CK BLOOD STAT 10/01/2024 7:26 PM CDT COMPREHENSIVE METABOLIC PANEL STAT 10/01/2024 7:26 PM CDT CBC W AUTO DIFFERENTIAL STAT 10/02/19 7:26 PM CDT TROPONIN-I HIGH SENSITIVE BASELINE + 1HR STAT 10/01/2024 7:26 PM CDT LACTIC ACID BLOOD REFLEX TO REPEAT STAT 10/01/2024 7:26 PM CDT CULTURE URINE STAT 10/01/2024 7:26 PM CDT HIV-1 HIV-2 ANTIBODY + HIV P24 AG PANEL STAT 06/28/2024 12:09 PM DATA COLLECTION SPECIALIST HEPATITIS C AB SCREEN RFLX NAAT QUANT STAT 06/21/2024 8:30 PM DATA COLLECTION SPECIALIST from Last 3 Months or Most Recently Relevant to Health Maintenance Results * MD URINE FLOW MEASUREMENT (10/23/2024 2:01 PM CDT) Narrative Edie Kyle RN - 10/23/2024 2:01 PM CDT Edie Kyle RN 10/23/2024 3:01 PM Pt came into clinic for VTS, pt was able to tolerate 270mL of h20 instilled in the bladder, 75mL was void out. Using sterile technique, penile was cleansed with betadine and a new lubricated 16fr coude catheter was inserted into the urethra until the bladder was reached. Estrada balloon was inflated with 9cc of sterile water to anchor catheter in bladder. Catheter was attached to a drainage bag and locked in place with a stat lock. Patient tolerated procedure well with no pain/ discomfort. Follow up in 4 weeks for Cath change. Elsi Modi CARTOON ANIMATOR-RADAR TESTER PROCEDURE/MINOR SURGICA L ORDERABLES Final Result * (ABNORMAL) CULTURE URINE (10/23/2024) Only the most recent of4 resultswithin the time period is included. Pathologist [facility] Culture (A) [facility] Comment: CULTURE, URINE, ROUTINE Micro Number: [id number] Test Status: Final Specimen Source: Urine Specimen Quality: Adequate Result: Greater than 100,000 CFU/mL of Enterococcus species Enterococcus sp. INT INDIGO AMPICILLIN S <=2 NITROFURANTOIN S <=16 VANCOMYCIN S 1 S = Susceptible I = Intermediate R = Resistant NS = Not susceptible SDD = Susceptible Dose Dependent * = Not Tested NR = Not Reported NN = See Therapy Comments Test Performed at: [facility] [address] BRIANA SPRINGER MD Urine URINE SPECIMEN OBTAINED BY CLEAN CATCH PROCEDURE / Unknown 10/23/2024 10/24/2024 5:05 AM CDT us Josie Schaefer DO LAB - MICROBIOLOGY ORDERAB LES Final Result [facility] [id number] [place] [address] * (ABNORMAL) COMPREHENSIVE METABOLIC PANEL (10/21/2024 11:16 AM CDT) Only the most recent of2 resultswithin the time period is included. BUN 12 7 - 26 mg/dL 10/21/2024 3:09 PM [facility] Creatinine 0.96 0.71 - 1.16 mg/dL 10/21/2024 3:09 PM [facility] Sodium 137 136 - 145 mmol/L 10/21/2024 3:09 PM [facility] Potassium 4.0 3.5 - 4.5 mmol/L 10/21/2024 3:09 PM [facility] Chloride 105 98 - 107 mmol/L 10/21/2024 3:09 PM [facility] CO2 20(L) 22 - 29 mmol/L 10/21/2024 3:09 PM [facility] Glucose 41(LL) 70 - 99 mg/dL 10/21/2024 3:09 PM [facility] Calcium 8.9 8.4 - 10.2 mg/dL 10/21/2024 3:09 PM [facility] Protein Total 9.5(H) 6.0 - 8.3 g/dL 10/21/2024 3:09 PM [facility] Albumin 2.6(L) 3.4 - 5.0 g/dL 10/21/2024 3:09 PM [facility] Bilirubin Total 0.2 0.2 - 1.2 mg/dL 10/21/2024 3:09 PM [facility] Alkaline Phosphatase 226(H) 40 - 150 U/L 10/21/2024 3:09 PM [facility] ALT 13 5 - 55 U/L 10/21/2024 3:09 PM [facility] AST 27 5 - 34 U/L 10/21/2024 3:09 PM CDT [facility] Anion Gap 12 6 - 16 10/21/2024 3:09 PM CDT [facility] BUN/Creatinine Ratio 13 7 - 23 10/21/2024 3:09 PM CDT [facility] Osmolality Calculated 281 275 - 295 mOsm/kg 10/21/2024 3:09 PM T [facility] Albumin/Globulin Ratio 0.4(L) 1.1 - 2.3 10/21/2024 3:09 PM T [facility] eGFR by CKD-EPI >90 >=90 mL/min/1.7 3 m2 10/21/2024 3:09 PM T [facility] Blood BLOOD SPECIMEN / Unknown Venipuncture / Unknown 10/21/2024 11:16 AM CDT 10/21/2024 11:16 AM CDT us Ladonna Agrawal MD LAB - CHEMISTRY ORDERABLES F inal Result [address] [address], [facility] [phone] * CARDIAC EKG ORDER (10/21/2024) 10/21/2024 Narrative 10/21/2024 Ordered by an unspecified provider. us Scanned Document CARDIAC SERVICES ORDERABLES Fin al Result * (ABNORMAL) GLUCOSE - POINT OF CARE (10/18/2024 6:19 PM CDT) Only the most recent of107 resultswithin the time period is included. Glucose WB/POC 164(H) 70 - 99 mg/dL 10/18/2024 6:21 PM CDT [facility] Specimen Type Cap Fingerstick 2024 6:21 PM CDT [facility] Blood BLOOD SPECIMEN / Unknown 10/18/2024 6:19 PM CDT 10/18/2024 6:21 PM CDT us Caroline Dave MD LAB - POINT OF CARE ORDERABLES F inal Result [facility] [address] [place] [address], [facility] [phone] * (ABNORMAL) CBC W AUTO DIFFERENTIAL (10/18/2024 1:54 AM [facility]) Only the most recent of20 resultswithin the time period is included. WBC 8.4 4.0 - 10.7 x10E9/L 10/18/2024 3:01 AM [facility] RBC Count 2.86(L) 4.30 - 5.80 x10E12/L 10/18/2024 3:01 AM [facility] Hemoglobin 7.8(L) 13.3 - 17.5 g/dL 10/18/2024 3:01 AM [facility] Hematocrit 24.8(L) 38.7 - 51.1 % 10/18/2024 3:01 AM [facility] MCV 86.7 80.0 - 98.0 fL 10/18/2024 3:01 AM [facility] MCH 27.3 26.7 - 33.6 pg 10/18/2024 3:01 AM [facility] MCHC 31.5(L) 31.7 - 36.3 g/dL 10/18/2024 3:01 AM [facility] RDW-CV 15.5(H) 11.3 - 14.8 % 10/18/2024 3:01 AM [facility] Platelet Count 228 150 - 420 x10E9/L 10/18/2024 3:01 AM [facility] MPV 9.0 7.8 - 11.4 fL 10/18/2024 3:01 AM [facility] Neutrophil % 54.8 41.0 - 74.0 % 10/18/2024 3:01 AM [facility] Lymphocyte % 33.5 17.0 - 47.0 % 10/18/2024 3:01 AM [facility] Monocyte % 5.1 3.0 - 11.0 % 10/18/2024 3:01 AM [facility] Eosinophil % 4.5 0.0 - 7.0 % 10/18/2024 3:01 AM [facility] Basophil % 1.9(H) 0.0 - 1.6 % 10/18/2024 3:01 AM [facility] Immature Granulocytes % 0.2 0.0 - 1.0 % 10/18/2024 3:01 AM [facility] Neutrophil Absolute 4.62 1.60 - 7.50 x10E9/L 10/18/2024 3:01 AM [facility] Lymphocyte Absolute 2.82 1.00 - 4.40 x10E9/L 10/18/2024 3:01 AM [facility] Monocyte Absolute 0.43 0.15 - 1.00 x10E9/L 10/18/2024 3:01 AM [facility] Eosinophil Absolute 0.38 0.00 - 0.60 x10E9/L 10/18/2024 3:01 AM [facility] Basophil Absolute 0.16(H) 0.00 - 0.13 x10E9/L 10/18/2024 3:01 AM [facility] Blood BLOOD SPECIMEN / Unknown Lab Venipuncture / Unknown 10/18/2024 1:54 AM CDT 10/18/2024 3:01 AM CDT us Sonia Baltazar MD LAB - HEMATOLOGY ORDERABLES Final Result Performing Organization Address City/State/[facility] Co de Phone Number [facility] [address] [place] [address], [facility] [phone] * (ABNORMAL) RENAL FUNCTION PANEL (10/18/2024 1:54 AM CDT) Only the most recent of18 resultswithin the time period is included. BUN 11 7 - 26 mg/dL 10/18/2024 3:42 AM [facility] Creatinine 0.91 0.71 - 1.16 mg/dL 10/18/2024 3:42 AM [facility] Sodium 132(L) 136 - 145 mmol/L 10/18/2024 3:42 AM [facility] Potassium 5.0(H) 3.5 - 4.5 mmol/L 10/18/2024 3:42 AM [facility] Chloride 106 98 - 107 mmol/L 10/18/2024 3:42 AM [facility] CO2 20(L) 22 - 29 mmol/L 10/18/2024 3:42 AM [facility] Glucose 251(H) 70 - 99 mg/dL 10/18/2024 3:42 AM [facility] Albumin 2.0(L) 3.4 - 5.0 g/dL 10/18/2024 3:42 AM [facility] Calcium 8.1(L) 8.4 - 10.2 mg/dL 10/18/2024 3:42 AM [facility] Phosphorus 4.1 2.8 - 5.1 mg/dL 10/18/2024 3:42 AM [facility] Anion Gap 6 6 - 16 10/18/2024 3:42 AM [facility] BUN/Creatinine Ratio 12 7 - 23 10/18/2024 3:42 AM [facility] Osmolality Calculated 282 275 - 295 mOsm/kg 10/18/2024 3:42 AM [facility] eGFR by CKD-EPI >90 >=90 mL/min/1.7 3 m2 10/18/2024 3:42 AM [facility] Blood BLOOD SPECIMEN / Unknown Lab Venipuncture / Unknown 10/18/2024 1:54 AM CDT 10/18/2024 3:21 AM CDT us Sonia Baltazar MD LAB - CHEMISTRY ORDERABLES F inal Result [address] [address], [facility] [phone] * MAGNESIUM BLOOD (10/18/2024 1:54 AM CDT) Only the most recent of19 resultswithin the time period is included. Magnesium 1.8 1.6 - 2.6 mg/dL 10/18/2024 3:42 AM CDT [facility] Blood BLOOD SPECIMEN / Unknown Lab Venipuncture / Unknown 10/18/2024 1:54 AM CDT 10/18/2024 3:21 AM CDT us Sonia Baltazar MD LAB - CHEMISTRY ORDERABLES F inal Result [address] [address], [facility] [phone] * GASTROINTESTINAL PATHOGEN PANEL BY PCR (10/16/2024 12:29 PM CDT) Campylobacter Not detected Not detected 10/16/2024 7:11 PM CDT [facility] Plesiomonas shigelloides Not detected Not detected 10/16/2024 7:11 PM CDT [facility] Salmonella Not detected Not detected 10/16/2024 7:11 PM CDT [facility] Vibrio Not detected Not detected 10/16/2024 7:11 PM CDT [facility] Vibrio cholerae Not detected Not detected 10/16/2024 7:11 PM CDT [facility] Yersinia enterocolitica Not detected Not detected 10/16/2024 7:11 PM CDT [facility] Enteroaggregative E coli (EAEC) Not detected Not detected 10/16/2024 7:11 PM CDT [facility] Enteropathogenic E coli (EPEC) Not detected Not detected, N/A 10/16/2024 7:11 PM CDT [facility] Enterotoxigenic E coli (ETEC) LT/ST Not detected Not detected 10/16/2024 7:11 PM CDT [facility] Shiga-Like Toxin-Producing E coli (STEC) stx1/stx2 Not detected Not detected 10/16/2024 7:11 PM CDT [facility] E coli 0157 N/A Not detected, N/A 10/16/2024 7:11 PM CDT [facility] Shigella/Enteroinvas [place] E coli Not detected Not detected 10/16/2024 7:11 PM CDT [facility] Cryptosporidium Not detected Not detected 10/16/2024 7:11 PM CDT [facility] Cyclospora cayetanensis Not detected Not detected 10/16/2024 7:11 PM CDT [facility] Entamoeba histolytica Not detected Not detected 10/16/2024 7:11 PM CDT [facility] Giardia lamblia Not detected Not detected 10/16/2024 7:11 PM CDT [facility] Adenovirus F 40/41 Not detected Not detected 10/16/2024 7:11 PM CDT [facility] Astrovirus Not detected Not detected 10/16/2024 7:11 PM CDT [facility] Norovirus GI/GII Not detected Not detected 10/16/2024 7:11 PM CDT [facility] Rotavirus A Not detected Not detected 10/16/2024 7:11 PM CDT [facility] Sapovirus Not detected Not detected 10/16/2024 7:11 PM CDT [facility] Stool STOOL SPECIMEN / Unknown Collection / Unknown 10/16/2024 12:29 PM CDT 10/16/2024 12:33 PM CDT Narrative [facility] - 10/16/2024 7:11 PM CDT Test performed by itzat RT-PCR. us Caroline Dave MD LAB - MICROBIOLOGY ORDERABLES Fi nal Result [facility] [address] [place] [address], [facility] [phone] * ALT (10/14/2024 1:43 AM CDT) ALT 13 5 - 55 U/L 10/14/2024 3:08 AM CDT [facility] Blood BLOOD SPECIMEN / Unknown Lab Venipuncture / Unknown 10/14/2024 1:43 AM CDT 10/14/2024 2:40 AM CDT us Minh Herrera MD LAB - CHEMISTRY ORDERABLES F inal Result [facility] [address] [place] [address], [place] [phone] * AST BLOOD (10/14/2024 1:43 AM CDT) AST 25 5 - 34 U/L 10/14/2024 3:08 AM CDT [facility] Blood BLOOD SPECIMEN / Unknown Lab Venipuncture / Unknown 10/14/2024 1:43 AM CDT 10/14/2024 2:40 AM CDT Minh Herrera MD LAB - CHEMISTRY ORDERABLES F inal Result Performing Organization Address City/[facility]/ZIP Co de Phone Number [address] [address], [place] [phone] * PROTEIN TOTAL BLOOD (10/14/2024 1:43 AM CDT) Pathologist [facility] Protein Total 7.7 6.0 - 8.3 g/dL 10/14/2024 3:08 AM CDT [facility] Blood BLOOD SPECIMEN / Unknown Lab Venipuncture / Unknown 10/14/2024 1:43 AM CDT 10/14/2024 2:40 AM CDT Minh Herrera MD LAB - CHEMISTRY ORDERABLES F inal Result Performing Organization Address City/[facility]/ZIP Co de Phone Number [address] [address], [place] [phone] * BILIRUBIN TOTAL+DIRECT BLOOD PANEL (10/14/2024 1:43 AM CDT) Bilirubin Total 0.2 0.2 - 1.2 mg/dL 02/2025 3:17 AM CDT [facility] Bilirubin Conjugated 0.2 0.1 - 0.5 mg/dL 10/14/2024 3:17 AM CDT [facility] Bilirubin Unconjugated <0.1 Unconjugated Bilirubin is a calculated value: Reference ranges have not been established. mg/dL 10/14/2024 3:17 AM CDT [facility] Blood BLOOD SPECIMEN / Unknown Lab Venipuncture / Unknown 10/14/2024 1:43 AM CDT 10/14/2024 2:40 AM CDT Minh Herrera MD LAB - CHEMISTRY ORDERABLES F inal Result Performing Organization Address City/[facility]/ZIP Co de Phone Number [address] [address], [place] [phone] * (ABNORMAL) ALKALINE PHOSPHATASE BLOOD (10/14/2024 1:43 AM CDT) [facility] Alkaline Phosphatase 209(H) 40 - 150 U/L 10/14/2024 3:08 AM CDT [facility] Blood BLOOD SPECIMEN / Unknown Lab Venipuncture / Unknown 10/14/2024 1:43 AM CDT 10/14/2024 2:40 AM CDT Minh Herrera MD LAB - CHEMISTRY ORDERABLES F inal Result Performing Organization Address [facility] Co de Phone Number [address] [address], [place] [phone] * PREPARE (CROSSMATCH) RBC UNIT(S), 1 Units (10/13/2024 1:04 AM CDT) [facility] Unit Description AS1 LR PRBC [facility] Unit ABO O [facility] Unit Rh POS [facility] Product Number R43 [facility] B[facility] Unit Donor # [id number] [facility] Unit Status transfused [facility] Product Code [id number] [facility] Blood Type Barcode 5100 [facility] Expiration Date [id number] S BLOOD BANK LAB Blood Bank BLOOD SPECIMEN / Unknown 10/13/2024 12:07 AM CDT Aman Antunez MD LAB - BLOOD BANK ORDERABL ES Final Result Performing Organization Address City/[facility]/ZIP Co de Phone Number [facility] [address] [place] [address], [place] [phone] * TYPE + SCREEN PANEL (10/13/2024 12:02 AM CDT) Antibody Screen NEG 12:59 AM CDT [facility] ABO Rh O POS 10/13/2024 12:59 AM CDT [facility] Blood Bank BLOOD SPECIMEN / Unknown Venipuncture / Unknown 10/13/2024 12:02 AM CDT 10/13/2024 12:07 AM CDT us Aman Antunez MD LAB - BLOOD BANK ORDERABL ES Final Result [facility] [address] [place] [address], [facility] [phone] * (ABNORMAL) DIFFERENTIAL MANUAL (10/12/2024 10:23 PM CDT) Only the most recent of4 resultswithin the time period is included. Pathologist [facility] Neutrophil % 63 41 - 74 % 10/12/2024 11:55 PM [facility] Lymphocyte % 31 17 - 47 % 10/12/2024 11:55 PM [facility] Monocyte % 3 3 - 11 % 10/12/2024 11:55 PM [facility] Eosinophil % 3 0 - 7 % 10/12/2024 11:55 PM [facility] Neutrophil Absolute 8.13(H) 1.60 - 7.50 x10E9/L 10/12/2024 11:55 PM [facility] Lymphocyte Absolute 4.00 1.00 - 4.40 x10E9/L 10/12/2024 11:55 PM [facility] Monocyte Absolute 0.39 0.15 - 1.00 x10E9/L 10/12/2024 11:55 PM [facility] Eosinophil Absolute 0.39 0.00 - 0.60 x10E9/L 10/12/2024 11:55 PM [facility] RBC Morphology NORMAL 10/12/2024 11:55 PM [facility] Blood BLOOD SPECIMEN / Unknown Venipuncture / Unknown 10/12/2024 10:23 PM CDT 10/12/2024 10:29 PM CDT us Aman Antunez MD LAB - HEMATOLOGY ORDERABL ES Final Result [facility] [address] [place] [address], [facility] [phone] * (ABNORMAL) BASIC METABOLIC PANEL (CALCIUM TOTAL) (10/12/2024 10:23 PM CDT) Only the most recent of2 resultswithin the time period is included. BUN 19 7 - 26 mg/dL 10/12/2024 10:53 PM [facility] Creatinine 1.27(H) 0.71 - 1.16 mg/dL 10/12/2024 10:53 PM [facility] Sodium 139 136 - 145 mmol/L 10/12/2024 10:53 PM [facility] Potassium 4.6(H) 3.5 - 4.5 mmol/L 10/12/2024 10:53 PM [facility] Chloride 109(H) 98 - 107 mmol/L 10/12/2024 10:53 PM [facility] CO2 25 22 - 29 mmol/L 10/12/2024 10:53 PM [facility] Glucose 149(H) 70 - 99 mg/dL 10/12/2024 10:53 PM [facility] Calcium 8.3(L) 8.4 - 10.2 mg/dL 10/12/2024 10:53 PM [facility] Anion Gap 5(L) 6 - 16 10/12/2024 10:53 PM [facility] BUN/Creatinine Ratio 15 7 - 23 10/12/2024 10:53 PM [facility] Osmolality Calculated 293 275 - 295 mOsm/kg 10/12/2024 10:53 PM [facility] eGFR by CKD-EPI 71(L) >=90 mL/min/1.7 3 m2 10/12/2024 10:53 PM [facility] Blood BLOOD SPECIMEN / Unknown Venipuncture / Unknown 10/12/2024 10:23 PM CDT 10/12/2024 10:29 PM CDT us Aman Antunez MD LAB - CHEMISTRY ORDERABLE S Final Result Performing Organization Address City/[facility]/ZIP Co de Phone Number [address] [address], [facility] [phone] * PHOSPHORUS BLOOD (10/12/2024 10:23 PM CDT) Pathologist [facility] Phosphorus 3.6 2.8 - 5.1 mg/dL 10/12/2024 10:53 PM CDT [facility] Blood BLOOD SPECIMEN / Unknown Venipuncture / Unknown 10/12/2024 10:23 PM CDT 10/12/2024 10:29 PM CDT us Aman Antunez MD LAB - CHEMISTRY ORDERABLE S Final Result Performing Organization Address [facility] Co de Phone Number [address] [address], [facility] [phone] * EKG 12-LEAD (10/11/2024 1:03 PM CDT) Only the most recent of2 resultswithin the time period is included. Ventricular Rate 83 BPM [facility] MUSE Atrial Rate 83 BPM [facility] MUSE P-R Interval 160 ms [facility] MUSE QRS Duration ms 84 ms [facility] MUSE Q-T Interval ms 360 ms [facility] MUSE QTC Calculation (Bezet) 423 ms [facility] MUSE Calculated P [place] 83 degrees [facility] MUSE Calculated R [place] 60 degrees [facility] MUSE Calculated T [place] 88 degrees [facility] MUSE Interpretation EKG NORMAL SINUS RHYTHM NORMAL ECG WHEN COMPARED WITH ECG OF 10-OCT-2024 10:11, NO SIGNIFICANT CHANGE COMPARED WITH PRIOR EKG Confirmed by CHRISTI PEREZ DO ([id number]) on 10/19/2024 6:23:03 PM [facility] MUSE 10/11/2024 1:03 PM CDT 10/19/2024 6:23 PM CDT us Aman Antunez MD ECG ORDERABLES Edited Re sult - Final [facility] MUSE * XR Abdomen Kub Portable (10/11/2024 10:39 AM CDT) Anatomical Region Laterality Modality Abdomen Digital Radiogra phy 10/11/2024 10:5 5 AM CDT Impressions 10/12/2024 2:12 AM CDT IMPRESSION: Non-obstructive bowel gas pattern. Report dictated by Margarette Soto MD, MD (residential appraiser). Macario Armstrong MD have personally reviewed and interpreted this examination/study. > Interpreting Provider: Macario Raza MD on 10/12/2024 2:12 AM Narrative 10/12/2024 2:12 AM CDT PROCEDURE: XR ABDOMEN KUB PORTABLE, DATE/TIME OF EXAM: 10/11/2024 10:39 AM, LOCATION [facility] INDICATION: K59.00: Constipation, unspecified constipation type ADDITIONAL CLINICAL INFORMATION: Ordering Provider Reason For Exam: concern for constipation COMPARISON: None. FINDINGS: Left ureteral stent is in place. There is no dilatation of small or large bowel. Free intraperitoneal air is not adequately assessed on supine radiographs. No pathological calcifications are seen. The visible osseous structures are intact. The lung bases are clear. Diffuse calcifications in the upper abdomen, likely representing pancreatic calcifications due to chronic pancreatitis. Procedure Note Macario Raza MD - 10/12/2024 PROCEDURE: XR ABDOMEN KUB PORTABLE, DATE/TIME OF EXAM: 10/11/2024 10:39AM, LOCATION [facility] INDICATION: K59.00: Constipation, unspecified constipation type ADDITIONAL CLINICAL INFORMATION: Ordering Provider Reason For Exam: concern for constipation COMPARISON: None. FINDINGS: Left ureteral stent is in place. There is no dilatation of small or large bowel. Free intraperitoneal airis not adequately assessed on supine radiographs. No pathological calcifications are seen. The visible osseous structures are intact. The lung bases are clear. Diffuse calcifications in the upper abdomen, likely representingpancreatic calcifications due to chronic pancreatitis. IMPRESSION: Non-obstructive bowel gas pattern. Report dictated by Margarette Soto MD, MD (residential appraiser). Macario Armstrong MD have personally reviewed and interpreted this examination/study. > Interpreting Provider: Macario Raza MD on 10/12/2024 2:12 AM Aman Antunez MD DIAGNOSTIC IMAGING ORDERA BLES Final Result * UREA NITROGEN URINE RANDOM (10/10/2024 4:58 PM CDT) Urea Nitrogen Random Urine 190 Not Established mg/dL 10/10/2024 5:47 PM CDT [facility] Urine URINE SPECIMEN OBTAINED BY CLEAN CATCH PROCEDURE / Unknown Collection / Unknown 10/10/2024 4:58 PM CDT 10/10/2024 5:07 PM CDT Aman Antunez MD LAB - URINE CHEMISTRY ORD ERABLES Final Result Performing Organization Address City/[facility]/ZIP Co de Phone Number [address] [address], [place] [phone] * LYTES (NA K CL) URINE RANDOM PANEL (10/10/2024 4:58 PM CDT) Sodium Urine 74 Not Established mmol/L 10/10/2024 5:47 PM CDT [facility] Potassium Urine 20.5 Not Established mmol/L 10/10/2024 5:47 PM CDT [facility] Chloride Random Urine 73 Not Established mmol/L 10/10/2024 5:47 PM CDT [facility] Urine URINE SPECIMEN OBTAINED BY CLEAN CATCH PROCEDURE / Unknown Collection / Unknown 10/10/2024 4:58 PM CDT 10/10/2024 5:07 PM CDT Aman Antunez MD LAB - URINE CHEMISTRY ORD ERABLES Final Result [address] [address], [place] [phone] * CREATININE URINE RANDOM (10/10/2024 4:58 PM CDT) Creatinine Urine 30.50 Not Established mg/dL 10/10/2024 5:47 PM [facility] Urine URINE SPECIMEN OBTAINED BY CLEAN CATCH PROCEDURE / Unknown Collection / Unknown 10/10/2024 4:58 PM CDT 10/10/2024 5:07 PM CDT us Aman Antunez MD LAB - URINE CHEMISTRY ORD ERABLES Final Result [facility] [address] [place] [address], [facility] [phone] * (ABNORMAL) URINALYSIS REFLEX TO MICROSCOPIC NO CULTURE (10/10/2024 4:52 PM CDT) Color UA Colorless(A ) Yellow, Straw 10/10/2024 5:26 PM [facility] Clarity UA Ex. Turbid(A) Clear 10/10/2024 5:26 PM [facility] Glucose UA 3+(A) Normal 10/10/2024 5:26 PM [facility] Bilirubin UA Negative Negative 10/10/2024 5:26 PM [facility] Ketone UA Negative Negative 10/10/2024 5:26 PM [facility] Specific [place] UA 1.007 1.005 - 1.030 10/10/2024 5:26 PM [facility] Blood UA 2+(A) Negative 10/10/2024 5:26 PM [facility] pH UA 6.0 5.0 - 9.0 pH 10/10/2024 5:26 PM [facility] Protein UA Trace(A) Negative 10/10/2024 5:26 PM [facility] Urobilinogen UA Normal Normal mg/dL 10/10/2024 5:26 PM [facility] Nitrite UA Negative Negative 10/10/2024 5:26 PM [facility] Leukocyte UA 500 JADE/uL(A) Negative 10/10/2024 5:26 PM [facility] RBC UA 21-50(A) 0 - 5 # /hpf 10/10/2024 5:26 PM [facility] WBC UA >100(A) 0 - 5 # /hpf 10/10/2024 5:26 PM CDT [facility] WBC Clumps UA Many(A) None Seen /HPF 10/10/2024 5:26 PM CDT [facility] Bacteria UA Trace(A) None Seen 10/10/2024 5:26 PM CDT [facility] Squamous Epithelial Cells None Seen 0 - 5 /hpf 10/10/2024 5:26 PM CDT [facility] Urine URINE SPECIMEN OBTAINED BY CLEAN CATCH PROCEDURE / Unknown Collection / Unknown 10/10/2024 4:52 PM CDT 10/10/2024 5:07 PM CDT Narrative [facility] - 10/10/2024 5:26 PM CDT Aman Antunez MD LAB - URINALYSIS ORDERABL ES Final Result [facility] [address] [place] [address], [facility] [phone] * IR Midline Cath Insert (10/10/2024 4:22 PM CDT) Anatomical Region Laterality Modality Chest, Upper Extremity Other Narrative 10/10/2024 11:48 AM CDT Doron Quintanilla RN 10/10/2024 11:49 AM Midline Placement at Bedside Type of line placed: Single Lumen Power Midline Indications for procedure: IV antibiotic therapy The risks and benefits of Midline placement were explained to Patient. The risks include discussed include pain, inadvertent arterial puncture, infection, blood clots, and phlebitis. They were able to consent to the Midline insertion. Hand hygiene completed prior to procedure. Traffic was limited in the room during the procedure. Skin prepped with appropriate antibacterial solution prior to skin puncture. Maximum sterile barrier precautions were used including sterile gown and gloves, hat, mask, eye protection and a large sterile drape. The patient was given local anesthesia with 3 milliliters of 1% Lidocaine without epinephrine. The single lumen Midline was placed using the Seldinger technique with a Left Basilic approach without complication. Ultrasound guidance was used to locate vessel. There was dark, non-pulsatile blood return in all ports and they were easily flushed with saline. Midline tip position was verified by ultrasound device. This showed Midline tip in good position, distal to the axilla. Sterile dressing was applied to the insertion site. The patient tolerated the procedure well. Complications: none Aman Antunez MD IR ORDERABLES Final Res ult * (ABNORMAL) HGB HCT PANEL (10/10/2024 3:17 PM CDT) Only the most recent of2 resultswithin the time period is included. Pathologist [facility] Hemoglobin 7.2(L) 13.3 - 17.5 g/dL 10/10/2024 3:31 PM CDT [facility] Hematocrit 22.5(L) 38.7 - 51.1 % 10/10/2024 3:31 PM CDT [facility] Blood BLOOD SPECIMEN / Unknown Lab Venipuncture / Unknown 10/10/2024 3:17 PM CDT 10/10/2024 3:31 PM CDT Aman Antunez MD LAB - HEMATOLOGY ORDERABL ES Final Result [facility] [address] [place] [address], [facility] [phone] * ECHO HAN COMPLETE (10/07/2024 3:29 PM CDT) Pathologist [facility] AV area pk anjel 2.423 cm SSM CV FUJI PACS AV area cont VTI 2.2 cm SSM CV FUJI PACS AV area index 1.471 cm /m SSM CV FUJI PACS Dimensionless Index 0.696 unitless SSM CV FUJI PACS LVOT diam 2.006 cm SSM CV FUJ I PACS LVOT VTI 16.996 cm SSM CV FUJ I PACS LVOT pk anjel 86.383 cm/s SSM CV F UJI PACS AV pk anjel 112.646 cm/s SSM CV FUJ I PACS AV VTI 24.402 cm SSM CV FUJ I PACS Sinus of Valsalva 3.604 cm SS M CV FUJI PACS ST junction 2.873 cm SSM CV F UJI PACS Ascending aorta 2.694 cm SSM CV FUJI PACS LVOT pk grad 2.985 mmHg SSM CV FUJI PACS AV mn grad 2.667 mmHg SSM CV FU JI PACS AV pk grad 5.076 mmHg SSM CV FU JI PACS Anatomical Region Laterality Modality Ultrasound 10/07/2024 3:07 PM CDT Narrative 10/08/2024 3:36 PM CDT Summary * No evidence for endocarditis. * No hemodynamically significant valve disease. * Agitated saline contrast study at rest and with Valsalva is negative for a shunt. * The left atrial appendage is cauliflower shaped with normal velocity, and there is no thrombus. * The aortic root at the sinus of Valsalva is borderline dilated measuring 3.6 cm with an index of 2.4 cm/m2. * The left ventricle is normal in size, with normal systolic function. Visually estimated LV EF is 55-60%. Patient Info Name: Avery Phillips Age: 44 years : 1980 Gender: Male Ht: 70 in Wt: 103 lb BSA: 1.50 m2 HR: 83 bpm BP: 90 / 64 mmHg Heart Rhythm: Sinus Rhythm Exam Date: 10/07/2024 3:07 PM Patient Status: I/P Study Site: [facility] Primary Location: [facility] EStudy Info Exam Type: ECHO HAN COMPLETE Indications B49 - Fungemia * A complete transesophageal echo was performed using 2D, color Doppler, and spectral Doppler. Staff Referring Physician: Patric Parham Ordering Provider: Patric Parham Attending Physician: Patric Parham Fellow: Dominic Dyson Copy Reader: Francie Quiros Performing Physician: Margo Burch Complications * There were no complications prior to, during or in recovery from the transesophageal echocardiogram. Medications * Midazolam 3 mg IV and fentanyl 75 mcg IV. * Moderate sedation was monitored by the performing physician, see EMR for full details. A nurse administered the sedation under the supervision of a physician. * Sedation start: 1516 Sedation stop: 1529. Procedure Details The patient arrived in a fasting state after obtaining informed consent. The transesophageal probe was passed without difficulty into the posterior pharynx, mid-esophagus, distal esophagus, and gastric fundus. Imaging was performed at multiple levels. The patient tolerated the procedure well and there were no complications. The patient was transferred out of the examination area in satisfactory condition. Left Ventricle The left ventricle is normal in size, with normal systolic function. Visually estimated LV EF is 55-60%. Right Ventricle Right ventricle is normal in size with grossly normal systolic function. Left Atrium No mass or thrombus formation in the left atrium. Right Atrium No mass or thrombus formation in the right atrium. Atrial Septum Intact interatrial septum visualized by 2D and color Doppler imaging. Agitated saline contrast study at rest and with Valsalva is negative for a shunt. Atrial Appendage The left atrial appendage is cauliflower shaped with normal velocity, and there is no thrombus. Aortic Valve Aortic valve is trileaflet with no stenosis, and no regurgitation. Pulmonic Valve Pulmonic valve is normal, with no stenosis, and no regurgitation. Mitral Valve Mitral valve is normal, with no stenosis, and trace regurgitation. Tricuspid Valve Tricuspid valve is normal, with no stenosis, and trace regurgitation. Pulmonary Veins Normal flow patterns noted in the pulmonary veins. Pericardium/Pleural Pericardium is normal in appearance with no evidence for significant pericardial effusion. Aorta The aortic root at the sinus of Valsalva is borderline dilated measuring 3.6 cm with an index of 2.4 cm/m2. The ascending aorta is normal in size measuring 2.7 cm with an index of 1.8 cm/m2. No atherosclerosis in the descending aorta. Measurements Left Ventricular Outflow Tract Name Value Normal LVOT 2D LVOT Diameter 2.0 cm LVOT Area 3.2 cm2 LVOT Doppler LVOT Peak Velocity 0.9 m/s LVOT Peak Gradient 3 mmHg LVOT Mean Velocity 60.53 cm/s LVOT Mean Gradient 2 mmHg LVOT VTI 17.0 cm LVOT VTI/AV VTI Ratio 0.7 LVOT Stroke Volume 54 ml LVOT Stroke Volume Index 36 ml/m2 35-58 Aorta Name Value Normal Ascending Aorta Sinus of Valsalva Diameter 3.6 cm 2.8-4.0 Sinus of Valsalva Index 2.4 cm/m2 1.3-2.1 Ao Sinotub Junction Diameter 2.9 cm 2.6-3.2 Asc Ao Diameter 2.7 cm 2.2-3.8 Asc Ao Diameter Index 1.8 cm/m2 1.1-1.9 Aortic Valve Name Value Normal AV Doppler AV Peak Velocity 1.13 m/s AV Peak Gradient 5 mmHg AV Mean Gradient 3 mmHg AV VTI 24 cm AV Area (Cont Eq VTI) 2.20 cm2 >=2.00 AV Area (Cont Eq Anjel) 2.42 cm2 AV DI (VTI) 0.70 AV DI (Anjel) 0.77 AV Regurgitation 2D LVOT Area 3.16 cm2 Atria Name Value Normal LA/RA Appendage LA Christine Peak Emptying Velocity 56 cm/s Report Signatures Finalized by Margo Burch on 10/08/2024 03:35 PM Reviewed by Fellow Dominic Dyson on 10/07/2024 03:47 PM Procedure Note Margo Burch MD - 10/08/2024 Summary * No evidence for endocarditis. * No hemodynamically significant valve disease. * Agitated saline contrast study at rest and with Valsalva is negativefor a shunt. * The left atrial appendage is cauliflower shaped with normal velocity,and there is no thrombus. * The aortic root at the sinus of Valsalva is borderline dilatedmeasuring 3.6 cm with an index of 2.4 cm/m2. * The left ventricle is normal in size, with normal systolic function. Visually estimated LV EF is 55-60%. Patient Info Name: Avery Phillips Age: 44 years : 1980 Gender: Male Ht: 70 in Wt: 103 lb BSA: 1.50 m2 HR: 83 bpm BP: 90 / 64 mmHg Heart Rhythm: Sinus Rhythm Exam Date: 10/07/2024 3:07 PM Patient Status: I/P Study Site: [facility] Primary Location: [facility] EStudy Info Exam Type: ECHO HAN COMPLETE Indications B49 - Fungemia * A complete transesophageal echo was performed using 2D, color Doppler,and spectral Doppler. Staff Referring Physician: Patric Parham Ordering Provider: Patric Parham Attending Physician: Patric Parham Fellow: Dominic Dyson Copy Reader: Francie Quiros Performing Physician: Margo Burch Complications * There were no complications prior to, during or in recovery from the transesophageal echocardiogram. Medications * Midazolam 3 mg IV and fentanyl 75 mcg IV. * Moderate sedation was monitored by the performing physician, see EMRfor full details. A nurse administered the sedation under the supervision ofa physician. * Sedation start: 1516 Sedation stop: 1529. Procedure Details The patient arrived in a fasting state after obtaining informedconsent. The transesophageal probe was passed without difficulty into theposterior pharynx, mid-esophagus, distal esophagus, and gastric fundus. Imagingwas performed at multiple levels. The patient tolerated the procedure welland there were no complications. The patient was transferred out of the examination area in satisfactory condition. Left Ventricle The left ventricle is normal in size, with normal systolic function. Visually estimated LV EF is 55-60%. Right Ventricle Right ventricle is normal in size with grossly normal systolicfunction. Left Atrium No mass or thrombus formation in the left atrium. Right Atrium No mass or thrombus formation in the right atrium. Atrial Septum Intact interatrial septum visualized by 2D and color Doppler imaging. Agitated saline contrast study at rest and with Valsalva is negative fora shunt. Atrial Appendage The left atrial appendage is cauliflower shaped with normal velocity,and there is no thrombus. Aortic Valve Aortic valve is trileaflet with no stenosis, and no regurgitation. Pulmonic Valve Pulmonic valve is normal, with no stenosis, and no regurgitation. Mitral Valve Mitral valve is normal, with no stenosis, and trace regurgitation. Tricuspid Valve Tricuspid valve is normal, with no stenosis, and trace regurgitation. Pulmonary Veins Normal flow patterns noted in the pulmonary veins. Pericardium/Pleural Pericardium is normal in appearance with no evidence for significant pericardial effusion. Aorta The aortic root at the sinus of Valsalva is borderline dilated measuring3.6 cm with an index of 2.4 cm/m2. The ascending aorta is normal in sizemeasuring 2.7 cm with an index of 1.8 cm/m2. No atherosclerosis in the descendingaorta. Measurements Left Ventricular Outflow Tract Name Value Normal LVOT 2D LVOT Diameter 2.0 cm LVOT Area 3.2 cm2 LVOT Doppler LVOT Peak Velocity 0.9 m/s LVOT Peak Gradient 3 mmHg LVOT Mean Velocity 60.53 cm/s LVOT Mean Gradient 2 mmHg LVOT VTI 17.0 cm LVOT VTI/AV VTI Ratio 0.7 LVOT Stroke Volume 54 ml LVOT Stroke Volume Index 36 ml/m2 35-58 Aorta Name Value Normal Ascending Aorta Sinus of Valsalva Diameter 3.6 cm 2.8-4.0 Sinus of Valsalva Index 2.4 cm/m2 1.3-2.1 Ao Sinotub Junction Diameter 2.9 cm 2.6-3.2 Asc Ao Diameter 2.7 cm 2.2-3.8 Asc Ao Diameter Index 1.8 cm/m2 1.1-1.9 Aortic Valve Name Value Normal AV Doppler AV Peak Velocity 1.13 m/s AV Peak Gradient 5 mmHg AV Mean Gradient 3 mmHg AV VTI 24 cm AV Area (Cont Eq VTI) 2.20 cm2 >=2.00 AV Area (Cont Eq Anjel) 2.42 cm2 AV DI (VTI) 0.70 AV DI (Anjel) 0.77 AV Regurgitation 2D LVOT Area 3.16 cm2 Atria Name Value Normal LA/RA Appendage LA Christine Peak Emptying Velocity 56 cm/s Report Signatures Finalized by Margo Burch on 10/08/2024 03:35 PM Reviewed by Fellow Dominic Dyson on 10/07/2024 03:47 PM Patric Parham MD ECHO CUPID Final Resu lt * CULTURE BLOOD (10/06/2024 12:34 AM CDT) Only the most recent of6 resultswithin the time period is included. Culture No growth day 5 INDIGO 10/11/2024 4:31 AM CDT [facility] Blood PERIPHERAL BLOOD / Unknown Lab Venipuncture / Unknown 10/06/2024 12:34 AM CDT 10/06/2024 12:44 AM CDT Patric Parham MD LAB - MICROBIOLOGY ORDERAB LES Final Result [facility] [employer] MICROBIOLOGY [address] [place] [address], [facility] [phone] * (ABNORMAL) URINALYSIS W/MICROSCOPIC NO CULTURE (10/04/2024 2:05 PM CDT) Color UA [place](A) Yellow, Straw 10/04/2024 2:32 PM CDT [facility] Clarity UA Turbid(A) Clear 10/04/2024 2:32 PM CDT [facility] Glucose UA Normal Normal 10/04/2024 2:32 PM [facility] Bilirubin UA Negative Negative 10/04/2024 2:32 PM [facility] Ketone UA Negative Negative 10/04/2024 2:32 PM [facility] Specific [place] UA 1.005 1.005 - 1.030 10/04/2024 2:32 PM [facility] Blood UA 3+(A) Negative 10/04/2024 2:32 PM [facility] pH UA 5.5 5.0 - 9.0 pH 10/04/2024 2:32 PM [facility] Protein UA Negative Negative 10/04/2024 2:32 PM [facility] Urobilinogen UA Normal Normal mg/dL 10/04/2024 2:32 PM [facility] Nitrite UA Negative Negative 10/04/2024 2:32 PM [facility] Leukocyte UA 500 JADE/uL(A) Negative 10/04/2024 2:32 PM [facility] RBC UA >100(A) 0 - 5 # /hpf 10/04/2024 2:32 PM [facility] WBC UA >100(A) 0 - 5 # /hpf 10/04/2024 2:32 PM [facility] WBC Clumps UA Many(A) None Seen /HPF 10/04/2024 2:32 PM [facility] Bacteria UA 1+(A) None Seen 10/04/2024 2:32 PM [facility] Squamous Epithelial Cells 0-2 0 - 5 /hpf 10/04/2024 2:32 PM [facility] Amorphous Crystals Occasional( A) None seen /hpf 10/04/2024 2:32 PM [facility] Urine URINE SPECIMEN OBTAINED VIA [facility] / Unknown Collection / Unknown 10/04/2024 2:05 PM CDT 10/04/2024 2:09 PM [facility] us Patric Parham MD LAB - URINALYSIS ORDERABLE S Final Result [facility] [address] [place] [address], [facility] [phone] * (ABNORMAL) HEPATIC FUNCTION PANEL (10/03/2024 12:33 PM CDT) [facility] Protein Total 6.5 6.0 - 8.3 g/dL 025 1:18 PM CDT [facility] Albumin 2.0(L) 3.4 - 5.0 g/dL 10/03/2024 1:18 PM CDT [facility] Bilirubin Total 0.2 0.2 - 1.2 mg/dL 09/07 1:18 PM CDT [facility] Bilirubin Conjugated 0.1 0.1 - 0.5 mg/dL 10/03/2024 1:18 PM [facility] Bilirubin Unconjugated 0.1 Unconjugated Bilirubin is a calculated value: Reference ranges have not been established. mg/dL 10/03/2024 1:18 PM [facility] Alkaline Phosphatase 165(H) 40 - 150 U/L 10/03/2024 1:18 PM T [facility] ALT 20 5 - 55 U/L 10/03/2024 1:18 PM T [facility] AST 20 5 - 34 U/L 10/03/2024 1:18 PM T [facility] Albumin/Globulin Ratio 0.4(L) 1.1 - 2.3 10/03/2024 1:18 PM T [facility] Blood BLOOD SPECIMEN / Unknown Venipuncture / Unknown 10/03/2024 12:33 PM CDT 10/03/2024 12:45 PM CDT Alejo Moreno MD LAB - CHEMISTRY ORDERABLES Fin al Result [facility] [address] [place] [phone], [facility] [phone] * ECHO COMPLETE W CONTRAST (10/02/2024 1:36 PM CDT) [facility] IVSd 2D 0.707 cm SSM CV FUJ I PACS LVIDd 3.777 cm SSM CV FUJ I PACS LVIDs 2.329 cm SSM CV FUJ I PACS LVOT diam 2.158 cm SSM CV FUJ I PACS LVPWd 0.786 cm SSM CV FUJ I PACS LV biplane EF 68.073 % SSM CV FUJI PACS LV A2C EF 55.823 % SSM CV FUJ I PACS LV A4C EF 72.016 % SSM CV FUJ I PACS LV EDV A2C 67.627 ml SSM CV FU JI PACS LV EDV A4C 79.294 ml SSM CV FU JI PACS LV ESV A2C 29.876 ml SSM CV FU JI PACS LV ESV A4C 22.19 ml SSM CV FU JI PACS LVOT pk grad 3.068 mmHg [facility] pk anjel 87.575 cm/s SSM CV F UJI PACS LVOT VTI 17.261 cm SSM CV [facility] I PACS RVIDd 2.778 cm SSM CV [facility] I PACS RVOT pk anjel 69.912 cm/s SSM CV F UJI PACS RVOT VTI 14.175 cm SSM CV [facility] I PACS LA size 2.721 cm SSM CV [facility] I PACS LA vol BP 28.769 ml SSM CV [facility] I PACS RA area 15.335 cm [facility] AV area pk anjel 3.03 cm [facility] area cont VTI 3.08 cm [facility] AV pk grad 3.896 mmHg SSM CV FU JI PACS AV mn grad 2.096 mmHg SSM CV FU JI PACS AV pk anjel 105.744 cm/s SSM CV [facility] I PACS AV VTI 20.506 cm SSM CV [facility] I PACS MV A pk anjel 63.319 cm/s SSM CV F UJI PACS MV E pk anjel 71.826 cm/s SSM CV F UJI PACS MV E' lateral anjel 10.656 cm/s SS M [facility] MV mn grad 2.605 mmHg SSM CV FU JI PACS MV VTI 26.445 cm SSM CV [facility] I PACS PV pk anjel 78.754 cm/s SSM CV [facility] I PACS PV VTI 16.091 cm SSM CV [facility] I PACS TAPSE 2.724 cm SSM CV FUJ I PACS TR pk anjel 228.863 cm/s SSM CV FUJ I PACS Ascending aorta 2.902 cm SSM CV FUJI PACS IVC Diam Expiration 1.337 cm SSM CV FUJI PACS Sinus of Valsalva 3.5 cm SS M CV FUJI PACS AV area index 1.988 cm /m SSM CV FUJI PACS LA vol index 0.019 l/m SSM CV FUJI PACS Dimensionless Index 0.842 unitless SSM CV FUJI PACS Myocardial strain charge 2 unitless SSM CV FUJI PACS Anatomical Region Laterality Modality Ultrasound 10/02/2024 12:5 3 PM CDT Narrative 10/02/2024 3:34 PM CDT Summary * The left ventricle is normal in size, with normal systolic function and an estimated ejection fraction of 68 % by biplane method of disks. Left ventricular wall motion is normal. * The left ventricular diastolic function is normal. * Right ventricle is normal in size with normal systolic function. * No hemodynamically significant valve disease. * The pulmonary artery systolic pressure is normal, 24 mmHg. Patient Info Name: Avery Phillips Age: 44 years : 1980 Gender: Male Ht: 70 in Wt: 110 lb BSA: 1.55 m2 HR: 79 bpm BP: 93 / 61 mmHg Heart Rhythm: Sinus Rhythm Exam Date: 10/02/2024 12:53 PM Patient Status: I/P Study Site: [facility] Primary Location: [facility] EStudy Info Technical Quality: Adequate Exam Type: ECHO COMPLETE W CONTRAST Indications Please refer to EHR for Exam Diagnosis Codes - R57.9 - Shock Procedure(s) * A complete 2D, color Doppler, spectral Doppler and M-Mode transthoracic echocardiogram was performed with an Ultrasound Enhancing Agent (UEA). Contrast/Agitated Saline Contrast / Saline: Definity Amount: 1.00 ml Administered By: Tyrone Davidson Reaction to Contrast: no Reason for Technically Difficult Study: positional limitations, patient supine Staff Referring Physician: Sonia Baltazar Ordering Provider: Sonia Baltazar Attending Physician: Sonia Baltazar Copy Reader: Tyrone Davidson Left Ventricle The left ventricle is normal in size. There is no increased left ventricular wall thickness. Left ventricular systolic function is normal with an estimated ejection fraction of 68 % by biplane method of disks. The left ventricular mass is normal. Left ventricular segmental wall motion is normal. The left ventricular diastolic function is normal. Right Ventricle The right ventricle is normal in size. Right ventricular systolic function is normal. Ventricular Septum Intact interventricular septum visualized by 2D imaging. Left Atrium The left atrium is normal in size with a left atrial volume index of 19 ml/m2 by BP MOD. Right Atrium The right atrium is normal in size. Atrial Septum Intact interatrial septum visualized by 2D and color Doppler imaging. Aortic Valve The aortic valve is trileaflet. There is no aortic valve stenosis with a peak velocity of 1.1 m/s, mean gradient of 2 mmHg, and aortic valve area of 3.08 cm2. There is no aortic valve regurgitation. Pulmonic Valve The pulmonic valve is not well visualized. There is no pulmonic valve stenosis. There is no pulmonic regurgitation. Mitral Valve The mitral valve is grossly normal. There is no mitral valve stenosis. There is no mitral valve regurgitation. Tricuspid Valve The tricuspid valve is grossly normal. There is no tricuspid valve stenosis. There is mild tricuspid valve regurgitation. The pulmonary artery systolic pressure is normal, 24 mmHg. Inferior Vena Cava The inferior vena cava is normal in size (< 2.1 cm). There is > 50% collapse of the IVC upon inspiration with an estimated right atrial pressure of 3 mmHg. Pericardium/Pleural There is no pericardial effusion. Aorta The aortic root at the sinus of Valsalva is normal in size. The ascending aorta is normal in size. Measurements Left Ventricular Outflow Tract Name Value Normal LVOT 2D LVOT Diameter 2.2 cm LVOT Area 3.7 cm2 LVOT Doppler LVOT Peak Velocity 0.9 m/s LVOT Peak Gradient 3 mmHg LVOT Mean Velocity 60.47 cm/s LVOT Mean Gradient 2 mmHg LVOT VTI 17.3 cm LVOT VTI/AV VTI Ratio 0.8 LVOT Stroke Volume 63 ml LVOT Stroke Volume Index 41 ml/m2 35-58 LVOT CO 5.0 l/min LVOT CI 3.2 l/min/m2 Pulmonic Valve Name Value Normal RVOT Doppler RVOT Peak Velocity 0.7 m/s RVOT Peak Gradient 2 mmHg RVOT Mean Gradient 1 mmHg PV Doppler PV Peak Velocity 0.8 m/s PV Peak Gradient 2 mmHg PV Mean Gradient 1 mmHg Mitral Valve Name Value Normal MV Doppler MV Peak Gradient 6 mmHg MV Mean Gradient 3 mmHg MV DI (VTI) 1.53 MV PHT 55 ms MV Area (PHT) 4.03 cm2 4.00-5.00 MV Area (Cont Eq VTI) 2.39 cm2 MV Diastolic Function MV E Peak Velocity 0.7 m/sec MV A Peak Velocity 0.6 m/sec MV E/A 1.1 MV Decel Time (PW) 86 ms MV Annular TDI MV Septal e' Velocity 11 cm/s >=8 MV E/e' (Septal) 7 <=8 MV Lateral e' Velocity 11 cm/s >=10 MV E/e' (Lateral) 7 <=8 MV e' Average 11 cm/s MV E/e' (Average) 7 Tricuspid Valve Name Value Normal TV Regurgitation Doppler TR Peak Velocity 2.3 m/s TR Peak Gradient 21 mmHg Estimated PAP/RSVP RA Pressure 3 mmHg <=5 PA Systolic Pressure 24 mmHg <35 RV Systolic Pressure 24 mmHg <36 TV Annular TDI TV Lateral Lulu s' Velocity 20 cm/s 10-19 Pulmonary Vessels Name Value Normal Pulmonary Veins Pulm Vein Peak Systolic Velocity 82.5 cm/s Pulm Vein Peak Diastolic Velocity 76.0 cm/s Pulm Vein S/D Velocity Ratio 1 Aorta Name Value Normal Ascending Aorta Sinus of Valsalva Diameter 3.5 cm 2.8-4.0 Sinus of Valsalva Index 2.3 cm/m2 1.3-2.1 Asc Ao Diameter 2.9 cm 2.2-3.8 Asc Ao Diameter Index 1.9 cm/m2 1.1-1.9 Venous Name Value Normal IVC/SVC IVC Diameter 1.3 cm <=2.1 Aortic Valve Name Value Normal AV 2D/MM AV Cusp Sep (MM) 2.0 cm AV Doppler AV Peak Velocity 1.06 m/s AV Peak Gradient 4 mmHg AV Mean Gradient 2 mmHg AV VTI 21 cm AV Area (Cont Eq VTI) 3.08 cm2 >=2.00 AV Area (Cont Eq Anjel) 3.03 cm2 AV DI (VTI) 0.84 AV DI (Anjel) 0.83 AV Regurgitation 2D LVOT Area 3.66 cm2 Ventricles Name Value Normal LV Dimensions 2D/MM IVS Diastolic Thickness (2D) 0.7 cm 0.6-1.0 LVID Diastole (2D) 3.8 cm 4.2-5.8 LVPW Diastolic Thickness (2D) 0.8 cm 0.6-1.0 IVS Systolic Thickness (2D) 1.0 cm LVID Systole (2D) 2.3 cm 2.5-4.0 LVPW Systolic Thickness (2D) 0.8 cm LV Mass (2D Cubed) 53 g 88-224 LV Mass Index (2D Cubed) 34 g/m2 49-115 Relative Wall Thickness (2D) 0.42 <=0.42 LV Fractional Shortening/Ejection Fraction 2D/MM LV Fractional Shortening (2D) 38 % 25-43 LV EF (2D Teicholz) 69 % 52-72 LV Diastolic Volume (4C MOD) 79 ml LV EF (4C MOD) 72 % LV Diastolic Volume (2C MOD) 68 ml LV EF (2C MOD) 56 % LV Diastolic Volume (BP MOD) 80 ml 62-150 LV Diastolic Volume Index (BP MOD) 52 ml/m2 34-74 LV Systolic Volume (BP MOD) 25 ml 21-61 LV Systolic Volume Index (BP MOD) 16 ml/m2 11-31 LV EF (BP MOD) 68 % 52-72 LV Diastolic Length (4C) 7.9 cm LV Systolic Length (4C) 6.3 cm LV Stroke Volume (4C MOD) 57 ml RV Dimensions 2D/MM RVID Diastole (2D) 2.8 cm 2.5-3.5 RVID Systole (2D) 2.1 cm TAPSE 2.7 cm >=1.7 Atria Name Value Normal LA Dimensions LA Dimension (2D) 2.7 cm 3.0-4.1 LA Dimen Index (2D) 1.8 cm/m2 LA Volume (BP MOD) 29 ml LA Volume Index (BP MOD) 19 ml/m2 16-34 RA Dimensions RA Area (4C) 15 cm2 <=18 RA Area (4C) Index 10 cm2/m2 Report Signatures Finalized by Christi Perez on 10/02/2024 03:34 PM Procedure Note Christi Perez, DO - 10/02/2024 Summary * The left ventricle is normal in size, with normal systolic functionand an estimated ejection fraction of 68 % by biplane method of disks. Left ventricular wall motion is normal. * The left ventricular diastolic function is normal. * Right ventricle is normal in size with normal systolic function. * No hemodynamically significant valve disease. * The pulmonary artery systolic pressure is normal, 24 mmHg. Patient Info Name: Avery Phillips Age: 44 years : 1980 Gender: Male Ht: 70 in Wt: 110 lb BSA: 1.55 m2 HR: 79 bpm BP: 93 / 61 mmHg Heart Rhythm: Sinus Rhythm Exam Date: 10/02/2024 12:53 PM Patient Status: I/P Study Site: [facility] Primary Location: [facility] EStudy Info Technical Quality: Adequate Exam Type: ECHO COMPLETE W CONTRAST Indications Please refer to EHR for Exam Diagnosis Codes - R57.9 - Shock Procedure(s) * A complete 2D, color Doppler, spectral Doppler and M-Modetransthoracic echocardiogram was performed with an Ultrasound Enhancing Agent (UEA). Contrast/Agitated Saline Contrast / Saline: Definity Amount: 1.00 ml Administered By: Tyrone Davidson Reaction to Contrast: no Reason for Technically Difficult Study: positional limitations,patient supine Staff Referring Physician: Sonia Baltazar Ordering Provider: Sonia Baltazar Attending Physician: Sonia Baltazar Copy Reader: Tyrone Davidson Left Ventricle The left ventricle is normal in size. There is no increased leftventricular wall thickness. Left ventricular systolic function is normal with anestimated ejection fraction of 68 % by biplane method of disks. The leftventricular mass is normal. Left ventricular segmental wall motion is normal. Theleft ventricular diastolic function is normal. Right Ventricle The right ventricle is normal in size. Right ventricular systolicfunction is normal. Ventricular Septum Intact interventricular septum visualized by 2D imaging. Left Atrium The left atrium is normal in size with a left atrial volume index of19 ml/m2 by BP MOD. Right Atrium The right atrium is normal in size. Atrial Septum Intact interatrial septum visualized by 2D and color Doppler imaging. Aortic Valve The aortic valve is trileaflet. There is no aortic valve stenosis witha peak velocity of 1.1 m/s, mean gradient of 2 mmHg, and aortic valve areaof 3.08 cm2. There is no aortic valve regurgitation. Pulmonic Valve The pulmonic valve is not well visualized. There is no pulmonic valve stenosis. There is no pulmonic regurgitation. Mitral Valve The mitral valve is grossly normal. There is no mitral valve stenosis.There is no mitral valve regurgitation. Tricuspid Valve The tricuspid valve is grossly normal. There is no tricuspid valvestenosis. There is mild tricuspid valve regurgitation. The pulmonary arterysystolic pressure is normal, 24 mmHg. Inferior Vena Cava The inferior vena cava is normal in size (< 2.1 cm). There is > 50%collapse of the IVC upon inspiration with an estimated right atrial pressure of 3mmHg. Pericardium/Pleural There is no pericardial effusion. Aorta The aortic root at the sinus of Valsalva is normal in size. Theascending aorta is normal in size. Measurements Left Ventricular Outflow Tract Name Value Normal LVOT 2D LVOT Diameter 2.2 cm LVOT Area 3.7 cm2 LVOT Doppler LVOT Peak Velocity 0.9 m/s LVOT Peak Gradient 3 mmHg LVOT Mean Velocity 60.47 cm/s LVOT Mean Gradient 2 mmHg LVOT VTI 17.3 cm LVOT VTI/AV VTI Ratio 0.8 LVOT Stroke Volume 63 ml LVOT Stroke Volume Index 41 ml/m2 35-58 LVOT CO 5.0 l/min LVOT CI 3.2 l/min/m2 Pulmonic Valve Name Value Normal RVOT Doppler RVOT Peak Velocity 0.7 m/s RVOT Peak Gradient 2 mmHg RVOT Mean Gradient 1 mmHg PV Doppler PV Peak Velocity 0.8 m/s PV Peak Gradient 2 mmHg PV Mean Gradient 1 mmHg Mitral Valve Name Value Normal MV Doppler MV Peak Gradient 6 mmHg MV Mean Gradient 3 mmHg MV DI (VTI) 1.53 MV PHT 55 ms MV Area (PHT) 4.03 cm2 4.00-5.00 MV Area (Cont Eq VTI) 2.39 cm2 MV Diastolic Function MV E Peak Velocity 0.7 m/sec MV A Peak Velocity 0.6 m/sec MV E/A 1.1 MV Decel Time (PW) 86 ms MV Annular TDI MV Septal e' Velocity 11 cm/s >=8 MV E/e' (Septal) 7 <=8 MV Lateral e' Velocity 11 cm/s >=10 MV E/e' (Lateral) 7 <=8 MV e' Average 11 cm/s MV E/e' (Average) 7 Tricuspid Valve Name Value Normal TV Regurgitation Doppler TR Peak Velocity 2.3 m/s TR Peak Gradient 21 mmHg Estimated PAP/RSVP RA Pressure 3 mmHg <=5 PA Systolic Pressure 24 mmHg <35 RV Systolic Pressure 24 mmHg <36 TV Annular TDI TV Lateral Lulu s' Velocity 20 cm/s 10-19 Pulmonary Vessels Name Value Normal Pulmonary Veins Pulm Vein Peak Systolic Velocity 82.5 cm/s Pulm Vein Peak Diastolic Velocity 76.0 cm/s Pulm Vein S/D Velocity Ratio 1 Aorta Name Value Normal Ascending Aorta Sinus of Valsalva Diameter 3.5 cm 2.8-4.0 Sinus of Valsalva Index 2.3 cm/m2 1.3-2.1 Asc Ao Diameter 2.9 cm 2.2-3.8 Asc Ao Diameter Index 1.9 cm/m2 1.1-1.9 Venous Name Value Normal IVC/SVC IVC Diameter 1.3 cm <=2.1 Aortic Valve Name Value Normal AV 2D/MM AV Cusp Sep (MM) 2.0 cm AV Doppler AV Peak Velocity 1.06 m/s AV Peak Gradient 4 mmHg AV Mean Gradient 2 mmHg AV VTI 21 cm AV Area (Cont Eq VTI) 3.08 cm2 >=2.00 AV Area (Cont Eq Anjel) 3.03 cm2 AV DI (VTI) 0.84 AV DI (Anjel) 0.83 AV Regurgitation 2D LVOT Area 3.66 cm2 Ventricles Name Value Normal LV Dimensions 2D/MM IVS Diastolic Thickness (2D) 0.7 cm 0.6-1.0 LVID Diastole (2D) 3.8 cm 4.2-5.8 LVPW Diastolic Thickness (2D) 0.8 cm 0.6-1.0 IVS Systolic Thickness (2D) 1.0 cm LVID Systole (2D) 2.3 cm 2.5-4.0 LVPW Systolic Thickness (2D) 0.8 cm LV Mass (2D Cubed) 53 g 88-224 LV Mass Index (2D Cubed) 34 g/m2 49-115 Relative Wall Thickness (2D) 0.42 <=0.42 LV Fractional Shortening/Ejection Fraction 2D/MM LV Fractional Shortening (2D) 38 % 25-43 LV EF (2D Teicholz) 69 % 52-72 LV Diastolic Volume (4C MOD) 79 ml LV EF (4C MOD) 72 % LV Diastolic Volume (2C MOD) 68 ml LV EF (2C MOD) 56 % LV Diastolic Volume (BP MOD) 80 ml 62-150 LV Diastolic Volume Index (BP MOD) 52 ml/m2 34-74 LV Systolic Volume (BP MOD) 25 ml 21-61 LV Systolic Volume Index (BP MOD) 16 ml/m2 11-31 LV EF (BP MOD) 68 % 52-72 LV Diastolic Length (4C) 7.9 cm LV Systolic Length (4C) 6.3 cm LV Stroke Volume (4C MOD) 57 ml RV Dimensions 2D/MM RVID Diastole (2D) 2.8 cm 2.5-3.5 RVID Systole (2D) 2.1 cm TAPSE 2.7 cm >=1.7 Atria Name Value Normal LA Dimensions LA Dimension (2D) 2.7 cm 3.0-4.1 LA Dimen Index (2D) 1.8 cm/m2 LA Volume (BP MOD) 29 ml LA Volume Index (BP MOD) 19 ml/m2 16-34 RA Dimensions RA Area (4C) 15 cm2 <=18 RA Area (4C) Index 10 cm2/m2 Report Signatures Finalized by Christi Perez on 10/02/2024 03:34 PM us Sonia Baltazar MD ECHO CUPID Final Result * (ABNORMAL) BCID PANEL (10/02/2024 11:54 AM CDT) Kelsy glabrata Detected( A) Not detected 10/03/2024 4:09 PM CDT [facility] Blood PERIPHERAL BLOOD / Unknown Venipuncture / Unknown 10/02/2024 11:54 AM CDT 10/02/2024 11:59 AM CDT Narrative [facility] - 10/03/2024 4:09 PM CDT Blood Culture ID Panel performed by [employer] multiplex PCR. The Test panel includes: Gram Positive Bacteria: Enterococcus faecalis, Enterococcus faecium, Listeria monocytogenes, Staphylococcus (genus), Staphylococcus aureus, Staphylococcus epidermidis, Staphylococcus lugdunensis, Streptococcus (genus), Streptococcus agalactiae (Group B), Streptococcus pneumoniae, Streptococcus pyogenes (Group A). Gram Negative Bacteria: Acinetobacter baumannii complex, Bacteroides fragilis, Haemophilus influenzae, Neisseria meningitidis (encapsulated), Pseudomonas aeruginosa, Stenotrophomonas maltophilia, Enterobacterales (formerly Enterobacteriaceae family), Enterobacter cloacae complex, Escherichia coli, Klebsiella (formerly Enterobacter) aerogenes, Klebsiella oxytoca, Klebsiella pneumoniae group, Proteus (genus), Salmonella species, Serratia marcescens. YEAST: Kelsy albicans, Kelsy auris, Kelsy glabrata, Kelsy krusei, Kelsy parapsilosis, Kelsy tropicalis, Cryptococcus neoformans/gattii. Antimicrobial Resistance Genes: CTX-M (extended-spectrum beta-lactamase), IMP (metallo beta-lactamase), KPC (carbapenemase), mcr-1 (colistin resistance determinant) mecA/C (methicillin-resistance), mecA/C and MREJ (methicillin-resistance - MRSA), NDM ([place] fhvbvqu-dthx-poasimsif), OXA-48-like (oxacillinase beta-lactamase),Joselin/B (vancomycin-resistance), VIM (Dina Intergrom-Encoded Metallo beta-lactamase). Calos Shen MD LAB - MICROBIOLOGY ORD ERABLES Final Result [facility] [address] [place] [address], [facility] [phone] * SUSCEPTIBILITY FUNGUS/YEAST (10/02/2024 11:54 AM CDT) Pathologist [facility] Prelim Report SEE NOTE 10/08/2024 4:07 PM CDT [facility] ([facility]) Comment: Specimen received and in progress. INTERPRETIVE INFORMATION: Susceptibility, Fungal (Yeasts and Molds) Units = ug/mL YSTMIC Amphotericin B 1 None Rezafungin 0.016 Suscept Anidulafungin 0.03 Suscept Micafungin 0.016 Suscept Voriconazole 1 None Isavuconazole 0.5 None Posaconazole 2 None Itraconazole 1 None Fluconazole 16 SDD Caspofungin 0.25 Intermed Performed By: [facility] [address] [place] [address] Kit Planner: Raul Szymanski MD, PhD CLIA Number: [id number] Final Report SEE NOTE 10/08/2024 4:07 PM CDT [facility] ([facility]) Comment: Nakaseomyces glabrata (Previously Kelsy glabrata) Organism identified by client INTERPRETIVE INFORMATION: Susceptibility, Fungal (Yeasts and Molds) Units = ug/mL YSTMIC Amphotericin B 1 None Rezafungin 0.016 Suscept Anidulafungin 0.03 Suscept Micafungin 0.016 Suscept Voriconazole 1 None Isavuconazole 0.5 None Posaconazole 2 None Itraconazole 1 None Fluconazole 16 SDD Caspofungin 0.25 Intermed Performed By: [facility] [address] [place], [place] [id number] Kit Planner: Raul Szymanski MD, PhD CLIA Number: [id number] Blood PERIPHERAL BLOOD / Unknown Venipuncture / Unknown 10/02/2024 11:54 AM CDT 10/02/2024 11:59 AM CDT Narrative [facility] ([facility]) - 10/08/2024 4:07 PM CDT INDIGO=Minimum Inhibitory Concentration MEC=Minimum Effective Concentration INDIGO=Minimum Inhibitory Concentration MEC=Minimum Effective Concentration INDIGO=Minimum Inhibitory Concentration MEC=Minimum Effective Concentration Calos Shen MD LAB - MICROBIOLOGY ORD ERABLES Final Result Performing Organization Address [facility] Co de Phone Number [facility] ([facility]) [address] * (ABNORMAL) CULTURE BLOOD FUNGUS (10/02/2024 11:54 AM CDT) Culture Growth of Kelsy glabrata(AA ) 10/06/2024 11:37 AM CDT [facility] Fungus Stain Yeast(AA) 10/06/2024 11:37 AM CDT [facility] Blood PERIPHERAL BLOOD / Unknown Venipuncture / Unknown 10/02/2024 11:54 AM CDT 10/02/2024 11:59 AM CDT Narrative [facility] - 10/06/2024 11:37 AM CDT Positive at 1 day, 3 hrs, 10 mins Refer to previously reported susceptibility testing, specimen number: [id number] Calos Shen MD LAB - MICROBIOLOGY ORD ERABLES Final Result Performing Organization Address [facility] de Phone Number [facility] [address] [place], [address] [phone] * [place] Cysto Surgery (10/02/2024 5:17 AM CDT) Narrative [facility] - 10/02/2024 5:18 AM CDT Fluoroscopy was used for this exam in the OR. Please see the Operative report. Josie Schaefer DO FLUOROSCOPY ORDERABLES Fin al Result Performing Organization Address [facility] Co de Phone Number [facility] * (ABNORMAL) HEMOGLOBIN A1C (10/02/2024 5:03 AM CDT) Hemoglobin A1c >14.0(H) <=5.6 % 10/02/2024 11:17 AM CDT [facility] Estimated Average Glucose >355 mg/dL 10/02/2024 11:17 AM T [facility] Comment: HbA1c Interpretation: Normal : < 5.7% Pre-diabetes: 5.7-6.4% Diabetes: Equal to or greater than 6.5% Test results diagnostic of diabetes should be repeated for confirmation. Treatment target values recommended by ADA and other clinical organizations should be used to evaluate metabolic control in patients. Reference: [place] [employer] Association, Standards of Care in Diabetes -2020 In patients 70 years and older consider HbA1c target range of 7.0-7.5% (Reference: Chris A, et al. MAXIMEDA. 2012) The Sebia assay for the measurement of HbA1c is a National Glycohemoglobin Standardization Program (NGSP) certified method. HbA1c Interpretation: Normal : < 5.7% Pre-diabetes: 5.7-6.4% Diabetes: Equal to or greater than 6.5% Test results diagnostic of diabetes should be repeated for confirmation. Treatment target values recommended by ADA and other clinical organizations should be used to evaluate metabolic control in patients. Reference: [place] Diabetes Association, Standards of Care in Diabetes -2020 In patients 70 years and older consider HbA1c target range of 7.0-7.5% (Reference: Perez A, et al. JAMDA. 2012) The Sebia assay for the measurement of HbA1c is a National Glycohemoglobin Standardization Program (NGSP) certified method. Blood BLOOD SPECIMEN / Unknown Venipuncture / Unknown 10/02/2024 5:03 AM CDT 10/02/2024 5:17 AM CDT us Sonia Baltazar MD LAB - CHEMISTRY ORDERABLES F inal Result [facility] [address] [place] [id number], [facility] [phone] * OSMOLALITY BLOOD (10/02/2024 5:03 AM CDT) Osmolality 291 275 - 295 mOsm/kg 10/02/2024 6:04 AM CDT [facility] Blood BLOOD SPECIMEN / Unknown Venipuncture / Unknown 10/02/2024 5:03 AM CDT 10/02/2024 5:20 AM CDT us Sonia Baltazar MD LAB - CHEMISTRY ORDERABLES F inal Result Performing Organization Address City/[facility]/ZIP Co de Phone Number [address] [address], [place] [phone] * (ABNORMAL) IRON + TRANSFERRIN PANEL (10/02/2024 5:03 AM CDT) Iron 52 50 - 175 ug/dL 10/02/2024 5:54 AM CDT [facility] Transferrin 86(L) 174 - 382 mg/dL 10/02/2024 5:54 AM CDT [facility] Transferrin Saturation % 48 16 - 50 % 10/02/2024 5:54 AM CDT [facility] TIBC Calculated 108(L) 240 - 450 ug/dL 10/02/2024 5:54 AM CDT [facility] Blood BLOOD SPECIMEN / Unknown Venipuncture / Unknown 10/02/2024 5:03 AM CDT 10/02/2024 5:16 AM CDT us Sonia Baltazar MD LAB - CHEMISTRY ORDERABLES F inal Result Performing Organization Address [facility] Co de Phone Number [address] [address], [place] [phone] * (ABNORMAL) FERRITIN (10/02/2024 5:03 AM CDT) Ferritin 389(H) 22 - 275 ng/mL 10/02/2024 6:11 AM CDT [facility] Blood BLOOD SPECIMEN / Unknown Venipuncture / Unknown 10/02/2024 5:03 AM CDT 10/02/2024 5:16 AM CDT us Sonia Baltazar MD LAB - CHEMISTRY ORDERABLES F inal Result [address] [address], [facility] [phone] * LACTIC ACID BLOOD (10/01/2024 11:43 PM CDT) Pathologist [facility] Lactic Acid-Stat 1.5 <=2.0 mmol/L 10/02/2024 12:14 AM CDT [facility] Blood BLOOD SPECIMEN / Unknown Venipuncture / Unknown 10/01/2024 11:43 PM CDT 10/01/2024 11:48 PM CDT us Sonia Baltazar MD LAB - CHEMISTRY ORDERABLES F inal Result [facility] [address] [place] [address], [facility] [phone] * LARYNGEAL MASK AIRWAY (10/01/2024 8:31 PM CDT) Narrative Geovani Mckeon DO - 10/01/2024 8:31 PM CDT Geovani Mckeon DO 10/01/2024 8:32 PM LMA Placement Procedure/LDA Note: Patient Location: OR. LMA Insertion Date/Time: 10/01/2024 8:22 PM Procedure: LMA Pretreatment: 100% O2 Induction: standard IV Patient position: sniffing. Mask Ventilation: easy Type: gel LMA Size: 4 Number of Attempts: 1. Placement verified by: direct visualization, chest auscultation, bilateral breath sounds and CO2 monitor Dentition unchanged? Yes Procedure Start Time: 10/01/2024 8:22 PM. Staff Section Anesthesia Provider: Geovani Mckeon DO, Performed the procedure us Michael Moore MD GENERAL ANESTHESIA ORDERAB LES Final Result * (ABNORMAL) PT-INR [facility] (10/01/2024 7:26 PM CDT) Pathologist [facility] PT 24.5(H) 12.1 - 14.8 Seconds 10/01/2024 7:51 PM CDT [facility] INR 2.3 See Comment 10/01/2024 7:51 PM CDT [facility] Comment:The suggested therap eutic range for standard coumadin (warfarin) therapy is an INR of 2.0-3.0. For high-risk patients (Mechanical Mitral Valve Prosthesis, etc.), the suggested prophylactic therapeutic range is an INR of 2.5-3.5. Blood BLOOD SPECIMEN / Unknown Venipuncture / Unknown 10/01/2024 7:26 PM CDT 10/01/2024 7:31 PM CDT Calos Shen MD LAB - COAGULATION ORDE RABLES Final Result [address] [address], [place] [phone] * LACTIC ACID BLOOD REFLEX TO REPEAT (10/01/2024 7:26 PM CDT) Pathologist [facility] Lactic Acid-Stat 1.6 <=2.0 mmol/L 10/01/2024 8:04 PM CDT [facility] Blood BLOOD SPECIMEN / Unknown Venipuncture / Unknown 10/01/2024 7:26 PM CDT 10/01/2024 7:30 PM CDT Calos hSen MD LAB - CHEMISTRY ORDERA BLES Final Result Performing Organization Address [facility]/ZIP Co de Phone Number [address] [address], [place] [phone] * TROPONIN-I HIGH SENSITIVE BASELINE + 1HR (10/01/2024 7:26 PM CDT) Pathologist [facility] Troponin I High Sensitive <3 <=35 ng/L 10/01/2024 8:10 PM CDT [facility] Blood BLOOD SPECIMEN / Unknown Venipuncture / Unknown 10/01/2024 7:26 PM CDT 10/01/2024 7:31 PM CDT Calos Shen MD LAB - CHEMISTRY ORDERA BLES Final Result Performing Organization Address City/[facility]/ZIP Co de Phone Number [address] [address], [place] [phone] * (ABNORMAL) URINALYSIS REFLEX MICROSCOPIC REFLEX CULTURE (10/01/2024 7:26 PM CDT) Color UA Red(A) Yellow, Straw 10/01/2024 8:18 PM [facility] Clarity UA Cloudy(A) Clear 10/01/2024 8:18 PM [facility] Glucose UA Trace(A) Negative 10/01/2024 8:18 PM [facility] Bilirubin UA Grossly Bloody(A) Negative 10/01/2024 8:18 PM [facility] Ketone UA Trace(A) Negative 10/01/2024 8:18 PM [facility] Specific [place] UA 1.025 1.005 - 1.030 10/01/2024 8:18 PM [facility] Blood UA 3+(A) Negative 10/01/2024 8:18 PM [facility] pH UA 7.0 5.0 - 9.0 pH 10/01/2024 8:18 PM [facility] Protein UA 3+(A) Negative 10/01/2024 8:18 PM [facility] Urobilinogen UA Negative Negative mg/dL 10/01/2024 8:18 PM [facility] Nitrite UA Positive(A) Negative 10/01/2024 8:18 PM [facility] Leukocyte UA 1+(A) Negative 10/01/2024 8:18 PM [facility] RBC UA >100(A) 0 - 5 # /hpf 10/01/2024 8:18 PM [facility] WBC UA >100(A) 0 - 5 # /hpf 10/01/2024 8:18 PM [facility] WBC Clumps UA Occasional( A) None Seen /HPF 10/01/2024 8:18 PM [facility] Bacteria UA Trace(A) None Seen 10/01/2024 8:18 PM [facility] Squamous Epithelial Cells None Seen 0 - 5 /hpf 10/01/2024 8:18 PM [facility] Urine URINE SPECIMEN OBTAINED BY CLEAN CATCH PROCEDURE / Unknown Collection / Unknown 10/01/2024 7:26 PM CDT 10/01/2024 7:30 PM CDT Narrative [facility] - 10/01/2024 8:18 PM CDT Chemstrip tests performed on spun urine supernatant. The test results must be integrated into the clinical context for interpretation . Calos Shen MD LAB - URINALYSIS ORDER NATHAN Final Result Performing Organization Address City/[facility]/ZIP Co de Phone Number [address] [address], [place] [phone] * CK BLOOD (10/01/2024 7:26 PM CDT) Pathologist [facility] CK Total 176 30 - 200 U/L 10/01/2024 8:06 PM CDT [facility] Blood BLOOD SPECIMEN / Unknown Venipuncture / Unknown 10/01/2024 7:26 PM CDT 10/01/2024 7:31 PM CDT Calos Shen MD LAB - CHEMISTRY ORDERA BLES Final Result Performing Organization Address [facility] Co de Phone Number [address] [address], [place] [phone] * HIV-1 HIV-2 ANTIBODY + HIV P24 AG PANEL (06/28/2024 12:09 PM DATA COLLECTION SPECIALIST) Pathologist [facility] HIV Antigen/Antibod y 1 & 2 Non-reacti ve Non-react [place] 06/28/2024 2:18 PM DATA COLLECTION SPECIALIST [facility] Comment:No Laboratory eviden ce of HIV infection. Blood BLOOD SPECIMEN / Unknown Venipuncture / Unknown 06/28/2024 12:09 PM DATA COLLECTION SPECIALIST 06/28/2024 12:22 PM DATA COLLECTION SPECIALIST Austin Redd MD LAB - CHEMISTRY ORDERABLES Final Result Performing Organization Address [facility]/ZIP Co de Phone Number [address] [address], [place] [phone] * HEPATITIS C AB SCREEN RFLX NAAT QUANT (06/21/2024 8:30 PM DATA COLLECTION SPECIALIST) Hepatitis C Antibody Non-react [place] Non-reac tive 06/21/2024 9:03 PM DATA COLLECTION SPECIALIST [facility] Comment:Hepatitis C Antibody screen indicates no serologic evidence of past or current infection with Hepatitis C Virus. Patients with unexplained liver disease who are immunocompromised or suspected of having acute Hepatitis C infection may benefit from Nucleic Acid Test (KORIN) for Hepatitis C Viral RNA to confirm Hepatitis C status. Blood BLOOD SPECIMEN / Unknown Lab Venipuncture / Unknown 06/21/2024 8:30 PM DATA COLLECTION SPECIALIST 06/21/2024 8:30 PM DATA COLLECTION SPECIALIST Kiel Martin MD LAB - CHEMISTRY ORDERABLES Final Result [facility] [address] [place] [address], [facility] [phone] from Last 3 Months or Most Recently Relevant to Health Maintenance Additional Health Concerns Infection Onset Date Last Indicated ESBL Hx 10/06/2024 10/06/2024 Insurance [facility] Advance Directives * Full Code (Latest Code Status on File) Date Activated Date Inactivated Comments 10/01/2024 11:01 PM 10/18/2024 7:52 PM * Full Code Date Activated Date Inactivated Comments 06/21/2024 6:23 PM 07/03/2024 5:25 PM * Full Code Date Activated Date Inactivated Comments 03/08/2010 10:35 PM 03/12/2010 11:56 PM Care Teams Filter Tank Tender Helper Head Relationship Specialty Start Date End Date Unknown, Provider PCP - General 10/21/24 Ladonna Agrawal MD [address] [place] [address] Physician Infectious Disease 10/21/24
--- OUTSIDE RECORDS SUMMARY | 2024-10-25 11:17 | XMS_ITS | Encounter Summary ---
Author Organization [facility] Address [address] [place] [address] Care Team Providers Care Ad Copy Writer Name Role Phone Unknown, Provider Primary Care Provider Unavaila ble Ladonna Agrawal MD Unavailable [phone] Reason for Referral * OP/Amb RFL Auth (Routine) - Open Specialty Diagnoses / Procedures Referred By Contac t Referred To Contact Infectious Disease Diagnoses Side effects of treatment, subsequent encounter Procedures EKG IN CLINIC Ladonna Agrawal MD [address] [place] [address] Phone: tel: fax: [facility] - Infectious Disease [address] [place] [address] [place] [address] Phone: tel: fax: Referral ID Status Reason Start Date Expiration Date Visits Re quested Visits Authorized [id number] Open 10/21/2024 10/21/2025 1 1 Reason for Visit * Reason Comments Follow-up Encounter Details Date Type Department Care Team (Late st Contact Info) Description 10/21/2024 10:30 AM CDT Office Visit [facility] - Infectious Disease [address] [facility] [place] [address] Side effects of treatment, subsequent encounter (Primary Dx); Fungemia Social History Tobacco Use Types Packs/Day Years [...] Recorded Patient Health Questionnaire-2 Score 0 10/21/2024 [facility] [place] [facility] - Occupational Stress [...] any time in the past 12 m [facility], were you homeless or living in a [place] health care facility (including now)? 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 Gender Identity Not on file Sexual Orientation Not on file documented as of this encounter Last Filed Vital Signs Vital Sign Reading Time Taken Comments Blood Pressure 98/63 10/21/2024 10:38 AM CDT Pulse 80 10/21/2024 10:38 AM CDT Temperature 36.3 C (97.3 F) 10/21/2024 10:38 AM CDT Respiratory Rate 20 10/21/2024 10:38 AM CDT Oxygen Saturation 99% 10/21/2024 10:38 AM CDT Inhaled Oxygen Concentration - - Weight 48.5 kg (107 lb) 10/21/2024 10:38 AM CDT Height 177.8 cm (5' 10 ) 10/21/2024 10:38 AM CDT Body Mass Index 15.35 10/21/2024 10:38 AM CDT documented in this encounter Functional Status * Is person deaf or have serious hearing difficulty? Answer Date of Assessment Author No 10/02/2024 12:06 AM CDT Lali Lam Graduate Nurse * Is person blind or have serious difficulty seeing? Answer Date of Assessment Author No 10/02/2024 12:06 AM CDT Lali Lam Graduate Nurse * Does person have serious difficulty walking/climbing stairs? Answer Date of Assessment Author No 10/02/2024 12:06 AM CDT Lali Lam Graduate Nurse * Does person have difficulty dressing/bathing? Answer Date of Assessment Author No 10/02/2024 12:06 AM BALTAT Lali Lam Graduate Nurse * Does person have difficulty doing errands alone? Answer Date of Assessment Author No 10/02/2024 12:06 AM CDT Lali Lam Graduate Nurse * Over the past 2 weeks, how often have you been bothered by any of the following problems? Question Answer Date of Assessment Author Little interest or pleasure in doing things Not at all 10/21/2024 10:38 AM CDT Luna Ochoa M A Feeling down, depressed, or hopeless Not at all 10/21/2024 10:38 AM CDT Luna Ochoa M A Patient Health Questionnaire -2 Score 0 10/21/2024 10:38 AM CDT Luna Ochoa M A documented as of this encounter Mental Status * Does person have difficulty concentrating/remembering/making decisions? Answer Entry Date Author No 10/02/2024 12:06 AM CDT Lali Lam, Graduate Nurse documented in this encounter Plan of Treatment Upcoming Encounters Date Type Department Care Team (Latest Contact Info) Description 11/12/2024 12:00 PM CDT Hospital Encounter [facility] [address] [place] [address] SilvanoJosie neri, DO [address] [facility] 2L [place] [address] Surgery General 11/12/2024 12:00 PM CDT - 11/12/2024 2:00 PM CDT Surgery [facility] [address] [place] [id number] SilvanoJosie neri, DO [address] [facility] [address]L [place] [phone] Cystoscopy, left ureteroscopic stone extraction, laser lithotripsy Scheduled Orders Name Type Priority Associated Diagnoses Orde r Schedule EKG IN CLINIC ECG Routine Side effects of treatment, subsequent encounter Ordered: 10/21/2024 Scheduled Procedures Name Priority Associated Diagnoses Date/Ti me CYSTOSCOPY URETEROSCOPY WITH LASER/HOLMIUM LITHOTRIPSY Nephrolithiasis 11/12/2024 12:00 PM CDT CYSTOSCOPY WITH RETROGRADE PYELOGRAM Nephrolithiasis 11/12/2024 12:00 PM CDT CYSTOSCOPY WITH INSERTION URETERAL STENT Nephrolithiasis 11/12/2024 12:00 PM CDT INSERTION CATHETER SUPRAPUBIC Nephrolithiasis 11/12/2024 12:00 PM CDT documented as of this encounter Procedures Procedure Name Priority Date/Time Associated Diagnosis Comments COMPREHENSIVE METABOLIC PANEL Routine 10/21/2024 11:16 AM CDT Fungemia documented in this encounter Results * (ABNORMAL) COMPREHENSIVE METABOLIC PANEL (10/21/2024 11:16 AM CDT) BUN 12 7 - 26 mg/dL 10/21/2024 3:09 PM [facility] Creatinine 0.96 0.71 - 1.16 mg/dL 10/21/2024 3:09 PM [facility] Sodium 137 136 - 145 mmol/L 10/21/2024 3:09 PM [facility] Potassium 4.0 3.5 - 4.5 mmol/L 10/21/2024 3:09 PM [facility] Chloride 105 98 - 107 mmol/L 10/21/2024 3:09 PM [facility] CO2 20(L) 22 - 29 mmol/L 10/21/2024 3:09 PM [facility] Glucose 41(LL) 70 - 99 mg/dL 10/21/2024 3:09 PM [facility] Calcium 8.9 8.4 - 10.2 mg/dL 10/21/2024 3:09 PM [facility] Protein Total 9.5(H) 6.0 - 8.3 g/dL 10/21/2024 3:09 PM [facility] Albumin 2.6(L) 3.4 - 5.0 g/dL 10/21/2024 3:09 PM [facility] Bilirubin Total 0.2 0.2 - 1.2 mg/dL 10/21/2024 3:09 PM [facility] Alkaline Phosphatase 226(H) 40 - 150 U/L 10/21/2024 3:09 PM [facility] ALT 13 5 - 55 U/L 10/21/2024 3:09 PM [facility] AST 27 5 - 34 U/L 10/21/2024 3:09 PM [facility] Anion Gap 12 6 - 16 10/21/2024 3:09 PM [facility] BUN/Creatinine Ratio 13 7 - 23 10/21/2024 3:09 PM CDT [facility] Osmolality Calculated 281 275 - 295 mOsm/kg 10/21/2024 3:09 PM T [facility] Albumin/Globulin Ratio 0.4(L) 1.1 - 2.3 10/21/2024 3:09 PM T [facility] eGFR by CKD-EPI >90 >=90 mL/min/1.7 3 m2 10/21/2024 3:09 PM [facility] Blood BLOOD SPECIMEN / Unknown Venipuncture / Unknown 10/21/2024 11:16 AM CDT 10/21/2024 11:16 AM CDT Ladonna Agrawal MD LAB - CHEMISTRY ORDERABLES F inal Result [facility] [address] [place] [address], [facility] [phone] documented in this encounter Visit Diagnoses Diagnosis Side effects of treatment, subsequent encounter- Primary Fungemia Other and unspecified mycoses Nephrolithiasis Calculus of kidney documented in this encounter Additional Health Concerns Infection Onset Date Last Indicated Resolved Time ESBL Hx 10/06/2024 10/06/2024 documented as of this encounter Care Teams Ad Copy Writer Relationship Specialty Start Date End Date Unknown, Provider PCP - General 10/21/24 Ladonna Agrawal MD [address] [place] [address] Physician Infectious Disease 10/21/24 documented as of this encounter
[2024-10-25 11:37] LABS: Basophils Absolute Auto 0.1 K/mm3 (0.0-0.1); Basophils Percent Auto 1.3 % (0.2-1.2); Eosinophils Absolute Auto 0.5 K/mm3 (0-0.3); Eosinophils Percent Auto 5.4 % (0-4.4); Hematocrit 27.7 % (42.0-52.0); Hemoglobin 8.2 g/dL (14.0-18.0); Immature Granulocyte Absolute 0.03 K/mm3 (0.00-0.031); Immature Granulocyte Percent A 0.3 % (0-0.5); Lymphocytes Absolute Auto 2.12 K/mm3 (0.9-3.2); Lymphocytes Percent Auto 24.2 % (18.3-44.2); Mean Corpuscular HGB Conc 29.6 g/dl (32-36); Mean Corpuscular Hemoglobin 27.2 pg (26-34); Mean Corpuscular Volume 91.7 fl (80-100); Mean Platelet Volume 8.7 fl (7.4-10.4); Monocytes Absolute Auto 0.7 K/mm3 (0.1-0.6); Monocytes Percent Auto 8.2 % (2.6-8.5); Neutrophils Absolute Auto 5.3 K/mm3 (1.3-6.7); Neutrophils Percent Auto 60.6 % (45.5-73.1); Platelet Count Result 243 k/mm3 (150-375); Red Blood Count 3.02 M/mm3 (4.6-6.20); White Blood Count 8.8 K/mm3 (4.5-10.0)
[2024-10-25 11:46] LABS: Lactic Acid Reflex 1.9 mmol/L (0.7-2.0)
[2024-10-25 11:47] LABS: Alanine Aminotransferase 16 U/L (6-50); Albumin Level 3.1 g/dL (3.5-5.1); Alkaline Phosphatase 213 U/L (38-126); Anion Gap 10 mmol/L (4-12); Aspartate Amino Transferase 29 U/L (17-59); Bilirubin,Total 0.1 mg/dL (0.2-1.3); Blood Urea Nitrogen 10 mg/dL (9-20); Calcium 8.9 mg/dL (8.4-10.2); Carbon Dioxide 18 mmol/L (22-30); Chloride 108 mmol/L (98-107); Estimated CRCL calculation 50 ml/min; Estimated Glomerular Filt Rate > 60; Glucose 275 mg/dL (65-110); Magnesium 1.4 mg/dL (1.6-2.3); Potassium 3.4 mmol/L (3.4-5.0); Sodium 136 mmol/L (137-145)
[2024-10-25 11:49] LABS: INR 1.3; Partial Thromboplastin Time 35.8 Seconds (22.3-36.8); Prothrombin Time 16.2 Seconds (11.1-14.7)
[2024-10-25 11:56] LABS: Platelet Estimate Adequate (Adequate)
[2024-10-25 11:57] LABS: Anisocytosis 1+; Hypochromasia 2+
[2024-10-25 11:58] LABS: Schistocytes None Seen
[2024-10-25 11:59] LABS: Lipase < 10 U/L (23-300); Troponin I < 0.012 ng/mL (0.000-0.034)
[2024-10-25 12:06] LABS: Procalcitonin 5.1 ng/mL
[2024-10-25 12:13] LABS: Influenza A QL RT-PCR Negative (Negative); Influenza B QL RT-PCR Negative (Negative); RSV RNA, RT-PCR Negative (Negative); SARS-CoV-2 RNA PCR Negative (Negative)
[2024-10-25] MEDS: MAGNESIUM SULF 2 GM/WATER 50ML 2 GM/50 ML BAG IVPB (12:23)
[2024-10-25 13:13] LABS: Add Urine Microscopic? YES; Appearance Urine Turbid (Clear); Bacteria Urine 3+ /hpf; Bilirubin Urine Negative (Negative); Blood Urine 1+ (Negative); Color Urine Yellow (Yellow); Glucose Urine UA Negative (Negative); Ketones Urine Negative (Negative); Leukocyte Esterase Ur 3+ LEU/UL (Negative); Need Manual Microscopic Reviewed; Nitrate Urine Negative (Negative); Protein Urine Trace mg/dL (Negative); RBC Urine 0-2 /hpf (0-2); Specific Grav Ur 1.007 (1.001-1.035); Squamous Epithelial Cell Urine None Seen /hpf (Few); Urobilinogen Urine 0.2 mg/dL (<2.0); WBC Clumps Urine Present /HPF; WBC Urine >100 /hpf (0-3); pH Urine 5.5 (5.0-9.0)
--- NOTE | 2024-10-25 13:40 | PC.NURSE ---
Pt incontinent x2 of soft light brown stool. No blood noted in stool. Laya care given. No seizure noted. Will continue seizure precautions.
--- NOTE | 2024-10-25 14:16 | ED.GENADULT ---
HPI - General Adult General Chief complaint: Seizure Stated complaint: Seizure Time Seen by Provider: 10/25/24 11:04 History of Present Illness HPI narrative: Patient is a 44-year-old gentleman presents emergency department with chief complaint of seizure. Patient is insulin-dependent diabetic and was found have a generalized seizure and found a blood sugar 26. The patient was given glucagon and dextrose prior to transport and is at baseline neurological status. The patient did state that he did not eat as much as he normally does Sunday after receiving insulin Related Data Home Medications ?Medication ?Instructions ?Recorded ?Confirmed ?Last Taken ?Type duloxetine 30 mg capsule,delayed mg PO 07/21/22 Unknown History release gabapentin 300 mg capsule mg 07/21/22 Unknown History insulin lispro 100 unit/mL subcut 07/21/22 Unknown History subcutaneous pen (Humalog KwikPen (U-100) Insulin) nitrofurantoin 07/21/22 Unknown History monohydrate/macrocrystals 100 mg capsule potassium chloride 10 mEq meq 07/21/22 Unknown History capsule,extended release Allergies Allergy/AdvReac Type Severity Reaction Status Date / Time No Known Allergies Allergy Verified 07/21/22 10:49 Review of Systems Review of Systems: A 10 system review of systems was completed on the patient and is negative except for what is stated in the HPI. Nursing and ancillary documentation was reviewed. [facility] Past Medical History Medical History Cataract Diabetes mellitus Surgical History Surgical History No pertinent past surgical history Social History Social History Smoking packs per day: 0.5 Smoking cigarettes per day: 10.0 Smoking status: Current every day smoker Alcohol intake: former Alcohol use details: last drink 1 week ago Substance use: current Substance use type: marijuana Last use: 1 month ago Do You Feel Safe in your Home?: Yes Lack of Transportation: No Lack of Food: Never True Current Housing: I Have Housing Concerned About Future Housing: No Difficulty Paying Gas/Electric Bills: No Difficulty Paying for Meds: No Currently Unemployed: No Education: High School Diploma/GED Difficulty w/ Childcare or Family Care: No Spiritual care concerns: No Exam Narrative: GENERAL: Well-appearing, well-nourished, and in no acute distress. HEAD: Normocephalic, atraumatic. EYES: PERRLA and EOMI. ENT: Nares clear, no rhinorrhea or epistaxis. Mucous membranes moist. NECK: Supple. CHEST: Clear to auscultation. No respiratory distress. HEART: Regular rate and rhythm. No murmur heard. Normal peripheral pulses. ABDOMEN: Soft, nontender, nondistended, normal active bowel sounds. EXTREMITIES: Normal range of motion. No edema. SKIN: Warm, dry, no rash. NEURO: No focal deficits. Alert and oriented x3. PSYCH: Normal mood and affect. Course Vital Signs Vital signs: Vital Signs Pulse Oximetry 98 10/25/24 11:16 Oxygen Delivery Room Air 10/25/24 11:16 Temperature 36.6 C 10/25/24 17:48 Pulse Rate 80 10/25/24 17:48 Respiratory Rate 16 10/25/24 17:48 Blood Pressure 122/89 10/25/24 17:48 Pulse Oximetry 100 10/25/24 17:48 Oxygen Delivery Room Air 10/25/24 11:18 Medical Decision Making MDM Narrative Medical decision making narrative: Differential diagnosis includes seizure secondary to hypoglycemia. Laboratory studies were obtained on the patient which did show evidence of UTI Laboratory studies showed a white blood cell count of 8.8 hemoglobin was 8.2 the patient had several bowel movements in the emergency department that were to hand and soft no signs of active bleeding Electrolytes showed a lactic acid of 1.9 magnesium was 1.4 Troponin was 0 hour and 3 hours were negative Patient was allowed E emergency department and his blood sugars did drift down initially into the 60s but was after eating proceeded to go down into the 30s. The patient was started on D5 NS and also was given a dose D 50. The patient was started on Rocephin for the UTI and due to the repeated hypoglycemia the case will be discussed with the hospitalist for admission Vital Signs Vital Signs: Vital Signs Pulse Oximetry 98 10/25/24 11:16 Oxygen Delivery Room Air 10/25/24 11:16 Temperature 36.6 C 10/25/24 17:48 Pulse Rate 80 10/25/24 17:48 Respiratory Rate 16 10/25/24 17:48 Blood Pressure 122/89 10/25/24 17:48 Pulse Oximetry 100 10/25/24 17:48 Oxygen Delivery Room Air 10/25/24 11:18 Lab Data 10/25/24 11:28 10/25/24 11:28 Labs: Lab Results 10/25/24 10/25/24 10/25/24 Range/Units 11:28 12:37 14:28 WBC 8.8 (4.5-10.0) K/mm3 RBC 3.02 L (4.6-6.20) M/mm3 Hgb 8.2 L D (14.0-18.0) g/dL Hct 27.7 L (42.0-52.0) % MCV 91.7 (80-100) fl MCH 27.2 (26-34) pg MCHC 29.6 L (32-36) g/dl RDW 15.0 H (11.5-14.5) % Plt Count 243 (150-375) k/mm3 MPV 8.7 (7.4-10.4) fl Immature Gran % (Auto) 0.3 (0-0.5) % Neut % (Auto) 60.6 (45.5-73.1) % Lymph % (Auto) 24.2 (18.3-44.2) % [place] % (Auto) 8.2 (2.6-8.5) % Eos % (Auto) 5.4 H (0-4.4) % Baso % (Auto) 1.3 H (0.2-1.2) % Lymph # (Auto) 2.12 (0.9-3.2) K/mm3 [place] # (Auto) 0.7 H (0.1-0.6) K/mm3 Eos # (Auto) 0.5 H (0-0.3) K/mm3 Baso # (Auto) 0.1 (0.0-0.1) K/mm3 Abs Immat Gran (auto) 0.03 (0.00-0.031) K/mm3 Absolute Neuts (auto) 5.3 (1.3-6.7) K/mm3 Absolute Nucleated RBC 0.000 (0.0-0.012) K/mm3 Band Neutrophils % Not Reportable Nucleated RBC % 0.0 (0.0-0.2) % Platelet Estimate Adequate (Adequate) Hypochromasia 2+ Anisocytosis 1+ Schistocytes None seen PT 16.2 H (11.1-14.7) Seconds INR 1.3 APTT 35.8 (22.3-36.8) Seconds Sodium 136 L (137-145) mmol/L Potassium 3.4 (3.4-5.0) mmol/L Chloride 108 H (98-107) mmol/L Carbon Dioxide 18 L (22-30) mmol/L Anion Gap 10 (4-12) mmol/L BUN 10 (9-20) mg/dL Creatinine 1.19 (0.7-1.3) mg/dL Estim Creat Clear Calc 50 ml/min Estimated GFR > 60 (59 - ) Glucose 275 H (65-110) mg/dL POC Capillary Glucose (65-105) mg/dl Lactic Acid 1.9 (0.7-2.0) mmol/L Calcium 8.9 (8.4-10.2) mg/dL Magnesium 1.4 L (1.6-2.3) mg/dL Total Bilirubin 0.1 L (0.2-1.3) mg/dL AST 29 (17-59) U/L ALT 16 (6-50) U/L Alkaline Phosphatase 213 H (38-126) U/L Troponin I < 0.012 < 0.012 (0.000-0.034) ng/mL Total Protein 8.0 (6.3-8.2) g/dL Albumin 3.1 L (3.5-5.1) g/dL Lipase < 10 L (23-300) U/L Procalcitonin 5.1 ng/mL Urine Color Yellow (Yellow) Urine Appearance Turbid H (Clear) Urine pH 5.5 (5.0-9.0) Ur Specific [place] 1.007 (1.001-1.035) Urine Protein Trace (Negative) mg/dL Urine Glucose (UA) Negative (Negative) mg/dL Urine Ketones Negative (Negative) mg/dL Ur Blood (Man) 1+ H (Negative) Urine Nitrate Negative (Negative) Urine Bilirubin Negative (Negative) Urine Urobilinogen 0.2 (<2.0) mg/dL Add Ur Microanalysis Reviewed Leukocyte Esterase Rfl 3+ H (Negative) JADE/UL Urine RBC 0-2 (0-2) /hpf Urine WBC >100 H (0-3) /hpf Urine WBC Clumps Present H (None) /HPF Ur Squamous Epith Cells None seen (Few) /hpf Urine Bacteria 3+ H /hpf Urine Casts 6-10 Influenza A (RT-PCR) Negative (Negative) Influenza B (RT-PCR) Negative (Negative) RSV (RT-PCR) Negative (Negative) SARS-CoV-2 RNA (RT-PCR) Negative (Negative) 10/25/24 10/25/24 Range/Units 15:22 16:36 WBC (4.5-10.0) K/mm3 RBC (4.6-6.20) M/mm3 Hgb (14.0-18.0) g/dL Hct (42.0-52.0) % MCV (80-100) fl MCH (26-34) pg MCHC (32-36) g/dl RDW (11.5-14.5) % Plt Count (150-375) k/mm3 MPV (7.4-10.4) fl Immature Gran % (Auto) (0-0.5) % Neut % (Auto) (45.5-73.1) % Lymph % (Auto) (18.3-44.2) % [place] % (Auto) (2.6-8.5) % Eos % (Auto) (0-4.4) % Baso % (Auto) (0.2-1.2) % Lymph # (Auto) (0.9-3.2) K/mm3 [place] # (Auto) (0.1-0.6) K/mm3 Eos # (Auto) (0-0.3) K/mm3 Baso # (Auto) (0.0-0.1) K/mm3 Abs Immat Gran (auto) (0.00-0.031) K/mm3 Absolute Neuts (auto) (1.3-6.7) K/mm3 Absolute Nucleated RBC (0.0-0.012) K/mm3 Band Neutrophils % Nucleated RBC % (0.0-0.2) % Platelet Estimate (Adequate) Hypochromasia Anisocytosis Schistocytes PT (11.1-14.7) Seconds INR APTT (22.3-36.8) Seconds Sodium (137-145) mmol/L Potassium (3.4-5.0) mmol/L Chloride (98-107) mmol/L Carbon Dioxide (22-30) mmol/L Anion Gap (4-12) mmol/L BUN (9-20) mg/dL Creatinine (0.7-1.3) mg/dL Estim Creat Clear Calc ml/min Estimated GFR (59 - ) Glucose (65-110) mg/dL POC Capillary Glucose 60 L 37 L* (65-105) mg/dl Lactic Acid (0.7-2.0) mmol/L Calcium (8.4-10.2) mg/dL Magnesium (1.6-2.3) mg/dL Total Bilirubin (0.2-1.3) mg/dL AST (17-59) U/L ALT (6-50) U/L Alkaline Phosphatase (38-126) U/L Troponin I (0.000-0.034) ng/mL Total Protein (6.3-8.2) g/dL Albumin (3.5-5.1) g/dL Lipase (23-300) U/L Procalcitonin ng/mL Urine Color (Yellow) Urine Appearance (Clear) Urine pH (5.0-9.0) Ur Specific [place] (1.001-1.035) Urine Protein (Negative) mg/dL Urine Glucose (UA) (Negative) mg/dL Urine Ketones (Negative) mg/dL Ur Blood (Man) (Negative) Urine Nitrate (Negative) Urine Bilirubin (Negative) Urine Urobilinogen (<2.0) mg/dL Add Ur Microanalysis Leukocyte Esterase Rfl (Negative) JADE/UL Urine RBC (0-2) /hpf Urine WBC (0-3) /hpf Urine WBC Clumps (None) /HPF Ur Squamous Epith Cells (Few) /hpf Urine Bacteria /hpf Urine Casts Influenza A (RT-PCR) (Negative) Influenza B (RT-PCR) (Negative) RSV (RT-PCR) (Negative) SARS-CoV-2 RNA (RT-PCR) (Negative) Discharge Plan Discharge Clinical Impression: Hypoglycemia, Acute UTI Patient Disposition: Still a Patient Condition: Stable Time of Disposition: 16:54
[2024-10-25 14:54] LABS: Troponin I < 0.012 ng/mL (0.000-0.034)
[2024-10-25 15:25] LABS: Glucose Point of Care 60 mg/dl (65-105)
[2024-10-25 16:39] LABS: Glucose Point of Care 37 mg/dl (65-105)
[2024-10-25] MEDS: DEXTROSE 50% 25 GM/50 ML SYRINGE IV PUSH (16:40)
[2024-10-25] MEDS: DEXTROSE 5%/0.9% SOD CHL 1,000 ML 100 ML IV CONT (16:58)
--- NOTE | 2024-10-25 17:12 | P.HP_ITS ---
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 Patient states that he woke up in the ambulance. Per the ED the patient lives at a facility where he was found to be hypoglycemic a blood sugar of 26 and had a seizure so EMS was called. While in the ED after eating patient had another hypoglycemic event. HPI is limited as patient does not know what happened. Patient states that he is no longer blind. In the ED the patient is anemic at 8.2, sodium of 136, carbon dioxide 18, magnesium of 1.4, alkaline phos of 213, albumin of 3.1, urine is turbid with 3+ leukocyte esterase over 100 wbc's with WBC clumps present 3+ bacteria negative for nitrates. Influenza A/B, RSV, COVID negative. Head CT with no acute findings. Chest x-ray with no acute findings. Review of Systems Review of Systems: 12 systems were reviewed and are negativ e except for as per HPI. [facility], [facility] Past Medical History Medical History (Updated 10/25/24 @ 19:21 by Veronique Lei APRN) Cataract Diabetes mellitus Surgical History Surgical History No pertinent past surgical history Social History Social History Smoking packs per day: 0.5 Smoking cigarettes per day: 10.0 Smoking status: Current every day smoker Alcohol intake: former Alcohol use details: last drink 1 week ago Substance use: current Substance use type: marijuana Last use: 1 month ago Do You Feel Safe in your Home?: Yes Lack of Transportation: No Lack of Food: Never True Current Housing: I Have Housing Concerned About Future Housing: No Difficulty Paying Gas/Electric Bills: No Difficulty Paying for Meds: No Currently Unemployed: No Education: High School Diploma/GED Difficulty w/ Childcare or Family Care: No Spiritual care concerns: No Meds Home Medications and Allergies Home Medications ?Medication ?Instructions ?Recorded ?Confirmed ?Type gabapentin 300 mg capsule 600 mg PO Q12H 07/21/22 10/25/24 History acetaminophen 325 mg capsule 650 mg PO Q6H PRN fever or pain 10/25/24 10/25/24 History capsaicin 0.025 % topical cream 1 applic topical TID 10/25/24 10/25/24 History fluconazole 200 mg tablet 600 mg PO DAILY 10/25/24 10/25/24 History folic acid 1 mg tablet 1 mg PO DAILY 10/25/24 10/25/24 History insulin aspart U-100 100 unit/mL 1 sliding scale dose subcut 10/25/24 10/25/24 History subcutaneous solution (Novolog USEASDIRECTD U-100 Insulin aspart) insulin aspart U-100 100 unit/mL 5 unit subcut AC 10/25/24 10/25/24 History subcutaneous solution (Novolog U-100 Insulin aspart) insulin glargine 100 unit/mL 8 unit subcut QPM 10/25/24 10/25/24 History subcutaneous solution (Lantus U-100 Insulin) [id number] 2 cap PO TID 10/25/24 10/25/24 History 36,000-114,000-180,000 unit capsule,delay rel (Creon) loperamide 2 mg capsule 2 mg PO QID PRN loose stool 10/25/24 10/25/24 History omeprazole 20 mg capsule,delayed 20 mg PO DAILY 10/25/24 10/25/24 History release oxycodone 5 mg tablet 5 mg PO Q4H PRN pain 10/25/24 10/25/24 History tamsulosin 0.4 mg capsule 0.4 mg PO QHS 10/25/24 10/25/24 History Allergies Allergy/AdvReac Type Severity Reaction Status Date / Time No Known Allergies Allergy Verified 07/21/22 10:49 Vital Signs Vital Signs - 24 hr 10/25/24 11:16 10/25/24 11:17 10/25/24 11:18 Temperature 97.7 F Pulse Rate 76 84 Respiratory Rate 16 Blood Pressure 111/84 Pulse Oximetry 98 100 Oxygen Delivery Room Air Room Air 10/25/24 11:30 10/25/24 12:31 10/25/24 12:35 Temperature 97.4 F L Pulse Rate 85 75 73 Respiratory Rate 13 14 16 Blood Pressure 110/82 114/86 114/86 Pulse Oximetry 100 100 100 Oxygen Delivery 10/25/24 16:59 Temperature 97.7 F Pulse Rate 72 Respiratory Rate 16 Blood Pressure 115/81 Pulse Oximetry 100 Oxygen Delivery Exam Narrative: General: Chronically ill, malnourished HEENT: normocephalic, atraumatic. Mucous membranes moist. Blind, bilateral sclera anicteric, no conjunctival injection. Neck supple without JVD, lymphadenopathy, or bruit. Respiratory: clear to ascultation bilaterally. No rales/rhonic/wheezes. Cardiovascular: Regular rate and rhythm, normal S1-S2 upon ascultation. No murmurs, rubs, or clicks. PMI is nondisplaced, capillary refill less than 3 second. Abdomen: Soft, round, no pulsatile masses, nondistended and nontender. No rebound, no guarding. No CVA tenderness, no hepatosplenomegaly. Bowel sounds present to all four quadrants. No high pitch or tinkling sounds, resonant to percussion. Extremities: No cyanosis, clubbing, or edema present. Pulses are palpable 2/2. Active ROM to all four extremities. Neuro: Alert and orientated x 4. PERRLA. Cranial nerves 2-12 intact without focal deficit. Skin: Warm, dry, and intact, without rash, erythema, or lesion. Psych: pleasant, cooperative, normal speech, normal affect, no hallucinations, no dysarthia H&P: Results Labs Labs: Short CBC 10/25/24 Range/Units 11:28 WBC 8.8 (4.5-10.0) K/mm3 Hgb 8.2 L D (14.0-18.0) g/dL Hct 27.7 L (42.0-52.0) % Plt Count 243 (150-375) k/mm3 BMP 10/25/24 11:28 Sodium 136 L Potassium 3.4 Chloride 108 H Carbon Dioxide 18 L BUN 10 Creatinine 1.19 Glucose 275 H Calcium 8.9 Cardiac Enzymes 10/25/24 10/25/24 Range/Units 11:28 14:28 Troponin I < 0.012 < 0.012 (0.000-0.034) ng/mL Liver Function 10/25/24 Range/Units 11:28 Total Bilirubin 0.1 L (0.2-1.3) mg/dL AST 29 (17-59) U/L ALT 16 (6-50) U/L Alkaline Phosphatase 213 H (38-126) U/L Albumin 3.1 L (3.5-5.1) g/dL Urine 10/25/24 Range/Units 12:37 Urine Color Yellow (Yellow) Urine Appearance Turbid H (Clear) Urine pH 5.5 (5.0-9.0) Ur Specific [place] 1.007 (1.001-1.035) Urine Protein Trace (Negative) mg/dL Urine Glucose (UA) Negative (Negative) mg/dL Assessment and Plan Assessment and plan (1) Hypoglycemia: Code(s): E16.2 - Hypoglycemia, unspecified Status: Acute Assessment and Plan: Patient believes that he got his normal dose of insulin and eat about average amount Hypoglycemia protocol Accu-Cheks q.4 SSI starting tomorrow (2) Acute UTI: Code(s): N39.0 - Urinary tract infection, site not specified Status: Acute Assessment and Plan: IV Rocephin (3) Diabetes mellitus: Code(s): E11.9 - Type 2 diabetes mellitus without complications Status: Acute Assessment and Plan: Diabetic diet Accu-Cheks Holding Lantus SSI starting tomorrow Hemoglobin A1c pending (4) BPH (benign prostatic hyperplasia): Code(s): N40.0 - Benign prostatic hyperplasia without lower urinary tract symptoms Status: Acute Assessment and Plan: Continue home Flomax (5) Anemia: Code(s): D64.9 - Anemia, unspecified Status: Acute Assessment and Plan: Normocytic Anemia workup pending (6) Hypomagnesemia: Code(s): E83.42 - Hypomagnesemia Status: Acute Assessment and Plan: Replaced in the ED Repeat Mag in a.m. Plan Patient on Creon for belly problems per patient Quality VTE Prophylaxis VTE prophylaxis: mechanical ordered Hospitalist MIPS Advance Care Plan I have confirmed that the patient's Advanced Care Plan is present, code status is documented, or surrogate decision maker is listed in patient medical record.: Yes Medication Reconciliation I have utilized all available resources to obtain, update and review the patients current medications (includes all prescriptions, OTC, herbals, canna bis, and nutritional supplements).: Yes
[2024-10-25 17:35] LABS: Glucose Point of Care 207 mg/dl (65-105)
--- NOTE | 2024-10-25 17:57 | ADMGEN ---
This patient, Avery Phillips, was admitted to Medical Room 254-01. Patient/family oriented to hospital policies and general routines including ID bracelet, bed and alarms, visiting hours, pain management, procedures, bathroom and other care routines, personal items, smoking policy, room service/diet, and visiting hours. Information on how to activate the Rapid Response Team has been discussed. Patient/Family are encouraged to report perceived risks to care and to ask questions if they do not understand what they are told or what they should do.
[2024-10-25] MEDS: GABAPENTIN 300 MG CAPSULE 600 MG PO (20:16)
[2024-10-25] MEDS: TAMSULOSIN HCL 0.4 MG CAPSULE PO (20:16)
[2024-10-25] MEDS: oxyCODONE HCL (*CRX) 5 MG TAB IR PO (20:21)
[2024-10-25 22:25] LABS: Glucose Point of Care 320 mg/dl (65-105)
[2024-10-25] MEDS: INSULIN ASPART (*BKC) 100 UNITS/ML 6 UNITS SUB-Q (23:11)
[2024-10-25] MEDS: DEXTROSE 5%/0.9% SOD CHL 1,000 ML 40 ML IV CONT (23:12)
[2024-10-26 00:04] LABS: Glucose Point of Care 149 mg/dl (65-105)
[2024-10-26] MEDS: oxyCODONE HCL (*CRX) 5 MG TAB IR PO ×5 (01:06→20:45)
[2024-10-26 04:43] VITALS: BP 112/87; PULSE 83; RESP 16; TEMP 37.1; O2SAT 100
[2024-10-26 05:01] LABS: Magnesium 1.6 mg/dL (1.6-2.3)
[2024-10-26 05:14] LABS: Glucose Point of Care 172 mg/dl (65-105)
[2024-10-26 05:32] LABS: Iron 32 ug/dL (49-181)
[2024-10-26 05:42] LABS: Percent Iron Saturation 14 % (20-50)
[2024-10-26 06:08] LABS: Folic Acid > 20.0 ng/mL (2.76->20)
[2024-10-26] MEDS: LIPASE/AMYLASE/PROTEASE 12,000 UNITS CAP 6 CAP PO ×3 (08:00→16:18)
[2024-10-26] MEDS: GABAPENTIN 300 MG CAPSULE 600 MG PO ×2 (08:00→20:43)
[2024-10-26] MEDS: FOLIC ACID 1 MG TABLET PO (08:01)
[2024-10-26] MEDS: PANTOPRAZOLE 40 MG TABLET PO (08:01)
[2024-10-26] MEDS: INSULIN ASPART (*BKC) 100 UNITS/ML SUB-Q ×2 (08:02→16:36)
[2024-10-26 08:03] LABS: Glucose Point of Care 268 mg/dl (65-105)
[2024-10-26] MEDS: DEXTROSE 5%/0.9% SOD CHL 1,000 ML 40 ML IV CONT (08:14)
[2024-10-26 10:32] LABS: Glucose Point of Care 85 mg/dl (65-105)
[2024-10-26 11:34] LABS: Glucose Point of Care 202 mg/dl (65-105)
--- NOTE | 2024-10-26 13:22 | PM.IMPN ---
Progress Note: A&P Assessment and Plan (1) Hypoglycemia: Code(s): E16.2 - Hypoglycemia, unspecified Status: Acute (2) Acute UTI: Code(s): N39.0 - Urinary tract infection, site not specified Status: Acute (3) Diabetes mellitus: Code(s): E11.9 - Type 2 diabetes mellitus without complications Status: Acute (4) BPH (benign prostatic hyperplasia): Code(s): N40.0 - Benign prostatic hyperplasia without lower urinary tract symptoms Status: Acute (5) Anemia: Code(s): D64.9 - Anemia, unspecified Status: Acute (6) Hypomagnesemia: Code(s): E83.42 - Hypomagnesemia Status: Acute Plan This is a 44-year-old male who presents to the ED with seizure generalized new onset was also found to have low blood sugars 26 received glucagon and dextrose prior to transport. Back to baseline neurological status. He stated he did not eat as much after receiving insulin. In the ED is vitals were stable. Laboratory studies showed WBC of 8.8 hemoglobin of 8.2 platelet of 243 sodium 136 potassium 3.4 chloride 108 bicarbonate 18 BUN 10 creatinine 1.1 blood sugar was 75 lactate of 1.9 troponin x2 negative lipase less than 10 procalcitonin elevated at 5.1 urinalysis showed urine WBC more than 100 with clumps present influenza RSV COVID swab was negative. Blood sugar was down to 37 in the ER which was treated with IV dextrose he was eventually started on D5 normal saline. He also received Rocephin for UTI. Chest x-ray with no acute findings. Head CT with no acute findings. EKG with nonspecific ST-T changes New onset seizure likely precipitated by hypoglycemia Hypoglycemia continue to monitor check A1c adjust insulin dosing UTI IV Rocephin Diabetes mellitus type 2 check A1c holding Lantus BPH on Flomax Peripheral neuropathy Chronic pancreatitis on Creon Anemia normocytic anemia workup back in 07/2022 hemoglobin was 12. Vitamin B12 normal folate normal TSH normal iron saturation 14% with low TIBC check ferritin Hypo magnesemia replace and monitor DVT prophylaxis SCDs Code status full code Subjective Date/time seen: 10/26/24 13:22 Interval history: Feels okay. Generalized weakness was at [facility] for 2 weeks before discharge to a rehab facility. Was in rehab for week. Came in with hypoglycemia and seizure Review of Systems Review of Systems: 12 systems were reviewed and are negative except for as per HPI. Exam Narrative: General: Chronically ill, malnourished not in acute distress HEENT: normocephalic, atraumatic. Mucous membranes moist. Respiratory: clear to ascultation bilaterally. No rales/rhonic/wheezes. Cardiovascular: Regular rate and rhythm, normal S1-S2 upon ascultation. Abdomen: Soft, round, nontender Extremities: No cyanosis, clubbing, or edema present. Pulses are palpable 2/2. Active ROM to all four extremities. Neuro: Alert and orientated x 4. PERRLA. Cranial nerves 2-12 intact without focal deficit. Skin: Warm, dry, and intact, without rash, erythema, or lesion. Psych: pleasant, cooperative, normal speech, normal affect, no hallucinations, no dysarthia Objective Data Vital Signs Vital Signs: Vital Signs - 24 hr 10/25/24 16:59 10/25/24 17:48 10/25/24 18:09 Temperature 97.7 F 97.8 F Pulse Rate 72 80 Respiratory Rate 16 16 Blood Pressure 115/81 122/89 Pulse Oximetry 100 100 Oxygen Delivery Room Air 10/25/24 20:00 10/25/24 23:00 10/26/24 04:43 Temperature 98.8 F 98.8 F Pulse Rate 82 83 Respiratory Rate 16 16 Blood Pressure 133/89 112/87 Pulse Oximetry 100 100 Oxygen Delivery Room Air 10/26/24 08:00 Temperature Pulse Rate Respiratory Rate Blood Pressure Pulse Oximetry Oxygen Delivery Room Air Intake/Output Intake/Output: Intake & Output 10/23/24 10/24/24 10/25/24 10/26/24 23:59 23:59 23:59 23:59 Intake Total 600 1800 Output Total 900 2050 Balance -300 -250 Meds/Results Medications: Active Medications Generic Name Dose Route Start Last Admin Trade Name Freq PRN Reason Stop Dose Admin Acetaminophen 650 mg 10/25/24 16:51 Acetaminophen 325 Mg Tablet PO Q4H PRN Mild Pain (1-3) or Fever Lipase/Protease/Amylase 6 cap 10/26/24 09:00 10/26/24 12:01 Lipase/Amylase/Protease 12,000 Units Cap PO 6 cap TID KRYSTIN Administration Dextrose 12.5 gm 10/25/24 16:51 Dextrose 50% 25 Gm/50 Ml Syringe IV PUSH PRN PRN Hypoglycemia Protocol Folic Acid 1 mg 10/26/24 09:00 10/26/24 08:01 Folic Acid 1 Mg Tablet PO 1 mg DAILY KRYSTIN Administration Gabapentin 600 mg 10/25/24 21:00 10/26/24 08:00 Gabapentin 300 Mg Capsule PO 600 mg Q12HR KRYSTIN Administration Glucagon 1 mg 10/25/24 16:51 Glucagon For Inj 1 Mg Vial IM PRN PRN Hypoglycemia Protocol Glucose 15 gm 10/25/24 16:51 Glucose Oral Gel 15 Gm Of Glucse In 37.5 Gm Tube PO PRN PRN Hypoglycemia Protocol Dextrose 1,000 mls @ 100 mls/hr 10/25/24 16:51 Dextrose 5% 1,000 Ml IVPB PRN PRN Hypoglycemia Protocol Dextrose/Sodium Chloride 1,000 mls @ 40 mls/hr 10/25/24 23:00 10/26/24 08:14 Dextrose 5% Sodium Chloride 0.9% IV CONT 40 mls/hr .Q24H KRYSTIN Administration Insulin Aspart 2 - 5 units 10/26/24 08:00 10/26/24 11:07 Insulin Aspart (*Bkc) 100 Units/Ml SUB-Q Not Given [facility] Protocol Ondansetron HCl 4 mg 10/25/24 16:51 Ondansetron Inj 4 Mg/2 Ml Vial IV PUSH Q4H PRN Nausea Oxycodone HCl 5 mg 10/25/24 19:18 10/26/24 12:01 Oxycodone Hcl (*Crx) 5 Mg Tab Ir PO 5 mg Q4H PRN Administration pain 7-10 Pantoprazole Sodium 40 mg 10/26/24 09:00 10/26/24 08:01 Pantoprazole 40 Mg Tablet PO 40 mg QAM KRYSTIN Administration Tamsulosin HCl 0.4 mg 10/25/24 21:00 10/25/24 20:16 Tamsulosin Hcl 0.4 Mg Capsule PO 0.4 mg QHS KRYSTIN Administration Radiology Results: ITS Impressions Chest X-Ray 10/25/24 11:26 IMPRESSION: 1. No acute cardiopulmonary disease. Head CT 10/25/24 12:28 IMPRESSION: 1. Normal brain. 2. Chronic left sphenoid sinusitis. Labs Labs: Laboratory Results - last 24 hr 04/19/25 04/19/25 04/19/25 14:28 15:22 16:36 POC Capillary Glucose 60 L 37 L* Magnesium Iron TIBC % Saturation Troponin I < 0.012 Vitamin B12 Folate TSH (Reflex) 10/25/24 10/25/24 10/26/24 17:33 22:22 00:01 POC Capillary Glucose 207 H 320 H 149 H Magnesium Iron TIBC % Saturation Troponin I Vitamin B12 Folate TSH (Reflex) 10/26/24 10/26/24 10/26/24 04:31 04:53 07:54 POC Capillary Glucose 172 H 268 H Magnesium 1.6 Iron 32 L TIBC 232 L % Saturation 14 L Troponin I Vitamin B12 939.0 H Folate > 20.0 H TSH (Reflex) 1.890 10/26/24 10/26/24 10:29 11:28 POC Capillary Glucose 85 202 H Magnesium Iron TIBC % Saturation Troponin I Vitamin B12 Folate TSH (Reflex)
[2024-10-26] MEDS: MAGNESIUM SULF 2 GM/WATER 50ML 2 GM/50 ML BAG IVPB (13:43)
[2024-10-26 13:55] LABS: Basophils Absolute Auto 0.1 K/mm3 (0.0-0.1); Basophils Percent Auto 1.5 % (0.2-1.2); Eosinophils Absolute Auto 0.7 K/mm3 (0-0.3); Eosinophils Percent Auto 8.5 % (0-4.4); Hematocrit 27.2 % (42.0-52.0); Hemoglobin 8.1 g/dL (14.0-18.0); Immature Granulocyte Absolute 0.02 K/mm3 (0.00-0.031); Immature Granulocyte Percent A 0.3 % (0-0.5); Lymphocytes Absolute Auto 3.02 K/mm3 (0.9-3.2); Lymphocytes Percent Auto 38.5 % (18.3-44.2); Mean Corpuscular HGB Conc 29.8 g/dl (32-36); Mean Corpuscular Hemoglobin 27.3 pg (26-34); Mean Corpuscular Volume 91.6 fl (80-100); Mean Platelet Volume 9.9 fl (7.4-10.4); Monocytes Absolute Auto 0.5 K/mm3 (0.1-0.6); Monocytes Percent Auto 6.6 % (2.6-8.5); Neutrophils Absolute Auto 3.5 K/mm3 (1.3-6.7); Neutrophils Percent Auto 44.6 % (45.5-73.1); Platelet Count Result 282 k/mm3 (150-375); Red Blood Count 2.97 M/mm3 (4.6-6.20); Red Cell Distribution Width 15.5 % (11.5-14.5); White Blood Count 7.9 K/mm3 (4.5-10.0)
[2024-10-26 14:00] VITALS: BP 124/89; PULSE 98; RESP 18; TEMP 36.7; O2SAT 100
[2024-10-26 14:02] LABS: Alanine Aminotransferase 15 U/L (6-50); Albumin Level 2.7 g/dL (3.5-5.1); Alkaline Phosphatase 215 U/L (38-126); Anion Gap 11 mmol/L (4-12); Aspartate Amino Transferase 29 U/L (17-59); Bilirubin,Total 0.2 mg/dL (0.2-1.3); Blood Urea Nitrogen 9 mg/dL (9-20); Calcium 8.7 mg/dL (8.4-10.2); Carbon Dioxide 20 mmol/L (22-30); Chloride 108 mmol/L (98-107); Creatine Kinase 168 U/L (55-170); Estimated CRCL calculation 42 ml/min; Estimated Glomerular Filt Rate 58; Glucose 185 mg/dL (65-110); Potassium 4.5 mmol/L (3.4-5.0); Sodium 139 mmol/L (137-145)
[2024-10-26 14:09] LABS: Hypochromasia 1+; Platelet Estimate Adequate (Adequate); Schistocytes None Seen
[2024-10-26 16:44] LABS: Glucose Point of Care 310 mg/dl (65-105)
[2024-10-26] MEDS: DEXTROSE 50% 25 GM/50 ML SYRINGE IV PUSH (18:41)
[2024-10-26 18:45] LABS: Glucose Point of Care 25 mg/dl (65-105)
[2024-10-26 18:58] LABS: Glucose Point of Care 208 mg/dl (65-105)
[2024-10-26 20:16] LABS: Glucose Point of Care 186 mg/dl (65-105)
[2024-10-26] MEDS: TAMSULOSIN HCL 0.4 MG CAPSULE PO (20:42)
[2024-10-26 21:36] VITALS: BP 100/79; PULSE 83; RESP 16; TEMP 37.1; O2SAT 99
[2024-10-26 23:46] LABS: Glucose Point of Care 175 mg/dl (65-105)
[2024-10-27] VITALS (7 sets, daily range): BP systolic 109–142; BP diastolic 73–90; PULSE 76–88; RESP 16; TEMP 36.5–36.9; O2SAT 96–100; BMI 14.8
[2024-10-27] MEDS: oxyCODONE HCL (*CRX) 5 MG TAB IR PO ×4 (01:17→17:44)
[2024-10-27] MEDS: ACETAMINOPHEN 325 MG TABLET 650 MG PO ×3 (01:20→19:47)
[2024-10-27 05:11] LABS: Basophils Absolute Auto 0.1 K/mm3 (0.0-0.1); Basophils Percent Auto 1.7 % (0.2-1.2); Eosinophils Percent Auto 12.8 % (0-4.4); Hematocrit 27.1 % (42.0-52.0); Hemoglobin 8.3 g/dL (14.0-18.0); Immature Granulocyte Absolute 0.01 K/mm3 (0.00-0.031); Immature Granulocyte Percent A 0.1 % (0-0.5); Lymphocytes Absolute Auto 3.44 K/mm3 (0.9-3.2); Lymphocytes Percent Auto 42.9 % (18.3-44.2); Mean Corpuscular HGB Conc 30.6 g/dl (32-36); Mean Corpuscular Volume 88.3 fl (80-100); Mean Platelet Volume 9.2 fl (7.4-10.4); Monocytes Absolute Auto 0.6 K/mm3 (0.1-0.6); Monocytes Percent Auto 7.1 % (2.6-8.5); Neutrophils Absolute Auto 2.8 K/mm3 (1.3-6.7); Neutrophils Percent Auto 35.4 % (45.5-73.1); Platelet Count Result 296 k/mm3 (150-375); Red Blood Count 3.07 M/mm3 (4.6-6.20)
[2024-10-27 05:18] LABS: Alanine Aminotransferase 16 U/L (6-50); Albumin Level 3.1 g/dL (3.5-5.1); Alkaline Phosphatase 219 U/L (38-126); Anion Gap 10 mmol/L (4-12); Aspartate Amino Transferase 37 U/L (17-59); Bilirubin,Total < 0.1 mg/dL (0.2-1.3); Blood Urea Nitrogen 9 mg/dL (9-20); Calcium 8.6 mg/dL (8.4-10.2); Carbon Dioxide 21 mmol/L (22-30); Chloride 107 mmol/L (98-107); Estimated CRCL calculation 42 ml/min; Estimated Glomerular Filt Rate 58; Glucose 233 mg/dL (65-110); Magnesium 1.7 mg/dL (1.6-2.3); Potassium 4.7 mmol/L (3.4-5.0); Sodium 138 mmol/L (137-145)
[2024-10-27 06:39] LABS: Anisocytosis 1+; Hypochromasia 1+; Platelet Estimate Adequate (Adequate)
[2024-10-27 06:40] LABS: Schistocytes None Seen
[2024-10-27 08:29] LABS: Glucose Point of Care 343 mg/dl (65-105)
[2024-10-27] MEDS: LIPASE/AMYLASE/PROTEASE 12,000 UNITS CAP 6 CAP PO ×3 (08:32→17:37)
[2024-10-27] MEDS: FOLIC ACID 1 MG TABLET PO (08:32)
[2024-10-27] MEDS: PANTOPRAZOLE 40 MG TABLET PO (08:32)
[2024-10-27] MEDS: GABAPENTIN 300 MG CAPSULE 600 MG PO ×2 (08:32→19:45)
--- NOTE | 2024-10-27 11:01 | PM.IMPN ---
Progress Note: A&P Assessment and Plan (1) Hypoglycemia: Code(s): E16.2 - Hypoglycemia, unspecified Status: Acute (2) Acute UTI: Code(s): N39.0 - Urinary tract infection, site not specified Status: Acute (3) Diabetes mellitus: Code(s): E11.9 - Type 2 diabetes mellitus without complications Status: Acute (4) BPH (benign prostatic hyperplasia): Code(s): N40.0 - Benign prostatic hyperplasia without lower urinary tract symptoms Status: Acute (5) Anemia: Code(s): D64.9 - Anemia, unspecified Status: Acute (6) Hypomagnesemia: Code(s): E83.42 - Hypomagnesemia Status: Acute Plan This is a 44-year-old male who presents to the ED with seizure generalized new onset was also found to have low blood sugars 26 received glucagon and dextrose prior to transport. Back to baseline neurological status. He stated he did not eat as much after receiving insulin. In the ED is vitals were stable. Laboratory studies showed WBC of 8.8 hemoglobin of 8.2 platelet of 243 sodium 136 potassium 3.4 chloride 108 bicarbonate 18 BUN 10 creatinine 1.1 blood sugar was 75 lactate of 1.9 troponin x2 negative lipase less than 10 procalcitonin elevated at 5.1 urinalysis showed urine WBC more than 100 with clumps present influenza RSV COVID swab was negative. Blood sugar was down to 37 in the ER which was treated with IV dextrose he was eventually started on D5 normal saline. He also received Rocephin for UTI. Chest x-ray with no acute findings. Head CT with no acute findings. EKG with nonspecific ST-T changes New onset seizure likely precipitated by hypoglycemia Hypoglycemia continue to monitor check A1c adjust insulin dosing UTI IV Rocephin Diabetes mellitus type 2 check A1c holding Lantus. Will stop IV fluid today. BPH on Flomax Peripheral neuropathy Chronic pancreatitis on Creon Anemia normocytic anemia workup back in 07/2022 hemoglobin was 12. Vitamin B12 normal folate normal TSH normal iron saturation 14% with low TIBC check ferritin Hypo magnesemia replace and monitor DVT prophylaxis SCDs Code status full code Subjective Date/time seen: 10/27/24 11:01 Interval history: No overnight events. Blood sugar running high. Did go hypoglycemic with 4 units of NovoLog yesterday. Review of Systems Review of Systems: All systems reviewed & are unremarkable except as noted in HPI and below Exam Narrative: General: Chronically ill, malnourished not in acute distress HEENT: normocephalic, atraumatic. Mucous membranes moist. Respiratory: clear to ascultation bilaterally. No rales/rhonic/wheezes. Cardiovascular: Regular rate and rhythm, normal S1-S2 upon ascultation. Abdomen: Soft, round, nontender Extremities: No cyanosis, clubbing, or edema present. Pulses are palpable 2/2. Active ROM to all four extremities. Neuro: Alert and orientated x 4. PERRLA. Cranial nerves 2-12 intact without focal deficit. Skin: Warm, dry, and intact, without rash, erythema, or lesion. Psych: pleasant, cooperative, normal speech, normal affect, no hallucinations, no dysarthia Objective Data Vital Signs Vital Signs: Vital Signs - 24 hr 10/26/24 14:00 10/26/24 20:00 10/26/24 21:36 Temperature 98.0 F 98.7 F Pulse Rate 98 83 Respiratory Rate 18 16 Blood Pressure 124/89 100/79 Pulse Oximetry 100 99 Oxygen Delivery Room Air 10/27/24 00:12 10/27/24 04:25 10/27/24 08:46 Temperature 98.3 F 97.7 F Pulse Rate 88 76 Respiratory Rate 16 16 Blood Pressure 111/81 142/73 H Pulse Oximetry 100 96 96 Oxygen Delivery Room Air Intake/Output Intake/Output: Intake & Output 10/24/24 10/25/24 10/26/24 10/27/24 23:59 23:59 23:59 23:59 Intake Total 600 2130 1230 Output Total 900 2451 1999 Balance -715 -265 -796 Meds/Results Medications: Active Medications Generic Name Dose Route Start Last Admin Trade Name Freq PRN Reason Stop Dose Admin Acetaminophen 650 mg 10/25/24 16:51 10/27/24 05:20 Acetaminophen 325 Mg Tablet PO 650 mg Q4H PRN Administration Mild Pain (1-3) or Fever Lipase/Protease/Amylase 6 cap 10/26/24 09:00 10/27/24 08:32 Lipase/Amylase/Protease 12,000 Units Cap PO 6 cap TID KRYSTIN Administration Dextrose 12.5 gm 10/25/24 16:51 10/26/24 18:41 Dextrose 50% 25 Gm/50 Ml Syringe IV PUSH 12.5 gm PRN PRN Administration Hypoglycemia Protocol Folic Acid 1 mg 10/26/24 09:00 10/27/24 08:32 Folic Acid 1 Mg Tablet PO 1 mg DAILY KRYSTIN Administration Gabapentin 600 mg 10/25/24 21:00 10/27/24 08:32 Gabapentin 300 Mg Capsule PO 600 mg Q12HR KRYSTIN Administration Glucagon 1 mg 10/25/24 16:51 Glucagon For Inj 1 Mg Vial IM PRN PRN Hypoglycemia Protocol Glucose 15 gm 10/25/24 16:51 Glucose Oral Gel 15 Gm Of Glucse In 37.5 Gm Tube PO PRN PRN Hypoglycemia Protocol Dextrose 1,000 mls @ 100 mls/hr 10/25/24 16:51 Dextrose 5% 1,000 Ml IVPB PRN PRN Hypoglycemia Protocol Dextrose/Sodium Chloride 1,000 mls @ 40 mls/hr 10/25/24 23:00 10/26/24 08:14 Dextrose 5% Sodium Chloride 0.9% IV CONT 40 mls/hr .Q24H KRYSTIN Administration Ceftriaxone Sodium 1 gm in 50 mls @ 100 mls/hr 10/26/24 17:00 10/26/24 16:19 Rocephin 1 Gm/Ns 50 Ml IVPB 100 mls/hr Q24H KRYSTIN Administration Ondansetron HCl 4 mg 10/25/24 16:51 Ondansetron Inj 4 Mg/2 Ml Vial IV PUSH Q4H PRN Nausea Oxycodone HCl 5 mg 10/25/24 19:18 10/27/24 10:08 Oxycodone Hcl (*Crx) 5 Mg Tab Ir PO 5 mg Q4H PRN Administration pain 7-10 Pantoprazole Sodium 40 mg 10/26/24 09:00 10/27/24 08:32 Pantoprazole 40 Mg Tablet PO 40 mg QAM KRYSTIN Administration Tamsulosin HCl 0.4 mg 10/25/24 21:00 10/26/24 20:42 Tamsulosin Hcl 0.4 Mg Capsule PO 0.4 mg QHS KRYSTIN Administration Radiology Results: ITS Impressions Chest X-Ray 10/25/24 11:26 IMPRESSION: 1. No acute cardiopulmonary disease. Head CT 10/25/24 12:28 IMPRESSION: 1. Normal brain. 2. Chronic left sphenoid sinusitis. Labs Labs: Laboratory Results - last 24 hr 10/26/24 10/26/2410/26/25 04:31 04:31 04:31 WBC 7.9 RBC 2.97 L Hgb 8.1 L Hct 27.2 L MCV 91.6 MCH 27.3 MCHC 29.8 L RDW 15.5 H Plt Count 282 MPV 9.9 Immature Gran % (Auto) 0.3 Neut % (Auto) 44.6 L Lymph % (Auto) 38.5 [place] % (Auto) 6.6 Eos % (Auto) 8.5 H Baso % (Auto) 1.5 H Lymph # (Auto) 3.02 [place] # (Auto) 0.5 Eos # (Auto) 0.7 H Baso # (Auto) 0.1 Abs Immat Gran (auto) 0.02 Absolute Neuts (auto) 3.5 Absolute Nucleated RBC 0.000 Band Neutrophils % Not Reportable Nucleated RBC % 0.0 Platelet Estimate Adequate Hypochromasia 1+ Anisocytosis Schistocytes None seen Sodium Cancelled 139 Potassium Cancelled 4.5 Chloride Cancelled Carbon Dioxide Anion Gap BUN Creatinine Estim Creat Clear Calc Estimated GFR Glucose POC Capillary Glucose Calcium Magnesium Ferritin Total Bilirubin AST ALT Alkaline Phosphatase Total Creatine Kinase Total Protein Albumin 10/26/24 10/26/24 10/26/24 04:31 04:31 04:31 WBC RBC Hgb Hct MCV MCH MCHC RDW Plt Count MPV Immature Gran % (Auto) Neut % (Auto) Lymph % (Auto) [place] % (Auto) Eos % (Auto) Baso % (Auto) Lymph # (Auto) [place] # (Auto) Eos # (Auto) Baso # (Auto) Abs Immat Gran (auto) Absolute Neuts (auto) Absolute Nucleated RBC Band Neutrophils % Nucleated RBC % Platelet Estimate Hypochromasia Anisocytosis Schistocytes Sodium Potassium Chloride 108 H Carbon Dioxide Cancelled 20 L Anion Gap Cancelled 11 BUN Cancelled Creatinine Estim Creat Clear Calc Estimated GFR Glucose POC Capillary Glucose Calcium Magnesium Ferritin Total Bilirubin AST ALT Alkaline Phosphatase Total Creatine Kinase Total Protein Albumin 10/26/24 10/26/24 10/26/24 04:31 04:31 04:31 WBC RBC Hgb Hct MCV MCH MCHC RDW Plt Count MPV Immature Gran % (Auto) Neut % (Auto) Lymph % (Auto) [place] % (Auto) Eos % (Auto) Baso % (Auto) Lymph # (Auto) [place] # (Auto) Eos # (Auto) Baso # (Auto) Abs Immat Gran (auto) Absolute Neuts (auto) Absolute Nucleated RBC Band Neutrophils % Nucleated RBC % Platelet Estimate Hypochromasia Anisocytosis Schistocytes Sodium Potassium Chloride Carbon Dioxide Anion Gap BUN 9 Creatinine Cancelled 1.32 H Estim Creat Clear Calc Cancelled 42 Estimated GFR Cancelled Glucose POC Capillary Glucose Calcium Magnesium Ferritin Total Bilirubin AST ALT Alkaline Phosphatase Total Creatine Kinase Total Protein Albumin 10/26/24 10/26/24 10/26/24 04:31 04:31 04:31 WBC RBC Hgb Hct MCV MCH MCHC RDW Plt Count MPV Immature Gran % (Auto) Neut % (Auto) Lymph % (Auto) [place] % (Auto) Eos % (Auto) Baso % (Auto) Lymph # (Auto) [place] # (Auto) Eos # (Auto) Baso # (Auto) Abs Immat Gran (auto) Absolute Neuts (auto) Absolute Nucleated RBC Band Neutrophils % Nucleated RBC % Platelet Estimate Hypochromasia Anisocytosis Schistocytes Sodium Potassium Chloride Carbon Dioxide Anion Gap BUN Creatinine Estim Creat Clear Calc Estimated GFR 58 L Glucose Cancelled 185 H POC Capillary Glucose Calcium Cancelled 8.7 Magnesium Cancelled Ferritin 155.00 Total Bilirubin Cancelled AST ALT Alkaline Phosphatase Total Creatine Kinase Total Protein Albumin 10/26/24 10/26/24 10/26/24 04:31 04:31 04:31 WBC RBC Hgb Hct MCV MCH MCHC RDW Plt Count MPV Immature Gran % (Auto) Neut % (Auto) Lymph % (Auto) [place] % (Auto) Eos % (Auto) Baso % (Auto) Lymph # (Auto) [place] # (Auto) Eos # (Auto) Baso # (Auto) Abs Immat Gran (auto) Absolute Neuts (auto) Absolute Nucleated RBC Band Neutrophils % Nucleated RBC % Platelet Estimate Hypochromasia Anisocytosis Schistocytes Sodium Potassium Chloride Carbon Dioxide Anion Gap BUN Creatinine Estim Creat Clear Calc Estimated GFR Glucose POC Capillary Glucose Calcium Magnesium Ferritin Total Bilirubin 0.2 AST Cancelled 29 ALT Cancelled 15 Alkaline Phosphatase Cancelled Total Creatine Kinase Total Protein Albumin 10/26/24 10/26/24 10/26/24 04:31 04:31 04:31 WBC RBC Hgb Hct MCV MCH MCHC RDW Plt Count MPV Immature Gran % (Auto) Neut % (Auto) Lymph % (Auto) [place] % (Auto) Eos % (Auto) Baso % (Auto) Lymph # (Auto) [place] # (Auto) Eos # (Auto) Baso # (Auto) Abs Immat Gran (auto) Absolute Neuts (auto) Absolute Nucleated RBC Band Neutrophils % Nucleated RBC % Platelet Estimate Hypochromasia Anisocytosis Schistocytes Sodium Potassium Chloride Carbon Dioxide Anion Gap BUN Creatinine Estim Creat Clear Calc Estimated GFR Glucose POC Capillary Glucose Calcium Magnesium Ferritin Total Bilirubin AST ALT Alkaline Phosphatase 215 H Total Creatine Kinase Cancelled 168 Total Protein Cancelled 8.0 Albumin Cancelled 10/26/24 10/26/24 10/26/24 04:31 11:28 16:33 WBC RBC Hgb Hct MCV MCH MCHC RDW Plt Count MPV Immature Gran % (Auto) Neut % (Auto) Lymph % (Auto) [place] % (Auto) Eos % (Auto) Baso % (Auto) Lymph # (Auto) [place] # (Auto) Eos # (Auto) Baso # (Auto) Abs Immat Gran (auto) Absolute Neuts (auto) Absolute Nucleated RBC Band Neutrophils % Nucleated RBC % Platelet Estimate Hypochromasia Anisocytosis Schistocytes Sodium Potassium Chloride Carbon Dioxide Anion Gap BUN Creatinine Estim Creat Clear Calc Estimated GFR Glucose POC Capillary Glucose 202 H 310 H Calcium Magnesium Ferritin Total Bilirubin AST ALT Alkaline Phosphatase Total Creatine Kinase Total Protein Albumin 2.7 L 10/26/24 10/26/24 10/26/24 18:38 18:55 19:43 WBC RBC Hgb Hct MCV MCH MCHC RDW Plt Count MPV Immature Gran % (Auto) Neut % (Auto) Lymph % (Auto) [place] % (Auto) Eos % (Auto) Baso % (Auto) Lymph # (Auto) [place] # (Auto) Eos # (Auto) Baso # (Auto) Abs Immat Gran (auto) Absolute Neuts (auto) Absolute Nucleated RBC Band Neutrophils % Nucleated RBC % Platelet Estimate Hypochromasia Anisocytosis Schistocytes Sodium Potassium Chloride Carbon Dioxide Anion Gap BUN Creatinine Estim Creat Clear Calc Estimated GFR Glucose POC Capillary Glucose 25 L* 208 H 186 H Calcium Magnesium Ferritin Total Bilirubin AST ALT Alkaline Phosphatase Total Creatine Kinase Total Protein Albumin 10/26/24 10/27/24 10/27/24 23:43 04:45 07:58 WBC 8.0 RBC 3.07 L Hgb 8.3 L Hct 27.1 L MCV 88.3 MCH 27.0 MCHC 30.6 L RDW 15.0 H Plt Count 296 MPV 9.2 Immature Gran % (Auto) 0.1 Neut % (Auto) 35.4 L Lymph % (Auto) 42.9 [place] % (Auto) 7.1 Eos % (Auto) 12.8 H Baso % (Auto) 1.7 H Lymph # (Auto) 3.44 H [place] # (Auto) 0.6 Eos # (Auto) 1.0 H Baso # (Auto) 0.1 Abs Immat Gran (auto) 0.01 Absolute Neuts (auto) 2.8 Absolute Nucleated RBC 0.000 Band Neutrophils % Not Reportable Nucleated RBC % 0.0 Platelet Estimate Adequate Hypochromasia 1+ Anisocytosis 1+ Schistocytes None seen Sodium 138 Potassium 4.7 Chloride 107 Carbon Dioxide 21 L Anion Gap 10 BUN 9 Creatinine 1.32 H Estim Creat Clear Calc 42 Estimated GFR 58 L Glucose 233 H POC Capillary Glucose 175 H 343 H Calcium 8.6 Magnesium 1.7 Ferritin Total Bilirubin < 0.1 L AST 37 ALT 16 Alkaline Phosphatase 219 H Total Creatine Kinase Total Protein 8.0 Albumin 3.1 L
[2024-10-27 11:20] LABS: Hemoglobin A1C 11.1 % (<5.7)
[2024-10-27 12:07] LABS: Glucose Point of Care 427 mg/dl (65-105)
[2024-10-27] MEDS: INSULIN ASPART (*BKC) 100 UNITS/ML SUB-Q (13:11)
[2024-10-27 17:16] LABS: Glucose Point of Care 55 mg/dl (65-105)
[2024-10-27 17:40] LABS: Glucose Point of Care 77 mg/dl (65-105)
[2024-10-27 20:52] LABS: Glucose Point of Care 226 mg/dl (65-105)
[2024-10-28] MEDS: oxyCODONE HCL (*CRX) 5 MG TAB IR PO ×5 (00:30→18:24)
[2024-10-28 01:02] LABS: Glucose Point of Care 223 mg/dl (65-105)
[2024-10-28] MEDS: TAMSULOSIN HCL 0.4 MG CAPSULE PO ×2 (01:12→20:58)
[2024-10-28 04:42] LABS: Basophils Absolute Auto 0.2 K/mm3 (0.0-0.1); Basophils Percent Auto 2.2 % (0.2-1.2); Eosinophils Percent Auto 14.1 % (0-4.4); Hematocrit 27.3 % (42.0-52.0); Hemoglobin 8.5 g/dL (14.0-18.0); Immature Granulocyte Absolute 0.01 K/mm3 (0.00-0.031); Immature Granulocyte Percent A 0.1 % (0-0.5); Lymphocytes Absolute Auto 3.05 K/mm3 (0.9-3.2); Lymphocytes Percent Auto 41.7 % (18.3-44.2); Mean Corpuscular HGB Conc 31.1 g/dl (32-36); Mean Corpuscular Volume 86.7 fl (80-100); Mean Platelet Volume 8.7 fl (7.4-10.4); Monocytes Absolute Auto 0.5 K/mm3 (0.1-0.6); Monocytes Percent Auto 7.1 % (2.6-8.5); Neutrophils Absolute Auto 2.6 K/mm3 (1.3-6.7); Neutrophils Percent Auto 34.8 % (45.5-73.1); Platelet Count Result 289 k/mm3 (150-375); Red Blood Count 3.15 M/mm3 (4.6-6.20); White Blood Count 7.3 K/mm3 (4.5-10.0)
[2024-10-28 05:06] LABS: Alanine Aminotransferase 17 U/L (6-50); Albumin Level 3.2 g/dL (3.5-5.1); Alkaline Phosphatase 243 U/L (38-126); Anion Gap 11 mmol/L (4-12); Aspartate Amino Transferase 38 U/L (17-59); Bilirubin,Total 0.1 mg/dL (0.2-1.3); Blood Urea Nitrogen 10 mg/dL (9-20); Calcium 8.5 mg/dL (8.4-10.2); Carbon Dioxide 22 mmol/L (22-30); Chloride 105 mmol/L (98-107); Estimated CRCL calculation 40 ml/min; Estimated Glomerular Filt Rate 56; Glucose 287 mg/dL (65-110); Magnesium 1.6 mg/dL (1.6-2.3); Potassium 4.7 mmol/L (3.4-5.0); Sodium 138 mmol/L (137-145)
[2024-10-28 05:18] LABS: Anisocytosis 1+; Hypochromasia 1+; Platelet Estimate Adequate (Adequate)
[2024-10-28 05:19] LABS: Schistocytes None Seen
[2024-10-28 05:19] LABS: Glucose Point of Care 242 mg/dl (65-105)
[2024-10-28 06:00] VITALS: RESP 16
[2024-10-28 08:13] LABS: Glucose Point of Care 264 mg/dl (65-105)
[2024-10-28] MEDS: INSULIN ASPART (*BKC) 100 UNITS/ML SUB-Q ×3 (08:31→18:21)
[2024-10-28] MEDS: PANTOPRAZOLE 40 MG TABLET PO (08:34)
[2024-10-28] MEDS: GABAPENTIN 300 MG CAPSULE 600 MG PO ×2 (08:34→20:58)
[2024-10-28] MEDS: LIPASE/AMYLASE/PROTEASE 12,000 UNITS CAP 6 CAP PO ×3 (08:34→18:21)
[2024-10-28] MEDS: FOLIC ACID 1 MG TABLET PO (08:34)
[2024-10-28 12:06] LABS: Glucose Point of Care 247 mg/dl (65-105)
[2024-10-28] MEDS: INSULIN GLARGINE (*BKC) 100 UNITS/ML SUB-Q (12:15)
[2024-10-28] MEDS: AMOXICILLIN/CLAVULANATE K 875-125 MG TAB 1 TABLET PO ×2 (12:15→20:58)
--- NOTE | 2024-10-28 13:42 | P.PNIM_ITS ---
Progress Note: A&P Assessment and Plan (1) Hypoglycemia: Code(s): E16.2 - Hypoglycemia, unspecified Status: Acute (2) Acute UTI: Code(s): N39.0 - Urinary tract infection, site not specified Status: Acute (3) Diabetes mellitus: Code(s): E11.9 - Type 2 diabetes mellitus without complications Status: Acute (4) BPH (benign prostatic hyperplasia): Code(s): N40.0 - Benign prostatic hyperplasia without lower urinary tract symptoms Status: Acute (5) Anemia: Code(s): D64.9 - Anemia, unspecified Status: Acute (6) Hypomagnesemia: Code(s): E83.42 - Hypomagnesemia Status: Acute Plan This is a 44-year-old male who presents to the ED with seizure generalized new onset was also found to have low blood sugars 26 received glucagon and dextrose prior to transport. Back to baseline neurological status. He stated he did not eat as much after receiving insulin. In the ED is vitals were stable. Laboratory studies showed WBC of 8.8 hemoglobin of 8.2 platelet of 243 sodium 136 potassium 3.4 chloride 108 bicar bonate 18 BUN 10 creatinine 1.1 blood sugar was 75 lactate of 1.9 troponin x2 negative lipase less than 10 procalcitonin elevated at 5.1 urinalysis showed urine WBC more than 100 with clumps present influenza RSV COVID swab was negative. Blood sugar was down to 37 in the ER which was treated with IV dextrose he was eventually started on D5 normal saline. He also received Rocephin for UTI. Chest x-ray with no acute findings. Head CT with no acute findings. EKG with nonspecific ST-T changes New onset seizure likely precipitated by hypoglycemia Hypoglycemia continue to monitor check A1c adjust insulin dosing UTI IV Rocephin urine culture Citrobacter and Enterococcus. Change antibiotics to Augmentin Diabetes mellitus type 2 A1c came back at 11.1 suggesting uncontrolled diabetes. He is very brittle and quite sensitive to insulin. Will start small dose of Lantus. Monitor blood sugar closely. Abdominal pain: Get CT abdomen to further evaluate. recrds from [facility] not available yet BPH on Flomax Peripheral neuropathy Chronic pancreatitis on Creon Anemia normocytic anemia workup back in 07/2022 hemoglobin was 12. Vitamin B12 normal folate normal TSH normal iron saturation 14% with low TIBC ferritin 155 Hypo magnesemia replace and monitor DVT prophylaxis SCDs Code status full code Subjective Date/time seen: 10/28/24 13:42 Interval history: No New complaints. Blood sugar still brittle. Reports abdominal pain. No nausea vomiting. Review of Systems Review of Systems: All systems reviewed & are unremarkable except as noted in HPI and below Exam Narrative: General: Chronically ill, malnourished not in acute distress HEENT: normocephalic, atraumatic. Mucous membranes moist. Respiratory: clear to ascultation bilaterally. No rales/rhonic/wheezes. Cardiovascular: Regular rate and rhythm, normal S1-S2 upon ascultation. Abdomen: Soft, round, nontender Extremities: No cyanosis, clubbing, or edema present. Pulses are palpable 2/2. Active ROM to all four extremities. Neuro: Alert and orientated x 4. PERRLA. Cranial nerves 2-12 intact without focal deficit. Skin: Warm, dry, and intact, without rash, erythema, or lesion. Psych: pleasant, cooperative, normal speech, normal affect, no hallucinations, no dysarthia Objective Data Vital Signs Vital Signs: Vital Signs - 24 hr 10/27/24 14:00 10/27/24 20:00 10/27/24 21:18 Temperature 98.1 F 98.4 F Pulse Rate 88 83 83 Respiratory Rate 16 16 16 Blood Pressure 109/83 128/90 Pulse Oximetry 100 100 100 Oxygen Delivery Room Air 10/28/24 06:00 10/28/24 08:35 Temperature Pulse Rate Respiratory Rate 16 Blood Pressure Pulse Oximetry Oxygen Delivery Room Air Intake/Output Intake/Output: Intake & Output 10/25/24 10/26/24 10/27/24 10/28/24 23:59 23:59 23:59 23:59 Intake Total 600 2180 2000 740 Output Total 522 2361 6850 3 Balance -300 -271 -650 737 Meds/Results Medications: Active Medications Generic Name Dose Route Start Last Admin Trade Name Freq PRN Reason Stop Dose Admin Acetaminophen 650 mg 10/25/24 16:51 10/27/24 19:47 Acetaminophen 325 Mg Tablet PO 650 mg Q4H PRN Administration Mild Pain (1-3) or Fever Amoxicillin/Clavulanate Potassium 1 tablet 10/28/24 11:40 10/28/24 12:15 Amoxicillin/Clavulanate K 875-125 Mg Tab PO 1 tablet Q12HR KRYSTIN Administration Lipase/Protease/Amylase 6 cap 10/26/24 09:00 10/28/24 12:15 Lipase/Amylase/Protease 12,000 Units Cap PO 6 cap TID KRYSTIN Administration Dextrose 12.5 gm 10/25/24 16:51 10/26/24 18:41 Dextrose 50% 25 Gm/50 Ml Syringe IV PUSH 12.5 gm PRN PRN Administration Hypoglycemia Protocol Folic Acid 1 mg 10/26/24 09:00 10/28/24 08:34 Folic Acid 1 Mg Tablet PO 1 mg DAILY KRYSTIN Administration Gabapentin 600 mg 10/25/24 21:00 10/28/24 08:34 Gabapentin 300 Mg Capsule PO 600 mg Q12HR KRYSTIN Administration Glucagon 1 mg 10/25/24 16:51 Glucagon For Inj 1 Mg Vial IM PRN PRN Hypoglycemia Protocol Glucose 15 gm 10/25/24 16:51 Glucose Oral Gel 15 Gm Of Glucse In 37.5 Gm Tube PO PRN PRN Hypoglycemia Protocol Dextrose 1,000 mls @ 100 mls/hr 10/25/24 16:51 Dextrose 5% 1,000 Ml IVPB PRN PRN Hypoglycemia Protocol Insulin Aspart 2 - 5 units 10/27/24 13:05 10/28/24 12:16 Insulin Aspart (*Bkc) 100 Units/Ml SUB-Q 2 units TIDWM KRYSTIN Administration Protocol Ondansetron HCl 4 mg 10/25/24 16:51 Ondansetron Inj 4 Mg/2 Ml Vial IV PUSH Q4H PRN Nausea Oxycodone HCl 5 mg 10/25/24 19:18 10/28/24 12:22 Oxycodone Hcl (*Crx) 5 Mg Tab Ir PO 5 mg Q4H PRN Administration pain 7-10 Pantoprazole Sodium 40 mg 10/26/24 09:00 10/28/24 08:34 Pantoprazole 40 Mg Tablet PO 40 mg QAM KRYSTIN Administration Tamsulosin HCl 0.4 mg 10/25/24 21:00 10/28/24 01:12 Tamsulosin Hcl 0.4 Mg Capsule PO 0.4 mg QHS KRYSTIN Administration Radiology Results: ITS Impressions Chest X-Ray 10/25/24 11:26 IMPRESSION: 1. No acute cardiopulmonary disease. Head CT 10/25/24 12:28 IMPRESSION: 1. Normal brain. 2. Chronic left sphenoid sinusitis. Labs Labs: Laboratory Results - last 24 hr 10/27/24 10/27/24 10/27/24 17:00 17:38 20:19 WBC RBC Hgb Hct MCV MCH MCHC RDW Plt Count MPV Immature Gran % (Auto) Neut % (Auto) Lymph % (Auto) [place] % (Auto) Eos % (Auto) Baso % (Auto) Lymph # (Auto) [place] # (Auto) Eos # (Auto) Baso # (Auto) Abs Immat Gran (auto) Absolute Neuts (auto) Absolute Nucleated RBC Band Neutrophils % Nucleated RBC % Platelet Estimate Hypochromasia Anisocytosis Schistocytes Sodium Potassium Chloride Carbon Dioxide Anion Gap BUN Creatinine Estim Creat Clear Calc Estimated GFR Glucose POC Capillary Glucose 55 L* 77 226 H Calcium Magnesium Total Bilirubin AST ALT Alkaline Phosphatase Total Protein Albumin 10/28/24 10/28/24 10/28/24 00:59 04:30 04:55 WBC 7.3 RBC 3.15 L Hgb 8.5 L Hct 27.3 L MCV 86.7 MCH 27.0 MCHC 31.1 L RDW 15.0 H Plt Count 289 MPV 8.7 Immature Gran % (Auto) 0.1 Neut % (Auto) 34.8 L Lymph % (Auto) 41.7 [place] % (Auto) 7.1 Eos % (Auto) 14.1 H Baso % (Auto) 2.2 H Lymph # (Auto) 3.05 [place] # (Auto) 0.5 Eos # (Auto) 1.0 H Baso # (Auto) 0.2 H Abs Immat Gran (auto) 0.01 Absolute Neuts (auto) 2.6 Absolute Nucleated RBC 0.000 Band Neutrophils % Not Reportable Nucleated RBC % 0.0 Platelet Estimate Adequate Hypochromasia 1+ Anisocytosis 1+ Schistocytes None seen Sodium 138 Potassium 4.7 Chloride 105 Carbon Dioxide 22 Anion Gap 11 BUN 10 Creatinine 1.36 H Estim Creat Clear Calc 40 Estimated GFR 56 L Glucose 287 H POC Capillary Glucose 223 H 242 H Calcium 8.5 Magnesium 1.6 Total Bilirubin 0.1 L AST 38 ALT 17 Alkaline Phosphatase 243 H Total Protein 8.0 Albumin 3.2 L 10/28/24 10/28/24 08:10 12:00 WBC RBC Hgb Hct MCV MCH MCHC RDW Plt Count MPV Immature Gran % (Auto) Neut % (Auto) Lymph % (Auto) [place] % (Auto) Eos % (Auto) Baso % (Auto) Lymph # (Auto) [place] # (Auto) Eos # (Auto) Baso # (Auto) Abs Immat Gran (auto) Absolute Neuts (auto) Absolute Nucleated RBC Band Neutrophils % Nucleated RBC % Platelet Estimate Hypochromasia Anisocytosis Schistocytes Sodium Potassium Chloride Carbon Dioxide Anion Gap BUN Creatinine Estim Creat Clear Calc Estimated GFR Glucose POC Capillary Glucose 264 H 247 H Calcium Magnesium Total Bilirubin AST ALT Alkaline Phosphatase Total Protein Albumin
[2024-10-28 14:00] VITALS: BP 109/79; PULSE 86; RESP 18; TEMP 36.7; O2SAT 100
[2024-10-28 16:07] LABS: Glucose Point of Care 250 mg/dl (65-105)
[2024-10-28 20:00] VITALS: PULSE 100; RESP 16; O2SAT 100
[2024-10-28] MEDS: ACETAMINOPHEN 325 MG TABLET 650 MG PO (20:57)
[2024-10-28] MEDS: METOCLOPRAMIDE HCL 5 MG TABLET PO (20:58)
[2024-10-28 21:06] VITALS: BP 121/79; PULSE 100; RESP 16; TEMP 36.6; O2SAT 100
[2024-10-28 21:41] LABS: Glucose Point of Care 210 mg/dl (65-105)
[2024-10-29 01:11] LABS: Glucose Point of Care 310 mg/dl (65-105)
[2024-10-29 04:50] VITALS: BP 115/79; PULSE 96; RESP 16; TEMP 36.9; O2SAT 100
[2024-10-29] MEDS: METOCLOPRAMIDE HCL 5 MG TABLET PO ×3 (05:29→17:15)
[2024-10-29 05:41] LABS: Basophils Absolute Auto 0.2 K/mm3 (0.0-0.1); Basophils Percent Auto 2.7 % (0.2-1.2); Eosinophils Absolute Auto 0.9 K/mm3 (0-0.3); Eosinophils Percent Auto 11.5 % (0-4.4); Hematocrit 29.1 % (42.0-52.0); Hemoglobin 8.8 g/dL (14.0-18.0); Immature Granulocyte Absolute 0.02 K/mm3 (0.00-0.031); Immature Granulocyte Percent A 0.3 % (0-0.5); Lymphocytes Absolute Auto 3.48 K/mm3 (0.9-3.2); Lymphocytes Percent Auto 46.6 % (18.3-44.2); Mean Corpuscular HGB Conc 30.2 g/dl (32-36); Mean Corpuscular Hemoglobin 27.1 pg (26-34); Mean Corpuscular Volume 89.5 fl (80-100); Mean Platelet Volume 8.9 fl (7.4-10.4); Monocytes Absolute Auto 0.5 K/mm3 (0.1-0.6); Neutrophils Absolute Auto 2.5 K/mm3 (1.3-6.7); Neutrophils Percent Auto 32.9 % (45.5-73.1); Platelet Count Result 312 k/mm3 (150-375); Red Blood Count 3.25 M/mm3 (4.6-6.20); Red Cell Distribution Width 14.7 % (11.5-14.5); White Blood Count 7.5 K/mm3 (4.5-10.0)
[2024-10-29 05:58] LABS: Alanine Aminotransferase 19 U/L (6-50); Albumin Level 3.4 g/dL (3.5-5.1); Alkaline Phosphatase 294 U/L (38-126); Anion Gap 8 mmol/L (4-12); Aspartate Amino Transferase 40 U/L (17-59); Bilirubin,Total 0.2 mg/dL (0.2-1.3); Blood Urea Nitrogen 12 mg/dL (9-20); Calcium 8.7 mg/dL (8.4-10.2); Carbon Dioxide 25 mmol/L (22-30); Chloride 103 mmol/L (98-107); Estimated CRCL calculation 37 ml/min; Estimated Glomerular Filt Rate 50; Glucose 424 mg/dL (65-110); Magnesium 1.8 mg/dL (1.6-2.3); Potassium 4.7 mmol/L (3.4-5.0); Sodium 136 mmol/L (137-145)
[2024-10-29 06:02] LABS: Glucose Point of Care 381 mg/dl (65-105)
[2024-10-29] MEDS: oxyCODONE HCL (*CRX) 5 MG TAB IR PO (06:40)
[2024-10-29 08:12] LABS: Glucose Point of Care 495 mg/dl (65-105)
[2024-10-29] MEDS: LIPASE/AMYLASE/PROTEASE 12,000 UNITS CAP 6 CAP PO ×3 (08:50→17:15)
[2024-10-29] MEDS: INSULIN ASPART (*BKC) 100 UNITS/ML 10 UNITS SUB-Q (08:51)
[2024-10-29] MEDS: GABAPENTIN 300 MG CAPSULE 600 MG PO ×2 (08:51→21:57)
[2024-10-29] MEDS: AMOXICILLIN/CLAVULANATE K 875-125 MG TAB 1 TABLET PO ×2 (08:51→21:56)
[2024-10-29] MEDS: PANTOPRAZOLE 40 MG TABLET PO (08:51)
[2024-10-29] MEDS: FOLIC ACID 1 MG TABLET PO (08:51)
[2024-10-29] MEDS: ACETAMINOPHEN 325 MG TABLET 650 MG PO (08:51)
--- NOTE | 2024-10-29 11:03 | PM.IMPN ---
Progress Note: A&P Assessment and Plan (1) Hypoglycemia: Code(s): E16.2 - Hypoglycemia, unspecified Status: Acute (2) Acute UTI: Code(s): N39.0 - Urinary tract infection, site not specified Status: Acute (3) Diabetes mellitus: Code(s): E11.9 - Type 2 diabetes mellitus without complications Status: Acute (4) BPH (benign prostatic hyperplasia): Code(s): N40.0 - Benign prostatic hyperplasia without lower urinary tract symptoms Status: Acute (5) Anemia: Code(s): D64.9 - Anemia, unspecified Status: Acute (6) Hypomagnesemia: Code(s): E83.42 - Hypomagnesemia Status: Acute Plan This is a 44-year-old male who presents to the ED with seizure generalized new onset was also found to have low blood sugars 26 received glucagon and dextrose prior to transport. Back to baseline neurological status. He stated he did not eat as much after receiving insulin. In the ED is vitals were stable. Laboratory studies showed WBC of 8.8 hemoglobin of 8.2 platelet of 243 sodium 136 potassium 3.4 chloride 108 bicarbonate 18 BUN 10 creatinine 1.1 blood sugar was 75 lactate of 1.9 troponin x2 negative lipase less than 10 procalcitonin elevated at 5.1 urinalysis showed urine WBC more than 100 with clumps present influenza RSV COVID swab was negative. Blood sugar was down to 37 in the ER which was treated with IV dextrose he was eventually started on D5 normal saline. He also received Rocephin for UTI. Chest x-ray with no acute findings. Head CT with no acute findings. 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 He is very brittle and quite sensitive to insulin. Start Lantus 10 units q.h.s. add lispro 5 units a.c. Continue insulin sliding scale a.c. q.h.s. Abdomen pain Patient still has moderate abdomen pain CT shows chronic pancreatitis, gallbladder is decompensated and contains multiple gallstones Consult general surgeon for the multiple gallstones given chronic pancreatitis UTI IV Rocephin urine culture Citrobacter and Enterococcus. Change antibiotics to Augmentin BPH on Flomax Peripheral neuropathy Chronic pancreatitis on Creon Anemia normocytic anemia workup back in 07/2022 hemoglobin was 12. Vitamin B12 normal folate normal TSH normal iron saturation 14% with low TIBC ferritin 155 Hypo magnesemia replace and monitor DVT prophylaxis SCDs Code status full code Subjective Date/time seen: 10/29/24 11:03 Interval history: Patient still has abdomen, tolerate diet better, appetite improving, glucose is not well controlled Exam Narrative: GENERAL: Pleasant, in no acute distress. Well-nourished. - EYES: EOMI. Anicteric. - HENT: Moist mucous membranes. - LUNGS: Clear to auscultation bilaterally, no wheezing, rhonchi, or rales. - CARDIOVASCULAR: Regular rate and rhythm. No murmur. No JVD. - ABDOMEN: Soft, moderate abd tender and non-distended. No palpable masses. - EXTREMITIES: No edema. Peripheral pulses 2+. Non-tender. - NEUROLOGIC: No focal neurological deficits. CN II-XII grossly intact. - PSYCHIATRIC: Awake, Alert and oriented x 3. Appropriate mood and affect. - SKIN: No rashes or lesions. Warm. - LYMPH: No cervical lymphadenopathy. Objective Data Vital Signs Vital Signs: Vital Signs - 24 hr 10/28/24 14:00 10/28/24 20:00 10/28/24 21:06 Temperature 98.1 F 97.9 F Pulse Rate 86 100 100 Respiratory Rate 18 16 16 Blood Pressure 109/79 121/79 Pulse Oximetry 100 100 100 Oxygen Delivery Room Air 10/29/24 04:50 Temperature 98.4 F Pulse Rate 96 Respiratory Rate 16 Blood Pressure 115/79 Pulse Oximetry 100 Oxygen Delivery Intake/Output Intake/Output: Intake & Output 10/26/24 10/27/24 10/28/24 10/29/24 23:59 23:59 23:59 23:59 Intake Total 2180 2000 1460 120 Output Total 2451 2650 3 500 Balance -159 -650 1457 -380 Meds/Results Medications: Active Medications Generic Name Dose Route Start Last Admin Trade Name Freq PRN Reason Stop Dose Admin Acetaminophen 650 mg 10/25/24 16:51 10/29/24 08:51 Acetaminophen 325 Mg Tablet PO 650 mg Q4H PRN Administration Mild Pain (1-3) or Fever Amoxicillin/Clavulanate Potassium 1 tablet 10/28/24 11:40 10/29/24 08:51 Amoxicillin/Clavulanate K 875-125 Mg Tab PO 1 tablet Q12HR KRYSTIN Administration Lipase/Protease/Amylase 6 cap 10/26/24 09:00 10/29/24 08:50 Lipase/Amylase/Protease 12,000 Units Cap PO 6 cap TID KRYSTIN Administration Dextrose 12.5 gm 10/25/24 16:51 10/26/24 18:41 Dextrose 50% 25 Gm/50 Ml Syringe IV PUSH 12.5 gm PRN PRN Administration Hypoglycemia Protocol Folic Acid 1 mg 10/26/24 09:00 10/29/24 08:51 Folic Acid 1 Mg Tablet PO 1 mg DAILY KRYSTIN Administration Gabapentin 600 mg 10/25/24 21:00 10/29/24 08:51 Gabapentin 300 Mg Capsule PO 600 mg Q12HR KRYSTIN Administration Glucagon 1 mg 10/25/24 16:51 Glucagon For Inj 1 Mg Vial IM PRN PRN Hypoglycemia Protocol Glucose 15 gm 10/25/24 16:51 Glucose Oral Gel 15 Gm Of Glucse In 37.5 Gm Tube PO PRN PRN Hypoglycemia Protocol Dextrose 1,000 mls @ 100 mls/hr 10/25/24 16:51 Dextrose 5% 1,000 Ml IVPB PRN PRN Hypoglycemia Protocol Insulin Aspart 2 - 5 units 10/27/24 13:05 10/29/24 08:46 Insulin Aspart (*Bkc) 100 Units/Ml SUB-Q Not Given TIDWM [facility] Protocol Insulin Aspart 5 units 10/29/24 12:00 Insulin Aspart (*Bkc) 100 Units/Ml SUB-Q TIDWM [facility] Metoclopramide HCl 5 mg 10/28/24 21:00 10/29/24 05:29 Metoclopramide Hcl 5 Mg Tablet PO 5 mg ACHS KRYSTIN Administration Ondansetron HCl 4 mg 10/25/24 16:51 Ondansetron Inj 4 Mg/2 Ml Vial IV PUSH Q4H PRN Nausea Oxycodone HCl 5 mg 10/25/24 19:18 10/29/24 06:40 Oxycodone Hcl (*Crx) 5 Mg Tab Ir PO 5 mg Q4H PRN Administration pain 7-10 Pantoprazole Sodium 40 mg 10/26/24 09:00 10/29/24 08:51 Pantoprazole 40 Mg Tablet PO 40 mg QAM KRYSTIN Administration Tamsulosin HCl 0.4 mg 10/25/24 21:00 10/28/24 20:58 Tamsulosin Hcl 0.4 Mg Capsule PO 0.4 mg QHS KRYSTIN Administration Radiology Results: ITS Impressions Chest X-Ray 10/25/24 11:26 IMPRESSION: 1. No acute cardiopulmonary disease. Head CT 10/25/24 12:28 IMPRESSION: 1. Normal brain. 2. Chronic left sphenoid sinusitis. Chest/Abdomen/Pelvis CT 10/28/24 16:43 IMPRESSION: Rounded focus of soft tissue attenuation within the lower pole of the right kidney for which dedicated ultrasound may be performed for further evaluation. Significant retained contents within both the stomach and proximal duodenum without a clear source of outlet obstruction identified. Findings consistent with chronic pancreatitis. Left-sided double-J stent. Cholelithiasis without CT findings to suggest acute cholecystitis. Labs Labs: Laboratory Results - last 24 hr 10/28/24 10/28/24 10/28/24 12:00 16:04 20:59 WBC RBC Hgb Hct MCV MCH MCHC RDW Plt Count MPV Immature Gran % (Auto) Neut % (Auto) Lymph % (Auto) Grainger % (Auto) Eos % (Auto) Baso % (Auto) Lymph # (Auto) Grainger # (Auto) Eos # (Auto) Baso # (Auto) Abs Immat Gran (auto) Absolute Neuts (auto) Absolute Nucleated RBC Nucleated RBC % Sodium Potassium Chloride Carbon Dioxide Anion Gap BUN Creatinine Estim Creat Clear Calc Estimated GFR Glucose POC Capillary Glucose 247 H 250 H 210 H Calcium Magnesium Total Bilirubin AST ALT Alkaline Phosphatase Total Protein Albumin 10/29/24 10/29/24 10/29/24 00:26 04:40 05:25 WBC 7.5 RBC 3.25 L Hgb 8.8 L Hct 29.1 L MCV 89.5 MCH 27.1 MCHC 30.2 L RDW 14.7 H Plt Count 312 MPV 8.9 Immature Gran % (Auto) 0.3 Neut % (Auto) 32.9 L Lymph % (Auto) 46.6 H Grainger % (Auto) 6.0 Eos % (Auto) 11.5 H Baso % (Auto) 2.7 H Lymph # (Auto) 3.48 H Grainger # (Auto) 0.5 Eos # (Auto) 0.9 H Baso # (Auto) 0.2 H Abs Immat Gran (auto) 0.02 Absolute Neuts (auto) 2.5 Absolute Nucleated RBC 0.000 Nucleated RBC % 0.0 Sodium 136 L Potassium 4.7 Chloride 103 Carbon Dioxide 25 Anion Gap 8 BUN 12 Creatinine 1.50 H Estim Creat Clear Calc 37 Estimated GFR 50 L Glucose 424 H POC Capillary Glucose 310 H 381 H Calcium 8.7 Magnesium 1.8 Total Bilirubin 0.2 AST 40 ALT 19 Alkaline Phosphatase 294 H Total Protein 9.0 H Albumin 3.4 L 10/29/24 08:10 WBC RBC Hgb Hct MCV MCH MCHC RDW Plt Count MPV Immature Gran % (Auto) Neut % (Auto) Lymph % (Auto) Grainger % (Auto) Eos % (Auto) Baso % (Auto) Lymph # (Auto) Grainger # (Auto) Eos # (Auto) Baso # (Auto) Abs Immat Gran (auto) Absolute Neuts (auto) Absolute Nucleated RBC Nucleated RBC % Sodium Potassium Chloride Carbon Dioxide Anion Gap BUN Creatinine Estim Creat Clear Calc Estimated GFR Glucose POC Capillary Glucose 495 H Calcium Magnesium Total Bilirubin AST ALT Alkaline Phosphatase Total Protein Albumin
[2024-10-29 11:41] LABS: Glucose Point of Care 95 mg/dl (65-105)
[2024-10-29 13:52] LABS: Glucose Point of Care 218 mg/dl (65-105)
[2024-10-29 14:00] VITALS: BP 107/77; PULSE 84; RESP 16; TEMP 37.2; O2SAT 100
[2024-10-29 16:45] LABS: Glucose Point of Care 309 mg/dl (65-105)
[2024-10-29] MEDS: INSULIN GLARGINE (*BKC) 100 UNITS/ML 10 UNITS SUB-Q (17:20)
[2024-10-29] MEDS: INSULIN ASPART (*BKC) 100 UNITS/ML SUB-Q ×2 (17:21)
--- NOTE | 2024-10-29 19:15 | PM.CNGS ---
Assessment and Plan Assessment and plan (1) Cholelithiasis: Code(s): K80.20 - Calculus of gallbladder without cholecystitis without obstruction Status: Chronic Assessment and Plan: This is the reason for our consultation. He was admitted with hypoglycemia and UTI. CT scan of chest, abdomen, and pelvis showed findings of chronic pancreatitis and cholelithiasis within a contracted gallbladder. There is no evidence of acute cholecystitis. This is a chronic issue for the patient and there is no indication for any urgent surgical intervention at this time. He should continue his Creon and follow-up as an outpatient as scheduled with the specialist at [facility] who is following his chronic pancreatitis. (2) Chronic pancreatitis: Code(s): K86.1 - Other chronic pancreatitis Status: Acute (3) Hypoglycemia: Code(s): E16.2 - Hypoglycemia, unspecified Status: Acute (4) Acute UTI: Code(s): N39.0 - Urinary tract infection, site not specified Status: Acute (5) Diabetes mellitus: Code(s): E11.9 - Type 2 diabetes mellitus without complications Status: Acute Plan I have discussed the patient's case and plan of care with Dr. Velasquez. History of Present Illness Consult details Consult date: 10/29/24 Reason for consult: other (Gallstones, chronic pancreatitis) Requesting physician: Mukesh Velasco MD Narrative: This is a 44-year-old man who has a history of type 2 diabetes mellitus, chronic pancreatitis, and resides at a nursing care facility, who we have been asked to see in surgical consultation for chronic pancreatitis and cholelithiasis. He is a poor historian and is unable to provide details or much historical information, therefore it is obtained by review of the electronic medical record. He presented to the ED for evaluation after having an event at the nursing facility where he became hypoglycemic and had a seizure. He has been admitted for hypoglycemia and acute UTI. Had he had a CT scan of the chest, abdomen, and pelvis yesterday due to complaints of abdominal pain and weight loss. This showed changes of chronic pancreatitis and cholelithiasis with an otherwise normal gallbladder, as well as retained contents in the stomach and duodenum. Our service was then consulted. The patient deals with chronic left-sided abdominal pain intermittently with his chronic pancreatitis. He has previously been treated at [facility], he believes. He reports knowing he has gallstones, because he has had a previous procedure that sounds like an ERCP. He reportedly has a schedule procedure coming up in the near future for his gallstones , but cannot recall what he is having done or when. He relies on his mother for keeping track of his medical history and details. He denies any changes in his abdominal pain. He takes Creon. Labs have shown a normal WBC count and unremarkable LFTs. Lipase normal. Review of Systems Review of Systems: All systems reviewed & are unremarkable except as noted in HPI and below [facility] Past Medical History Medical History Cholelithiasis Cataract Diabetes mellitus Surgical History Surgical History History of ERCP No pertinent past surgical history Social History Social History Smoking packs per day: 0.5 Smoking cigarettes per day: 10.0 Smoking status: Current every day smoker Alcohol intake: former Alcohol use details: last drink 1 week ago Substance use: current Substance use type: marijuana Last use: 1 month ago Do You Feel Safe in your Home?: Yes Lack of Transportation: No Lack of Food: Never True Current Housing: I Have Housing Concerned About Future Housing: No Difficulty Paying Gas/Electric Bills: No Difficulty Paying for Meds: No Currently Unemployed: No Education: High School Diploma/GED Difficulty w/ Childcare or Family Care: No Spiritual care concerns: No Meds Home Medications and Allergies Home Medications ?Medication ?Instructions ?Recorded ?Confirmed ?Type gabapentin 300 mg capsule 600 mg PO Q12H 07/21/22 10/25/24 History acetaminophen 325 mg capsule 650 mg PO Q6H PRN fever or pain 10/25/24 10/25/24 History capsaicin 0.025 % topical cream 1 applic topical TID 10/25/24 10/25/24 History fluconazole 200 mg tablet 600 mg PO DAILY 10/25/24 10/25/24 History folic acid 1 mg tablet 1 mg PO DAILY 10/25/24 10/25/24 History insulin aspart U-100 100 unit/mL 1 sliding scale dose subcut 10/25/24 10/25/24 History subcutaneous solution (Novolog USEASDIRECTD U-100 Insulin aspart) insulin aspart U-100 100 unit/mL 5 unit subcut AC 10/25/24 10/25/24 History subcutaneous solution (Novolog U-100 Insulin aspart) insulin glargine 100 unit/mL 8 unit subcut QPM 10/25/24 10/25/24 History subcutaneous solution (Lantus U-100 Insulin) [id number] 2 cap PO TID 10/25/24 10/25/24 History 36,000-114,000-180,000 unit capsule,delay rel (Creon) loperamide 2 mg capsule 2 mg PO QID PRN loose stool 10/25/24 10/25/24 History omeprazole 20 mg capsule,delayed 20 mg PO DAILY 10/25/24 10/25/24 History release oxycodone 5 mg tablet 5 mg PO Q4H PRN pain 10/25/24 10/25/24 History tamsulosin 0.4 mg capsule 0.4 mg PO QHS 10/25/24 10/25/24 History Allergies Allergy/AdvReac Type Severity Reaction Status Date / Time No Known Allergies Allergy Verified 07/21/22 10:49 Vital Signs Vital Signs - 24 hr 10/28/24 20:00 10/28/24 21:06 10/29/24 04:50 Temperature 97.9 F 98.4 F Pulse Rate 100 100 96 Respiratory Rate 16 16 16 Blood Pressure 121/79 115/79 Pulse Oximetry 100 100 100 Oxygen Delivery Room Air 10/29/24 08:55 10/29/24 14:00 Temperature 98.9 F Pulse Rate 84 Respiratory Rate 16 Blood Pressure 107/77 Pulse Oximetry 100 Oxygen Delivery Room Air Exam Const: General: comfortable, no acute distress and ill appearing chronically Nutritional Appearance: thin and underweight Orientation/consciousness: patient oriented x3 HENMT: Head: normocephalic and atraumatic Ears: hearing grossly normal bilaterally Mouth: Yes moist mucous membranes Eyes: General: appearance normal, both eyes and all related structures Pupils: Equal, round and reactive pupils present Neck: Neck: normal visual inspection and full ROM Resp: Effort & Inspection: no respiratory distress Auscultation: clear to auscultation bilaterally Cardio: Rate: regular rate Rhythm: regular rhythm Peripheral pulses: Peripheral pulses 2+ throughout GI: Inspection: non-distended and no scars GI Palp: Yes Soft to palpation, Yes Tenderness to palpation present (GI) (mild LUQ and LLQ tenderness), No Guarding due to palpation present (GI), No Hernia present and No Rebound tenderness present Auscultation: normal bowel sounds Skin: General skin exam: normal color Neuro: General: moves all extremities and no focal motor deficits Speech: normal speech Motor exam (neuro): 5/5 motor strength present throughout Extrem: General: normal to inspection and no edema Psych: Mental Status: mental status grossly normal Attitude: cooperative Insight: Good insight present (Psych) Judgement: Good judgement present (Psych) Results Labs 10/29/24 05:25 10/29/24 05:25 Labs: Abnormal lab results 10/28/24 10/29/24 10/29/24 Range/Units 20:59 00:26 04:40 RBC (4.6-6.20) M/mm3 Hgb (14.0-18.0) g/dL Hct (42.0-52.0) % MCHC (32-36) g/dl RDW (11.5-14.5) % Neut % (Auto) (45.5-73.1) % Lymph % (Auto) (18.3-44.2) % Eos % (Auto) (0-4.4) % Baso % (Auto) (0.2-1.2) % Lymph # (Auto) (0.9-3.2) K/mm3 Eos # (Auto) (0-0.3) K/mm3 Baso # (Auto) (0.0-0.1) K/mm3 Sodium (137-145) mmol/L Creatinine (0.7-1.3) mg/dL Estimated GFR (59 - ) Glucose (65-110) mg/dL POC Capillary Glucose 210 H 310 H 381 H (65-105) mg/dl Alkaline Phosphatase (38-126) U/L Total Protein (6.3-8.2) g/dL Albumin (3.5-5.1) g/dL 10/29/24 10/29/24 10/29/24 Range/Units 05:25 08:10 13:49 RBC 3.25 L (4.6-6.20) M/mm3 Hgb 8.8 L (14.0-18.0) g/dL Hct 29.1 L (42.0-52.0) % MCHC 30.2 L (32-36) g/dl RDW 14.7 H (11.5-14.5) % Neut % (Auto) 32.9 L (45.5-73.1) % Lymph % (Auto) 46.6 H (18.3-44.2) % Eos % (Auto) 11.5 H (0-4.4) % Baso % (Auto) 2.7 H (0.2-1.2) % Lymph # (Auto) 3.48 H (0.9-3.2) K/mm3 Eos # (Auto) 0.9 H (0-0.3) K/mm3 Baso # (Auto) 0.2 H (0.0-0.1) K/mm3 Sodium 136 L (137-145) mmol/L Creatinine 1.50 H (0.7-1.3) mg/dL Estimated GFR 50 L (59 - ) Glucose 424 H (65-110) mg/dL POC Capillary Glucose 495 H 218 H (65-105) mg/dl Alkaline Phosphatase 294 H (38-126) U/L Total Protein 9.0 H (6.3-8.2) g/dL Albumin 3.4 L (3.5-5.1) g/dL 10/29/24 Range/Units 16:40 RBC (4.6-6.20) M/mm3 Hgb (14.0-18.0) g/dL Hct (42.0-52.0) % MCHC (32-36) g/dl RDW (11.5-14.5) % Neut % (Auto) (45.5-73.1) % Lymph % (Auto) (18.3-44.2) % Eos % (Auto) (0-4.4) % Baso % (Auto) (0.2-1.2) % Lymph # (Auto) (0.9-3.2) K/mm3 Eos # (Auto) (0-0.3) K/mm3 Baso # (Auto) (0.0-0.1) K/mm3 Sodium (137-145) mmol/L Creatinine (0.7-1.3) mg/dL Estimated GFR (59 - ) Glucose (65-110) mg/dL POC Capillary Glucose 309 H (65-105) mg/dl Alkaline Phosphatase (38-126) U/L Total Protein (6.3-8.2) g/dL Albumin (3.5-5.1) g/dL Diabetes panel 10/29/24 Range/Units 05:25 Sodium 136 L (137-145) mmol/L Potassium 4.7 (3.4-5.0) mmol/L Chloride 103 (98-107) mmol/L Carbon Dioxide 25 (22-30) mmol/L BUN 12 (9-20) mg/dL Creatinine 1.50 H (0.7-1.3) mg/dL Glucose 424 H (65-110) mg/dL Calcium 8.7 (8.4-10.2) mg/dL AST 40 (17-59) U/L ALT 19 (6-50) U/L Alkaline Phosphatase 294 H (38-126) U/L Total Protein 9.0 H (6.3-8.2) g/dL Albumin 3.4 L (3.5-5.1) g/dL Calcium panel 10/29/24 Range/Units 05:25 Calcium 8.7 (8.4-10.2) mg/dL Albumin 3.4 L (3.5-5.1) g/dL Pituitary panel 10/29/24 Range/Units 05:25 Sodium 136 L (137-145) mmol/L Potassium 4.7 (3.4-5.0) mmol/L Chloride 103 (98-107) mmol/L Carbon Dioxide 25 (22-30) mmol/L BUN 12 (9-20) mg/dL Creatinine 1.50 H (0.7-1.3) mg/dL Glucose 424 H (65-110) mg/dL Calcium 8.7 (8.4-10.2) mg/dL Adrenal panel 10/29/24 Range/Units 05:25 Sodium 136 L (137-145) mmol/L Potassium 4.7 (3.4-5.0) mmol/L Chloride 103 (98-107) mmol/L Carbon Dioxide 25 (22-30) mmol/L BUN 12 (9-20) mg/dL Creatinine 1.50 H (0.7-1.3) mg/dL Glucose 424 H (65-110) mg/dL Calcium 8.7 (8.4-10.2) mg/dL Total Bilirubin 0.2 (0.2-1.3) mg/dL AST 40 (17-59) U/L ALT 19 (6-50) U/L Alkaline Phosphatase 294 H (38-126) U/L Total Protein 9.0 H (6.3-8.2) g/dL Albumin 3.4 L (3.5-5.1) g/dL All other labs normal. Imaging Additional studies: ITS Impressions Chest X-Ray 10/25/24 11:26 IMPRESSION: 1. No acute cardiopulmonary disease. Head CT 10/25/24 12:28 IMPRESSION: 1. Normal brain. 2. Chronic left sphenoid sinusitis. Chest/Abdomen/Pelvis CT 10/28/24 16:43 IMPRESSION: Rounded focus of soft tissue attenuation within the lower pole of the right kidney for which dedicated ultrasound may be performed for further evaluation. Significant retained contents within both the stomach and proximal duodenum without a clear source of outlet obstruction identified. Findings consistent with chronic pancreatitis. Left-sided double-J stent. Cholelithiasis without CT findings to suggest acute cholecystitis.
[2024-10-29] MEDS: GLUCOSE ORAL GEL 15 GM OF GLUCSE IN 37.5 GM TUBE PO (20:30)
[2024-10-29 20:44] VITALS: BP 117/67; PULSE 112; RESP 16; TEMP 36.9; O2SAT 100
[2024-10-29 20:49] LABS: Glucose Point of Care 23 mg/dl (65-105)
[2024-10-29 20:49] LABS: Glucose Point of Care 83 mg/dl (65-105)
[2024-10-29 20:49] LABS: Glucose Point of Care 32 mg/dl (65-105)
[2024-10-29] MEDS: TAMSULOSIN HCL 0.4 MG CAPSULE PO (21:57)
[2024-10-29] MEDS: oxyCODONE HCL (*CRX) 2.5 MG TAB IR 7.5 MG PO (22:03)
[2024-10-30 01:09] LABS: Glucose Point of Care 201 mg/dl (65-105)
[2024-10-30 06:02] VITALS: BP 147/66; PULSE 81; RESP 16; TEMP 36.4; O2SAT 98
[2024-10-30 07:55] LABS: Glucose Point of Care 219 mg/dl (65-105)
[2024-10-30 07:56] LABS: Glucose Point of Care 240 mg/dl (65-105)
[2024-10-30] MEDS: INSULIN ASPART (*BKC) 100 UNITS/ML SUB-Q (07:58)
[2024-10-30] MEDS: LIPASE/AMYLASE/PROTEASE 12,000 UNITS CAP 6 CAP PO ×3 (08:03→16:48)
[2024-10-30] MEDS: GABAPENTIN 300 MG CAPSULE 600 MG PO ×2 (08:04→20:19)
[2024-10-30 08:05] VITALS: RESP 16; O2SAT 98
[2024-10-30] MEDS: AMOXICILLIN/CLAVULANATE K 875-125 MG TAB 1 TABLET PO ×2 (08:05→20:19)
[2024-10-30] MEDS: FOLIC ACID 1 MG TABLET PO (08:05)
[2024-10-30] MEDS: PANTOPRAZOLE 40 MG TABLET PO (08:05)
--- NOTE | 2024-10-30 09:07 | P.PNIM_ITS ---
Progress Note: A&P Assessment and Plan (1) Hypoglycemia: Code(s): E16.2 - Hypoglycemia, unspecified Status: Acute (2) Acute UTI: Code(s): N39.0 - Urinary tract infection, site not specified Status: Acute (3) Diabetes mellitus: Code(s): E11.9 - Type 2 diabetes mellitus without complications Status: Acute (4) BPH (benign prostatic hyperplasia): Code(s): N40.0 - Benign prostatic hyperplasia without lower urinary tract symptoms Status: Acute (5) Anemia: Code(s): D64.9 - Anemia, unspecified Status: Acute (6) Hypomagnesemia: Code(s): E83.42 - Hypomagnesemia Status: Acute Plan This is a 44-year-old male who presents to the ED with seizure generalized new onset was also found to have low blood sugars 26 received glucagon and dextrose prior to transport. Back to baseline neurological status. He stated he did not eat as much after receiving insulin. In the ED is vitals were stable. Laboratory studies showed WBC of 8.8 hemoglobin of 8.2 platelet of 243 sodium 136 potassium 3.4 chloride 108 bica rbonate 18 BUN 10 creatinine 1.1 blood sugar was 75 lactate of 1.9 troponin x2 negative lipase less than 10 procalcitonin elevated at 5.1 urinalysis showed urine WBC more than 100 with clumps present influenza RSV COVID swab was negative. Blood sugar was down to 37 in the ER which was treated with IV dextrose he was eventually started on D5 normal saline. He also received Rocephin for UTI. Chest x-ray with no acute findings. Head CT with no acute findings. EKG with nonspecific ST-T changes New onset seizure likely precipitated by hypoglycemia Type 2 diabetes assist with hypoglycemia Hypoglycemia resolved Glucose not controlled glucose 495 surg rn Continue to monitor check A1c adjust insulin dosing Diabetes mellitus type 2 A1c came back at 11.1 suggesting uncontrolled diabetes. He is very brittle and quite sensitive to insulin. Start Lantus 10 units q.h.s. add lispro 5 units a.c. Continue insulin sliding scale a.c. q.h.s. 10/29 Patient had hypoglycemia yesterday evening, discontinue lispro 5 units a.c., continue Lantus 10 units q.h.s., and continue sliding scale a.c. q.h.s. patient has a poor appetite and poor intake, scheduled insulin before meal is not suitable for this patient. Will optimize Lantus and sliding scale before discharge patient 10/30 Abdomen pain Patient still has moderate abdomen pain CT shows chronic pancreatitis, gallbladder is decompensated and contains multiple gallstones Consult general surgeon for the multiple gallstones given chronic pancreatitis, surgeon considers no surgical indication UTI IV Rocephin urine culture Citrobacter and Enterococcus. Change antibiotics to Augmentin BPH on Flomax Peripheral neuropathy Chronic pancreatitis on Creon Anemia normocytic anemia workup back in 07/2022 hemoglobin was 12. Vitamin B12 normal folate normal TSH normal iron saturation 14% with low TIBC ferritin 155 Hypo magnesemia replace and monitor DVT prophylaxis SCDs Code status full code May discharge patient in 1-2 days when glucose is better controlled Subjective Date/time seen: 10/30/24 09:07 Interval history: Patient still has abdomen, had hypoglycemia yesterday evening. Patient has a poor appetite, poor intake. Denies abdomen pain nausea vomiting. Exam Narrative: GENERAL: Pleasant, in no acute distress. Well-nourished. - EYES: EOMI. Anicteric. - HENT: Moist mucous membranes. - LUNGS: Clear to auscultation bilateral ly, no wheezing, rhonchi, or rales. - CARDIOVASCULAR: Regular rate and rhyth m. No murmur. No JVD. - ABDOMEN: Soft, moderate abd tender and non-distended. No palpable masses. - EXTREMITIES: No edema. Peripheral puls es 2+. Non-tender. - NEUROLOGIC: No focal neurological defi cits. CN II-XII grossly intact. - PSYCHIATRIC: Awake, Alert and oriented x 3. Appropriate mood and affect. - SKIN: No rashes or lesions. Warm. - LYMPH: No cervical lymphadenopathy. Objective Data Vital Signs Vital Signs: Vital Signs - 24 hr 10/29/24 14:00 10/29/24 20:44 10/29/24 20:44 Temperature 98.9 F 98.4 F Pulse Rate 84 112 H Respiratory Rate 16 16 Blood Pressure 107/77 117/67 Pulse Oximetry 100 100 100 Oxygen Delivery Room Air 10/30/24 06:02 Temperature 97.6 F Pulse Rate 81 Respiratory Rate 16 Blood Pressure 147/66 H Pulse Oximetry 98 Oxygen Delivery Intake/Output Intake/Output: Intake & Output 10/27/24 10/28/24 10/29/24 10/30/24 23:59 23:59 23:59 23:59 Intake Total 1999 1460 2060 Output Total 2650 3 1000 Balance -650 1457 1060 Meds/Results Medications: Active Medications Generic Name Dose Route Start Last Admin Trade Name Freq PRN Reason Stop Dose Admin Acetaminophen 650 mg 10/25/24 16:51 10/29/24 08:51 Acetaminophen 325 Mg Tablet PO 650 mg Q4H PRN Administration Mild Pain (1-3) or Fever Amoxicillin/Clavulanate Potassium 1 tablet 10/28/24 11:40 10/30/24 08:05 Amoxicillin/Clavulanate K 875-125 Mg Tab PO 1 tablet Q12HR KRYSTIN Administration Lipase/Protease/Amylase 6 cap 10/26/24 09:00 10/30/24 08:03 Lipase/Amylase/Protease 12,000 Units Cap PO 6 cap TID KRYSTIN Administration Dextrose 12.5 gm 10/25/24 16:51 10/26/24 18:41 Dextrose 50% 25 Gm/50 Ml Syringe IV PUSH 12.5 gm PRN PRN Administration Hypoglycemia Protocol Folic Acid 1 mg 10/26/24 09:00 10/30/24 08:05 Folic Acid 1 Mg Tablet PO 1 mg DAILY KRYSTIN Administration Gabapentin 600 mg 10/25/24 21:00 10/30/24 08:04 Gabapentin 300 Mg Capsule PO 600 mg Q12HR KRYSTIN Administration Glucagon 1 mg 10/25/24 16:51 Glucagon For Inj 1 Mg Vial IM PRN PRN Hypoglycemia Protocol Glucose 15 gm 10/25/24 16:51 10/29/24 20:30 Glucose Oral Gel 15 Gm Of Glucse In 37.5 Gm Tube PO 15 gm PRN PRN Administration Hypoglycemia Protocol Dextrose 1,000 mls @ 100 mls/hr 10/25/24 16:51 Dextrose 5% 1,000 Ml IVPB PRN PRN Hypoglycemia Protocol Insulin Aspart 2 - 5 units 10/27/24 13:05 10/30/24 07:58 Insulin Aspart (*Bkc) 100 Units/Ml SUB-Q 2 units TIDWM KRYSTIN Administration Protocol Insulin Aspart 5 units 10/29/24 12:00 10/29/24 17:21 Insulin Aspart (*Bkc) 100 Units/Ml SUB-Q 5 units TIDWM KRYSTIN Administration Insulin Glargine 10 units 10/29/24 18:00 10/29/24 17:20 Insulin Glargine (*Bkc) 100 Units/Ml SUB-Q 10 units QPM KRYSTIN Administration Metoclopramide HCl 5 mg 10/28/24 21:00 10/29/24 21:29 Metoclopramide Hcl 5 Mg Tablet PO Not Given ACHS KRYSTIN Ondansetron HCl 4 mg 10/25/24 16:51 Ondansetron Inj 4 Mg/2 Ml Vial IV PUSH Q4H PRN Nausea Oxycodone HCl 7.5 mg 10/29/24 12:36 10/29/24 22:03 Oxycodone Hcl (*Crx) 2.5 Mg Tab Ir PO 7.5 mg Q6H PRN Administration pain 7-10 Pantoprazole Sodium 40 mg 10/26/24 09:00 10/30/24 08:05 Pantoprazole 40 Mg Tablet PO 40 mg QAM KRYSTIN Administration Tamsulosin HCl 0.4 mg 10/25/24 21:00 10/29/24 21:57 Tamsulosin Hcl 0.4 Mg Capsule PO 0.4 mg QHS KRYSTIN Administration Radiology Results: ITS Impressions Chest X-Ray 10/25/24 11:26 IMPRESSION: 1. No acute cardiopulmonary disease. Head CT 10/25/24 12:28 IMPRESSION: 1. Normal brain. 2. Chronic left sphenoid sinusitis. Chest/Abdomen/Pelvis CT 10/28/24 16:43 IMPRESSION: Rounded focus of soft tissue attenuation within the lower pole of the right kidney for which dedicated ultrasound may be performed for further evaluation. Significant retained contents within both the stomach and proximal duodenum without a clear source of outlet obstruction identified. Findings consistent with chronic pancreatitis. Left-sided double-J stent. Cholelithiasis without CT findings to suggest acute cholecystitis. Labs Labs: Laboratory Results - last 24 hr 10/29/24 10/29/24 10/29/24 11:33 13:49 16:40 POC Capillary Glucose 95 218 H 309 H 10/29/24 10/29/24 10/29/24 20:19 20:27 20:46 POC Capillary Glucose 32 L* 23 L* 83 10/30/24 10/30/24 10/30/24 00:08 05:36 07:47 POC Capillary Glucose 201 H 219 H 240 H
[2024-10-30 09:39] LABS: Hematocrit 30.7 % (42.0-52.0); Hemoglobin 9.3 g/dL (14.0-18.0); Mean Corpuscular HGB Conc 30.3 g/dl (32-36); Mean Corpuscular Hemoglobin 26.9 pg (26-34); Mean Corpuscular Volume 88.7 fl (80-100); Mean Platelet Volume 9.1 fl (7.4-10.4); Platelet Count Result 310 k/mm3 (150-375); Red Blood Count 3.46 M/mm3 (4.6-6.20); Red Cell Distribution Width 14.6 % (11.5-14.5); White Blood Count 7.9 K/mm3 (4.5-10.0)
[2024-10-30 09:48] LABS: Anion Gap 9 mmol/L (4-12); Blood Urea Nitrogen 11 mg/dL (9-20); Calcium 8.6 mg/dL (8.4-10.2); Carbon Dioxide 21 mmol/L (22-30); Chloride 102 mmol/L (98-107); Estimated CRCL calculation 43 ml/min; Estimated Glomerular Filt Rate > 60; Glucose 321 mg/dL (65-110); Potassium 4.7 mmol/L (3.4-5.0); Sodium 132 mmol/L (137-145)
--- NOTE | 2024-10-30 09:48 | PCPTNOTE ---
Attempted PT evaluation, pt refused stating he doesn't feel good. Attempted to encourage/educate pt on benefits of therapy, but pt continued to refuse. Pt reports ambulating to bathroom with nursing staff using walker (this is baseline mobility for pt at home). Nurse aware. Will follow.
[2024-10-30 12:03] LABS: Glucose Point of Care 100 mg/dl (65-105)
[2024-10-30] MEDS: oxyCODONE HCL (*CRX) 2.5 MG TAB IR 7.5 MG PO ×2 (12:11→20:27)
[2024-10-30 14:00] VITALS: BP 111/58; PULSE 86; RESP 16; TEMP 36.6; O2SAT 100
[2024-10-30 16:38] LABS: Glucose Point of Care 253 mg/dl (65-105)
[2024-10-30] MEDS: INSULIN GLARGINE (*BKC) 100 UNITS/ML 10 UNITS SUB-Q (18:00)
[2024-10-30] MEDS: TAMSULOSIN HCL 0.4 MG CAPSULE PO (20:19)
[2024-10-30 21:13] LABS: Glucose Point of Care 386 mg/dl (65-105)
[2024-10-30 21:36] VITALS: BP 115/73; PULSE 91; RESP 16; TEMP 37.3; O2SAT 100
--- NOTE | 2024-10-31 00:33 | PC.NURSE ---
0000 glucose check showed blood sugar was 341. Patient had a stack of sherron crackers at bedside. I explained to the patient that I needed to remove the sherron crackers until his blood sugar was down. Patient stated that he understood that his blood sugar was high, but when I removed the sherron crackers he grow angry, jumped out of bed and charged both myself and the tech. After discussing issue with dry clipper tender nurse we decided to return sherron crackers to keep patient calm.
[2024-10-31 01:12] LABS: Glucose Point of Care 341 mg/dl (65-105)
[2024-10-31 07:53] LABS: Glucose Point of Care 130 mg/dl (65-105)
[2024-10-31] MEDS: PANTOPRAZOLE 40 MG TABLET PO (08:56)
[2024-10-31] MEDS: LIPASE/AMYLASE/PROTEASE 12,000 UNITS CAP 6 CAP PO ×3 (08:56→17:26)
[2024-10-31] MEDS: FOLIC ACID 1 MG TABLET PO (08:56)
[2024-10-31] MEDS: GABAPENTIN 300 MG CAPSULE 600 MG PO ×2 (08:56→20:27)
[2024-10-31] MEDS: AMOXICILLIN/CLAVULANATE K 875-125 MG TAB 1 TABLET PO ×2 (08:56→20:27)
[2024-10-31] MEDS: oxyCODONE HCL (*CRX) 2.5 MG TAB IR 7.5 MG PO ×2 (09:00→20:27)
--- NOTE | 2024-10-31 09:29 | PCPTNOTE ---
Received PT orders, pt refused PT eval stating he just ate, is walking in his room by himself and is leaving today to return to NH. Discussed pt with Antonia DURAN and [facility] [employer] [employer]- they report pt has been walking with the walker indep and is safe with it. PT evaluation not performed and order discharged.
--- NOTE | 2024-10-31 10:22 | PCNFU ---
Nutrition Follow-Up Complete: Severe protein calorie malnutrition related to malabsorption from chronic pancreatic insufficiency as evidenced by history of weight loss; severe muscle wasting and fat loss Goal:Adequate PO intake at least 75% meals and supplements Pt current nutrition is Diabetic, Glucerna shakes TID. Nutrition recommendation: continue with current plan of care Last recorded weight is 47 kg. Bowel Motility: +BM 10/30 Labs Reviewed: Hgb:9.3, HCT:30.7, NA:132, Glu:321 Meds Noted: Creon, folic acid, protonix Skin: WNL Additional Notes: Pt continues on a diabetic diet, intake 75-100%, Glucerna shakes TID in place. Agree with orders, Encourage intake of meals and supplements. Continue with current plan of care Monitoring intakes, weights, labs, supplement tolerance, plan of care Follow up in 5 days
--- NOTE | 2024-10-31 12:05 | PM.IMPN ---
Progress Note: A&P Assessment and Plan (1) Hypoglycemia: Code(s): E16.2 - Hypoglycemia, unspecified Status: Acute Assessment and Plan: Improving, continue current treatment monitor closely. (2) Acute UTI: Code(s): N39.0 - Urinary tract infection, site not specified Status: Acute Assessment and Plan: Switched to p.o. antibiotics. (3) Diabetes mellitus: Code(s): E11.9 - Type 2 diabetes mellitus without complications Status: Acute Assessment and Plan: Stable on current medication. Will continue current treatment. (4) BPH (benign prostatic hyperplasia): Code(s): N40.0 - Benign prostatic hyperplasia without lower urinary tract symptoms Status: Acute Assessment and Plan: Stable on current medication. Will continue current treatment. (5) Anemia: Code(s): D64.9 - Anemia, unspecified Status: Acute Assessment and Plan: Stable on current medication. Will continue current treatment. (6) Hypomagnesemia: Code(s): E83.42 - Hypomagnesemia Status: Acute Assessment and Plan: Resolved Plan This is a 44-year-old male who presents to the ED with seizure generalized new onset was also found to have low blood sugars 26 received glucagon and dextrose prior to transport. Back to baseline neurological status. He stated he did not eat as much after receiving insulin. In the ED is vitals were stable. Laboratory studies showed WBC of 8.8 hemoglobin of 8.2 platelet of 243 sodium 136 potassium 3.4 chloride 108 bicarbonate 18 BUN 10 creatinine 1.1 blood sugar was 75 lactate of 1.9 troponin x2 negative lipase less than 10 procalcitonin elevated at 5.1 urinalysis showed urine WBC more than 100 with clumps present influenza RSV COVID swab was negative. Blood sugar was down to 37 in the ER which was treated with IV dextrose he was eventually started on D5 normal saline. He also received Rocephin for UTI. Chest x-ray with no acute findings. Head CT with no acute findings. 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 He is very brittle and quite sensitive to insulin. Start Lantus 10 units q.h.s. add lispro 5 units a.c. Continue insulin sliding scale a.c. q.h.s. 10/29 Patient had hypoglycemia yesterday evening, discontinue lispro 5 units a.c., continue Lantus 10 units q.h.s., and continue sliding scale a.c. q.h.s. patient has a poor appetite and poor intake, scheduled insulin before meal is not suitable for this patient. Will optimize Lantus and sliding scale before discharge patient 10/30 Abdomen pain Patient still has moderate abdomen pain CT shows chronic pancreatitis, gallbladder is decompensated and contains multiple gallstones Consult general surgeon for the multiple gallstones given chronic pancreatitis, surgeon considers no surgical indication UTI IV Rocephin urine culture Citrobacter and Enterococcus. Change antibiotics to Augmentin BPH on Flomax Peripheral neuropathy Chronic pancreatitis on Creon Anemia normocytic anemia workup back in 07/2022 hemoglobin was 12. Vitamin B12 normal folate normal TSH normal iron saturation 14% with low TIBC ferritin 155 Hypo magnesemia replace and monitor DVT prophylaxis SCDs Code status full code May discharge patient in 1-2 days when glucose is better controlled Subjective Date/time seen: 10/31/24 12:05 Interval history: Patient was seen during morning rounds today. No shortness of breath or chest pain. No abdominal pain. Mood stable Review of Systems Review of Systems: 12 systems were reviewed and are negative except for as per HPI. All systems reviewed & are unremarkable except as noted in HPI and below Exam Narrative: GENERAL: Pleasant, in no acute distress. Well-nourished. - EYES: EOMI. Anicteric. - HENT: Moist mucous membranes. - LUNGS: Clear to auscultation bilaterally, no wheezing, rhonchi, or rales. - CARDIOVASCULAR: Regular rate and rhythm. No murmur. No JVD. - ABDOMEN: Soft, moderate abd tender and non-distended. No palpable masses. - EXTREMITIES: No edema. Peripheral pulses 2+. Non-tender. - NEUROLOGIC: No focal neurological deficits. CN II-XII grossly intact. - PSYCHIATRIC: Awake, Alert and oriented x 3. Appropriate mood and affect. - SKIN: No rashes or lesions. Warm. - LYMPH: No cervical lymphadenopathy. Objective Data Vital Signs Vital Signs: Vital Signs - 24 hr 10/30/24 14:00 10/30/24 20:00 10/30/24 21:36 Temperature 36.6 C 37.3 C Pulse Rate 86 91 Respiratory Rate 16 16 Blood Pressure 111/58 L 115/73 Pulse Oximetry 100 100 Oxygen Delivery Room Air 10/31/24 08:00 Temperature Pulse Rate Respiratory Rate Blood Pressure Pulse Oximetry Oxygen Delivery Room Air Intake/Output Intake/Output: Intake & Output 10/28/24 10/29/24 10/30/24 10/31/24 23:59 23:59 23:59 23:59 Intake Total 1460 2060 2500 830 Output Total 3 1000 2250 Balance 1457 1060 250 830 Meds/Results Medications: Active Medications Generic Name Dose Route Start Last Admin Trade Name Freq PRN Reason Stop Dose Admin Acetaminophen 650 mg 10/25/24 16:51 10/29/24 08:51 Acetaminophen 325 Mg Tablet PO 650 mg Q4H PRN Administration Mild Pain (1-3) or Fever Amoxicillin/Clavulanate Potassium 1 tablet 10/28/24 11:40 10/31/24 08:56 Amoxicillin/Clavulanate K 875-125 Mg Tab PO 1 tablet Q12HR KRYSTIN Administration Lipase/Protease/Amylase 6 cap 10/26/24 09:00 10/31/24 08:56 Lipase/Amylase/Protease 12,000 Units Cap PO 6 cap TID KRYSTIN Administration Dextrose 12.5 gm 10/25/24 16:51 10/26/24 18:41 Dextrose 50% 25 Gm/50 Ml Syringe IV PUSH 12.5 gm PRN PRN Administration Hypoglycemia Protocol Folic Acid 1 mg 10/26/24 09:00 10/31/24 08:56 Folic Acid 1 Mg Tablet PO 1 mg DAILY KRYSTIN Administration Gabapentin 600 mg 10/25/24 21:00 10/31/24 08:56 Gabapentin 300 Mg Capsule PO 600 mg Q12HR KRYSTIN Administration Glucagon 1 mg 10/25/24 16:51 Glucagon For Inj 1 Mg Vial IM PRN PRN Hypoglycemia Protocol Glucose 15 gm 10/25/24 16:51 10/29/24 20:30 Glucose Oral Gel 15 Gm Of Glucse In 37.5 Gm Tube PO 15 gm PRN PRN Administration Hypoglycemia Protocol Dextrose 1,000 mls @ 100 mls/hr 10/25/24 16:51 Dextrose 5% 1,000 Ml IVPB PRN PRN Hypoglycemia Protocol Insulin Aspart 2 - 5 units 10/27/24 13:05 10/31/24 08:54 Insulin Aspart (*Bkc) 100 Units/Ml SUB-Q Not Given TIDWM [facility] Protocol Insulin Glargine 10 units 10/29/24 18:00 10/30/24 18:00 Insulin Glargine (*Bkc) 100 Units/Ml SUB-Q 10 units QPM KRYSTIN Administration Metoclopramide HCl 5 mg 10/28/24 21:00 10/29/24 21:29 Metoclopramide Hcl 5 Mg Tablet PO Not Given ACHS [facility] Ondansetron HCl 4 mg 10/25/24 16:51 Ondansetron Inj 4 Mg/2 Ml Vial IV PUSH Q4H PRN Nausea Oxycodone HCl 7.5 mg 10/29/24 12:36 10/31/24 09:00 Oxycodone Hcl (*Crx) 2.5 Mg Tab Ir PO 7.5 mg Q6H PRN Administration pain 7-10 Pantoprazole Sodium 40 mg 10/26/24 09:00 10/31/24 08:56 Pantoprazole 40 Mg Tablet PO 40 mg QAM KRYSTIN Administration Tamsulosin HCl 0.4 mg 10/25/24 21:00 10/30/24 20:19 Tamsulosin Hcl 0.4 Mg Capsule PO 0.4 mg QHS KRYSTIN Administration Radiology Results: ITS Impressions Chest X-Ray 10/25/24 11:26 IMPRESSION: 1. No acute cardiopulmonary disease. Head CT 10/25/24 12:28 IMPRESSION: 1. Normal brain. 2. Chronic left sphenoid sinusitis. Chest/Abdomen/Pelvis CT 10/28/24 16:43 IMPRESSION: Rounded focus of soft tissue attenuation within the lower pole of the right kidney for which dedicated ultrasound may be performed for further evaluation. Significant retained contents within both the stomach and proximal duodenum without a clear source of outlet obstruction identified. Findings consistent with chronic pancreatitis. Left-sided double-J stent. Cholelithiasis without CT findings to suggest acute cholecystitis. Labs Labs: Laboratory Results - last 24 hr 10/30/24 10/30/24 10/31/24 16:32 21:04 00:17 POC Capillary Glucose 253 H 386 H 341 H 10/31/24 07:26 POC Capillary Glucose 130 H Quality VTE Prophylaxis VTE prophylaxis: mechanical ordered
[2024-10-31 12:08] LABS: Glucose Point of Care 267 mg/dl (65-105)
[2024-10-31] MEDS: INSULIN ASPART (*BKC) 100 UNITS/ML SUB-Q ×2 (12:13→17:25)
[2024-10-31 13:57] VITALS: BP 90/52; PULSE 97; RESP 20; TEMP 37; O2SAT 100
[2024-10-31 16:32] LABS: Glucose Point of Care 281 mg/dl (65-105)
[2024-10-31] MEDS: INSULIN GLARGINE (*BKC) 100 UNITS/ML 10 UNITS SUB-Q (17:30)
[2024-10-31 20:15] VITALS: BP 123/82; PULSE 91; RESP 18; TEMP 36.8; O2SAT 100
[2024-10-31 20:16] VITALS: BP 123/82; PULSE 91; RESP 18; TEMP 36.8; O2SAT 100
[2024-10-31] MEDS: TAMSULOSIN HCL 0.4 MG CAPSULE PO (20:27)
[2024-10-31 21:12] LABS: Glucose Point of Care 208 mg/dl (65-105)
[2024-11-01 00:21] LABS: Glucose Point of Care 226 mg/dl (65-105)
[2024-11-01 03:45] VITALS: BP 114/81; PULSE 85; RESP 18; TEMP 36.6; O2SAT 96
[2024-11-01 04:30] LABS: Glucose Point of Care 61 mg/dl (65-105)
[2024-11-01 05:07] LABS: Glucose Point of Care 58 mg/dl (65-105)
[2024-11-01 05:59] LABS: Glucose Point of Care 131 mg/dl (65-105)
[2024-11-01] MEDS: PANTOPRAZOLE 40 MG TABLET PO (08:10)
[2024-11-01] MEDS: GABAPENTIN 300 MG CAPSULE 600 MG PO ×2 (08:10→21:13)
[2024-11-01] MEDS: AMOXICILLIN/CLAVULANATE K 875-125 MG TAB 1 TABLET PO ×2 (08:10→21:14)
[2024-11-01] MEDS: FOLIC ACID 1 MG TABLET PO (08:10)
[2024-11-01] MEDS: LIPASE/AMYLASE/PROTEASE 12,000 UNITS CAP 6 CAP PO ×3 (08:10→17:22)
[2024-11-01 08:11] LABS: Glucose Point of Care 245 mg/dl (65-105)
--- NOTE | 2024-11-01 10:18 | P.PNIM_ITS ---
Progress Note: A&P Assessment and Plan (1) Hypoglycemia: Code(s): E16.2 - Hypoglycemia, unspecified Status: Acute Assessment and Plan: Improving, continue current treatment monitor closely. Double portion food (2) Acute UTI: Code(s): N39.0 - Urinary tract infection, site not specified Status: Acute Assessment and Plan: Switched to p.o. antibiotics. (3) Diabetes mellitus: Code(s): E11.9 - Type 2 diabetes mellitus without complications Status: Acute Assessment and Plan: Stable on current medication. Will continue current treatment. (4) BPH (benign prostatic hyperplasia): Code(s): N40.0 - Benign prostatic hyperplasia without lower urinary tract symptoms Status: Acute Assessment and Plan: Stable on current medication. Will continue current treatment. (5) Anemia: Code(s): D64.9 - Anemia, unspecified Status: Acute Assessment and Plan: Stable on current medication. Will continue current treatment. (6) Hypomagnesemia: Code(s): E83.42 - Hypomagnesemia Status: Acute Assessment and Plan: Resolved Plan This is a 44-year-old male who presents to the ED with seizure generalized new onset was also found to have low blood sugars 26 received glucagon and dextrose prior to transport. Back to baseline neurological status. He stated he did not eat as much after receiving insulin. In the ED is vitals were stable. Laboratory studies showed WBC of 8.8 hemoglobin of 8.2 platelet of 243 sodium 136 potassium 3.4 chloride 108 bicarbonate 18 BUN 10 creatinine 1.1 blood sugar was 75 lactate of 1.9 troponin x2 negative lipase less than 10 procalcitonin elevated at 5.1 urinalysis showed urine WBC more than 100 with clumps present influenza RSV COVID swab was negative. Blood sugar was down to 37 in the ER which was treated with IV dextrose he was eventually started on D5 normal saline. He also received Rocephin for UTI. Chest x-ray with no acute findings. Head CT with no acute findings. 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 He is very brittle and quite sensitive to insulin. Start Lantus 10 units q.h.s. add lispro 5 units a.c. Continue insulin sliding scale a.c. q.h.s. 10/29 Patient had hypoglycemia yesterday evening, discontinue lispro 5 units a.c., continue Lantus 10 units q.h.s., and continue sliding scale a.c. q.h.s. patient has a poor appetite and poor intake, scheduled insulin before meal is not suitable for this patient. Will optimize Lantus and sliding scale before discharge patient 10/30 Abdomen pain Patient still has moderate abdomen pain CT shows chronic pancreatitis, gallbladder is decompensated and contains multiple gallstones Consult general surgeon for the multiple gallstones given chronic pancreatitis, surgeon considers no surgical indication UTI IV Rocephin urine culture Citrobacter and Enterococcus. Change antibiotics to Augmentin BPH on Flomax Peripheral neuropathy Chronic pancreatitis on Creon Anemia normocytic anemia workup back in 07/2022 hemoglobin was 12. Vitamin B12 normal folate normal TSH normal iron saturation 14% with low TIBC ferritin 155 Hypo magnesemia replace and monitor DVT prophylaxis SCDs Code status full code May discharge patient in 1-2 days when glucose is better controlled Subjective Date/time seen: 11/01/24 10:18 Interval history: Patient was seen during morning rounds today. Sugar was slightly low at night No shortness of breath or chest pain. No abdominal pain. Mood stable Review of Systems Review of Systems: 12 systems were reviewed and are negativ e except for as per HPI. All systems reviewed & are unremarkable except as noted in HPI and below Exam Narrative: GENERAL: Pleasant, in no acute distress. Well-nourished. - EYES: EOMI. Anicteric. - HENT: Moist mucous membranes. - LUNGS: Clear to auscultation bilateral ly, no wheezing, rhonchi, or rales. - CARDIOVASCULAR: Regular rate and rhyth m. No murmur. No JVD. - ABDOMEN: Soft, moderate abd tender and non-distended. No palpable masses. - EXTREMITIES: No edema. Peripheral puls es 2+. Non-tender. - NEUROLOGIC: No focal neurological defi cits. CN II-XII grossly intact. - PSYCHIATRIC: Awake, Alert and oriented x 3. Appropriate mood and affect. - SKIN: No rashes or lesions. Warm. - LYMPH: No cervical lymphadenopathy. Objective Data Vital Signs Vital Signs: Vital Signs - 24 hr 10/31/24 13:57 10/31/24 20:00 10/31/24 20:15 Temperature 37.0 C 36.8 C Pulse Rate 97 91 Respiratory Rate 20 18 Blood Pressure 90/52 L 123/82 Pulse Oximetry 100 100 Oxygen Delivery Room Air 10/31/24 20:16 11/01/24 03:45 Temperature 36.8 C 36.6 C Pulse Rate 91 85 Respiratory Rate 18 18 Blood Pressure 123/82 114/81 Pulse Oximetry 100 96 Oxygen Delivery Intake/Output Intake/Output: Intake & Output 10/29/24 10/30/24 10/31/24 11/01/24 23:59 23:59 23:59 23:59 Intake Total 2060 2500 1620 530 Output Total 1000 2250 350 800 Balance 6025 898 6395 -270 Meds/Results Medications: Active Medications Generic Name Dose Route Start Last Admin Trade Name Freq PRN Reason Stop Dose Admin Acetaminophen 650 mg 10/25/24 16:51 10/29/24 08:51 Acetaminophen 325 Mg Tablet PO 650 mg Q4H PRN Administration Mild Pain (1-3) or Fever Amoxicillin/Clavulanate Potassium 1 tablet 10/28/24 11:40 11/01/24 08:10 Amoxicillin/Clavulanate K 875-125 Mg Tab PO 1 tablet Q12HR KRYSTIN Administration Lipase/Protease/Amylase 6 cap 10/26/24 09:00 11/01/24 08:10 Lipase/Amylase/Protease 12,000 Units Cap PO 6 cap TID KRYSTIN Administration Dextrose 12.5 gm 10/25/24 16:51 10/26/24 18:41 Dextrose 50% 25 Gm/50 Ml Syringe IV PUSH 12.5 gm PRN PRN Administration Hypoglycemia Protocol Folic Acid 1 mg 10/26/24 09:00 11/01/24 08:10 Folic Acid 1 Mg Tablet PO 1 mg DAILY KRYSTIN Administration Gabapentin 600 mg 10/25/24 21:00 11/01/24 08:10 Gabapentin 300 Mg Capsule PO 600 mg Q12HR KRYSTIN Administration Glucagon 1 mg 10/25/24 16:51 Glucagon For Inj 1 Mg Vial IM PRN PRN Hypoglycemia Protocol Glucose 15 gm 10/25/24 16:51 10/29/24 20:30 Glucose Oral Gel 15 Gm Of Glucse In 37.5 Gm Tube PO 15 gm PRN PRN Administration Hypoglycemia Protocol Dextrose 1,000 mls @ 100 mls/hr 10/25/24 16:51 Dextrose 5% 1,000 Ml IVPB PRN PRN Hypoglycemia Protocol Metoclopramide HCl 5 mg 10/28/24 21:00 10/29/24 21:29 Metoclopramide Hcl 5 Mg Tablet PO Not Given ACHS KRYSTIN Ondansetron HCl 4 mg 10/25/24 16:51 Ondansetron Inj 4 Mg/2 Ml Vial IV PUSH Q4H PRN Nausea Oxycodone HCl 7.5 mg 10/29/24 12:36 10/31/24 20:27 Oxycodone Hcl (*Crx) 2.5 Mg Tab Ir PO 7.5 mg Q6H PRN Administration pain 7-10 Pantoprazole Sodium 40 mg 10/26/24 09:00 11/01/24 08:10 Pantoprazole 40 Mg Tablet PO 40 mg QAM KRYSTIN Administration Tamsulosin HCl 0.4 mg 10/25/24 21:00 10/31/24 20:27 Tamsulosin Hcl 0.4 Mg Capsule PO 0.4 mg QHS KRYSTIN Administration Radiology Results: ITS Impressions Chest X-Ray 10/25/24 11:26 IMPRESSION: 1. No acute cardiopulmonary disease. Head CT 10/25/24 12:28 IMPRESSION: 1. Normal brain. 2. Chronic left sphenoid sinusitis. Chest/Abdomen/Pelvis CT 10/28/24 16:43 IMPRESSION: Rounded focus of soft tissue attenuation within the lower pole of the right kidney for which dedicated ultrasound may be performed for further evaluation. Significant retained contents within both the stomach and proximal duodenum without a clear source of outlet obstruction identified. Findings consistent with chronic pancreatitis. Left-sided double-J stent. Cholelithiasis without CT findings to suggest acute cholecystitis. Labs Labs: Laboratory Results - last 24 hr 10/31/24 10/31/24 10/31/24 12:05 16:29 20:13 POC Capillary Glucose 267 H 281 H 208 H 11/01/24 11/01/24 11/01/24 00:06 03:49 04:27 POC Capillary Glucose 226 H 58 L* 61 L 11/01/24 11/01/24 05:54 08:09 POC Capillary Glucose 131 H 245 H Quality VTE Prophylaxis VTE prophylaxis: mechanical ordered
[2024-11-01 11:50] LABS: Glucose Point of Care 364 mg/dl (65-105)
[2024-11-01] MEDS: INSULIN GLARGINE (*BKC) 100 UNITS/ML SUB-Q (12:02)
[2024-11-01 14:47] VITALS: BP 127/84; PULSE 93; RESP 18; TEMP 36.7; O2SAT 100
[2024-11-01 16:54] LABS: Glucose Point of Care 390 mg/dl (65-105)
[2024-11-01 19:55] VITALS: BP 104/70; PULSE 100; RESP 20; TEMP 36.8; O2SAT 100
[2024-11-01 20:29] VITALS: PULSE 110; O2SAT 98
[2024-11-01] MEDS: oxyCODONE HCL (*CRX) 2.5 MG TAB IR 7.5 MG PO (21:13)
[2024-11-01] MEDS: TAMSULOSIN HCL 0.4 MG CAPSULE PO (21:14)
[2024-11-01 21:45] LABS: Glucose Point of Care 371 mg/dl (65-105)
[2024-11-01 23:23] LABS: Glucose Point of Care 310 mg/dl (65-105)
[2024-11-02 05:21] VITALS: BP 111/80; PULSE 68; RESP 20; TEMP 36.9; O2SAT 100
[2024-11-02 05:30] LABS: Glucose Point of Care 221 mg/dl (65-105)
[2024-11-02] MEDS: PANTOPRAZOLE 40 MG TABLET PO (08:00)
[2024-11-02 08:12] LABS: Glucose Point of Care 339 mg/dl (65-105)
[2024-11-02] MEDS: LIPASE/AMYLASE/PROTEASE 12,000 UNITS CAP 6 CAP PO ×3 (09:31→18:03)
[2024-11-02] MEDS: GABAPENTIN 300 MG CAPSULE 600 MG PO ×2 (09:32→20:13)
[2024-11-02] MEDS: AMOXICILLIN/CLAVULANATE K 875-125 MG TAB 1 TABLET PO ×2 (09:32→20:13)
[2024-11-02] MEDS: FOLIC ACID 1 MG TABLET PO (09:32)
[2024-11-02 12:00] LABS: Glucose Point of Care > 500 mg/dl (65-105)
[2024-11-02] MEDS: INSULIN ASPART (*BKC) 100 UNITS/ML SUB-Q ×3 (12:07→20:15)
--- NOTE | 2024-11-02 12:21 | P.PNIM_ITS ---
Progress Note: A&P Assessment and Plan (1) Hypoglycemia: Code(s): E16.2 - Hypoglycemia, unspecified Status: Acute Assessment and Plan: * Improving, continue current treatment monitor closely. 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 * Change antibiotics to Augmentin (4) BPH (benign prostatic hyperplasia): Code(s): N40.0 - Benign prostatic hyperplasia without lower urinary tract symptoms Status: Acute Assessment and Plan: * Stable on current medication. Will continue current treatment. (5) Anemia: Code(s): D64.9 - Anemia, unspecified Status: Acute Assessment and Plan: * Stable on current medication. Will continue current treatment. * Workup back in 07/2022 hemoglobin was 12. 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 11/02/2024 Patient sitting comfortably at bedside at time of examination. At this time he denies chest pain shortness a breath, nausea/vomiting, abdominal pain. Patient has been eating his meals without any abdominal pain or postprandial and dizziness. Glucose this morning was 221 but increased to > 500. Sliding scale was re-initiated and Lantus still on hold at this time. 1 hour after sliding scale initiated, repeat glucose was back down to 390. Will continue to monitor glucose on sliding scale insulin with hopes to discharge tomorrow. Patient has been ambulatory independently without any difficulties. Review of Systems Review of Systems: 12 systems were reviewed and are negativ e except for as per HPI. All systems reviewed & are unremarkable except as noted in HPI and below Exam 2 Narrative: GENERAL: Pleasant, in no acute distress. Well-nourished. - EYES: EOMI. Anicteric. - HENT: Moist mucous membranes. - LUNGS: Clear to auscultation bilateral ly, no wheezing, rhonchi, or rales. - CARDIOVASCULAR: Regular rate and rhyth m. No murmur. No JVD. - ABDOMEN: Soft, moderate abd tender and non-distended. No palpable masses. - EXTREMITIES: No edema. Peripheral puls es 2+. Non-tender. - NEUROLOGIC: No focal neurological defi cits. CN II-XII grossly intact. - PSYCHIATRIC: Awake, Alert and oriented x 3. Appropriate mood and affect. - SKIN: No rashes or lesions. Warm. - LYMPH: No cervical lymphadenopathy. Objective Data Vital Signs Vital Signs: Vital Signs - 24 hr 11/01/24 14:47 11/01/24 19:55 11/01/24 20:00 Temperature 98.0 F 98.2 F Pulse Rate 93 100 Respiratory Rate 18 20 Blood Pressure 127/84 104/70 Pulse Oximetry 100 100 Oxygen Delivery Room Air 11/01/24 20:29 11/02/24 05:21 11/02/24 08:00 Temperature 98.5 F Pulse Rate 110 H 68 Respiratory Rate 20 Blood Pressure 111/80 Pulse Oximetry 98 100 Oxygen Delivery Room Air Room Air Intake/Output Intake/Output: Intake & Output 10/30/24 10/31/24 11/01/24 11/02/24 23:59 23:59 23:59 23:59 Intake Total 2500 1620 770 740 Output Total 2250 350 1950 900 Balance 250 1270 -1180 -160 Meds/Results Medications: Active Medications Generic Name Dose Route Start Last Admin Trade Name Freq PRN Reason Stop Dose Admin Acetaminophen 650 mg 10/25/24 16:51 10/29/24 08:51 Acetaminophen 325 Mg Tablet PO 650 mg Q4H PRN Administration Mild Pain (1-3) or Fever Amoxicillin/Clavulanate Potassium 1 tablet 10/28/24 11:40 11/02/24 09:32 Amoxicillin/Clavulanate K 875-125 Mg Tab PO 1 tablet Q12HR KRYSTIN Administration Lipase/Protease/Amylase 6 cap 10/26/24 09:00 11/02/24 12:12 Lipase/Amylase/Protease 12,000 Units Cap PO 6 cap TID KRYSTIN Administration Dextrose 12.5 gm 11/02/24 11:54 Dextrose 50% 25 Gm/50 Ml Syringe IV PUSH PRN PRN Hypoglycemia Protocol Folic Acid 1 mg 10/26/24 09:00 11/02/24 09:32 Folic Acid 1 Mg Tablet PO 1 mg DAILY KRYSTIN Administration Gabapentin 600 mg 10/25/24 21:00 11/02/24 09:32 Gabapentin 300 Mg Capsule PO 600 mg Q12HR KRYSTIN Administration Glucagon 1 mg 11/02/24 11:54 Glucagon For Inj 1 Mg Vial IM PRN PRN Hypoglycemia Protocol Glucose 15 gm 11/02/24 11:54 Glucose Oral Gel 15 Gm Of Glucse In 37.5 Gm Tube PO PRN PRN Hypoglycemia Protocol Dextrose 1,000 mls @ 100 mls/hr 11/02/24 11:54 Dextrose 5% 1,000 Ml IVPB PRN PRN Hypoglycemia Protocol Insulin Aspart 2 - 5 units 11/02/24 12:00 11/02/24 12:07 Insulin Aspart (*Bkc) 100 Units/Ml SUB-Q 5 units TIDWM KRYSTIN Administration Protocol Insulin Aspart 1 - 2 units 11/02/24 21:00 Insulin Aspart (*Bkc) 100 Units/Ml SUB-Q HS KRYSTIN Protocol Metoclopramide HCl 5 mg 10/28/24 21:00 10/29/24 21:29 Metoclopramide Hcl 5 Mg Tablet PO Not Given ACHS [facility] Ondansetron HCl 4 mg 10/25/24 16:51 Ondansetron Inj 4 Mg/2 Ml Vial IV PUSH Q4H PRN Nausea Oxycodone HCl 7.5 mg 10/29/24 12:36 11/01/24 21:13 Oxycodone Hcl (*Crx) 2.5 Mg Tab Ir PO 7.5 mg Q6H PRN Administration pain 7-10 Pantoprazole Sodium 40 mg 10/26/24 09:00 11/02/24 08:00 Pantoprazole 40 Mg Tablet PO 40 mg QAM KRYSTIN Administration Tamsulosin HCl 0.4 mg 10/25/24 21:00 11/01/24 21:14 Tamsulosin Hcl 0.4 Mg Capsule PO 0.4 mg QHS KRYSTIN Administration Radiology Results: ITS Impressions Chest X-Ray 10/25/24 11:26 IMPRESSION: 1. No acute cardiopulmonary disease. Head CT 10/25/24 12:28 IMPRESSION: 1. Normal brain. 2. Chronic left sphenoid sinusitis. Chest/Abdomen/Pelvis CT 10/28/24 16:43 IMPRESSION: Rounded focus of soft tissue attenuation within the lower pole of the right kidney for which dedicated ultrasound may be performed for further evaluation. Significant retained contents within both the stomach and proximal duodenum without a clear source of outlet obstruction identified. Findings consistent with chronic pancreatitis. Left-sided double-J stent. Cholelithiasis without CT findings to suggest acute cholecystitis. Labs Labs: Laboratory Results - last 24 hr 11/01/24 11/01/24 11/01/24 16:46 19:50 23:21 POC Capillary Glucose 390 H 371 H 310 H 11/02/24 11/02/24 11/02/24 05:26 07:59 11:51 POC Capillary Glucose 221 H 339 H > 500 H* Quality VTE Prophylaxis VTE prophylaxis: mechanical ordered
[2024-11-02 13:22] LABS: Glucose Point of Care 390 mg/dl (65-105)
[2024-11-02 15:10] VITALS: BP 106/83; PULSE 86; RESP 20; TEMP 36.3; O2SAT 99
[2024-11-02 17:00] LABS: Glucose Point of Care 371 mg/dl (65-105)
[2024-11-02] MEDS: TAMSULOSIN HCL 0.4 MG CAPSULE PO (20:13)
[2024-11-02 20:49] VITALS: BP 111/74; PULSE 87; RESP 18; TEMP 36.5; O2SAT 100
[2024-11-02 21:54] LABS: Glucose Point of Care 205 mg/dl (65-105)
[2024-11-03 00:29] LABS: Glucose Point of Care 365 mg/dl (65-105)
[2024-11-03] MEDS: INSULIN ASPART (*BKC) 100 UNITS/ML SUB-Q ×2 (01:13→08:32)
[2024-11-03 05:33] VITALS: BP 114/73; PULSE 89; RESP 18; TEMP 36.5; O2SAT 97
[2024-11-03 05:50] LABS: Glucose Point of Care 392 mg/dl (65-105)
[2024-11-03] MEDS: INSULIN ASPART (*BKC) 100 UNITS/ML 6 UNITS SUB-Q (06:07)
[2024-11-03 07:40] VITALS: RESP 18; O2SAT 97
[2024-11-03 08:20] LABS: Glucose Point of Care 271 mg/dl (65-105)
[2024-11-03] MEDS: AMOXICILLIN/CLAVULANATE K 875-125 MG TAB 1 TABLET PO (08:30)
[2024-11-03] MEDS: FOLIC ACID 1 MG TABLET PO (08:30)
[2024-11-03] MEDS: GABAPENTIN 300 MG CAPSULE 600 MG PO (08:30)
[2024-11-03] MEDS: LIPASE/AMYLASE/PROTEASE 12,000 UNITS CAP 6 CAP PO ×2 (08:30→12:33)
[2024-11-03] MEDS: PANTOPRAZOLE 40 MG TABLET PO (08:31)
[2024-11-03] MEDS: INSULIN GLARGINE (*BKC) 100 UNITS/ML SUB-Q (08:34)
[2024-11-03 11:50] VITALS: BMI 14.8
[2024-11-03 11:50] LABS: Glucose Point of Care 205 mg/dl (65-105)
--- NOTE | 2024-11-03 12:07 | P.DS_ITS ---
DS: Admitting Diagnosis Discharge Date 11/03/2024 Admitting Diagnosis Hypoglycemia DS: Discharge Diagnosis Discharge Diagnosis (1) Hypoglycemia: Code(s): E16.2 - Hypoglycemia, unspecified Status: Acute (2) Diabetes mellitus: Code(s): E11.9 - Type 2 diabetes mellitus without complications Status: Acute (3) Acute UTI: Code(s): N39.0 - Urinary tract infection, site not specified Status: Acute (4) BPH (benign prostatic hyperplasia): Code(s): N40.0 - Benign prostatic hyperplasia without lower urinary tract symptoms Status: Acute (5) Anemia: Code(s): D64.9 - Anemia, unspecified Status: Acute (6) Hypomagnesemia: Code(s): E83.42 - Hypomagnesemia Status: Acute DS: Summary Hospital Course Reason for hospitalization: Hypoglycemia Hospital Course: 44-year-old male past medical history of diabetes type 2, and 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 Patient states that he woke up in the ambulance. Per the ED the patient lives at a facility where he was found to be hypoglycemic a blood sugar of 26 and had a seizure so EMS was called. While in the ED after eating patient had another hypoglycemic event. HPI is limited as patient does not know what happened. Patient states that he is no longer blind. In the ED the patient is anemic at 8.2, sodium of 136, carbon dioxide 18, magnesium of 1.4, alkaline phos of 213, albumin of 3.1, urine is turbid with 3+ leukocyte esterase over 100 wbc's with WBC clumps present 3+ bacteria negative for nitrates. Influenza A/B, RSV, COVID negative. Head CT with no acute findings. Chest x-ray with no acute findings. Blood sugar was down to 37 in the ER and was treated with IV dextrose and eventually started on D5 normal saline. He also was started on initial treatment for UTI with Rocephin. Chest x-ray showed no acute cardiopulmonary findings. Head CT normal. EKG with nonspecific ST-T changes. It was likely that his new onset seizure was precipitated by hypoglycemia. Glucose measurements were continued to be monitored throughout his visit. Repeat A1c was 11.1. IV Rocephin was eventually switched to p.o. Augmentin after urine culture showed Citrobacter and Enterococcus species. Throughout his visit the patient continually had hypoglycemia in the evenings and especially in the mornings and required bursitis optimization of his Lantus and sliding scale before discharge. On 11/02 and 11/03, patient did not experience any episodes of hypoglycemia the implant this was slowly introduced and patient maintained glucose measurements in the 200s. Patient otherwise stable and able to ambulate independently without any assistance. Patient expressed interest in getting discharged and he is otherwise stable requiring no further evaluation in the inpatient setting. He will be instructed to follow-up with his PCP regarding further evaluation with an spiral binder. Patient is stable for discharge at this time. Status at Discharge Functional status at discharge: independent ambulation Overall status at discharge: patient is back to baseline Time Spent with Patient Time attestation: Total time spent providing and/or coordinating discharge services: 45 Exam Narrative: GENERAL: Pleasant, in no acute distress. Well-nourished. - EYES: EOMI. Anicteric. - HENT: Moist mucous membranes. - LUNGS: Clear to auscultation bilateral ly, no wheezing, rhonchi, or rales. - CARDIOVASCULAR: Regular rate and rhyth m. No murmur. No JVD. - ABDOMEN: Soft, moderate abd tender and non-distended. No palpable masses. - EXTREMITIES: No edema. Peripheral puls es 2+. Non-tender. - NEUROLOGIC: No focal neurological defi cits. CN II-XII grossly intact. - PSYCHIATRIC: Awake, Alert and oriented x 3. Appropriate mood and affect. - SKIN: No rashes or lesions. Warm. - LYMPH: No cervical lymphadenopathy. DS: Data Data Completed and Pending Labs on day of discharge: Labs from last 24 hours 11/03/24 11/03/24 11/03/24 11:43 08:16 05:31 POC Capillary Glucose 205 H 271 H 392 H 11/03/24 11/02/24 11/02/24 00:22 20:11 16:55 POC Capillary Glucose 365 H 205 H 371 H 11/02/24 13:20 POC Capillary Glucose 390 H Discharge Plan Discharge Attending physician on discharge: Harrison Marcelino Consulting providers: Ileana Christina; Jake Velasquez Discharging Clinician: Harrison Marcelino Anticipated Discharge Date/Time: 11/03/24 11:55 Patient Disposition: NH Detention/Asst Living Activity: as tolerated Diet: as tolerated Discharge Instructions: Discharge disposition: Stable Take medications as prescribed. You are being prescribed Insulin Glargine 5 units to take daily and to continue on your sliding scale insulin. Monitor blood pressures Take caution while standing, rising, or moving Change positions slowly taking a break between each position change If you standing feel dizzy sit back down and take a break Encouraged to continue with yearly vaccinations Return to the emergency department if he developed sudden shortness of breath, chest pain, nausea, vomiting, upset stomach or intractable diarrhea Return to the emergency department if you develop fever greater than 101.5 Follow-up with the primary care physician within 1-2 weeks Thank you for [facility] for your healthcare needs Patient Instructions: Antibiotic Form, Diabetes and Nutrition (DC) Patient Language: Irish Stand Alone Forms: General Discharge Information, Custodial Discharge Follow-up/Referrals: PHYSICIAN NOT ON STAFF,NONSTAFF [Primary Care Provider] - Discharge Medications: New insulin glargine [Lantus Solostar U-100 Insulin] 100 unit/mL (3 mL) insulin pen 5 unit subcut QAM Qty: 15 0RF Continued gabapentin 300 mg capsule 600 mg PO Q12H acetaminophen 325 mg capsule 650 mg PO Q6H PRN (Reason: fever or pain) capsaicin 0.025 % cream 1 applic topical TID Rx Instructions: do not wash area for at least 30 min after application Creon 36,000-114,000- 180,000 unit capsule,delayed release(DR/EC) 2 cap PO TID Rx Instructions: administer with meals and/or snacks fluconazole 200 mg tablet 600 mg PO DAILY Patient Comments: End Date 10-31-24 folic acid 1 mg tablet 1 mg PO DAILY loperamide 2 mg capsule 2 mg PO QID PRN (Reason: loose stool) omeprazole 20 mg capsule,delayed release(DR/EC) 20 mg PO DAILY Patient Comments: Before breakfast oxycodone 5 mg tablet 5 mg PO Q4H PRN (Reason: pain) tamsulosin 0.4 mg capsule 0.4 mg PO QHS insulin aspart U-100 [Novolog U-100 Insulin aspart] 100 unit/mL solution 1 sliding scale dose subcut USEASDIRECTD Rx Instructions: If BS <70, call MD. If BS 69-150 = 0 units If BS 151-200 = 1 unit If BS 201-250 = 2 units If BS 251-300 = 3 units If BS 301-350 = 4 units If BS 351-400 = 5 units If BS >400 = 8 units and call MD Discontinued insulin glargine [Lantus U-100 Insulin] 100 unit/mL solution 8 unit subcut QPM insulin aspart U-100 [Novolog U-100 Insulin aspart] 100 unit/mL solution 5 unit subcut AC Date of admission: 10/26/24 10:36 Primary Care Provider: PHYSICIAN NOT ON STAFF,NONSTAFF Admitting Provider: Marcelo Junior Attending physician on admission: Harrison Marcelino Condition: Stable Quality VTE Prophylaxis VTE prophylaxis: mechanical ordered Hospitalist MIPS Heart Failure (Exclusion) Patient has history of Heart Transplant or Left Ventricular Assistive Device?: No IF YES, STOP HERE Heart Failure (Qualifier) Patient has current or prior documentation of LVEF less than or equal to 40%, or mod/servere depressed LVSF?: No IF NO, STOP HERE
[2024-11-03 13:37] LABS: SARS-CoV-2 RNA PCR Negative (Negative)
[2024-11-03 14:00] VITALS: BP 111/74; PULSE 77; RESP 12; TEMP 36.5; O2SAT 100
[2024-11-03 14:05] VITALS: RESP 18
[2024-11-03 15:34] VITALS: BP 115/87; PULSE 83; RESP 18; O2SAT 100
== END 2024-11-03 15:35 | DRG 638 ==
LOC: ANHED 16:54 → ANH2MED 17:45
PROVIDERS: Hospitalist; Internal Medicine; Nurse Practitioner Gerontology; Admitting Provider Family Medicine; Emergency Provider Emergency Medicine; Visit Provider Physician Assistant
DX: E11.649 Type 2 diabetes mellitus with hypoglycemia without coma (principal); K86.1 Other chronic pancreatitis; N39.0 Urinary tract infection, site not specified; R56.9 Unspecified convulsions; D64.9 Anemia, unspecified; E83.42 Hypomagnesemia; E11.42 Type 2 diabetes mellitus with diabetic polyneuropathy; K80.20 Calculus of gallbladder without cholecystitis without obstruction; B95.2 Enterococcus as the cause of diseases classified elsewhere; N40.0 Benign prostatic hyperplasia without lower urinary tract symptoms; F17.210 Nicotine dependence, cigarettes, uncomplicated; Z20.822 Contact with and (suspected) exposure to COVID-19; Z11.52 Encounter for screening for COVID-19; Z79.4 Long term (current) use of insulin
CPT/HCPCS: 36415; 70450; 71045; 71260; 74177; 80048; 80053; 81001; 82550; 82607; 82728; 82746; 82948; 83036; 83540; 83550; 83605; 83690; 83735; 84145; 84443; 84484; 85025; 85027; 85610; 85730; 87040; 87086; 87181; 87186; 87635; 87637; 93005; 96361; 96365; 96367; 96375; 97165; 99285; A9270; G0378; J0696; J1815; J3475; J7042; Q9967